=== PATIENT | female | born 1995 | race Caucasian/White ===

== ENCOUNTER 2016-11-26 15:40 | Emergency (ER) | payer OTHER ==
[~2016-11-26 15:40] MED LIST: ATR25 PO; FLUO20CA36 PO; IBUP-1050 PO
[2016-11-26 15:46] VITALS: TEMP 36.9; Ht 160 cm
[2016-11-26] MEDS ORDERED: SODIUM CHLORIDE 0.9% 1000ML 1,000 ML IV STA (16:07)
[2016-11-26] MEDS ORDERED: HYDR-3126 PO (16:28)
[2016-11-26] MEDS ORDERED: FLUO10CA24 PO (16:28)
[2016-11-26] MEDS ORDERED: FLUO20TA27 PO (16:28)
[2016-11-26 16:44] VITALS: O2SAT 100
[2016-11-26 17:10] LABS: BASO % 0.4 %; BASO ABS # 0.03 K/uL (0-0.2); COMPLETE YES; EOS % 0.8 %; HEMATOCRIT 36.9 % (37-47); IG% 0.1 %; LYMPH % 22.3 %; LYMPH ABS # 1.74 K/uL (1.2-3.4); MEAN CELL VOLUME 90.2 fL (80-100); MEAN CORPUSCULAR HEMOGLOBIN 30.6 pg (25-34); MEAN CORPUSCULAR HGB CONC 33.9 g/dl (32-36); MEAN PLATELET VOLUME 9.5 fL (7.4-10.4); MONO % 5.1 %; NEUT % 71.3 %; PLATELET COUNT 197 K/uL (130-400); RED BLOOD COUNT 4.09 M/uL (4.2-5.4)
[2016-11-26 17:17] LABS: ALT/SGPT 14 U/L (12-78); BLOOD UREA NITROGEN 18 mg/dl (7-18); BUN/CREATININE RATIO 10.5 (10-20); CALCIUM 8.7 mg/dl (8.5-10.1); CARBON DIOXIDE 23 mmol/L (21-32); CHLORIDE 107 mmol/L (98-107); GLUCOSE 76 mg/dl (70-99); POTASSIUM 3.6 mmol/L (3.5-5.1); SODIUM 140 mmol/L (136-145)
[2016-11-26 17:18] LABS: INR 1.1 (0.9-1.1); PROTHROMBIN TIME (PATIENT) 11.4 SECONDS (9.0-12.0)
[2016-11-26 17:20] LABS: ALKALINE PHOSPHATASE 57 U/L (45-117); AST/SGOT 14 U/L (15-37)
[2016-11-26 17:21] LABS: URINE APPEARANCE CLEAR (CLEAR); URINE BILIRUBIN NEG (NEG); URINE COLOR YELLOW; URINE NITRITE NEG (NEG); UROBILINOGEN NEG (NEG)
[2016-11-26 17:28] LABS: MANUAL MICROSCOPIC REQUIRED? NO; REVIEW REQ? NO
[2016-11-26 17:51] LABS: BENZODIAZEPINE, URINE NEG (NEG); COCAINE,URINE NEG (NEG); PHENCYCLIDINE, URINE NEG (NEG)
[2016-11-26] MEDS ORDERED: LEVO50TA6 PO (17:52)
[2016-11-26 18:37] VITALS: BP 111/47; PULSE 68; O2SAT 100
--- NOTE | 2016-11-26 21:45 | EMERGENCY ROOM VISIT NOTE ---
History Report prepared by Ryan: Mauri Carlson Under the Supervision of: Dr. Martin Priest D.O. First contact with patient: 15:51 Chief Complaint: DIZZY Stated Complaint: SHAKING, NAUSEA, DIZZY, NUMBNESS Nursing Triage Summary: Pt was released from the [facility] at the end of Oct. Pt stated that her medication was adjusted. Pt stated that since her medication was changes she has been dizzy, shaky and feels like a zombie. History of Present Illness The patient is a 21 year old female who presents to the Emergency Room with complaints of tremors and numbness beginning about 2 weeks ago. She notes she was released from the [facility] at the end of October 2016 and that her dosage of Vistaril increased prior to leaving. She was at the [facility] because of having suicidal ideations. Since the increase in dosage, she notes having tremors and numbness in her palms and all fingers bilaterally and in her face. She denies having any tremors prior to her dosage of Vistaril being increased. She admits to having nausea and dizziness, and denies any headache, chest pain, shortness of breath, vomiting, diarrhea, or vaginal bleeding or discharge. No fevers greater than 100.4. Source of History: patient Onset: about 2 weeks ago Position: hand (bilateral), finger(s), other (face) Quality: numbness, other (tremors) Timing: other (persistent) Associated Symptoms: + nausea, No SOB, No chest pain, No diarrhea, No headache, No vomiting Note: The patient notes having dizziness. The patient denies having any vaginal bleeding or discharge. Review of Systems See HPI for pertinent positives & negatives. A total of 10 systems reviewed and were otherwise negative. Past Medical & Surgical Medical Problems: (1) Borderline personality disorder (2) Cannabis abuse (3) Hypothyroid (4) Kidney disease (5) Past Psych Meds (6) PTSD (post-traumatic stress disorder) (7) Visual impairment Social History Problems: (1) Sexually active Family History No pertinent family history Social History Smoking Status: Never Smoker Marital Status: single Housing Status: lives with family Occupation Status: employed Current/Historical Medications Scheduled Fluoxetine HCl (Fluoxetine HCl), 10 MG PO QAM Fluoxetine HCl (Pmdd) (Fluoxetine HCl), 20 MG PO QAM Levothyroxine Sodium (Levothyroxine Sodium), 50 MCG PO QAM Scheduled PRN Hydroxyzine Hcl (Atarax), 50 MG PO Q4H PRN for Anxiety Allergies Coded Allergies: Lamotrigine (Verified Allergy, Unknown, itchy, 10/16/16) Physical Exam Vital Signs Date Time Temp Pulse Resp B/P Pulse Ox O2 Delivery O2 Flow Rate FiO2 11/26/16 18:37 68 16 111/47 100 Room Air 11/26/16 17:54 67 16 113/63 100 Room Air 11/26/16 17:09 69 11/26/16 16:44 100 Room Air 11/26/16 15:46 36.9 82 18 114/80 100 Room Air Pain Rating (0-10): 0 Physical Exam GENERAL: Sitting in bed; cachectic no acute distress, nontoxic. EYE EXAM: normal conjunctiva, PERRL OROPHARYNX: no exudate, no erythema, lips, buccal mucosa, and tongue normal and mucous membranes are moist NECK: supple, no nuchal rigidity, no adenopathy, non-tender LUNGS: Clear to auscultation. Normal chest wall mechanics HEART: no murmurs, S1 normal and S2 normal ABDOMEN: abdomen soft, non-tender, normo-active bowel sounds, no masses, no rebound or guarding. BACK: Back is symmetrical on inspection and there is no deformity, no midline tenderness, no CVA tenderness. SKIN: no rashes and no bruising UPPER EXTREMITIES: upper extremities are grossly normal. LOWER EXTREMITIES: No pitting edema. NEURO EXAM: Intermittent resting tremor which resolves when distracted. Cranial nerves II-12 are intact. No weakness of the upper or lower extremity is. Finger to nose intact are intact. Rapid alternating movements of the upper extremities are intact. no clonus Medical Decision & Procedures Laboratory Results 11/26/16 16:52 Red Blood Count 4.09, Mean Corpuscular Volume 90.2, Mean Corpuscular Hemoglobin 30.6, Mean Corpuscular Hemoglobin Concent 33.9, Mean Platelet Volume 9.5, Neutrophils (%) (Auto) 71.3, Lymphocytes (%) (Auto) 22.3, Monocytes (%) (Auto) 5.1, Eosinophils (%) (Auto) 0.8, Basophils (%) (Auto) 0.4, Neutrophils # (Auto) 5.56, Lymphocytes # (Auto) 1.74, Monocytes # (Auto) 0.40, Eosinophils # (Auto) 0.06, Basophils # (Auto) 0.03 11/26/16 16:52 Test 11/26/16 16:45 11/26/16 16:52 Urine Color YELLOW Urine Appearance CLEAR (CLEAR) Urine pH 6.0 (4.5-7.5) Urine Specific [place] 1.010 (1.000-1.030) Urine Protein NEG (NEG) Urine Glucose (UA) NEG (NEG) Urine Ketones NEG (NEG) Urine Occult Blood NEG (NEG) Urine Nitrite NEG (NEG) Urine Bilirubin NEG (NEG) Urine Urobilinogen NEG (NEG) Urine Leukocyte Esterase NEG (NEG) Urine Test NEG (NEG) Urine Opiates Screen NEG (NEG) Urine Methadone, Qualitative NEG (NEG) Urine Barbiturates NEG (NEG) Urine Phencyclidine (PCP) Level NEG (NEG) Ur Amphetamine/Methamphetamine NEG (NEG) MDMA (Ecstasy) Screen NEG (NEG) Urine Benzodiazepines Screen NEG (NEG) Urine Cocaine Metabolite NEG (NEG) Urine Marijuana (THC) NEG (NEG) White Blood Count 7.80 K/uL (4.8-10.8) Red Blood Count 4.09 M/uL (4.2-5.4) Hemoglobin 12.5 g/dL (12.0-16.0) Hematocrit 36.9 % (37-47) Mean Corpuscular Volume 90.2 fL (80-100) Mean Corpuscular Hemoglobin 30.6 pg (25-34) Mean Corpuscular Hemoglobin Concent 33.9 g/dl (32-36) Platelet Count 197 K/uL (130-400) Mean Platelet Volume 9.5 fL (7.4-10.4) Neutrophils (%) (Auto) 71.3 % Lymphocytes (%) (Auto) 22.3 % Monocytes (%) (Auto) 5.1 % Eosinophils (%) (Auto) 0.8 % Basophils (%) (Auto) 0.4 % Neutrophils # (Auto) 5.56 K/uL (1.4-6.5) Lymphocytes # (Auto) 1.74 K/uL (1.2-3.4) Monocytes # (Auto) 0.40 K/uL (0.11-0.59) Eosinophils # (Auto) 0.06 K/uL (0-0.5) Basophils # (Auto) 0.03 K/uL (0-0.2) RDW Standard Deviation 43.4 fL (36.4-46.3) RDW Coefficient of Variation 13.2 % (11.5-14.5) Immature Granulocyte % (Auto) 0.1 % Immature Granulocyte # (Auto) 0.01 K/uL (0.00-0.02) Prothrombin Time 11.4 SECONDS (9.0-12.0) Prothromb Time International Ratio 1.1 (0.9-1.1) Activated Partial Thromboplast Time 26.4 SECONDS (21.0-31.0) Partial Thromboplastin Ratio 1.0 Anion Gap 10.0 mmol/L (3-11) Estimated GFR () 48.4 Estimated GFR (Non- 41.8 BUN/Creatinine Ratio 10.5 (10-20) Calcium Level 8.7 mg/dl (8.5-10.1) Total Bilirubin 0.6 mg/dl (0.2-1) Direct Bilirubin 0.1 mg/dl (0-0.2) Aspartate Amino Transf (AST/SGOT) 14 U/L (15-37) Alanine Aminotransferase (ALT/SGPT) 14 U/L (12-78) Alkaline Phosphatase 57 U/L (45-117) Total Creatine Kinase 65 U/L (26-192) Total Protein 7.3 gm/dl (6.4-8.2) Albumin 3.9 gm/dl (3.4-5.0) Lipase 150 U/L (73-393) Laboratory results per my review. Medications Administered Medications (Trade) Dose Ordered Sig/Evie Route Start Time Stop Time Status Last Admin Dose Admin Sodium Chloride (Nss 1000ml) 1,000 ml @ 999 mls/hr Q1H1M STAT IV 11/26/16 16:07 11/26/16 17:07 DC 11/26/16 17:02 999 MLS/HR ECG Indication: weakness Rate (beats per minute): 68 Rhythm: sinus rhythm Findings: no ectopy, other (normal axis) ED Course ED COURSE: Vital signs were reviewed and showed normal. The patients medical record was reviewed The above diagnostic studies were performed and reviewed. ED treatments and interventions as stated above. 1607: Ordered NSS 1,000 ml @ 999 mls/hr IV. 1619: The patient was evaluated in room B10. A complete history and physical examination was performed. 174: The patient decline a CT of the head. 1830: Upon reevaluation, the patient is hemodynamically stable.I discussed my findings with the patient and she understands and agrees with the treatment plan. Based on the patients age, coexisting illnesses, exam and lab findings the decision to treat as an outpatient was made. The patient remained stable while under my care. The patient appeared well at the time of discharge. Medical Decision Differential Diagnosis includes but is not limited to dehydration, stroke, anemia, hypoglycemia, hyponatremia, hypernatremia, urinary tract infection, pneumonia, bronchitis, sepsis, gastroenteritis, additional abdominal pathology, metabolic abnormalities and infections. Patient is a 21-year-old female who presents the ER for lightheadedness along with a resting tremor. She was discharged from the [facility] just before and has been on Prozac started Vistaril and Remeron. She notes that she has been feeling more foggy and has been having worsening resting tremor. Completely neurologically intact. No cerebellar symptoms. She denies any chest pain or shortness of breath. CBC was unremarkable. BMP shows a creatinine 1.7 off of a baseline of 1.4. CK was normal. Lipase was normal. Bilirubin and LFTs were unremarkable. UA was negative. Urine was negative. Drug screen was negative. Recommended CT head but patient declined health is reasonable. She was given a bolus of saline. Tremor resolved when she was distracted. There is no signs of clonus. I do favor that this could be related to the Prozac which has attended 15% incidence of tremor and Vistaril only has a 1-2%. She has an appointment with her psychiatrist this . Recommended no driving or standing on ladders. I do favor that this is likely to medications. Discussed with Pt concerning signs and symptoms to watch out for. Pt was instructed to follow up with their PCP and discussed with the patient their option to return to the ED at anytime for persistent or worsening symptoms. The appropriate anticipatory guidance and out-patient management, including indications for return to the emergency department, were explained at length to the patient and understood. Impression Primary Impression: Tremor Additional Impression: Dizzy Scribe Attestation The scribe's documentation has been prepared under my direction and personally reviewed by me in its entirety. I confirm that the note above accurately reflects all work, treatment, procedures, and medical decision making performed by me. Departure Information Dispostion Home / Self-Care Forms HOME CARE DOCUMENTATION FORM, IMPORTANT VISIT INFORMATION Patient Instructions My [facility], ED Dizziness [facility] Additional Instructions Please follow up with your primary care doctor with in the next 24 hours. Any worsening of your symptoms, please return to the ED immediately. Leads do not drive for the next 24 hours or until your symptoms resolved. Any fevers greater than 100.4, persistent nausea vomiting, abdominal pain, or any other concerning signs or symptoms please return to the ER. Please discuss with her psychiatrist John Panchal and Vistaril association with tremors. Problem Qualifiers
== END 2016-11-26 18:38 | disposition home or self-care (01) ==
LOC: C.EDB 15:41
DX: R25.1 Tremor, unspecified (principal); R42 Dizziness and giddiness; F60.3 Borderline personality disorder; F43.10 Post-traumatic stress disorder, unspecified; E03.9 Hypothyroidism, unspecified; Z79.899 Other long term (current) drug therapy; R64 Cachexia

== ENCOUNTER 2017-03-04 15:26 | Emergency (ER) | payer OTHER ==
[~2017-03-04] VITALS: Ht 160 cm; Wt 39.6 kg
[~2017-03-04 15:26] MED LIST changes: -ATR25 PO; +FLUO10CA24 PO; -FLUO20CA36 PO; +FLUO20TA27 PO; +HYDR-3126 PO; -IBUP-1050 PO; +LEVO50TA6 PO
[2017-03-04 15:37] VITALS: TEMP 37.1; Ht 160 cm; Wt 39.6 kg
[2017-03-04] MEDS ORDERED: LEVO75TA5 PO (15:52)
[2017-03-04] MEDS ORDERED: MIRT15TA3 PO (15:52)
[2017-03-04] MEDS ORDERED: FLUO20CA36 PO (15:56)
[2017-03-04] MEDS ORDERED: SRQ25 PO (15:58)
[2017-03-04] MEDS ORDERED: QUET1TAB91 PO (16:18)
--- NOTE | 2017-03-04 16:29 | EMERGENCY ROOM VISIT NOTE ---
History Report prepared by Ryan: Yohana Huber Under the Supervision of: Dr. Huseyin Chery D.O. First contact with patient: 15:41 Chief Complaint: MENTAL HEALTH EVALUATION Stated Complaint: BIPOLAR ISSUES History of Present Illness The patient is a 21 year old female who presents to the Emergency Room with complaints of persistent mental health issues starting 2 weeks ago. She has been on 25 mg Seroquel daily for the past 1.5 months for bipolar. She ran out of her medications 2 weeks ago and states that no doctor will refill her prescription. She was being treated at [facility], but her case was closed for 90 days after she missed her follow up appointments due to work. Her PCP refilled all her other prescriptions, but is unable to refill her Seroquel. She denies any thoughts of hurting herself or others. She denies any auditory hallucination. She denies any drug or alcohol use. She has a history of kidney problems. She has had her tonsils and adenoids removed. 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 Source of History: patient Onset: 2 weeks ago Position: other (mental health) Quality: other (bipolar medication refill) Timing: other (persistent) Note: Pt denies thoughts of hurting herself or others, auditory hallucinations. Review of Systems See HPI for pertinent positives & negatives. A total of 10 systems reviewed and were otherwise negative. Past Medical & Surgical Medical Problems: (1) Borderline personality disorder (2) Cannabis abuse (3) Hypothyroid (4) Kidney disease (5) Past Psych Meds (6) PTSD (post-traumatic stress disorder) (7) Visual impairment Social History Problems: (1) Sexually active Family History Diabetes mellitus Seizures Social History Smoking Status: Former Smoker Marital Status: single Housing Status: lives with family Occupation Status: employed Current/Historical Medications Scheduled Fluoxetine HCl (Fluoxetine HCl), 20 MG PO QAM Levothyroxine Sodium (Levothyroxine Sodium), 75 MCG PO QAM Mirtazapine (Remeron), 15 MG PO HS Quetiapine Fumarate (Quetiapine Fumarate), 25 MG PO DAILY Quetiapine Fumarate (Seroquel), 25 MG PO DAILY Scheduled PRN Hydroxyzine Hcl (Atarax), 50 MG PO Q4H PRN for Anxiety Allergies Coded Allergies: Lamotrigine (Verified Allergy, Unknown, itchy, 03/04/17) Physical Exam Vital Signs Date Time Temp Pulse Resp B/P Pulse Ox O2 Delivery O2 Flow Rate FiO2 03/04/17 17:00 76 18 139/70 98 03/04/17 15:37 37.1 88 20 128/74 98 Room Air Physical Exam GENERAL: Patient is awake, alert, and mildly anxious and guarded. She does not appear to be in pain. EYES: The conjunctivae are clear. The pupils are round and reactive. EARS, NOSE, MOUTH AND THROAT: The nose is without any evidence of any deformity. Mucous membranes are moist tongue is midline NECK: The neck is nontender and supple. RESPIRATORY: Normal respiratory effort is noted there is no evidence of wheezing rhonchi or rales CARDIOVASCULAR: Regular rate and rhythm noted there no murmurs rubs or gallops normal S1 normal S2 GASTROINTESTINAL: The abdomen is soft. Bowel sounds are present in all quadrants. Abdomen is nontender MUSCULOSKELETAL/EXTREMITIES: There is no evidence of gross deformity full range of motion is noted in the hips and shoulders SKIN: There is no obvious evidence of any rash. There are no petechiae, pallor or cyanosis noted. NEUROLOGIC: Patient is awake alert and oriented x3 strength is symmetric patellar reflexes are 2+ bilaterally PSYCH: Mildly anxious appearing, affect was normal, currently denies SI or HI. Medical Decision & Procedures ED Course 1550: The patient was evaluated in room A5. A complete history and physical examination were performed. 1709: Upon reevaluation, the patient is resting comfortably. I discussed the results and treatment plan with her. She verbalized agreement of the treatment plan. She was discharged home. Medical Decision Prior records/ancillary studies reviewed. Triage Nursing notes reviewed. The patient's history was concerning for possible psychiatric disturbance. Differential diagnosis: Etiologies such as mood disorder, infection, hypoglycemia, electrolyte abnormalities, cardiac sources, intracerebral event, toxicologic, neurologic, as well as others were entertained. The patient is a 21-year-old female who presented to the emergency department for an evaluation of mental health problems. Patient is currently controlled well on Seroquel and other medications but she ran out of her Seroquel 2 weeks ago. Unfortunately she's having trouble following up with her primary therapist because she has missed appointments. Currently she is on a hold for 90 days. The patient does not meet any criteria for inpatient psychiatric care at this time. I've chosen to refill her Seroquel prescription. She was evaluated by the mental health employment case manager. Metabolic employment case manager to try to call her primary therapist but we were unable to get her an appointment. She was given information for other outpatient follow-up and was encouraged to continue all medications as prescribed. She was also encouraged to follow-up as soon as possible with her primary therapist. She was also encouraged to call crisis or return to the emergency department immediately if symptoms change worsen or the need arises. Impression Primary Impression: Medication refill Additional Impression: Bipolar disorder Scribe Attestation The scribe's documentation has been prepared under my direction and personally reviewed by me in its entirety. I confirm that the note above accurately reflects all work, treatment, procedures, and medical decision making performed by me. Departure Information Dispostion Home / Self-Care Prescriptions Quetiapine Fumarate (SEROQUEL) 25 Mg Tab 25 MG PO DAILY, #30 TAB Prov: Huseyin Cehry, 03/04/17 Referrals Nina Ricardo D.O. (PCP) Forms HOME CARE DOCUMENTATION FORM, IMPORTANT VISIT INFORMATION, School Instructions, Work Instructions Patient Instructions My [facility] Additional Instructions CONTINUE ALL MEDICATIONS PRESCRIBED. Follow up with your therapist as scheduled. Call crisis or return to the ER if symptoms worsen or if the need arises Problem Qualifiers
[2017-03-04 17:00] VITALS: BP 139/70; PULSE 76; O2SAT 98
== END 2017-03-04 17:38 | disposition home or self-care (01) ==
LOC: C.EDB 15:30 → C.EDA 17:38
DX: Z76.0 Encounter for issue of repeat prescription (principal); F31.9 Bipolar disorder, unspecified; F60.3 Borderline personality disorder; E03.9 Hypothyroidism, unspecified; N28.9 Disorder of kidney and ureter, unspecified; F43.10 Post-traumatic stress disorder, unspecified; F12.10 Cannabis abuse, uncomplicated; Z83.3 Family history of diabetes mellitus; Z87.891 Personal history of nicotine dependence; H54.40 Blindness, one eye, unspecified eye; Z79.899 Other long term (current) drug therapy

== ENCOUNTER 2017-04-06 00:52 | Emergency (ER) | payer OTHER ==
[~2017-04-06] VITALS: Ht 160 cm; Wt 41.0 kg
[~2017-04-06 00:52] MED LIST changes: -FLUO10CA24 PO; +FLUO20CA36 PO; -FLUO20TA27 PO; -LEVO50TA6 PO; +LEVO75TA5 PO; +MIRT15TA3 PO; +QUET1TAB91 PO; +SRQ25 PO
[2017-04-06 00:59] VITALS: Ht 160 cm; Wt 41.0 kg
[2017-04-06] MEDS ORDERED: HYDROCODONE/ACETAMOPHEN 5/325MG TAB PO ONE (01:15)
--- NOTE | 2017-04-06 01:25 | DIAGNOSTIC IMAGING REPORT ---
RIGHT FOOT 3 VIEWS CLINICAL HISTORY: Right foot injury. FINDINGS: 3 views of the right foot are obtained. No prior studies are available for comparison at the time of dictation. The skeletal structures are well mineralized. No fracture is seen. The joint spaces of the foot are well-maintained. The overlying soft tissues are within normal limits. IMPRESSION: Unremarkable radiographic assessment of the right foot. Electronically signed by: Juliano Toussaint M.D. 04/06/2017 1:24 AM Dictated Date/Time: 04/06/2017 1:23 AM
[2017-04-06] MEDS ORDERED: NORCO 5/325MG HOME PACK PO ONE (01:45)
[2017-04-06] MEDS ORDERED: LEVO75TA5 PO (01:52)
[2017-04-06] MEDS ORDERED: FLUO20CA35 PO (01:52)
[2017-04-06] MEDS ORDERED: MIRT15TA3 PO (01:52)
[2017-04-06] MEDS ORDERED: SRQ/100 PO (01:52)
[2017-04-06] MEDS ORDERED: HYDR-3126 PO (01:52)
[2017-04-06 02:19] VITALS: BP 115/78; PULSE 98; TEMP 36.9; O2SAT 97
--- NOTE | 2017-04-06 04:40 | EMERGENCY ROOM VISIT NOTE ---
ED Visit Note First contact with patient: 01:03 CHIEF COMPLAINT: Foot pain HISTORY OF PRESENT ILLNESS: This 20-year-old female patient presents to the emergency department complaining of swelling and pain in the right foot at rest and worse with weight bearing. The patient states that she was at work, and was lowering a skid down off a truck, when it landed on top of her foot. The patient rates the pain as dull and 6/10. The patient has taken nothing relief of the pain. The patient is able to walk. No numbness or weakness. No ankle pain. There are no lacerations of the foot. The patient is able to move all of their toes and their ankle without pain. No previous fracture to this foot. REVIEW OF SYSTEMS: GENERAL: A 6 system review of systems was completed with positives and pertinent negatives in the HPI. ALLERGIES: Lamotrigine MEDICATIONS: See EMR PMH: See EMR SOCIAL HISTORY: Employed and lives locally PHYSICAL EXAM: Vital Signs: Reviewed Nurse's notes, vital signs stable. GENERAL : White female, in no acute distress, but appears in pain, well-developed, well- nourished. MUSCULOSKELATAL: There is no visual deformity of the right foot. There is no erythema and not ecchymosis. There is no warmth. There is tenderness and swelling over the lateral midfoot. There is no tenderness over the lateral or medial malleolus. No tenderness of the tib/fib. The range of motion of the foot is not limited secondary to pain. There is no tenderness over the plantar fascia. The skin is intact and there are no lacerations or puncture wounds. Dorsalis pedis pulse 2+. Capillary refill less than 2 seconds. RIGHT FOOT 3 VIEWS CLINICAL HISTORY: Right foot injury. FINDINGS: 3 views of the right foot are obtained. No prior studies are available for comparison at the time of dictation. The skeletal structures are well mineralized. No fracture is seen. The joint spaces of the foot are well-maintained. The overlying soft tissues are within normal limits. IMPRESSION: Unremarkable radiographic assessment of the right foot. EMERGENCY DEPARTMENT COURSE: Physical exam and history were performed. Nursing notes and EMR were reviewed. The patient appears to have injured herself at work. X-rays were obtained and do not show evidence of acute fracture or dislocation. The patient was placed in a postop shoe and given crutches. She will be given a short course of pain medication. She is to follow with workman' s compensation for ongoing care and evaluation. She was otherwise invited back to the ER with any new, worsening, or concerning symptoms Problem List Medical Problems: (1) Borderline personality disorder Status: Chronic (2) Cannabis abuse Status: Chronic (3) Hypothyroid Status: Chronic (4) Kidney disease Status: Chronic (5) Visual impairment Status: Chronic Current/Historical Medications Scheduled Fluoxetine (Prozac), 20 MG PO DAILY Hydroxyzine Hcl (Atarax), 50 MG PO TID Levothyroxine Sodium (Levothyroxine Sodium), 1 TAB PO DAILY Mirtazapine (Remeron), 15 MG PO HS Quetiapine Fumarate (Seroquel), 100 MG PO HS Allergies Coded Allergies: Lamotrigine (Verified Allergy, Unknown, itchy, 04/06/17) Vital Signs Date Time Temp Pulse Resp B/P (MAP) Pulse Ox O2 Delivery O2 Flow Rate FiO2 04/06/17 02:19 36.9 98 16 115/78 97 04/06/17 02:18 98 16 115/78 97 Room Air 04/06/17 00:59 36.9 99 16 130/63 97 Room Air Medications Administered Medications (Trade) Dose Ordered Sig/Evie Route Start Time Stop Time Status Last Admin Dose Admin Acetaminophen/ Hydrocodone Bitart ([place] 5/325 Tab) 1 tab NOW ONCE PO 04/06/17 01:15 04/06/17 01:16 DC 04/06/17 01:28 1 TAB Acetaminophen/ Hydrocodone Bitart ([place] 5/325mg Home Pack) 1 homepack UD ONCE PO 04/06/17 01:45 04/06/17 01:46 DC 04/06/17 01:54 1 HOMEPACK Departure Information Impression Primary Impression: Injury of right foot Dispostion Home / Self-Care Condition GOOD Forms HOME CARE DOCUMENTATION FORM, IMPORTANT VISIT INFORMATION Patient Instructions My [facility] Additional Instructions You were seen and evaluated today on an emergency basis only. This is not a substitute for, or an effort to provide, complete comprehensive medical care. It is not possible to recognize and treat all injuries or illnesses in a single emergency department visit. For this reason it is recommended that you followup with your Workmen's Compensation provider this week for ongoing care and evaluation. For baseline pain relief you may alternate ibuprofen and acetaminophen every 4 hours for pain control. Take 400 mg ibuprofen (Advil) and then 4 hours later take 650 mg acetaminophen (Tylenol). Do not take more than 3000 mg acetaminophen in a single day. [place] (hydrocodone/acetaminophen) 5/325 mg every 6 hours as needed for worsening breakthrough pain. Do not drink or drive on [place]. This medication will likely make you tired. Do not take [place] and Tylenol at the same time as both contain acetaminophen. [place] may cause constipation. You may wish to take an [id number] stool softener like Colace if this occurs. Wear your postop shoe and use your crutches for additional relief of symptoms. You are welcome to return to the emergency department anytime with new, worsening, or concerning symptoms.
== END 2017-04-06 02:21 | disposition home or self-care (01) ==
LOC: C.EDB 00:53 → C.EDA 02:21
DX: S99.921A Unspecified injury of right foot, initial encounter (principal); M79.89 Other specified soft tissue disorders; E03.9 Hypothyroidism, unspecified; N18.9 Chronic kidney disease, unspecified; F60.3 Borderline personality disorder; Z79.899 Other long term (current) drug therapy; W22.8XXA Striking against or struck by other objects, initial encounter; Y99.0 Civilian activity done for income or pay

== ENCOUNTER 2018-06-08 21:12 | Emergency (ER) | payer OTHER ==
[~2018-06-08] VITALS: Ht 160 cm; Wt 51.8 kg
[~2018-06-08 21:12] MED LIST changes: +ACET-1256 PO; +FLUO10CA48 PO; +FLUO20CA35 PO; -FLUO20CA36 PO; -QUET1TAB91 PO; +SRQ/100 PO; -SRQ25 PO
[2018-06-08 21:17] VITALS: TEMP 36.8; Ht 160 cm; Wt 51.8 kg
[2018-06-08] MEDS ORDERED: KETOROLAC TROMETHAMINE 30 MG/ML VIAL IV STA (21:34)
[2018-06-08] MEDS ORDERED: DiphenhydrAMINE HCL 50 MG/ML VIAL IV STA (21:34)
[2018-06-08] MEDS ORDERED: PROCHLORPERAZINE 5 MG/ML 2 ML VIAL IV STA (21:34)
[2018-06-08] MEDS ORDERED: SODIUM CHLORIDE 0.9% 1000ML 1,000 ML IV ONE (21:45)
[2018-06-08] MEDS ORDERED: DEXAMETHASONE **PF** INJ 10 MG/ML VIAL IV ONE (21:45)
[2018-06-08] MEDS ORDERED: DEXAMETHASONE SOD INJ 10 MG/ML VIAL ONE (21:46)
[2018-06-08 22:48] VITALS: BP 120/59; PULSE 82; O2SAT 99
--- NOTE | 2018-06-09 03:13 | EMERGENCY ROOM VISIT NOTE ---
History First contact with patient: 21:28 Chief Complaint: HEADACHE Stated Complaint: MIGRAINE,FEVER,NAUSEA,VOMITING History of Present Illness The patient is a 23 year old female who presents to the Emergency Room with complaints of migraine headache symptoms that began earlier this morning. The patient is nauseated and does report one episode of emesis. She has had migraine headaches in the past, and this feels similar to her bad headaches. She does not have vision changes, lightheadedness, dizziness, neck pain, chest pain, chest tightness, or shortness of breath. She has difficulty seeing specialist with her insurance, and was never seen neurology. She does have an appointment in a few weeks with her primary care physician. Patient did take [id number] pain medication without any relief of symptoms. She rates her current pain a 9/10. She denies chance of . Review of Systems More than 10 systems were reviewed and otherwise negative with the exception of history of present illness. Past Medical/Surgical History Medical Problems: (1) Borderline personality disorder (2) Cannabis abuse (3) Hypothyroid (4) Kidney disease (5) Past Psych Meds (6) PTSD (post-traumatic stress disorder) (7) Visual impairment Social History Problems: (1) Sexually active Family History Diabetes mellitus Seizures Social History Smoking Status: Never Smoker Marital Status: single Housing Status: lives with family Occupation Status: employed Current/Historical Medications Scheduled Fluoxetine (Prozac), 20 MG PO DAILY Fluoxetine (Prozac), 10 MG PO DAILY Hydroxyzine Hcl (Atarax), 50 MG PO TID Levothyroxine Sodium (Levothyroxine Sodium), 75 MCG PO DAILY Mirtazapine (Remeron), 15 MG PO HS Quetiapine Fumarate (Seroquel), 100 MG PO HS Scheduled PRN Acetaminophen (Tylenol), 1,000 MG PO Q6H PRN for Headache or Pain Physical Exam Vital Signs Date Time Temp Pulse Resp B/P (MAP) Pulse Ox O2 Delivery O2 Flow Rate FiO2 06/08/18 22:48 82 18 120/59 99 06/08/18 22:13 80 14 129/63 100 Room Air 06/08/18 21:17 36.8 78 16 129/82 98 Room Air Physical Exam VITALS: Vitals are noted on the nurse's note and reviewed by myself. Vital signs stable. GENERAL: Well-developed, well-nourished, white female who appears uncomfortable but nontoxic. EYES: Pupils equal round and reactive to light and accommodation. Conjunctivae without injection, sclerae without icterus. Extraocular movements intact. NOSE: Patent, turbinates without inflammation or discharge. MOUTH: Mucous membranes moist. Tonsils are not enlarged. Pharynx without erythema, blood, or exudate. Uvula midline. Airway patent. NECK: Supple without nuchal rigidity. No lymphadenopathy. No thyromegaly. Cervical spine is nontender. No meningismus HEART: Regular rate and rhythm without murmurs gallops or rubs. LUNGS: Clear to auscultation bilaterally without wheezes, rales or rhonchi. No retractions or accessory muscle use. MUSCULOSKELETAL: No muscle atrophy, erythema, or edema noted. Full range of motion in all extremities. NEURO: Patient was alert and oriented to person place and time. CN II through XII grossly intact. No focal neurological deficits. Medical Decision & Procedures Medications Administered Medications (Trade) Dose Ordered Sig/Evie Route Start Time Stop Time Status Last Admin Dose Admin Diphenhydramine HCl (Benadryl Inj) 25 mg NOW STAT IV 06/08/18 21:34 06/08/18 21:36 DC 06/08/18 22:03 25 MG Prochlorperazine Edisylate (Compazine Inj) 10 mg NOW STAT IV 06/08/18 21:34 06/08/18 21:36 DC 06/08/18 22:04 10 MG Ketorolac Tromethamine (Toradol Inj) 15 mg NOW STAT IV 06/08/18 21:34 06/08/18 21:36 DC 06/08/18 22:03 15 MG Sodium Chloride 1,000 ml @ 999 mls/hr Q1H1M ONCE IV 06/08/18 21:45 06/08/18 22:45 DC 06/08/18 22:01 999 MLS/HR Dexamethasone Sodium Phosphate (Decadron Inj) 10 mg STK-MED ONCE .ROUTE 06/08/18 21:46 06/08/18 21:47 DC 06/08/18 22:03 10 MG ED Course Physical exam and history were performed. Nursing notes, EMR, and Medication List were personally reviewed. Patient appears to have headache symptoms bring her to the emergency department today. She has had similar symptoms like this in the past, and this feels like her previous bad migraines. The patient is without signs of meningitis or encephalitis. IV access was established and the patient was given 1 L IV saline , 50 mg IV Toradol, 10 mg IV Decadron, 25 mg IV Benadryl, and 10 mg IV. The patient was monitored over the course of the next hour and had almost complete resolution of her symptoms. Overall she is felt well for discharge. The patient was asked to follow-up with her primary care physician for further management. The patient was discharged home under the care of her boyfriend who is acting as the truck driver salesperson today. The chart was completed utilizing [employer] Speech Voice Recognition Software. Grammatical errors, random word insertions, pronoun errors, and incomplete sentences are an occasional consequence of this system due to software limitations, ambient noise, and hardware issues. Any formal questions or concerns about the content, text, or information contained within the body of this dictation should be directly addressed to the provider for clarification. . Medical Decision Differential diagnosis: Etiologies such as migraine headache, meningitis, sinusitis, CO exposure, ICH, SAH, infection, tumor, headache, sinus thrombosis, arterial dissection, as well as others were entertained. Impression Primary Impression: Headache Departure Information Dispostion Home / Self-Care Condition GOOD Referrals Nina Ricardo D.O. (PCP) Forms HOME CARE DOCUMENTATION FORM, IMPORTANT VISIT INFORMATION Patient Instructions My [facility] Additional Instructions You were seen and evaluated today on an emergency basis only. This is not a substitute for, or an effort to provide, complete comprehensive medical care. It is not possible to recognize and treat all injuries or illnesses in a single emergency department visit. For this reason it is recommended that you followup with your primary care physician or neurologist this week for ongoing care and evaluation. DO NOT drive, drink alcohol, operate machinery, or perform dangerous activities today. You were given medications in the ER that can affect your ability to safely function or operate a vehicle. Rest today in a quiet, peaceful, dark environment and get a full 8-10 hrs of sleep tonight. Avoid loud noises, smoke/smoking, alcohol, bright lights, stress, or physical exertion today to minimize the chance the headache may return. Continue current medications. Ibuprofen(Motrin, Advil) may be used for fever or pain. Use 600mg every six hours as needed. Take with food. Avoid using more than 2400mg in a 24 hour period. Do not use 2400mg per day for more than three consecutive days without physician direction. Prolonged inappropriate use can lead to stomach upset or ulcers. (AND/OR) Acetaminophen(Tylenol) may be used for fever or pain. Use 1000mg every six hours as needed. Avoid using more than 4000mg in a 24 hour period. Return to the ER for passing out, worsening headache, vision problems, neck stiffness/pain, fevers, vomiting, worsening of your condition, or as needed.
== END 2018-06-08 22:48 | disposition home or self-care (01) ==
LOC: C.EDB 21:13
DX: G43.909 Migraine, unspecified, not intractable, without status migrainosus (principal); F60.3 Borderline personality disorder; F12.10 Cannabis abuse, uncomplicated; E03.9 Hypothyroidism, unspecified; F43.10 Post-traumatic stress disorder, unspecified; Z83.3 Family history of diabetes mellitus; Z82.0 Family history of epilepsy and other diseases of the nervous system; Z79.899 Other long term (current) drug therapy

== ENCOUNTER 2018-06-15 11:39 | Inpatient (IN) | payer OTHER ==
[~2018-06-15] VITALS: Ht 160 cm; Wt 51.1 kg
--- NOTE | 2018-06-15 12:07 | EMERGENCY ROOM VISIT NOTE ---
History Report prepared by Ryan: Elvis Antoine Under the Supervision of: Dr. Martin Priest D.O. First contact with patient: 11:54 Chief Complaint: MENTAL HEALTH EVALUATION Stated Complaint: SUCIDAL THOUGHTS History of Present Illness The patient is a 23 year old female who presents to the Emergency Room with complaints of suicidal thoughts worsening in the past 2 or 3 days. The patient attributes these thoughts to bad relationships and feeling guilty because she "lost out on a good apartment." She notes that this has been an ongoing issue for her in the past 3 years. She reports that she has had thoughts of overdosing on her pills, but states that she has not tried to do this. The patient denies hearing voices or seeing people that are not there. She denies any current physical pain. No other exacerbating or remitting factors. Pt denies headache, change in vision, fevers, chest pain, shortness of breath, nausea, vomiting, diarrhea, and pain with urination. Source of History: patient Onset: worsening since 2 or 3 days ago Position: other (brain) Quality: other (suicidal thoughts) Timing: worsening Associated Symptoms: No headache, No SOB, No nausea, No vomiting, No diarrhea, No urinary symptoms Note: denies hearing voices or seeing people that are not there Review of Systems See HPI for pertinent positives & negatives. A total of 10 systems reviewed and were otherwise negative. Past Medical & Surgical Medical Problems: (1) Borderline personality disorder (2) Cannabis abuse (3) Depression (4) Hypothyroid (5) Kidney disease (6) Past Psych Meds (7) PTSD (post-traumatic stress disorder) (8) Suicidal ideation (9) Visual impairment Social History Problems: (1) Sexually active Family History Diabetes mellitus Seizures Social History Smoking Status: Never Smoker Marital Status: single Housing Status: lives with family Occupation Status: employed Current/Historical Medications Scheduled Aripiprazole (Abilify), 5 MG PO HS Fluoxetine (Prozac), 20 MG PO DAILY Fluoxetine (Prozac), 10 MG PO DAILY Levothyroxine Sodium (Levothyroxine Sodium), 1 TAB PO DAILY Quetiapine Fumarate (Seroquel), 100 MG PO HS Scheduled PRN Acetaminophen (Tylenol), 1,000 MG PO Q6H PRN for Headache or Pain Hydroxyzine Pamoate (Vistaril), 1 CAP PO BID PRN for Anxiety Allergies Coded Allergies: Lamotrigine (Verified Allergy, Unknown, itchy, 06/15/18) Paroxetine (Verified Adverse Reaction, Unknown, Suicidal thoughts, 06/15/18 ) Physical Exam Vital Signs Date Time Temp Pulse Resp B/P (MAP) Pulse Ox O2 Delivery O2 Flow Rate FiO2 06/15/18 13:41 77 14 121/79 99 Room Air 06/15/18 11:49 36.6 90 16 131/83 99 Room Air Physical Exam GENERAL: Sitting up in bed, disheveled-appearing, non-toxic EYE EXAM: normal conjunctiva. OROPHARYNX: no exudate, no erythema, lips, buccal mucosa, and tongue normal and mucous membranes are moist NECK: supple, no nuchal rigidity, no adenopathy, non-tender LUNGS: Clear to auscultation. Normal chest wall mechanics HEART: no murmurs, S1 normal and S2 normal ABDOMEN: abdomen soft, non-tender, normo-active bowel sounds, no masses, no rebound or guarding. BACK: Back is symmetrical on inspection and there is no deformity, no midline tenderness, no CVA tenderness. SKIN: no rashes and no bruising UPPER EXTREMITIES: upper extremities are grossly normal. LOWER EXTREMITIES: No pitting edema. NEURO EXAM: Normal sensorium, cranial nerves II-XII grossly intact, normal speech, no gross weakness of arms, no gross weakness of legs. PSYCH: Admits to suicidal ideation with thoughts of overdosing. Medical Decision & Procedures Laboratory Results 06/15/18 12:16 Red Blood Count 4.09, Mean Corpuscular Volume 90.0, Mean Corpuscular Hemoglobin 29.3, Mean Corpuscular Hemoglobin Concent 32.6, Mean Platelet Volume 9.2, Neutrophils (%) (Auto) 49.0, Lymphocytes (%) (Auto) 34.5, Monocytes (%) (Auto) 10.5, Eosinophils (%) (Auto) 4.2, Basophils (%) (Auto) 0.6, Neutrophils # (Auto ) 4.17, Lymphocytes # (Auto) 2.93, Monocytes # (Auto) 0.89, Eosinophils # (Auto ) 0.36, Basophils # (Auto) 0.05 06/15/18 12:16 Test 06/15/18 12:05 06/15/18 12:16 06/15/18 12:19 06/15/18 12:20 Urine Color YELLOW Urine Appearance TURBID (CLEAR) Urine pH 6.0 (4.5-7.5) Urine Specific [place] 1.013 (1.000-1.030) Urine Protein 1+ (NEG) Urine Glucose (UA) NEG (NEG) Urine Ketones NEG (NEG) Urine Occult Blood NEG (NEG) Urine Nitrite NEG (NEG) Urine Bilirubin NEG (NEG) Urine Urobilinogen NEG (NEG) Urine Leukocyte Esterase NEG (NEG) Urine WBC (Auto) 5-10 /hpf (0-5) Urine RBC (Auto) 0-4 /hpf (0-4) Urine Hyaline Casts (Auto) 1-5 /lpf (0-5) Urine Epithelial Cells (Auto) >30 /lpf (0-5) Urine Bacteria (Auto) 2+ (NEG) Urine Test NEG (NEG) Urine Opiates Screen NEG (NEG) Urine Methadone, Qualitative NEG (NEG) Urine Barbiturates NEG (NEG) Urine Phencyclidine (PCP) Level NEG (NEG) Ur Amphetamine/Methamphetamine NEG (NEG) MDMA (Ecstasy) Screen NEG (NEG) Urine Benzodiazepines Screen NEG (NEG) Urine Cocaine Metabolite NEG (NEG) Urine Marijuana (THC) NEG (NEG) White Blood Count 8.50 K/uL (4.8-10.8) Red Blood Count 4.09 M/uL (4.2-5.4) Hemoglobin 12.0 g/dL (12.0-16.0) Hematocrit 36.8 % (37-47) Mean Corpuscular Volume 90.0 fL (80-100) Mean Corpuscular Hemoglobin 29.3 pg (25-34) Mean Corpuscular Hemoglobin Concent 32.6 g/dl (32-36) Platelet Count 179 K/uL (130-400) Mean Platelet Volume 9.2 fL (7.4-10.4) Neutrophils (%) (Auto) 49.0 % Lymphocytes (%) (Auto) 34.5 % Monocytes (%) (Auto) 10.5 % Eosinophils (%) (Auto) 4.2 % Basophils (%) (Auto) 0.6 % Neutrophils # (Auto) 4.17 K/uL (1.4-6.5) Lymphocytes # (Auto) 2.93 K/uL (1.2-3.4) Monocytes # (Auto) 0.89 K/uL (0.11-0.59) Eosinophils # (Auto) 0.36 K/uL (0-0.5) Basophils # (Auto) 0.05 K/uL (0-0.2) RDW Standard Deviation 46.4 fL (36.4-46.3) RDW Coefficient of Variation 14.1 % (11.5-14.5) Immature Granulocyte % (Auto) 1.2 % Immature Granulocyte # (Auto) 0.10 K/uL (0.00-0.02) Anion Gap 8.0 mmol/L (3-11) Est Creatinine Clear Calc Drug Dose 42.5 ml/min Estimated GFR () 49.9 Estimated GFR (Non- 43.0 BUN/Creatinine Ratio 7.4 (10-20) Calcium Level 8.4 mg/dl (8.5-10.1) Total Bilirubin 0.4 mg/dl (0.2-1) Direct Bilirubin 0.1 mg/dl (0-0.2) Aspartate Amino Transf (AST/SGOT) 13 U/L (15-37) Alanine Aminotransferase (ALT/SGPT) 18 U/L (12-78) Alkaline Phosphatase 65 U/L (45-117) Total Protein 7.5 gm/dl (6.4-8.2) Albumin 3.6 gm/dl (3.4-5.0) Thyroid Stimulating Hormone (TSH) 14.900 uIu/ml (0.300-4.500) Ethyl Alcohol mg/dL < 3.0 mg/dl (0-3) Salicylates Level < 1.7 mg/dl (2.8-20) Acetaminophen Level < 2 ug/ml (10-30) Bedside Glucose 96 mg/dl (70-90) Laboratory results per my review. Medications Administered Medications (Trade) Dose Ordered Sig/Evie Route Start Time Stop Time Status Last Admin Dose Admin Acetaminophen (Tylenol Tab) 1,000 mg STK-MED ONCE .ROUTE 06/15/18 13:45 06/15/18 13:46 DC 06/15/18 13:48 1,000 MG Hydroxyzine HCl (Vistaril Tab) 25 mg Q4H PRN PO 06/15/18 14:45 07/15/18 14:44 06/16/18 08:40 25 MG ED Course ED COURSE: Vital signs were reviewed and showed normal vital signs The patients medical record was reviewed The above diagnostic studies were performed and reviewed. ED treatments and interventions as stated above. 1159: The patient was evaluated in room A6. A complete history and physical examination was performed. 1337: I spoke to Rose, the psychiatric case briefer. They have finished the evaluation, and the patient will be sent upstairs to [address] [place] [id number]. Based on the patients age, coexisting illnesses, exam and lab findings the decision to treat as an inpatient was made. The patient remained stable while under my care. The patient will be evaluated for further management. Medical Decision Differential diagnosis: Etiologies such as mood disorder, infection, hypoglycemia, electrolyte abnormalities, cardiac sources, intracerebral event, toxicologic, neurologic, as well as others were entertained. Patient is a 23-year-old female who presents the ER with suicidal thoughts with a plan to overdose which is been worsening over the past 3 days. She has no other complaints. CBC along with BMP was remarkable for mild hypokalemia. Bilirubin LFTs were normal. TSH was elevated at 15 consistent with her hypo- thyroidism. Tox was negative. UA was contaminated. was negative. Patient was evaluated by our psychiatric adult day care worker. She is agreeable to admission on a 201. Medication Reconcilliation Current Medication List: was personally reviewed by me Blood Pressure Screening Patient's blood pressure: Normal blood pressure Blood pressure disposition: Did not require urgent referral Impression Primary Impression: Suicidal ideation Additional Impressions: Hypokalemia Hypothyroid Scribe Attestation The scribe's documentation has been prepared under my direction and personally reviewed by me in its entirety. I confirm that the note above accurately reflects all work, treatment, procedures, and medical decision making performed by me. Departure Information Dispostion Mental Health Acute Care Referrals Nina Ricardo D.O. (PCP) Patient Instructions My [facility] Problem Qualifiers Additional Impressions: Hypothyroid Hypothyroidism type: unspecified Qualified Codes: E03.9 - Hypothyroidism, unspecified
[2018-06-15 12:32] LABS: BASO % 0.6 %; BASO ABS # 0.05 K/uL (0-0.2); EOS % 4.2 %; EOS ABS # 0.36 K/uL (0-0.5); HEMATOCRIT 36.8 % (37-47); LYMPH % 34.5 %; LYMPH ABS # 2.93 K/uL (1.2-3.4); MEAN CORPUSCULAR HEMOGLOBIN 29.3 pg (25-34); MEAN CORPUSCULAR HGB CONC 32.6 g/dl (32-36); MEAN PLATELET VOLUME 9.2 fL (7.4-10.4); MONO % 10.5 %; MONO ABS # 0.89 K/uL (0.11-0.59); NEUT ABS # 4.17 K/uL (1.4-6.5); PLATELET COUNT 179 K/uL (130-400); RED CELL DISTRIBUTION WIDTH CV 14.1 % (11.5-14.5); RED CELL DISTRIBUTION WIDTH SD 46.4 fL (36.4-46.3)
[2018-06-15 13:02] LABS: ALBUMIN 3.6 gm/dl (3.4-5.0); CALCIUM 8.4 mg/dl (8.5-10.1); CREATININE 1.64 mg/dl (0.60-1.20); POTASSIUM 3.3 mmol/L (3.5-5.1); TOTAL PROTEIN 7.5 gm/dl (6.4-8.2)
[2018-06-15] MEDS ORDERED: ABL/5 PO (13:31)
[2018-06-15] MEDS ORDERED: HYDR50CA PO (13:31)
[2018-06-15] MEDS ORDERED: ACETAMINOPHEN 500 MG TAB ONE (13:45)
[2018-06-15] MEDS ORDERED: NURSING VERBAL MED ORDER ONE (14:00)
[2018-06-15] MEDS ORDERED: BISMUTH SUBSALICYLATE PER ML OMNICELL CHARGE PO PRN (14:45)
[2018-06-15] MEDS ORDERED: MAGNESIUM HYDROXIDE SUSP 30 ML UDC PO PRN (14:45)
[2018-06-15] MEDS ORDERED: SODIUM CHLORIDE 0.65% NA SOLN 45 ML (OCEAN) PRN (14:45)
[2018-06-15] MEDS ORDERED: ALUMINUM/MAGNESIUM SUSP 30 ML UDC PO PRN (14:45)
[2018-06-15 15:17] VITALS: O2SAT 99
[2018-06-15 16:03] VITALS: BP 129/83; PULSE 76; TEMP 36.7; Ht 160 cm; Wt 51.1 kg
[2018-06-15] MEDS ORDERED: LEVO75TA5 PO (16:04)
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
[2018-06-15] MEDS: ACETAMINOPHEN 500 MG TAB PO PRN (17:31)
[2018-06-15] MEDS ORDERED: MIRTAZAPINE TAB 15 MG TAB PO SCH (21:00)
[2018-06-15] MEDS ORDERED: QUETIAPINE FUMARATE 100 MG TAB PO SCH (21:00)
[2018-06-15] MEDS: ARIPIprazole TAB 5 MG TAB PO SCH (21:55)
[2018-06-15] MEDS ORDERED: SUMATRIPTAN SUCCINATE 25 MG TAB PO ONE (22:30)
[2018-06-16 06:41] VITALS: BP_SYST 114; BP_SYST 116; BP_DIAS 75; BP_DIAS 82; PULSE 82; PULSE 91; TEMP 36.5
[2018-06-16] MEDS: LEVOTHYROXINE 75 MCG TAB PO SCH (07:41)
[2018-06-16] MEDS: FLUOXETINE HCL 10 MG CAP PO SCH (08:39)
[2018-06-16] MEDS: FLUOXETINE HCL 20 MG CAP PO SCH (08:39)
[2018-06-16] MEDS: hydrOXYzine HCL 25 MG TAB PO PRN ×3 (08:40→22:55)
[2018-06-16] MEDS ORDERED: ARIPIprazole TAB 5 MG TAB PO SCH (09:00)
[2018-06-16] MEDS: ACETAMINOPHEN 500 MG TAB PO PRN (10:22)
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
[2018-06-16] MEDS ORDERED: KETOROLAC TROMETHAMINE 10 MG TAB PO ONE (11:15)
[2018-06-16] MEDS: ARIPIprazole TAB 5 MG TAB PO SCH (20:30)
[2018-06-17 06:42] VITALS: BP_SYST 114; BP_SYST 126; BP_DIAS 73; BP_DIAS 89; PULSE 65; PULSE 78; TEMP 36.6
[2018-06-17] MEDS: LEVOTHYROXINE 75 MCG TAB PO SCH (08:29)
[2018-06-17] MEDS: FLUOXETINE HCL 10 MG CAP PO SCH (08:29)
[2018-06-17] MEDS: FLUOXETINE HCL 20 MG CAP PO SCH (08:29)
[2018-06-17] MEDS: hydrOXYzine HCL 25 MG TAB PO PRN ×2 (08:59→14:14)
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
[2018-06-17] MEDS: ARIPIprazole TAB 5 MG TAB PO SCH (21:21)
[2018-06-18 06:56] VITALS: BP_SYST 115; BP_SYST 118; BP_DIAS 76; BP_DIAS 78; PULSE 83; PULSE 84; TEMP 36.6
[2018-06-18] MEDS: FLUOXETINE HCL 20 MG CAP PO SCH (09:42)
[2018-06-18] MEDS: LEVOTHYROXINE 75 MCG TAB PO SCH (09:42)
[2018-06-18] MEDS: FLUOXETINE HCL 10 MG CAP PO SCH (09:43)
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
[2018-06-18] MEDS: hydrOXYzine HCL 25 MG TAB PO PRN (13:55)
[2018-06-18 13:58] VITALS: BP 123/82; PULSE 73
[2018-06-18] MEDS: SUMATRIPTAN SUCCINATE 50 MG TAB PO PRN (19:35)
[2018-06-18] MEDS: ARIPIprazole TAB 5 MG TAB PO SCH (21:02)
[2018-06-19 06:48] VITALS: BP_SYST 114; BP_SYST 119; BP_DIAS 72; BP_DIAS 77; PULSE 81; PULSE 96; TEMP 36.4
[2018-06-19] MEDS: LEVOTHYROXINE 75 MCG TAB PO SCH (07:50)
[2018-06-19] MEDS: FLUOXETINE HCL 10 MG CAP PO SCH (09:02)
[2018-06-19] MEDS: FLUOXETINE HCL 20 MG CAP PO SCH (09:03)
--- NOTE | 2018-06-19 10:49 | Psych Management Progress Note ---
Psychiatry Miscellaneous Date of Service: Jun 19, 2018. Patient seen, MS assessed. Rates mood as "tired", affect flat. Encouraged cooperation with care and treatment plan as outlined by allied health prescriber. Given TSH and hx of good tolerability of Abilify, doubt sedation as med side effect. Discussed titration to 10 mg Abilify prior to discharge for ongoing sx but also ease of dosing.
--- NOTE | 2018-06-19 11:11 | Psychiatric Progress Notes ---
Progress Note Date of Service Jun 19, 2018. Interval History Charissa Rodriguez is a 23-year-old female who currently lives in [place], has a history of mood disorder NOS, borderline personality disorder, and cannabis abuse and was admitted on 06/15/2018 on a 201 voluntary commitment for depression and suicidality. Chief Complaint "I'm just tired. ". Subjective Patient was seen & assessed interval progress reviewed with Treatment Team. The patient says that she is tired again today, but slept well over night. She says that her mood is "OK" and without any SI. She says that she has gone to all but one group, and that one because she didn't feel like exercising. She was able to regroup yesterday after our talk and took a shower and attended groups. When asked what goals she has left to accomplish while here in the hospital, she wasn't quite sure. She says that she feels "safe" here and doesn' t want to go home too early. she talked about having stopped her thyroid medicine because she thought she didn't need it anymore and thinks that being tired is a symptoms of that. She reports good appetite, sleep. We talk about having some goals for the hospitalization and she agrees to put her efforts toward taking care of herself and making good decision and considering discharge in the next several days. Review of Systems Constitutional: + fatigue ENT: No hearing loss, No unusual epistaxis, No nasal symptoms, No sore throat, No tinnitus, No dental problems, No trouble swallowing, No problem reported Respiratory: No cough, No sputum, No wheezing, No shortness of breath, No dyspnea on exertion, No dyspnea at rest, No hemoptysis, No problem reported Cardiovascular: No chest pain, No orthopnea, No PND, No edema, No claudication , No palpitations, No problem reported Abdomen: No pain, No nausea, No vomiting, No diarrhea, No constipation, No GI bleeding, No problem reported Musculoskeletal: No joint pain, No muscle pain, No swelling, No calf pain, No problem reported Psychiatric: + problem reported (fatigue) Integumentary: No rash, No itch, No new/changing skin lesions, No color change , No bleeding, No problem reported Sleep Information Total Hours of Sleep: 8.00 Meal Information Percent of Breakfast Consumed: 100 Percent of Lunch Consumed: 40 Percent of Dinner Consumed: 100 Mental Status Exam During interview pt is: alert and oriented, cooperative Appearance: appropriately dressed, appropriately groomed Eye contact is: good Motor behavior is: no abnormal motor movements Speech: normal in rate, rhythm & volume Affect: blunted, euthymic Mood is: depressed Thought process: goal directed Thought content: reality based without delusions Suicidal thought are: denied Homicidal thoughts are: denied Hallucinations: denies auditory, denies visual Cognition: memory grossly intact, attention grossly intact, language grossly intact Intelligence estimated to be: average Insight: fair Judgement: fair Impression Struggling to find her own direction, and finding it easier to be in the hospital than at home. She has agreed to work hard on making good decisions about her daily structure with an eye to continuing that at home. I fear she is becoming dependent on our support, and so have asked her to consider a goal of home in the next few days. Will continue to encourage. Will continue current meds. Plan (1) Suicidal ideation 06/15 -every 15 minute checks for safety, attend unit groups and therapy, work on healthy coping skills and a discharge safety plan. -Family meeting if appropriate. -Refer for outpatient mental health services. 06/17 - Referred to [facility] 06/25, and for a BCM. (2) Depression 06/15 -differential includes bipolar type II, unipolar depression, and BPD. There may also be a component of hypothyroidism, and she has been noncompliant with her thyroid hormone and TSH is elevated. -discontinue quetiapine, as the patient reports it causes restless leg, and she is sleeping excessively. -Increase aripiprazole to 7.5 mg daily to target depression and anxiety. - Fasting labs for monitoring on an atypical antipsychotic. -continue fluoxetine 30 mg daily, as the patient reports she was "too happy" on higher doses. Consider switching to a different less activating antidepressant that we could push to a higher dose to try to better manage her anxiety. 06/16 -referred to [facility] for outpatient psychiatric care and therapy, and also recommend a blended case making machine operator. -Continue medication adjustments as above. Fasting labs notable for elevated cholesterol 206, remainder within normal limits. 06/18 - Continue curren meds and plan - Encourage self care - Assist the patient to utilize coping strategies for anxiety 06/19 - Continue current meds - Encourage the patient to make good decisions about her goals and daily structure. (3) PTSD (post-traumatic stress disorder) 06/15 -continue fluoxetine 30 mg daily for now, consider a different antidepressant as above. -Hydroxyzine as needed. -Participate in groups and therapy, and refer for outpatient therapy. (4) Borderline personality disorder 06/15 - consistent boundaries, refer for outpatient therapy. (5) Hypothyroid 06/15 -resume home dose of levothyroxine, and follow-up with PCP in about 6 weeks. Patient educated about the importance of taking her medication as prescribed in the risks of untreated hypothyroidism, including worsening mood. (6) Headache 06/16 -home dose of acetaminophen as needed was continued on admission, Imitrex added today for migraine, and 1 time dose of Toradol 10 mg at her request for headache. -Follow-up with PCP. Discharge / Aftercare Planning Primary Care Physician: Name: Dr. Nina Ricardo, [place] Date of Appointment: Jul 09, 2018 Time of Appointment: 1255 Appointment Notes: [place] [address] Psychiatrist: Name: [facility] - Intake with Mallory Pool for med management and therapy Date of Appointment: Jun 25, 2018 Time of Appointment: 9:00 a.m. 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 Appointment Notes: [facility] staff will call you at home to schedule appointment at your home Visit Code E&M Code: 72851 Inventory Assets Strengths: Willing for treatment Needs: Outpatient care Risk Factors Assessment : Yes /single/: Yes Higher / Fall in social status: No Health problems: No Mental Health Diagnoses: Yes Substance use disorders: No Previous attempt: Yes Family history of suicide: No Previous psychiatric stay: Yes Hopelessness: Yes Smoker: No Protective Factors Assessment Zoroastrian beliefs: No : No Responsible for young children: No Employed: No Stable relationships: No Good rapport with provider: No Data Vital Signs Last 24 Hrs: Date Time Temp Pulse Resp B/P (MAP) Pulse Ox O2 Delivery O2 Flow Rate FiO2 06/19/18 06:48 36.4 81 16 114/72 96 119/77 06/18/18 13:58 73 20 123/82 Meds Administered Last 24 Hrs: Current Inpatient Medications Medications (Trade) Dose Ordered Sig/Evie Route Start Time Stop Time Status Last Admin Dose Admin Fluoxetine HCl (Prozac Cap) 10 mg DAILY PO 06/16/18 09:00 07/16/18 08:59 06/19/18 09:02 10 MG Fluoxetine HCl (Prozac Cap) 20 mg DAILY PO 06/16/18 09:00 07/16/18 08:59 06/19/18 09:03 20 MG Bismuth Subsalicylate (Kaopectate Liqd) 15 ml PRN PRN PO 06/15/18 14:45 07/15/18 14:44 Al Hydroxide/Mg Hydroxide (Maalox Susp) 30 ml Q4H PRN PO 06/15/18 14:45 07/15/18 14:44 Magnesium Hydroxide (Milk Of Magnesia Susp) 30 ml DAILY PRN PO 06/15/18 14:45 07/15/18 14:44 Sodium Chloride ([place] Nasal [place]) PRN PRN NA 06/15/18 14:45 07/15/18 14:44 Hydroxyzine HCl (Vistaril Tab) 50 mg HSZ PRN PO 06/15/18 14:45 07/15/18 14:44 06/16/18 22:55 50 MG Hydroxyzine HCl (Vistaril Tab) 25 mg Q4H PRN PO 06/15/18 14:45 07/15/18 14:44 06/18/18 13:55 25 MG Aripiprazole (Abilify Tab) 7.5 mg HS PO 06/15/18 22:00 07/16/18 08:59 06/18/18 21:02 7.5 MG Levothyroxine Sodium (Synthroid Tab) 75 mcg DAILY@0700 PO 06/16/18 07:00 07/16/18 06:59 06/19/18 07:50 75 MCG Acetaminophen (Tylenol Tab) 1,000 mg Q6H PRN PO 06/15/18 16:45 07/15/18 16:44 06/16/18 10:22 1,000 MG Sumatriptan Succinate (Imitrex Tab) 50 mg DAILY PRN PO 06/16/18 11:00 07/16/18 10:59 06/18/18 19:35 50 MG Lab Results Last 24 Hrs: 06/15/18 12:16 Red Blood Count 4.09, Mean Corpuscular Volume 90.0, Mean Corpuscular Hemoglobin 29.3, Mean Corpuscular Hemoglobin Concent 32.6, Mean Platelet Volume 9.2, Neutrophils (%) (Auto) 49.0, Lymphocytes (%) (Auto) 34.5, Monocytes (%) (Auto) 10.5, Eosinophils (%) (Auto) 4.2, Basophils (%) (Auto) 0.6, Neutrophils # (Auto ) 4.17, Lymphocytes # (Auto) 2.93, Monocytes # (Auto) 0.89, Eosinophils # (Auto ) 0.36, Basophils # (Auto) 0.05 06/15/18 12:16 Test 06/15/18 12:05 06/15/18 12:16 06/15/18 12:19 06/15/18 12:20 Urine Color YELLOW Urine Appearance TURBID (CLEAR) Urine pH 6.0 (4.5-7.5) Urine Specific [place] 1.013 (1.000-1.030) Urine Protein 1+ (NEG) Urine Glucose (UA) NEG (NEG) Urine Ketones NEG (NEG) Urine Occult Blood NEG (NEG) Urine Nitrite NEG (NEG) Urine Bilirubin NEG (NEG) Urine Urobilinogen NEG (NEG) Urine Leukocyte Esterase NEG (NEG) Urine WBC (Auto) 5-10 /hpf (0-5) Urine RBC (Auto) 0-4 /hpf (0-4) Urine Hyaline Casts (Auto) 1-5 /lpf (0-5) Urine Epithelial Cells (Auto) >30 /lpf (0-5) Urine Bacteria (Auto) 2+ (NEG) Urine Test NEG (NEG) Urine Opiates Screen NEG (NEG) Urine Methadone, Qualitative NEG (NEG) Urine Barbiturates NEG (NEG) Urine Phencyclidine (PCP) Level NEG (NEG) Ur Amphetamine/Methamphetamine NEG (NEG) MDMA (Ecstasy) Screen NEG (NEG) Urine Benzodiazepines Screen NEG (NEG) Urine Cocaine Metabolite NEG (NEG) Urine Marijuana (THC) NEG (NEG) White Blood Count 8.50 K/uL (4.8-10.8) Red Blood Count 4.09 M/uL (4.2-5.4) Hemoglobin 12.0 g/dL (12.0-16.0) Hematocrit 36.8 % (37-47) Mean Corpuscular Volume 90.0 fL (80-100) Mean Corpuscular Hemoglobin 29.3 pg (25-34) Mean Corpuscular Hemoglobin Concent 32.6 g/dl (32-36) Platelet Count 179 K/uL (130-400) Mean Platelet Volume 9.2 fL (7.4-10.4) Neutrophils (%) (Auto) 49.0 % Lymphocytes (%) (Auto) 34.5 % Monocytes (%) (Auto) 10.5 % Eosinophils (%) (Auto) 4.2 % Basophils (%) (Auto) 0.6 % Neutrophils # (Auto) 4.17 K/uL (1.4-6.5) Lymphocytes # (Auto) 2.93 K/uL (1.2-3.4) Monocytes # (Auto) 0.89 K/uL (0.11-0.59) Eosinophils # (Auto) 0.36 K/uL (0-0.5) Basophils # (Auto) 0.05 K/uL (0-0.2) RDW Standard Deviation 46.4 fL (36.4-46.3) RDW Coefficient of Variation 14.1 % (11.5-14.5) Immature Granulocyte % (Auto) 1.2 % Immature Granulocyte # (Auto) 0.10 K/uL (0.00-0.02) Anion Gap 8.0 mmol/L (3-11) Est Creatinine Clear Calc Drug Dose 42.5 ml/min Estimated GFR () 49.9 Estimated GFR (Non- 43.0 BUN/Creatinine Ratio 7.4 (10-20) Calcium Level 8.4 mg/dl (8.5-10.1) Total Bilirubin 0.4 mg/dl (0.2-1) Direct Bilirubin 0.1 mg/dl (0-0.2) Aspartate Amino Transf (AST/SGOT) 13 U/L (15-37) Alanine Aminotransferase (ALT/SGPT) 18 U/L (12-78) Alkaline Phosphatase 65 U/L (45-117) Total Protein 7.5 gm/dl (6.4-8.2) Albumin 3.6 gm/dl (3.4-5.0) Thyroid Stimulating Hormone (TSH) 14.900 uIu/ml (0.300-4.500) Ethyl Alcohol mg/dL < 3.0 mg/dl (0-3) Salicylates Level < 1.7 mg/dl (2.8-20) Acetaminophen Level < 2 ug/ml (10-30) Bedside Glucose 96 mg/dl (70-90) Test 06/16/18 07:39 Fasting Glucose 78 mg/dl (70-99) Triglycerides Level 114 mg/dl (0-150) Cholesterol Level 206 mg/dl (0-200) HDL Cholesterol 67 mg/dl LDL Cholesterol, Calculated 116 mg/dl VLDL Cholesterol, Calculated 23 mg/dl Cholesterol/HDL Ratio 3.1 Problem Qualifiers (1) Depression: Depression Type: unspecified Qualified Codes: F32.9 - Major depressive disorder, single episode, unspecified (2) Hypothyroid: Hypothyroidism type: unspecified Qualified Codes: E03.9 - Hypothyroidism, unspecified
[2018-06-19] MEDS: hydrOXYzine HCL 25 MG TAB PO PRN (20:02)
[2018-06-19] MEDS: ARIPIprazole TAB 5 MG TAB PO SCH (21:23)
[2018-06-20] MEDS: LEVOTHYROXINE 75 MCG TAB PO SCH (06:53)
[2018-06-20 06:57] VITALS: BP_SYST 114; BP_SYST 116; BP_DIAS 72; BP_DIAS 74; PULSE 76; PULSE 96; TEMP 36.6
--- NOTE | 2018-06-20 08:42 | Psychiatric Progress Notes ---
Progress Note Date of Service Jun 20, 2018. Interval History Charissa Rodriguez is a 23-year-old female who currently lives in [place], has a history of mood disorder NOS, borderline personality disorder, and cannabis abuse and was admitted on 06/15/2018 on a 201 voluntary commitment for depression and suicidality. Chief Complaint "Good.". Subjective Patient was seen & assessed interval progress reviewed with Treatment Team. The patient reports that she had a good day yesterday and attributes this to "being around people". When asked how she can recreate this at home she says " I need to get out of bed". She rates her mood today 5/10 because she is tired , but continues to deny SI. Nursing notes indicate that the patient is attending groups, talking about things that affect her self esteem, saying that she gets much of her self esteem from caring for others, wanting to fix their problems. We talked about social outlets and the patient has never been to [facility]. Review of Systems Constitutional: + fatigue ENT: No hearing loss, No unusual epistaxis, No nasal symptoms, No sore throat, No tinnitus, No dental problems, No trouble swallowing, No problem reported Respiratory: No cough, No sputum, No wheezing, No shortness of breath, No dyspnea on exertion, No dyspnea at rest, No hemoptysis, No problem reported Cardiovascular: No chest pain, No orthopnea, No PND, No edema, No claudication , No palpitations, No problem reported Abdomen: No pain, No nausea, No vomiting, No diarrhea, No constipation, No GI bleeding, No problem reported Musculoskeletal: No joint pain, No muscle pain, No swelling, No calf pain, No problem reported Neurologic: No memory loss, No paralysis, No weakness, No numbness/tingling, No vertigo, No balance problems, No problem reported Psychiatric: No depression symptoms, No anhedonism, No anxiety, No insomnia, No substance abuse, No problem reported Integumentary: No rash, No itch, No new/changing skin lesions, No color change , No bleeding, No problem reported Sleep Information Total Hours of Sleep: 7.25 Meal Information Percent of Breakfast Consumed: 100 Percent of Lunch Consumed: 90 Percent of Dinner Consumed: 100 Mental Status Exam During interview pt is: cooperative (still in bed) Appearance: appropriately dressed, appropriately groomed Eye contact is: good Motor behavior is: no abnormal motor movements Speech: normal in rate, rhythm & volume Affect: blunted (tired), euthymic Mood is: other ("good") Thought process: goal directed Thought content: reality based without delusions Suicidal thought are: denied Homicidal thoughts are: denied Hallucinations: denies auditory, denies visual Cognition: memory grossly intact, attention grossly intact, language grossly intact Intelligence estimated to be: average Insight: fair Judgement: fair Impression Reports having a good day yesterday but still difficult for her to think about going home. Will have social work explore either [facility] or [facility] to assist patient to be around other people. Continue current meds and plan Plan (1) Suicidal ideation 06/15 -every 15 minute checks for safety, attend unit groups and therapy, work on healthy coping skills and a discharge safety plan. -Family meeting if appropriate. -Refer for outpatient mental health services. 06/17 - Referred to [facility] 06/25, and for a BCM. (2) Depression 06/15 -differential includes bipolar type II, unipolar depression, and BPD. There may also be a component of hypothyroidism, and she has been noncompliant with her thyroid hormone and TSH is elevated. -discontinue quetiapine, as the patient reports it causes restless leg, and she is sleeping excessively. -Increase aripiprazole to 7.5 mg daily to target depression and anxiety. - Fasting labs for monitoring on an atypical antipsychotic. -continue fluoxetine 30 mg daily, as the patient reports she was "too happy" on higher doses. Consider switching to a different less activating antidepressant that we could push to a higher dose to try to better manage her anxiety. 06/16 -referred to [facility] for outpatient psychiatric care and therapy, and also recommend a blended binder caser. -Continue medication adjustments as above. Fasting labs notable for elevated cholesterol 206, remainder within normal limits. 06/18 - Continue curren meds and plan - Encourage self care - Assist the patient to utilize coping strategies for anxiety 06/19 - Continue current meds - Encourage the patient to make good decisions about her goals and daily structure. 06/20 - Refer for either Psych Rehab or [facility] (3) PTSD (post-traumatic stress disorder) 06/15 -continue fluoxetine 30 mg daily for now, consider a different antidepressant as above. -Hydroxyzine as needed. -Participate in groups and therapy, and refer for outpatient therapy. (4) Borderline personality disorder 06/15 - consistent boundaries, refer for outpatient therapy. (5) Hypothyroid 06/15 -resume home dose of levothyroxine, and follow-up with PCP in about 6 weeks. Patient educated about the importance of taking her medication as prescribed in the risks of untreated hypothyroidism, including worsening mood. (6) Headache 06/16 -home dose of acetaminophen as needed was continued on admission, Imitrex added today for migraine, and 1 time dose of Toradol 10 mg at her request for headache. -Follow-up with PCP. Discharge / Aftercare Planning Primary Care Physician: Name: Dr. Nina Ricardo, [place] Date of Appointment: Jul 09, 2018 Time of Appointment: 1255 Appointment Notes: [place] [address] Psychiatrist: Name: [facility] - Intake with Mallory Pool for med management and therapy Date of Appointment: Jun 25, 2018 Time of Appointment: 9:00 a.m. Appointment Notes: [address] [facility] [place] [address] Therapist: Name: VALENTINO Appointment Notes: [address] [facility] [place] [address] [employer] Chief [employer]aper: Name: SHELBI Appointment Notes: [facility] staff will call you at home to schedule appointment at your home Visit Code E&M Code: 14919 Inventory Assets Strengths: Willing for treatment Needs: Outpatient care Risk Factors Assessment : Yes /single/: Yes Higher / Fall in social status: No Health problems: No Mental Health Diagnoses: Yes Substance use disorders: No Previous attempt: Yes Family history of suicide: No Previous psychiatric stay: Yes Hopelessness: Yes Smoker: No Protective Factors Assessment Congregational beliefs: No : No Responsible for young children: No Employed: No Stable relationships: No Good rapport with provider: No Data Vital Signs Last 24 Hrs: Date Time Temp Pulse Resp B/P (MAP) Pulse Ox O2 Delivery O2 Flow Rate FiO2 06/20/18 06:57 36.6 76 16 114/72 96 116/74 Meds Administered Last 24 Hrs: Current Inpatient Medications Medications (Trade) Dose Ordered Sig/Evie Route Start Time Stop Time Status Last Admin Dose Admin Fluoxetine HCl (Prozac Cap) 10 mg DAILY PO 06/16/18 09:00 07/16/18 08:59 06/19/18 09:02 10 MG Fluoxetine HCl (Prozac Cap) 20 mg DAILY PO 06/16/18 09:00 07/16/18 08:59 06/19/18 09:03 20 MG Bismuth Subsalicylate (Kaopectate Liqd) 15 ml PRN PRN PO 06/15/18 14:45 07/15/18 14:44 Al Hydroxide/Mg Hydroxide (Maalox Susp) 30 ml Q4H PRN PO 06/15/18 14:45 07/15/18 14:44 Magnesium Hydroxide (Milk Of Magnesia Susp) 30 ml DAILY PRN PO 06/15/18 14:45 07/15/18 14:44 Sodium Chloride ([place] Nasal [place]) PRN PRN NA 06/15/18 14:45 07/15/18 14:44 Hydroxyzine HCl (Vistaril Tab) 50 mg HSZ PRN PO 06/15/18 14:45 07/15/18 14:44 06/16/18 22:55 50 MG Hydroxyzine HCl (Vistaril Tab) 25 mg Q4H PRN PO 06/15/18 14:45 07/15/18 14:44 06/19/18 20:02 25 MG Aripiprazole (Abilify Tab) 7.5 mg HS PO 06/15/18 22:00 07/16/18 08:59 06/19/18 21:23 7.5 MG Levothyroxine Sodium (Synthroid Tab) 75 mcg DAILY@0700 PO 06/16/18 07:00 07/16/18 06:59 06/20/18 06:53 75 MCG Acetaminophen (Tylenol Tab) 1,000 mg Q6H PRN PO 06/15/18 16:45 07/15/18 16:44 06/16/18 10:22 1,000 MG Sumatriptan Succinate (Imitrex Tab) 50 mg DAILY PRN PO 06/16/18 11:00 07/16/18 10:59 06/18/18 19:35 50 MG Lab Results Last 24 Hrs: 8/13/18 12:16 Red Blood Count 4.09, Mean Corpuscular Volume 90.0, Mean Corpuscular Hemoglobin 29.3, Mean Corpuscular Hemoglobin Concent 32.6, Mean Platelet Volume 9.2, Neutrophils (%) (Auto) 49.0, Lymphocytes (%) (Auto) 34.5, Monocytes (%) (Auto) 10.5, Eosinophils (%) (Auto) 4.2, Basophils (%) (Auto) 0.6, Neutrophils # (Auto ) 4.17, Lymphocytes # (Auto) 2.93, Monocytes # (Auto) 0.89, Eosinophils # (Auto ) 0.36, Basophils # (Auto) 0.05 06/15/18 12:16 Test 06/15/18 12:05 06/15/18 12:16 06/15/18 12:19 06/15/18 12:20 Urine Color YELLOW Urine Appearance TURBID (CLEAR) Urine pH 6.0 (4.5-7.5) Urine Specific [place] 1.013 (1.000-1.030) Urine Protein 1+ (NEG) Urine Glucose (UA) NEG (NEG) Urine Ketones NEG (NEG) Urine Occult Blood NEG (NEG) Urine Nitrite NEG (NEG) Urine Bilirubin NEG (NEG) Urine Urobilinogen NEG (NEG) Urine Leukocyte Esterase NEG (NEG) Urine WBC (Auto) 5-10 /hpf (0-5) Urine RBC (Auto) 0-4 /hpf (0-4) Urine Hyaline Casts (Auto) 1-5 /lpf (0-5) Urine Epithelial Cells (Auto) >30 /lpf (0-5) Urine Bacteria (Auto) 2+ (NEG) Urine Test NEG (NEG) Urine Opiates Screen NEG (NEG) Urine Methadone, Qualitative NEG (NEG) Urine Barbiturates NEG (NEG) Urine Phencyclidine (PCP) Level NEG (NEG) Ur Amphetamine/Methamphetamine NEG (NEG) MDMA (Ecstasy) Screen NEG (NEG) Urine Benzodiazepines Screen NEG (NEG) Urine Cocaine Metabolite NEG (NEG) Urine Marijuana (THC) NEG (NEG) White Blood Count 8.50 K/uL (4.8-10.8) Red Blood Count 4.09 M/uL (4.2-5.4) Hemoglobin 12.0 g/dL (12.0-16.0) Hematocrit 36.8 % (37-47) Mean Corpuscular Volume 90.0 fL (80-100) Mean Corpuscular Hemoglobin 29.3 pg (25-34) Mean Corpuscular Hemoglobin Concent 32.6 g/dl (32-36) Platelet Count 179 K/uL (130-400) Mean Platelet Volume 9.2 fL (7.4-10.4) Neutrophils (%) (Auto) 49.0 % Lymphocytes (%) (Auto) 34.5 % Monocytes (%) (Auto) 10.5 % Eosinophils (%) (Auto) 4.2 % Basophils (%) (Auto) 0.6 % Neutrophils # (Auto) 4.17 K/uL (1.4-6.5) Lymphocytes # (Auto) 2.93 K/uL (1.2-3.4) Monocytes # (Auto) 0.89 K/uL (0.11-0.59) Eosinophils # (Auto) 0.36 K/uL (0-0.5) Basophils # (Auto) 0.05 K/uL (0-0.2) RDW Standard Deviation 46.4 fL (36.4-46.3) RDW Coefficient of Variation 14.1 % (11.5-14.5) Immature Granulocyte % (Auto) 1.2 % Immature Granulocyte # (Auto) 0.10 K/uL (0.00-0.02) Anion Gap 8.0 mmol/L (3-11) Est Creatinine Clear Calc Drug Dose 42.5 ml/min Estimated GFR () 49.9 Estimated GFR (Non- 43.0 BUN/Creatinine Ratio 7.4 (10-20) Calcium Level 8.4 mg/dl (8.5-10.1) Total Bilirubin 0.4 mg/dl (0.2-1) Direct Bilirubin 0.1 mg/dl (0-0.2) Aspartate Amino Transf (AST/SGOT) 13 U/L (15-37) Alanine Aminotransferase (ALT/SGPT) 18 U/L (12-78) Alkaline Phosphatase 65 U/L (45-117) Total Protein 7.5 gm/dl (6.4-8.2) Albumin 3.6 gm/dl (3.4-5.0) Thyroid Stimulating Hormone (TSH) 14.900 uIu/ml (0.300-4.500) Ethyl Alcohol mg/dL < 3.0 mg/dl (0-3) Salicylates Level < 1.7 mg/dl (2.8-20) Acetaminophen Level < 2 ug/ml (10-30) Bedside Glucose 96 mg/dl (70-90) Test 06/16/18 07:39 Fasting Glucose 78 mg/dl (70-99) Triglycerides Level 114 mg/dl (0-150) Cholesterol Level 206 mg/dl (0-200) HDL Cholesterol 67 mg/dl LDL Cholesterol, Calculated 116 mg/dl VLDL Cholesterol, Calculated 23 mg/dl Cholesterol/HDL Ratio 3.1 Problem Qualifiers (1) Depression: Depression Type: unspecified Qualified Codes: F32.9 - Major depressive disorder, single episode, unspecified (2) Hypothyroid: Hypothyroidism type: unspecified Qualified Codes: E03.9 - Hypothyroidism, unspecified
[2018-06-20] MEDS: FLUOXETINE HCL 20 MG CAP PO SCH (08:56)
[2018-06-20] MEDS: FLUOXETINE HCL 10 MG CAP PO SCH (08:56)
[2018-06-20] MEDS: SUMATRIPTAN SUCCINATE 50 MG TAB PO PRN (19:48)
[2018-06-20] MEDS: ARIPIprazole TAB 5 MG TAB PO SCH (21:20)
[2018-06-20] MEDS: hydrOXYzine HCL 25 MG TAB PO PRN (21:24)
[2018-06-20] MEDS: ACETAMINOPHEN 500 MG TAB PO PRN (21:25)
[2018-06-21 06:52] VITALS: BP_SYST 112; BP_SYST 120; BP_DIAS 74; BP_DIAS 79; PULSE 72; PULSE 89; TEMP 36.5
[2018-06-21] MEDS: LEVOTHYROXINE 75 MCG TAB PO SCH (07:00)
[2018-06-21] MEDS: FLUOXETINE HCL 10 MG CAP PO SCH (09:07)
[2018-06-21] MEDS: FLUOXETINE HCL 20 MG CAP PO SCH (09:07)
[2018-06-21] MEDS ORDERED: ATR25 PO (09:09)
[2018-06-21] MEDS ORDERED: ABL/5 PO (09:09)
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
[2018-06-21] MEDS ORDERED: SYN75 PO (09:58)
== END 2018-06-21 10:10 | disposition home or self-care (01) | DRG 881 ==
LOC: C.EDB 11:41 → C.MHU 14:46
PROVIDERS: ADMIT Psychiatry & Neurology Psychiatry; ATTEND Psychiatry & Neurology Psychiatry
DX: F32.9 Major depressive disorder, single episode, unspecified (principal); R45.851 Suicidal ideations; E03.9 Hypothyroidism, unspecified; E87.6 Hypokalemia; R51 Headache; F43.10 Post-traumatic stress disorder, unspecified; F60.3 Borderline personality disorder; F41.9 Anxiety disorder, unspecified; Z91.14 Patient's other noncompliance with medication regimen; Z56.0 Unemployment, unspecified; Z59.0 Homelessness; Z87.891 Personal history of nicotine dependence; Z62.812 Personal history of neglect in childhood; Z91.410 Personal history of adult physical and sexual abuse; Z81.8 Family history of other mental and behavioral disorders; Z81.3 Family history of other psychoactive substance abuse and dependence; Z81.1 Family history of alcohol abuse and dependence; Z79.899 Other long term (current) drug therapy; Z88.8 Allergy status to other drugs, medicaments and biological substances

== ENCOUNTER 2019-08-25 10:13 | Inpatient (IN) ==
[2019-08-25] MEDS ORDERED: MoRPHine SULFATE 4 MG/ML 1 ML CARP\\VIAL IV STA ×2 (11:25→15:31)
[2019-08-25] MEDS ORDERED: ONDANSETRON INJ 2 MG/ML 2 ML VIAL IV STA (11:25)
[2019-08-25] MEDS ORDERED: SODIUM CHLORIDE 0.9% 1000ML 1,000 ML IV SCH (11:26)
[2019-08-25 11:33] LABS: Basophils # (auto) 0.03 K/uL (0-0.2); Basophils % (auto) 0.3 %; Eosinophils # (auto) 0.49 K/uL (0-0.5); Eosinophils % (auto) 5.6 %; Hematocrit (blood only) 35.8 % (37-47); Hemoglobin 12.5 g/dL (12.0-16.0); Immature Granulocytes # (auto) 0.04 K/uL (0.00-0.02); Immature Granulocytes % (auto) 0.5 %; Lymphocytes # (auto) 1.71 K/uL (1.2-3.4); Lymphocytes % (auto) 19.5 %; Mean Corpuscular Hemoglobin 33.1 pg (25-34); Mean Corpuscular Hgb Conc 34.9 g/dL (32-36); Mean Corpuscular Volume 94.7 fL (80-100); Mean Platelet Volume 8.9 fL (7.4-10.4); Monocytes # (auto) 0.83 K/uL (0.11-0.59); Monocytes % (auto) 9.5 %; Neutrophils # (auto) 5.65 K/uL (1.4-6.5); Neutrophils % (auto) 64.6 %; Platelet Count 233 K/uL (130-400); RDW Standard Deviation 41.1 fL (36.4-46.3); Red Blood Count 3.78 M/uL (4.2-5.4); White Blood Count 8.75 K/uL (4.8-10.8)
--- NOTE | 2019-08-25 11:33 | Emergency Department Note ---
History of Present Illness General Chief complaint: Flank Pain Stated complaint: RIGHT SIDED FLANK PAIN History of Present Illness Maximum Pain Intensity: 6 Patient is a 24-year-old female who presents the emergency department for evaluation of right flank pain. Her symptoms started last evening. She reports "I think I have a kidney stone." She is never had a kidney stone before. She knows that she had had some soreness in the right back over the last few days, but this may have been some residual soreness from her epidural, she is 7 weeks . Pain started last evening, and steadily worsened throughout the night. She states it is a constant pain in the right flank, and wrapped around to the right ribs slightly, but no radiation into the right upper quadrant or the right lower quadrant or groin. Pain is been getting worse, she currently rates it a 6/10. She did take oxycodone 5 mg last evening which helped slightly. She is 7 weeks status post performed under epidural anesthesia. course was uncomplicated. She had her 6-week checkup at [facility] last week and she reports "everything is fine." She reports she is nauseous with the pain but did not vomit. She denies any urinary symptoms. bleeding has stopped and she has not had a normal menstrual cycle yet. Patient has a history of chronic kidney disease secondary to nephrotic syndrome as a child. She follows with nephrology, her condition is stable. She takes a baby aspirin daily, otherwise is not on anything for her kidneys. Home Medications Home Medications Medication Instructions Recorded Confirmed Type acetaminophen [Tylenol Extra 1,000 mg PO Q6H PRN 09/17/18 08/25/19 History Strength] aspirin 81 mg PO PM 04/15/19 08/25/19 History iron-vit C-vit [id number] acid 1 tab PO HS 07/03/19 08/25/19 History levothyroxine 175 mcg PO DAILY 07/03/19 08/25/19 History ranitidine HCl 75 mg PO HS PRN 07/03/19 08/25/19 History citalopram 40 mg PO DAILY 08/25/19 08/25/19 History Allergies Allergy/AdvReac Type Severity Reaction Status Date / Time lamotrigine Allergy Unknown itchy Verified 08/25/19 10:52 fluoxetine AdvReac Unknown Shakiness Verified 08/25/19 10:52 paroxetine AdvReac Unknown Suicidal Verified 08/25/19 10:52 thoughts Past Med/Surg History Medical History GERD (gastroesophageal reflux disease) (Chronic) HTN (hypertension) (Chronic) Borderline personality disorder (Chronic) Cannabis abuse (Resolved) Depression (Chronic) Hypothyroid (Chronic) Kidney disease (Chronic) PTSD (post-traumatic stress disorder) (Chronic) Visual impairment (Chronic) Surgical History H/O section (Resolved) History of tonsillectomy and adenoidectomy (Resolved) No pertinent past surgical history (Resolved) Family History Other Diabetes FHx: seizures Social History Preferred Language: Sudanese Communication Ability: Effective Visual Impairment: No Limitations Hearing Ability: Normal marital status: Single Current Living Situation: Family current occupational status: employed Feels Safe at Home: Yes Smoking Status: Former smoker Review of Systems A total of 10 systems reviewed and were otherwise negative Physical Exam Vital Signs Vital Signs - 24 hr 08/25/19 10:28 08/25/19 12:02 08/25/19 12:34 Temperature 36.9 C Temperature Source Oral Sepsis Recent Fever Within 48 Hours No Sepsis New/Unexplained Change in Mental Status No Sepsis Action Taken by Nursing No Action Required Pulse Rate 82 76 Pulse Rate from SpO2 Sensor Respiratory Rate 18 14 Respiratory Effort / Characteristics Non-Labored Spontaneous Respiratory Depth Normal Respiratory Pattern Regular Blood Pressure 126/80 132/65 130/76 Blood Pressure Mean 95 87 94 Blood Pressure Position Sitting Pulse Oximetry 98 Oxygen Delivery Method Room Air 08/25/19 12:36 08/25/19 13:00 08/25/19 13:30 Temperature Temperature Source Sepsis Recent Fever Within 48 Hours Sepsis New/Unexplained Change in Mental Status Sepsis Action Taken by Nursing Pulse Rate 78 73 79 Pulse Rate from SpO2 Sensor 62 72 79 Respiratory Rate 14 15 16 Respiratory Effort / Characteristics Respiratory Depth Respiratory Pattern Blood Pressure 121/77 112/76 Blood Pressure Mean 91 88 Blood Pressure Position Pulse Oximetry 96 99 97 Oxygen Delivery Method 08/25/19 15:09 08/25/19 15:10 08/25/19 16:00 Temperature Temperature Source Sepsis Recent Fever Within 48 Hours Sepsis New/Unexplained Change in Mental Status Sepsis Action Taken by Nursing Pulse Rate 78 75 68 Pulse Rate from SpO2 Sensor 71 77 Respiratory Rate 19 15 12 Respiratory Effort / Characteristics Respiratory Depth Respiratory Pattern Blood Pressure 110/77 119/71 Blood Pressure Mean 88 87 Blood Pressure Position Pulse Oximetry 98 98 98 Oxygen Delivery Method Room Air CONSTITUTIONAL: Patient is a well-appearing 24-year-old female who is awake and alert and in no acute distress. EYES: Pupils equal, round, reactive to light and accommodation. EOMs intact without nystagmus. Sclera are anicteric. ENT: Tympanic membranes intact, with normal landmarks. External canals are clear. Oral and nasopharynx are clear. Mucous membranes are moist, no lesions, tongue and gums appear normal. CARDIOVASCULAR: Regular rate and rhythm, with normal S1 and S2, no murmur or gallop or rub is heard. No carotid bruits auscultated. No JVD. Peripheral pulses easily palpable. RESPIRATORY: Breath sounds equal and clear to auscultation without wheezes, rales, or rhonchi heard. Full and equal chest expansion without accessory muscle use or retractions. ABDOMEN: Bowel sounds are present. Well-healed Pfannenstiel surgical scar noted. Abdomen is soft, nondistended, mildly tender in the suprapubic region over her surgical scar. There is no right or left lower quadrant tenderness. No pain in the right upper quadrant. Negative Muro sign. Positive right CVA tenderness. BACK: Examination of the patient's back does not reveal any soft tissue swelling, erythema, rashes or signs of infection. There is no bony tenderness to palpation over the thoracic or lumbar spinous processes. She does have some reproducible tenderness to palpation in the right CVA region. Paraspinous muscle tenderness is noted in that area, without focal spasm. Full range of motion. INTEGUMENTARY: No lesions or rash, normal skin turgor. LYMPH: No lymphadenopathy. Course The patient was seen and assessed as above. She presents the emergency department for evaluation of right flank pain that has been present for the last 24 hours. She is 7 weeks status post . Her recovery has been unremarkable. She does have a history of chronic kidney disease. She takes baby aspirin daily. IV lock was initiated. The patient was hydrated with normal saline solution. She was medicated with morphine 4 mg IV and Zofran 4 mg IV for pain. CBC with differential, CMP, urinalysis and CT of the abdomen and pelvis were ordered. Laboratory studies noted a normal white count 90,700. H&H is 12.5 and 35.8, platelet count is 233,000. Electrolytes are within normal limits. BUN 29, creatinine 1.7. Transaminases are normal. Urine notes 2+ protein, 2+ blood, 10-30 RBCs and greater than 30 epithelial cells. No nitrates, white blood cells or other indicators for infection. I was contacted by interpreting radiologist, Dr. Haynes, regarding the patient's CT scan. He was concerned given the extensive right perinephric infiltration and a hyperdense material within the right renal sinus, that she could have a right renal vein thrombosis. Clot within the collecting system could appear similar although is considered less likely. Of note the patient does not have gross hematuria. Upon discussion with him given that she cannot have a CT scan with IV contrast, ultrasound was ordered. There is no evidence on CT scan for hydronephrosis or renal calculi. Patient was made aware of the results of her laboratory studies, and the results of her CT scan. She was made aware that ultrasound was ordered. Patient returned from ultrasound and was complaining from increased discomfort. She was ordered an additional morphine 4 mg IV. Renal ultrasound confirmed that there was no evidence for hydronephrosis, moderate right perinephric fluid, with confirmed thrombus in the right renal vein that appears occlusive and extends to the junction with the IVC. No masses or calculi identified. Patient history, presentation and ED work-up were discussed with attending physician. He recommended consult with vascular surgery, I did speak with Unique Castro PA-C with vascular who did not feel that there was any role for surgical intervention in this situation, she recommended medicine consult and hypercoagulation work-up with anticoagulation therapy. I did review the patient with the [facility] service and they will evaluate her for admission/observation. Administered Medications Discontinued Medications Sodium Chloride (Nss 1000ml) 1,000 mls @ 999 mls/hr IV .Q1H1M DENISE Stop: 08/25/19 12:26 Last Infusion: 08/25/19 12:50 Dose: 0 mls/hr Documented by: [id number] Admin: 08/25/19 11:55 Dose: 999 mls/hr Documented by: [id number] Morphine Sulfate (Morphine Sulfate) 4 mg IV NOW STA Stop: 08/25/19 11:26 Last Admin: 08/25/19 11:58 Dose: 4 mg Documented by: [id number] Morphine Sulfate (Morphine Sulfate) 4 mg IV NOW STA Stop: 08/25/19 15:32 Last Admin: 08/25/19 15:43 Dose: 4 mg Documented by: [id number] Ondansetron HCl (Zofran) 4 mg IV NOW STA Stop: 08/25/19 11:26 Last Admin: 08/25/19 11:55 Dose: 4 mg Documented by: [id number] Medical Decision Making Differential Diagnosis Differential diagnoses entertained included UTI, pyelonephritis, renal colic, biliary colic, appendicitis, bowel obstruction, perforation, musculoskeletal pain, among others. Medical Records Attestation: I reviewed the patient's medical records. Home Medications Current Medication List: was personally reviewed by me Laboratory Data Attestation: I reviewed the patient's lab results. Result diagrams: 08/25/19 11:25 08/25/19 11:25 Lab Results 08/25/19 08/25/19 08/25/19 Range/Units 11:01 11:25 11:25 WBC 8.75 (4.8-10.8) K/uL RBC 3.78 L (4.2-5.4) M/uL Hgb 12.5 (12.0-16.0) g/dL Hct 35.8 L (37-47) % MCV 94.7 (80-100) fL MCH 33.1 (25-34) pg MCHC 34.9 (32-36) g/dL RDW Std Deviation 41.1 (36.4-46.3) fL RDW Coeff of Maryjo 12.0 (11.5-14.5) % Plt Count 233 (130-400) K/uL MPV 8.9 (7.4-10.4) fL Immature Gran % (Auto) 0.5 % Neut % (Auto) 64.6 % Lymph % (Auto) 19.5 % [place] % (Auto) 9.5 % Eos % (Auto) 5.6 % Baso % (Auto) 0.3 % Immature Gran # (Auto) 0.04 H (0.00-0.02) K/uL Neut # (Auto) 5.65 (1.4-6.5) K/uL Lymph # (Auto) 1.71 (1.2-3.4) K/uL [place] # (Auto) 0.83 H (0.11-0.59) K/uL Eos # (Auto) 0.49 (0-0.5) K/uL Baso # (Auto) 0.03 (0-0.2) K/uL PT (9.0-12.0) Seconds INR (0.9-1.1) APTT (21.0-31.0) Seconds PTT Ratio Sodium 138 (136-145) mmol/L Potassium 4.0 (3.5-5.1) mmol/L Chloride 105 (98-107) mmol/L Carbon Dioxide 27 (21-32) mmol/L Anion Gap 6.0 (3-11) BUN 29 H (7-18) mg/dl Creatinine 1.71 H (0.6-1.2) mg/dl Est Cr Clr Drug Dosing 41.2 ml/min Est GFR ( Amer) 47.1 Est GFR (Non-Af Amer) 40.6 BUN/Creatinine Ratio 16.9 (10-20) Glucose 85 (70-99) mg/dl Calcium 8.8 (8.5-10.1) mg/dl Total Bilirubin 0.3 (0.2-1) mg/dl AST 9 L (15-37) U/L ALT 16 (12-78) U/L Alkaline Phosphatase 55 (45-117) U/L Total Protein 7.1 (6.4-8.2) gm/dl Albumin 3.3 L (3.4-5.0) gm/dl Globulin 3.8 (2.5-4.0) gm/dl Albumin/Globulin Ratio 0.9 (0.9-2) HCG, Qual (Negative) Urine Color Yellow Urine Appearance Clear (Clear) Urine pH 6.0 (4.5-7.5) Ur Specific [place] 1.020 (1.000-1.030) Urine Protein 2+ H (Negative) Urine Glucose (UA) Negative (Negative) Urine Ketones Negative (Negative) Urine Blood 2+ H (Negative) Urine Nitrite Negative (Negative) Urine Bilirubin Negative (Negative) Urine Urobilinogen Negative (Negative) Ur Leukocyte Esterase Negative (Negative) Urine RBC 10-30 H (0-4) /hpf Urine WBC 0-5 (0-5) /hpf Ur Epithelial Cells >30 H (0-5) /lpf Urine Bacteria Negative (Negative) 08/25/19 08/25/19 Range/Units 11:25 11:25 WBC (4.8-10.8) K/uL RBC (4.2-5.4) M/uL Hgb (12.0-16.0) g/dL Hct (37-47) % MCV (80-100) fL MCH (25-34) pg MCHC (32-36) g/dL RDW Std Deviation (36.4-46.3) fL RDW Coeff of Maryjo (11.5-14.5) % Plt Count (130-400) K/uL MPV (7.4-10.4) fL Immature Gran % (Auto) % Neut % (Auto) % Lymph % (Auto) % [place] % (Auto) % Eos % (Auto) % Baso % (Auto) % Immature Gran # (Auto) (0.00-0.02) K/uL Neut # (Auto) (1.4-6.5) K/uL Lymph # (Auto) (1.2-3.4) K/uL [place] # (Auto) (0.11-0.59) K/uL Eos # (Auto) (0-0.5) K/uL Baso # (Auto) (0-0.2) K/uL PT 10.5 (9.0-12.0) Seconds INR 1.0 (0.9-1.1) APTT 25.3 (21.0-31.0) Seconds PTT Ratio 0.9 Sodium (136-145) mmol/L Potassium (3.5-5.1) mmol/L Chloride (98-107) mmol/L Carbon Dioxide (21-32) mmol/L Anion Gap (3-11) BUN (7-18) mg/dl Creatinine (0.6-1.2) mg/dl Est Cr Clr Drug Dosing ml/min Est GFR ( Amer) Est GFR (Non-Af Amer) BUN/Creatinine Ratio (10-20) Glucose (70-99) mg/dl Calcium (8.5-10.1) mg/dl Total Bilirubin (0.2-1) mg/dl AST (15-37) U/L ALT (12-78) U/L Alkaline Phosphatase (45-117) U/L Total Protein (6.4-8.2) gm/dl Albumin (3.4-5.0) gm/dl Globulin (2.5-4.0) gm/dl Albumin/Globulin Ratio (0.9-2) HCG, Qual Negative (Negative) Urine Color Urine Appearance (Clear) Urine pH (4.5-7.5) Ur Specific [place] (1.000-1.030) Urine Protein (Negative) Urine Glucose (UA) (Negative) Urine Ketones (Negative) Urine Blood (Negative) Urine Nitrite (Negative) Urine Bilirubin (Negative) Urine Urobilinogen (Negative) Ur Leukocyte Esterase (Negative) Urine RBC (0-4) /hpf Urine WBC (0-5) /hpf Ur Epithelial Cells (0-5) /lpf Urine Bacteria (Negative) Imaging Data Attestation: I personally reviewed and interpreted this imaging study as follows: Radiologist's Impression: CT OF THE ABDOMEN AND PELVIS WITHOUT CONTRAST CLINICAL HISTORY: Right flank pain. 7 weeks . COMPARISON STUDY: CT of the abdomen March 26, 2012. Renal ultrasound February 10, 2012. TECHNIQUE: Axial images of the abdomen and pelvis were obtained without IV contrast. Images were reviewed in the axial, sagittal, and coronal planes. Automated exposure control was utilized for the study. A dose lowering technique was utilized adhering to the principles of ALARA. FINDINGS: Interlobular septal thickening within the lower lungs suggests mild interstitial edema. No pneumatosis, free air or portal venous gas is present. Unenhanced images of the liver, spleen, adrenal glands and pancreas are unremarkable. Multifocal left renal scarring is noted. There is extensive right perinephric infiltration. There is hyperdense material within the right renal sinus. Right renal vein thrombosis is favored. The right ovarian vein is prominent. There is no hydronephrosis. No ureteral calculi are identified. There is no evidence for a bowel obstruction. Expected findings following section are noted. The uterus is mildly enlarged. There is a left ovarian hypodense lesion which favors a cyst. No suspicious osseous lesions are noted. IMPRESSION: 1. Extensive right perinephric infiltration with hyperdense material within the right renal sinus. Acute right renal vein thrombosis is favored. Clot within the collecting system could appear similar although is considered less likely. Given chronic renal disease, further evaluation with Doppler renal ultrasound is yaa mmended for confirmation. Mild prominence of the right ovarian vein. This is likely within normal limits although associated ovarian vein thrombosis would be difficult to exclude. 2. No hydronephrosis or urinary calculi. RENAL ULTRASOUND CLINICAL HISTORY: RIGHT FLANK PAIN, ABNORMAL CT COMPARISON STUDY: CT of the abdomen and pelvis August 25, 2019. TECHNIQUE: Sonography of the kidneys and the urinary bladder was performed, including color and duplex Doppler sonography. FINDINGS: The right kidney measures 9.9 cm and the left measures 10.1 cm. There is no hydronephrosis. There is moderate right perinephric fluid. Note is made of thrombus within the right renal vein. Thrombus appears occlusive. This extends to the junction with the IVC. No calculi are identified. No renal mass is noted. The right kidney is echogenic. IMPRESSION: 1. Findings consistent with right renal vein thrombosis, likely acute. Thrombus extends to the junction with the IVC. 2. Moderate right perinephric fluid and increased echogenicity of the kidney due to the thrombus. Blood Pressure Blood Pressure Findings: Normal blood pressure Blood Pressure Disposition: did not require urgent referral MDM Narrative See ED Course. Impression & Plan Renal vein thrombosis Discharge Plan Visit Data Chief Complaint: Flank Pain Stated Complaint: RIGHT SIDED FLANK PAIN ED Provider: Mason Hyman ED Midlevel Provider: Ruth Bentley Discharge Problem: Renal vein thrombosis Patient Disposition: Being Evaluated by Hospitalist Forms Stand Alone Forms: [employer] Prescriptions Prescriptions: No Action acetaminophen [Tylenol Extra Strength] 500 mg Tablet 1,000 mg PO Q6H PRN (Reason: Pain) RF: 0 levothyroxine 175 mcg tablet 175 mcg PO DAILY RF: 0 iron-vit C-vit [id number] acid [id number]-mg Tablet 1 tab PO HS RF: 0 ranitidine HCl 75 mg Tablet 75 mg PO HS PRN (Reason: Stomach Upset) RF: 0 citalopram 40 mg tablet 40 mg PO DAILY RF: 0 aspirin 81 mg Tablet,Delayed Release (Dr/Ec) 81 mg PO PM RF: 0 Referrals Referrals: Nina Ricardo DO [Primary Care Provider] -
[2019-08-25 11:40] LABS: Appearance Urine Clear (Clear); Bilirubin Urine Negative (Negative); Blood Urine 2+ (Negative); Color Urine Yellow; Glucose Urine UA Negative (Negative); Ketones Urine Negative (Negative); Leukocyte Esterase Urine Negative (Negative); Nitrite Urine Negative (Negative); Protein Urine 2+ (Negative); Urobilinogen Urine Negative (Negative)
[2019-08-25 11:49] LABS: Bacteria Urine Negative (Negative); Epithelial Cell Urine >30 /lpf (0-5); WBC Urine 0-5 /hpf (0-5)
[2019-08-25 11:51] LABS: Albumin Level 3.3 gm/dl (3.4-5.0); BUN Creatinine Ratio 16.9 (10-20); Calcium 8.8 mg/dl (8.5-10.1); Creatinine Clr Calc Pharmacy 41.2 ml/min; Est GFR (African American) 47.1; Est GFR (Non-African American) 40.6
[2019-08-25 11:54] LABS: Albumin Globulin Ratio 0.9 (0.9-2); Bilirubin,Total 0.3 mg/dl (0.2-1); Globulin 3.8 gm/dl (2.5-4.0); Total Protein 7.1 gm/dl (6.4-8.2)
[2019-08-25 12:03] LABS: Pregnancy Test, Serum Negative (Negative)
--- NOTE | 2019-08-25 12:53 | CT Scan Report ---
CT OF THE ABDOMEN AND PELVIS WITHOUT CONTRAST CLINICAL HISTORY: Right flank pain. 7 weeks . COMPARISON STUDY: CT of the abdomen March 26, 2012. Renal ultrasound February 10, 2012. TECHNIQUE: Axial images of the abdomen and pelvis were obtained without IV contrast. Images were revi ewed in the axial, sagittal, and coronal planes. Automated exposure control was utilized for the artis dy. A dose lowering technique was utilized adhering to the principles of ALARA. FINDINGS: Interlobular septal thickening within the lower lungs suggests mild interstitial edema. No pneumatosis, free air or portal venous gas is present. Unenhanced images of the liver, spleen, adrena l glands and pancreas are unremarkable. Multifocal left renal scarring is noted. There is extensive r ight perinephric infiltration. There is hyperdense material within the right renal sinus. Right renal vein thrombosis is favored. The right ovarian vein is prominent. There is no hydronephrosis. No uret eral calculi are identified. There is no evidence for a bowel obstruction. Expected findings followin g section are noted. The uterus is mildly enlarged. There is a left ovarian hypodense lesion which favors a cyst. No suspicious osseous lesions are noted. IMPRESSION: 1. Extensive right perinephric infiltration with hyperdense material within the right renal sinus. [place] right renal vein thrombosis is favored. Clot within the collecting system could appear similar al though is considered less likely. Given chronic renal disease, further evaluation with Doppler renal ultrasound is recommended for confirmation. Mild prominence of the right ovarian vein. This is likely within normal limits although associated ovarian vein thrombosis would be difficult to exclude. 2. No hydronephrosis or urinary calculi. Electronically signed by: Yuriy Haynes M.D. 08/25/2019 12:51 PM
[2019-08-25 13:49] LABS: Partial Thromboplastin Ratio 0.9; Partial Thromboplastin Time 25.3 Seconds (21.0-31.0); Prothrombin Time 10.5 Seconds (9.0-12.0)
--- NOTE | 2019-08-25 14:52 | Ultrasound Report ---
RENAL ULTRASOUND CLINICAL HISTORY: RIGHT FLANK PAIN, ABNORMAL CT COMPARISON STUDY: CT of the abdomen and pelvis August 25, 2019. TECHNIQUE: Sonography of the kidneys and the urinary bladder was performed, including color and dupl ex Doppler sonography. FINDINGS: The right kidney measures 9.9 cm and the left measures 10.1 cm. There is no hydronephrosis. There is moderate right perinephric fluid. Note is made of thrombus within the right renal vein. Thr ombus appears occlusive. This extends to the junction with the IVC. No calculi are identified. No vaughn al mass is noted. The right kidney is echogenic. IMPRESSION: 1. Findings consistent with right renal vein thrombosis, likely acute. Thrombus extends to the juncti on with the IVC. 2. Moderate right perinephric fluid and increased echogenicity of the kidney due to the thrombus. Electronically signed by: Yuriy Haynes M.D. 08/25/2019 2:51 PM
--- NOTE | 2019-08-25 16:57 | History & Physical Report ---
Date of Service August 25, 2019 Assessment & Plan (1) Thrombosis of right renal vein: Pt is 24 y/o F with PMH acute renal failure with subsequent development of nephrotic syndrome, currently stable, proteinuric CKD III, depression, anxiety, thyroidism, is 7 weeks presented to with complaint of right flank pain started one week ago initially as intermittent dull ache and increased and was consistent since yesterday. Denies hematuria or other urinary symptoms. No hx prior blood clots. Vitals stable. H/H: 12.5/35.8, Plt: 233, BUN: 29, Cr: 1.7, GFR: 40.6. -Renal US: Findings consistent with right renal vein thrombosis, likely acute. Thrombus extends to the junction with the IVC. Moderate right perinephric fluid and increased echogenicity of the kidney due to the thrombus. -Renal functions stable at pt's baseline. Baseline Cr: 1.7 -ER contacted vascular surgery who recommended anticoagulation and no surgical intervention -Lovenox SQ -Start Coumadin tomorrow -Monitor CBC, BMP, coags (2) Nephrotic syndrome: (3) CKD (chronic kidney disease), stage III: H/O renal failure with subsequent development of nephrotic syndrome, currently stable, proteinuric CKD III, BUN: 29, Cr: 1.7. Baseline Cr: 1.7 -Monitor renal functions -Avoid nephrotoxic agents when possible -Will hold aspirin while on anticoagulation, nephrology - Dr Rendon agrees -Consult nephrology if any worsening renal functions or uncontrolled HTN (4) Hypothyroid: TSH: 1.0 on 07/08/19 -Continue levothyroxine (5) Anxiety: (6) HTN (hypertension): Stable -Continue lisinopril (7) Depression: Denies suicidal or homicidal ideations -Continue citalopram DVT Prophylaxis -On therapeutic Lovenox Follows with Dr Ricardo for routine care Pt was seen and care coordinated with Dr Covington. See addendum History of Present Illness Chief Complaint: Pt is 24 y/o F with PMH acute renal failure with subsequent development of nephrotic syndrome, currently stable, proteinuric CKD III, depression, anxiety, thyroidism presented to ER with complaint of right flank pain. Patient states 1 week ago started with some intermittent dull aching to right CVA area. Yesterday with increased pain and pain had become constant. Tried muscle cream with little relief. Patient with history recent 7 weeks ago on 07/11/2019. No further vaginal bleeding for the past 2 weeks. Is bottle feeding . Has not had IUD placed yet. Denies any hematuria, dysuria, urinary frequency. Reports lower abdominal pain since C- section however that has been steadily improving since surgery. Denies fever/chills, diaphoresis, N/V/D/C, melena, hematochezia, ARROYO, dizziness, syncope, vision changes, neck pain, CP, SOB, orthopnea, palpitations, cough, sore throat, choking, otalgia, rhinorrhea, paresthesias, weakness, extremity weakness, extremity edema, rashes, other urinary symptoms. Primary Care Provider: Nina Ricardo DO Allergies Allergy/AdvReac Type Severity Reaction Status Date / Time morphine Allergy Severe itching Verified 08/25/19 22:11 lamotrigine Allergy Unknown itchy Verified 08/25/19 10:52 oxycodone AdvReac Intermediate itching Verified 08/25/19 22:11 fluoxetine AdvReac Unknown Shakiness Verified 08/25/19 10:52 paroxetine AdvReac Unknown Suicidal Verified 08/25/19 10:52 thoughts Home Medications Home Medications Medication Instructions Recorded Confirmed Type acetaminophen [Tylenol Extra 1,000 mg PO Q6H PRN 09/17/18 08/25/19 History Strength] aspirin 81 mg PO PM 04/15/19 08/25/19 History iron-vit C-vit [id number] acid 1 tab PO HS 07/03/19 08/25/19 History levothyroxine 175 mcg PO DAILY 07/03/19 08/25/19 History citalopram 40 mg PO DAILY 08/25/19 08/25/19 History lisinopril 2.5 mg PO DAILY 08/25/19 08/25/19 History Past Med/Surg History Medical History Anxiety (Chronic) Nephrotic syndrome (Chronic) CKD (chronic kidney disease), stage III (Chronic) GERD (gastroesophageal reflux disease) (Chronic) HTN (hypertension) (Chronic) Borderline personality disorder (Chronic) Cannabis abuse (Resolved) Depression (Chronic) Hypothyroid (Chronic) Kidney disease (Chronic) PTSD (post-traumatic stress disorder) (Chronic) Visual impairment (Chronic) Thrombosis of right renal vein Surgical History H/O section (Resolved) History of tonsillectomy and adenoidectomy (Resolved) No pertinent past surgical history (Resolved) Family History Other Diabetes FHx: seizures Social History Preferred Language: Hebrew Communication Ability: Effective Visual Impairment: No Limitations Hearing Ability: Normal Director Video Required: No Beliefs That Will Affect Care: None marital status: Single Current Living Situation: Alone current occupational status: employed Other Information That Helps Us Care for You: No Feels Safe at Home: Yes Safety Concerns: Feels Safe At This Time Smoking Status: Former smoker Hx Alcohol Use: Yes Alcohol type: wine Alcohol Intake Frequency: Rarely Hx Substance Use: Yes substance use type: marijuana Review of Systems Review of Systems: All systems reviewed & are unremarkable except as noted in HPI & below Physical Exam Physical Exam: General: no acute distress, WDWN Head: normocephalic, atraumatic Eyes: amblyopia, conjunctiva non-injected, anicteric ENT: normal inspection external ears, nose, mucous membranes moist Neck: supple, trachea midline Lungs: clear, no respiratory distress, no wheezing/rhonchi/rales CV: RRR, no murmur, no pretibial edema Abd: +well healing surgical incision suprapubic region without surrounding erythema, no discharge; normal BS, soft, slight tenderness to lower abdomen without rebound or guarding, no CVA tenderness Ext: no cyanosis, no calf tenderness Neuro: A&O x 3, no focal deficits noted, normal affect Skin: warm, dry Results & Data Vital Signs (Past 12 Hours) Vital Signs Temp Pulse Resp BP Pulse Ox 08/25/19 16:00 68 12 119/71 98 08/25/19 15:10 75 15 98 08/25/19 15:09 78 19 110/77 98 08/25/19 13:30 79 16 112/76 97 08/25/19 13:00 73 15 121/77 99 08/25/19 12:36 78 14 96 08/25/19 12:34 76 14 130/76 08/25/19 12:02 132/65 08/25/19 10:28 36.9 C 82 18 126/80 98 Laboratory Results Short CBC 08/25/19 08/25/19 Range/Units 11:25 11:25 WBC 8.75 (4.8-10.8) K/uL Hgb 12.5 (12.0-16.0) g/dL Hct 35.8 L (37-47) % Plt Count 233 (130-400) K/uL Creatinine 1.71 H (0.6-1.2) mg/dl Est GFR (Non-Af Amer) 40.6 BMP 08/25/19 11:25 Sodium 138 Potassium 4.0 Chloride 105 Carbon Dioxide 27 BUN 29 H Creatinine 1.71 H Glucose 85 Calcium 8.8 Liver Function 08/25/19 Range/Units 11:25 Total Bilirubin 0.3 (0.2-1) mg/dl AST 9 L (15-37) U/L ALT 16 (12-78) U/L Alkaline Phosphatase 55 (45-117) U/L Albumin 3.3 L (3.4-5.0) gm/dl Urine 08/25/19 Range/Units 11:01 Urine Color Yellow Urine Appearance Clear (Clear) Urine pH 6.0 (4.5-7.5) Ur Specific Bow 1.020 (1.000-1.030) Urine Protein 2+ H (Negative) Urine Glucose (UA) Negative (Negative) Diagnostic Findings CT ABD/PELVIS: IMPRESSION: 1. Extensive right perinephric infiltration with hyperdense material within the right renal sinus. Acute right renal vein thrombosis is favored. Clot within the collecting system could appear similar although is considered less likely. Given chronic renal disease, further evaluation with Doppler renal ultrasound is recommended for confirmation. Mild prominence of the right ovarian vein. This is likely within normal limits although associated ovarian vein thrombosis would be difficult to exclude. 2. No hydronephrosis or urinary calculi. RENAL US: IMPRESSION: 1. Findings consistent with right renal vein thrombosis, likely acute. Thrombus extends to the junction with the IVC. 2. Moderate right perinephric fluid and increased echogenicity of the kidney due to the thrombus. Supervising Physician Co-Signing Physician Notes I have seen and examined the patient and have discussed the case with the provider above. I agree with the assessment and plan as stated with the following exceptions. 24 yo F 7 weeks post- presents with acute renal vein thrombosis. She was initially started on 1mg/kg BID Lovenox, which will be adjusted to 1.5mg/kg daily to lessen her shot burden. Although she has CKD with nephrotic syndrome, she is able to get Lovenox so she can get home and be with her who was recently released from the NICU. The patient reports not breast feeding and is considering IUD implantation for contraception at this point. Her pain in her right flank is intense, however, the morphine makes her severely pruritic. Benadryl is helping this. There is no evidence of hives on physical exam which is otherwise normal as above aside from a well-healed lower abdominal incision site, and R flank TTP. She reports using oxycodone at home yesterday, given to her in case of post-op pain from her . In a young patient who may need this for the next week or so to help her with pain while the clot stabilizes, I am concerned about the addictive nature of oxycodone. NSAIDs are contraindicated and Tylenol is ineffective. Would opt for a trial of tramadol overnight and cautiously weigh the risks of additional narcotics at discharge. Kidney funtion is otherwise stable. Cont with plan of Lovenox/Coumadin for the next 3-6 months. She will need a coverage auth for Lovenox upon discharge, and be set up in the anticoagulation clinic. Mom was present at bedside and all questions were answered. DO Adria
[2019-08-25] MEDS ORDERED: ENOXAPARIN 1 MG/KG SQ SCH (18:47)
[2019-08-25] MEDS ORDERED: ACETAMINOPHEN 325 MG TAB PO PRN (18:47)
[2019-08-25] MEDS ORDERED: DiphenhydrAMINE HCL 50 MG/ML VIAL IV STA (18:51)
[2019-08-25] MEDS ORDERED: DiphenhydrAMINE HCL 50 MG/ML VIAL ONE (18:52)
[2019-08-25] MEDS ORDERED: ENOXAPARIN INJ 60 MG/0.6 ML SYR SQ SCH (20:00)
[2019-08-25] MEDS ORDERED: CYANOCOBALAMIN PO SCH (21:00)
[2019-08-25] MEDS ORDERED: FOLIC ACID PO SCH (21:00)
[2019-08-25] MEDS ORDERED: IRON PO SCH (21:00)
[2019-08-25] MEDS ORDERED: ASCORBIC ACID PO SCH (21:00)
[2019-08-26] MEDS: TRAMADOL HCL 50 MG TABLET PO PRN ×3 (04:12→23:34)
[2019-08-26] MEDS: DiphenhydrAMINE HCL 50 MG/ML VIAL IV PRN ×3 (04:13→19:36)
[2019-08-26 06:19] LABS: Hematocrit (blood only) 33.9 % (37-47); Hemoglobin 11.3 g/dL (12.0-16.0); Mean Corpuscular Hemoglobin 32.3 pg (25-34); Mean Corpuscular Hgb Conc 33.3 g/dL (32-36); Mean Corpuscular Volume 96.9 fL (80-100); Mean Platelet Volume 9.4 fL (7.4-10.4); Platelet Count 243 K/uL (130-400); RDW Coefficient of Variation 12.4 % (11.5-14.5); RDW Standard Deviation 43.7 fL (36.4-46.3); White Blood Count 7.63 K/uL (4.8-10.8)
[2019-08-26] MEDS: LEVOTHYROXINE SODIUM 175 MCG TABLET PO SCH (06:24)
[2019-08-26 06:54] LABS: BUN Creatinine Ratio 13.3 (10-20); Calcium 8.3 mg/dl (8.5-10.1); Creatinine Clr Calc Pharmacy 36.9 ml/min; Est GFR (African American) 41.2; Est GFR (Non-African American) 35.5; Potassium 3.7 mmol/L (3.5-5.1)
[2019-08-26] MEDS: ENOXAPARIN 80 MG/0.8 ML SYR SQ SCH (08:44)
[2019-08-26] MEDS: CITALOPRAM 40 MG TAB PO SCH (08:44)
[2019-08-26 11:27] LABS: Prothrombin Time 10.6 Seconds (9.0-12.0)
[2019-08-26] MEDS: WARFARIN SOD 7.5 MG TAB PO SCH (15:48)
[2019-08-26] MEDS ORDERED: WARFARIN SOD 5 MG TAB PO SCH (16:00)
--- NOTE | 2019-08-26 17:11 | Hospitalist Progress Note ---
Date of Service August 26, 2019 Assessment & Plan (1) Thrombosis of right renal vein: Patient is a 24 yr female with H/O acute renal failure with subsequent development of nephrotic syndrome, proteinuric CKD III, depression, anxiety, hypothyroidism presents with history of right flank pain since 1 week duration. Right renal vein thrombosis Renal US: Findings consistent with right renal vein thrombosis, likely acute. Thrombus extends to the junction with the IVC. Moderate right perinephric fluid and increased echogenicity of the kidney due to the thrombus. As per Admission Note: ER contacted vascular surgery who recommended anticoagulation and no surgical intervention Continue Lovenox and Coumadin Monitor INR We need to be transition from Lovenox to heparin drip if renal function worsens Monitor for bleeding issues (2) Nephrotic syndrome: (3) CKD (chronic kidney disease), stage III: H/O renal failure with subsequent development of nephrotic syndrome, currently stable, proteinuric CKD III Baseline Cr: 1.7 Creatinine slightly elevated today at 1.9 Monitor renal functions Avoid nephrotoxic agents when possible Hold lisinopril for now Plan to discontinue aspirin as currently anticoagulated: Nephrology - Dr Diana cox agrees Consider nephrology evaluation if renal function worsens (4) Hypothyroid: TSH: 1.0 on 07/08/19 Continue levothyroxine (5) Anxiety: (6) HTN (hypertension): Stable Hold lisinopril for now (7) Depression: Denies suicidal or homicidal ideations Continue citalopram DVT Px: Lovenox and Coumadin CODE STATUS Full code Disposition Expected discharge home when stable Subjective Patient is seen and examined at bedside Complains of right flank pain which is improved from yesterday Denies any chest pain, shortness of breath, nausea, dizziness No bleeding issues Family at bedside Review of Systems Review of Systems: All systems reviewed & are unremarkable except as noted in HPI & below Physical Exam Physical Exam: Physical Exam: Vitals signs as noted above General Appearance:Moderately built and nourished, no apparent distress Head: normocephalic, Atraumatic Eyes: normal inspection, EOMI Neck: supple, Trachea midline Respiratory/Chest: Normal breath sounds, CTA Cardiovascular: S1, S2, No murmur Abdomen/GI:Soft, Minimal R flank tender, Bowel sounds present Extremities/Musculoskelatal:normal inspection, no edema Neurologic/Psych:AAOX3, grossly no focal neurological deficits Skin: normal color, warm Results & Data Vital Signs (Past 12 Hours) Vital Signs Temp Pulse Pulse Resp BP Pulse Ox 08/26/19 16:00 76 08/26/19 11:43 36.7 C 82 20 112/68 98 08/26/19 08:55 78 08/26/19 07:48 36.6 C 84 18 116/71 98 Laboratory Results Short CBC 08/26/19 Range/Units 05:39 WBC 7.63 (4.8-10.8) K/uL Hgb 11.3 L (12.0-16.0) g/dL Hct 33.9 L (37-47) % Plt Count 243 (130-400) K/uL BMP 08/26/19 05:39 Sodium 140 Potassium 3.7 Chloride 109 H Carbon Dioxide 26 BUN 25 H Creatinine 1.91 H Glucose 92 Calcium 8.3 L
[2019-08-26] MEDS ORDERED: hydrOXYzine HCl 10 MG TAB PO PRN (17:57)
[2019-08-26] MEDS ORDERED: LORATADINE 10 MG TAB PO ONE (23:42)
[2019-08-27] MEDS: DiphenhydrAMINE HCL 50 MG/ML VIAL IV PRN (01:44)
[2019-08-27 05:35] LABS: Hematocrit (blood only) 34.7 % (37-47); Hemoglobin 11.8 g/dL (12.0-16.0); Mean Corpuscular Hemoglobin 32.1 pg (25-34); Mean Corpuscular Volume 94.3 fL (80-100); Mean Platelet Volume 8.6 fL (7.4-10.4); Platelet Count 220 K/uL (130-400); RDW Coefficient of Variation 12.1 % (11.5-14.5); Red Blood Count 3.68 M/uL (4.2-5.4); White Blood Count 7.34 K/uL (4.8-10.8)
[2019-08-27 05:47] LABS: INR 1.1 (0.9-1.1); Prothrombin Time 10.8 Seconds (9.0-12.0)
[2019-08-27 06:03] LABS: BUN Creatinine Ratio 14.1 (10-20); Calcium 8.4 mg/dl (8.5-10.1); Creatinine Clr Calc Pharmacy 40.3 ml/min; Est GFR (African American) 45.8; Est GFR (Non-African American) 39.5; Potassium 4.2 mmol/L (3.5-5.1)
[2019-08-27] MEDS: LEVOTHYROXINE SODIUM 175 MCG TABLET PO SCH (06:33)
[2019-08-27] MEDS: CITALOPRAM 40 MG TAB PO SCH (08:33)
[2019-08-27] MEDS: ENOXAPARIN 80 MG/0.8 ML SYR SQ SCH (08:33)
--- NOTE | 2019-08-27 12:39 | Hospitalist Progress Note ---
Date of Service August 27, 2019 Assessment & Plan (1) Thrombosis of right renal vein: Patient is a 24 yr female with H/O acute renal failure with subsequent development of nephrotic syndrome, proteinuric CKD III, depression, anxiety, hypothyroidism presents with history of right flank pain since 1 week duration. Right renal vein thrombosis Renal US: Findings consistent with right renal vein thrombosis, likely acute. Thrombus extends to the junction with the IVC. Moderate right perinephric fluid and increased echogenicity of the kidney due to the thrombus. As per Admission Note: ER contacted vascular surgery who recommended anticoagulation and no surgical intervention Continue Lovenox and Coumadin Monitor INR:1.1 Renal function stable No bleeding issues Hypercoagulable work up is pending Needs follow up with coumadin clinic upon discharge (2) Nephrotic syndrome: (3) CKD (chronic kidney disease), stage III: H/O renal failure with subsequent development of nephrotic syndrome, currently stable, proteinuric CKD III Baseline Cr: 1.7 Creatinine back to baseline today Monitor renal functions Avoid nephrotoxic agents when possible Hold lisinopril for now Plan to discontinue aspirin as currently anticoagulated: Nephrology - Dr Rendon agrees Consider nephrology evaluation if renal function worsens (4) Hypothyroid: TSH: 1.0 on 07/08/19 Continue levothyroxine (5) Anxiety: (6) HTN (hypertension): Stable Hold lisinopril for now (7) Depression: Denies suicidal or homicidal ideations Continue citalopram DVT Px: Lovenox and Coumadin CODE STATUS Full code Disposition Plan to discharge home today Subjective Patient is seen and examined at bedside States right flank pain is much better today Reports some itching but no rash Denies any chest pain, shortness of breath, nausea, dizziness No bleeding issues Offers no other complaints Review of Systems Review of Systems: All systems reviewed & are unremarkable except as noted in HPI & below Physical Exam Physical Exam: Physical Exam: Vitals signs as noted above General Appearance:Moderately built and nourished, no apparent distress Head: normocephalic, Atraumatic Eyes: normal inspection, EOMI Neck: supple, Trachea midline Respiratory/Chest: Normal breath sounds, CTA Cardiovascular: S1, S2, No murmur Abdomen/GI:Soft, non tender, Bowel sounds present Extremities/Musculoskelatal:normal inspection, no edema Neurologic/Psych:AAOX3, grossly no focal neurological deficits Skin: normal color, warm Results & Data Vital Signs (Past 12 Hours) Vital Signs Temp Pulse Pulse Resp BP BP Pulse Ox 08/27/19 11:39 36.7 C 84 16 118/77 97 08/27/19 09:00 66 08/27/19 08:14 36.6 C 74 16 115/73 99 08/27/19 04:00 36.7 C 72 16 112/70 98 08/27/19 01:00 80 Laboratory Results Short CBC 08/27/19 Range/Units 05:19 WBC 7.34 (4.8-10.8) K/uL Hgb 11.8 L (12.0-16.0) g/dL Hct 34.7 L (37-47) % Plt Count 220 (130-400) K/uL BMP 08/27/19 05:19 Sodium 141 Potassium 4.2 Chloride 109 H Carbon Dioxide 26 BUN 25 H Creatinine 1.75 H Glucose 75 Calcium 8.4 L
--- NOTE | 2019-08-27 12:54 | Discharge Summary ---
Date of Service August 27, 2019 Admission HPI Per Admitting Provider Chief Complaint: Pt is 24 y/o F with PMH acute renal failure with subsequent development of nephrotic syndrome, currently stable, proteinuric CKD III, depression, anxiety, thyroidism presented to ER with complaint of right flank pain. Patient states 1 week ago started with some intermittent dull aching to right CVA area. Yesterday with increased pain and pain had become constant. Tried muscle cream with little relief. Patient with history recent 7 weeks ago on 07/11/2019. No further vaginal bleeding for the past 2 weeks. Is bottle feeding . Has not had IUD placed yet. Denies any he maturia, dysuria, urinary frequency. Reports lower abdominal pain since C- section however that has been steadily improving since surgery. Denies fever/chills, diaphoresis, N/V/D/C, melena, hematochezia, ARORYO, dizziness, syncope, vision changes, neck pain, CP, SOB, orthopnea, palpitations, cough, sore throat, choking, otalgia, rhinorrhea, paresthesias, weakness, extremity weakness, extremity edema, rashes, other urinary symptoms. Admission Exam Per Admitting Provider General: no acute distress, WDWN Head: normocephalic, atraumatic Eyes: amblyopia, conjunctiva non-injected, anicteric ENT: normal inspection external ears, nose, mucous membranes moist Neck: supple, trachea midline Lungs: clear, no respiratory distress, no wheezing/rhonchi/rales CV: RRR, no murmur, no pretibial edema Abd: +well healing surgical incision suprapubic region without surrounding erythema, no discharge; normal BS, soft, slight tenderness to lower abdomen without rebound or guarding, no CVA tenderness Ext: no cyanosis, no calf tenderness Neuro: A&O x 3, no focal deficits noted, normal affect Skin: warm, dry Principal Diagnosis Right renal vein Thrombosis Discharge Data Allergies Allergy/AdvReac Type Severity Reaction Status Date / Time morphine Allergy Severe itching Verified 08/25/19 22:11 lamotrigine Allergy Unknown itchy Verified 08/25/19 10:52 oxycodone AdvReac Intermediate itching Verified 08/25/19 22:11 fluoxetine AdvReac Unknown Shakiness Verified 08/25/19 10:52 paroxetine AdvReac Unknown Suicidal Verified 08/25/19 10:52 thoughts Consultations 08/25/19 15:31 ED Decision to Admit Stat 08/25/19 18:47 Consult Case Management - Discharge Planning Routine 08/26/19 23:01 Consult Patient Rep / Service Excellence [Consult Patient Services] Routine Procedures Performed Renal US: Findings consistent with right renal vein thrombosis, likely acute. Thrombus extends to the junction with the IVC. Moderate right perinephric fluid and increased echogenicity of the kidney due to the thrombus. CT ABD: Extensive right perinephric infiltration with hyperdense material within the right renal sinus. Acute right renal vein thrombosis is favored. Clot within the collecting system could appear similar although is considered less likely. Given chronic renal disease, further evaluation with Doppler renal ultrasound is recommended for confirmation. Mild prominence of the right ovarian vein. This is likely within normal limits although associated ovarian vein thrombosis would be difficult to exclude. No hydronephrosis or urinary calculi. Ordered Studies 08/25/19 11:25 CT abd pelvis wo con Stat 08/25/19 12:45 US renal/blad retro comp Stat Hospital Course (1) Thrombosis of right renal vein: Patient is a 24 yr female with H/O acute renal failure with subsequent development of nephrotic syndrome, proteinuric CKD III, depression, anxiety, hypothyroidism presents with history of right flank pain since 1 week duration. Right renal vein thrombosis Renal US: Findings consistent with right renal vein thrombosis, likely acute. Thrombus extends to the junction with the IVC. Moderate right perinephric fluid and increased echogenicity of the kidney due to the thrombus. As per Admission Note: ER contacted vascular surgery who recommended anticoagulation and no surgical intervention Continue Lovenox and Coumadin Monitor INR:1.1 Renal function stable No bleeding issues Hypercoagulable work up is pending Needs follow up with coumadin clinic upon discharge (2) Nephrotic syndrome: (3) CKD (chronic kidney disease), stage III: H/O renal failure with subsequent development of nephrotic syndrome, currently stable, proteinuric CKD III Baseline Cr: 1.7 Creatinine back to baseline today Monitor renal functions Avoid nephrotoxic agents when possible Hold lisinopril for now Plan to discontinue aspirin as currently anticoagulated: Nephrology - Dr Rendon agrees Consider nephrology evaluation if renal function worsens (4) Hypothyroid: TSH: 1.0 on 07/08/19 Continue levothyroxine (5) Anxiety: (6) HTN (hypertension): Stable Hold lisinopril for now (7) Depression: Denies suicidal or homicidal ideations Continue citalopram DVT Px: Lovenox and Coumadin CODE STATUS Full code Disposition Plan to discharge home today Total Time Total Time Spent Total Time Spent (In Minutes): 37 minutes Total Time Includes: Examination of the Patient, Discharge Planning, Medication Reconciliation, Communication With Other Providers and Other Discharge Plan Discharge Items Patient Disposition: Home - Self-Care Reason For Visit: RENAL VEIN THROMBOSIS Discharge Diagnosis: Right renal vein Thrombosis Activity: Per Instructions section Exercise/Sports: Gradually increase as tolerated Non-emergency contact: Primary Care Provider, Specialist and Dance Professor Call non-emergency contact if: you have any medication questions, your symptoms worsen, your pain is not controlled, your pain is worsening, your pain is unusual for you, your pain is concerning for you and you have a fever Follow-up/Referrals: Nina Ricardo DO [Primary Care Provider] - Diet: Regular Ambulatory Orders: Prothrombin Time INR (Routine) Timeframe: 1 Day Location: Determined by Patient Ordered By: Romeo Lopez Attending Provider Instructions: Follow up with for Primary Care on Sep 01, 2019 at 10:20AM Follow up with coumadin clinic tomorrow (08/27/2019) for managing your coumadin dose Follow up with your Dance Professor in 2-4 weeks Get blood test (PT/INR on 08/27/19) and follow up with coumadin clinic Your PT/INR today (08/27/19) is 1.1 . Take 7.5 mg coumadin today Your Target PT/INR is between 2.0 to 3.0. Duration of Lovenox to be determined by coumadin clinic based on your PT/INR Your Aspirin is discontinued as you are started on coumadin Seek immediate medical attention if your symptoms reoccur or worsen Pending Studies at Discharge: Yes Studies:: Hypercoagulable work up Stand-Alone Forms: My [employer], Smoking Cessation Medications and DC Order Prescriptions: New enoxaparin [Lovenox] 80 mg/0.8 mL Syringe 80 mg subcut DAILY 4 Days Qty: 3.2 RF: 0 warfarin 2.5 mg tablet 2.5 mg PO UD Qty: 60 RF: 0 warfarin [Coumadin] 1 mg tablet 1 mg PO UD Qty: 60 RF: 0 warfarin [Coumadin] 5 mg tablet 5 mg PO UD Qty: 30 RF: 0 Continued acetaminophen [Tylenol Extra Strength] 500 mg Tablet 1,000 mg PO Q6H PRN (Reason: Pain) RF: 0 levothyroxine 175 mcg tablet 175 mcg PO DAILY RF: 0 iron-vit C-vit [id number] acid [id number] Tablet 1 tab PO HS RF: 0 citalopram 40 mg tablet 40 mg PO DAILY RF: 0 lisinopril 2.5 mg tablet 2.5 mg PO DAILY RF: 0 Discontinued aspirin 81 mg Tablet,Delayed Release (Dr/Ec) 81 mg PO PM RF: 0 Discharge Orders: Discharge Order (Routine); Ordered 08/27/19 Ordered By: Romeo Gibson Admission Data Admit Date/Time: 08/25/19 16:51 Attending Provider: Romeo Gibson Admit Provider: Samira Covington Primary Care Provider: Nina Ricardo Other Providers: Samira Covington Other Interventions: Discharge Summary Assessment (RN) Last Done: 08/27/19 13:43 DC Date/Time DO NOT enter until pt leaves facility: 08/27/19 14:27
[2019-08-27] MEDS: WARFARIN SOD 7.5 MG TAB PO SCH (14:18)
[2019-08-31 22:21] LABS: Anti Cardiolipin Ab IgG <14 GPL (< = 14); Anti Cardiolipin Ab IgM <12 MPL (< = 12); Anti-Cardiolipin Ab IgA <11 APL (< = 11); Anti-Thrombin III Activity 93 % activity (80-120); B2 Glycoprotein IgA <9 SAU (<=20); B2 Glycoprotein IgG <9 SGU (<=20); B2 Glycoprotein IgM <9 SMU (<=20); Lupus Antic Hexagonal Phase Negative (Negative); Protein S Functional(Activity) 93 % (60-140)
== END 2019-08-27 14:27 | disposition home or self-care (01) | DRG 699 ==
LOC: ED 10:13 → SUATTDRO 16:51 → 2N 16:51

== ENCOUNTER 2019-08-28 06:38 | Inpatient (IN) ==
[2019-08-28] MEDS ORDERED: SODIUM CHLORIDE 0.9% 1000ML 1,000 ML IV ONE (07:00)
[2019-08-28] MEDS ORDERED: TRAMADOL HCL 50 MG TABLET PO STA (07:03)
[2019-08-28] MEDS ORDERED: MoRPHine SULFATE 2 MG/ML CARP IV STA (07:03)
[2019-08-28] MEDS ORDERED: DiphenhydrAMINE HCL 50 MG/ML VIAL IV STA (07:04)
--- NOTE | 2019-08-28 07:22 | Emergency Department Note ---
Entered by Pretty Saxena acting as a scribe for Mauri Muñoz MD History of Present Illness General Chief complaint: Flank Pain Stated complaint: BLOOD CLOT Time Seen by Provider: 08/28/19 06:53 Source: patient History of Present Illness Onset (ago): day(s) (couple) Location: back (right flank) Pain Consistency: + constant Maximum Pain Intensity: 6 Quality: + stabbing Relieved By: + none Exacerbated By: + none Associated symptoms: + denies other symptoms (burning urination, leg swelling), + nausea/vomiting (positive nausea, negative vomiting) and + other (blood in urine, now resolved SOB); no fever/chills The patient is a 24 year old F who presents to the Emergency Room with c omplaints of constant right flank pain that started a couple of days ago. She describes her pain as stabbing. She notes that nothing makes her pain better or worse. She states that she was in the hospital, yesterday, for the same problem. She notes that she was given tramadol in the hospital. She adds that she felt okay when she was discharged at 2:30pm yesterday, but notes that her pain has now returned. She states that she is currently experiencing nausea and blood in her urine. She adds that the blood in her urine is not visible but showed up in her urine test. She notes that she experienced shortness of breath, prior to coming into the ED, which is now resolved. She denies that she is currently experiencing fevers, chills, burning urination, vomiting, and leg swelling. She states that she gave on July 07, by . She adds that she has now recovered and is not currently bleeding. She notes that she is not currently breast feeding. She states that she has a history of chronic kidney issues. She adds that her kidneys only work at 40%. She states that she has a history of renal vein thrombosis. She adds that she is currently on Lovenox and Coumadin. Home Medications Home Medications Medication Instructions Recorded Confirmed Type acetaminophen [Tylenol Extra 1,000 mg PO Q6H PRN 09/17/18 08/28/19 History Strength] iron-vit C-vit [id number] acid 1 tab PO HS 07/03/19 08/28/19 History levothyroxine 175 mcg PO DAILY 07/03/19 08/28/19 History citalopram 40 mg PO DAILY 08/25/19 08/28/19 History lisinopril 2.5 mg PO DAILY 08/25/19 08/28/19 History enoxaparin [Lovenox] 80 mg SUBCUT DAILY 4 Days #3.2 ml 08/27/19 08/28/19 Rx warfarin 2.5 mg PO UD #60 tab 08/27/19 08/28/19 Rx warfarin [Coumadin] 1 mg PO UD #60 tab 08/27/19 08/28/19 Rx warfarin [Coumadin] 5 mg PO UD #30 tab 08/27/19 08/28/19 Rx warfarin 2.5 mg PO UD 08/28/19 08/28/19 History Allergies Allergy/AdvReac Type Severity Reaction Status Date / Time morphine Allergy Severe itching Verified 08/28/19 07:09 lamotrigine Allergy Unknown itchy Verified 08/28/19 07:09 oxycodone AdvReac Intermediate itching Verified 08/28/19 07:09 fluoxetine AdvReac Unknown Shakiness Verified 08/28/19 07:09 paroxetine AdvReac Unknown Suicidal Verified 08/28/19 07:09 thoughts Past Med/Surg History Medical History Thrombosis of right renal vein (Chronic) Anxiety (Chronic) Nephrotic syndrome (Chronic) CKD (chronic kidney disease), stage III (Chronic) GERD (gastroesophageal reflux disease) (Chronic) HTN (hypertension) (Chronic) Borderline personality disorder (Chronic) Cannabis abuse (Resolved) Depression (Chronic) Hypothyroid (Chronic) Kidney disease (Chronic) PTSD (post-traumatic stress disorder) (Chronic) Visual impairment (Chronic) Surgical History H/O section (Resolved) History of tonsillectomy and adenoidectomy (Resolved) No pertinent past surgical history (Resolved) Family History Other Diabetes FHx: seizures Social History Preferred Language: Gambian Communication Ability: Effective Visual Impairment: No Limitations Hearing Ability: Normal 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 and A total of 10 systems reviewed and were otherwise negative Physical Exam Vital Signs Vital Signs - 24 hr 08/28/19 06:47 08/28/19 07:39 08/28/19 08:16 Temperature 36.7 C Temperature Source Oral Sepsis Recent Fever Within 48 Hours No Sepsis Action Taken by Nursing No Action Required Pulse Rate 77 Pulse Rate [Finger] 68 Respiratory Rate 18 20 Respiratory Effort / Characteristics Non-Labored Spontaneous Respiratory Depth Normal Respiratory Pattern Regular Blood Pressure 117/81 Blood Pressure [Right Arm] 134/77 Blood Pressure Mean 93 Blood Pressure Mean [Right Arm] 96 Blood Pressure Position Sitting Pulse Oximetry 99 98 98 Oxygen Delivery Method Room Air Room Air General: Non-ill appearing young female in no acute distress. Complains of right flank pain. HEENT: Normal cephalic atraumatic. Pupils are equal round and reactive to light. Extraocular movements are intact. Oropharynx is pink with moist mucous membranes. No swelling of the mouth lips or tongue. Neck: Supple with a midline trachea. No meningeal signs or stiffness, no JVD or bruits. No Stridor. Chest: Clear to auscultation bilaterally. No wheezes or rhonchi. No increased work of breathing. Heart: regular rate and rhythm. Abdomen: Soft nontender, nondistended without rebound guarding or rigidity. Extremities: No cyanosis clubbing or edema. No calf tenderness or asymmetry Spine/Back. Non tender to palpation. No CVA tenderness. Skin: Good turgor without rashes. Neurologic exam: Cranial nerves two through 12 are intact. Motor and sensation are intact and symmetrical throughout. Course 0653: The patient was evaluated in room A10. A complete history and physical exam was performed. 0742: The ED nurse noticed that the patient had some local red munguia on her left arm. The patient states that her arm feels cold. There is no evidence of a systemic allergic reaction. The patient does not have any hives or shortness of breath. The patient is going to get an US now. 0827: I reviewed the patient's case with [facility] Creel Clerk. 0834: I reviewed the patient's case with Dr. Gibson, [facility] Hospitalist. Dr. Gibson will evaluate the patient for further management. Administered Medications Acetaminophen (Tylenol) 650 mg PO TID DENISE Stop: 09/27/19 13:59 Last Admin: 08/28/19 13:44 Dose: 650 mg Documented by: [id number] Enoxaparin Sodium (Lovenox) 80 mg SQ DAILY DENISE Stop: 09/27/19 09:44 Last Admin: 08/28/19 12:56 Dose: 80 mg Documented by: [id number] Hydrocortisone (Hydrocortisone 1%) 1 appln EXT BID DENISE Stop: 09/27/19 10:59 Last Admin: 08/28/19 12:57 Dose: 1 appln Documented by: [id number] Discontinued Medications Diphenhydramine HCl (Benadryl) 12.5 mg IV NOW STA Stop: 08/28/19 07:05 Last Admin: 08/28/19 07:26 Dose: 12.5 mg Documented by: [id number] Sodium Chloride (Nss 1000ml) 1,000 mls @ 999 mls/hr IV .Q1H1M ONE Stop: 08/28/19 08:00 Last Infusion: 08/28/19 08:26 Dose: 0 mls/hr Documented by: [id number] Admin: 08/28/19 07:25 Dose: 999 mls/hr Documented by: [id number] Morphine Sulfate (Morphine Sulfate) 2 mg IV NOW STA Stop: 08/28/19 07:04 Last Admin: 08/28/19 07:28 Dose: 2 mg Documented by: [id number] Medical Decision Making Differential Diagnosis Differential diagnosis includes: renal vein thrombosis , renal failure, kidney stone, infection, metabolic/electrolyte abnormality Medical Records Attestation: I reviewed the patient's medical records. Home Medications Current Medication List: was personally reviewed by me Laboratory Data Attestation: I reviewed the patient's lab results. Result diagrams: 08/28/19 07:16 08/28/19 07:16 Lab Results 08/28/19 08/28/19 08/28/19 Range/Units 07:16 07:16 07:16 WBC 7.77 (4.8-10.8) K/uL RBC 3.86 L (4.2-5.4) M/uL Hgb 12.5 (12.0-16.0) g/dL Hct 36.0 L (37-47) % MCV 93.3 (80-100) fL MCH 32.4 (25-34) pg MCHC 34.7 (32-36) g/dL RDW Std Deviation 40.8 (36.4-46.3) fL RDW Coeff of Maryjo 12.1 (11.5-14.5) % Plt Count 261 (130-400) K/uL MPV 8.8 (7.4-10.4) fL Immature Gran % (Auto) 0.3 % Neut % (Auto) 42.3 % Lymph % (Auto) 36.9 % Edgar % (Auto) 9.8 % Eos % (Auto) 10.4 % Baso % (Auto) 0.3 % Immature Gran # (Auto) 0.02 (0.00-0.02) K/uL Neut # (Auto) 3.29 (1.4-6.5) K/uL Lymph # (Auto) 2.87 (1.2-3.4) K/uL Edgar # (Auto) 0.76 H (0.11-0.59) K/uL Eos # (Auto) 0.81 H (0-0.5) K/uL Baso # (Auto) 0.02 (0-0.2) K/uL PT 17.2 H (9.0-12.0) Seconds INR 1.7 H (0.9-1.1) APTT 31.4 H (21.0-31.0) Seconds PTT Ratio 1.2 Sodium 139 (136-145) mmol/L Potassium 4.1 (3.5-5.1) mmol/L Chloride 107 (98-107) mmol/L Carbon Dioxide 27 (21-32) mmol/L Anion Gap 5.0 (3-11) BUN 27 H (7-18) mg/dl Creatinine 1.84 H (0.6-1.2) mg/dl Est Cr Clr Drug Dosing 38.3 ml/min Est GFR ( Amer) 43.1 Est GFR (Non-Af Amer) 37.2 BUN/Creatinine Ratio 14.9 (10-20) Glucose 87 (70-99) mg/dl Calcium 8.9 (8.5-10.1) mg/dl Total Bilirubin 0.1 L (0.2-1) mg/dl AST 26 (15-37) U/L ALT 27 (12-78) U/L Alkaline Phosphatase 54 (45-117) U/L Total Protein 7.2 (6.4-8.2) gm/dl Albumin 3.3 L (3.4-5.0) gm/dl Globulin 3.9 (2.5-4.0) gm/dl Albumin/Globulin Ratio 0.9 (0.9-2) Lipase 512 H (73-393) U/L HCG, Qual (Negative) Urine Color Urine Appearance (Clear) Urine pH (4.5-7.5) Ur Specific [place] (1.000-1.030) Urine Protein (Negative) Urine Glucose (UA) (Negative) Urine Ketones (Negative) Urine Blood (Negative) Urine Nitrite (Negative) Urine Bilirubin (Negative) Urine Urobilinogen (Negative) Ur Leukocyte Esterase (Negative) Urine WBC (Auto) (0-5) /hpf Urine RBC (Auto) (0-4) /hpf U Hyaline Cast (Auto) (0-5) /lpf U Epithel Cells (Auto) (0-5) /lpf Urine Bacteria (Auto) (Negative) 08/28/19 08/28/19 Range/Units 07:16 07:35 WBC (4.8-10.8) K/uL RBC (4.2-5.4) M/uL Hgb (12.0-16.0) g/dL Hct (37-47) % MCV (80-100) fL MCH (25-34) pg MCHC (32-36) g/dL RDW Std Deviation (36.4-46.3) fL RDW Coeff of Maryjo (11.5-14.5) % Plt Count (130-400) K/uL MPV (7.4-10.4) fL Immature Gran % (Auto) % Neut % (Auto) % Lymph % (Auto) % Edgar % (Auto) % Eos % (Auto) % Baso % (Auto) % Immature Gran # (Auto) (0.00-0.02) K/uL Neut # (Auto) (1.4-6.5) K/uL Lymph # (Auto) (1.2-3.4) K/uL Edgar # (Auto) (0.11-0.59) K/uL Eos # (Auto) (0-0.5) K/uL Baso # (Auto) (0-0.2) K/uL PT (9.0-12.0) Seconds INR (0.9-1.1) APTT (21.0-31.0) Seconds PTT Ratio Sodium (136-145) mmol/L Potassium (3.5-5.1) mmol/L Chloride (98-107) mmol/L Carbon Dioxide (21-32) mmol/L Anion Gap (3-11) BUN (7-18) mg/dl Creatinine (0.6-1.2) mg/dl Est Cr Clr Drug Dosing ml/min Est GFR ( Amer) Est GFR (Non-Af Amer) BUN/Creatinine Ratio (10-20) Glucose (70-99) mg/dl Calcium (8.5-10.1) mg/dl Total Bilirubin (0.2-1) mg/dl AST (15-37) U/L ALT (12-78) U/L Alkaline Phosphatase (45-117) U/L Total Protein (6.4-8.2) gm/dl Albumin (3.4-5.0) gm/dl Globulin (2.5-4.0) gm/dl Albumin/Globulin Ratio (0.9-2) Lipase (73-393) U/L HCG, Qual Negative (Negative) Urine Color Yellow Urine Appearance Clear (Clear) Urine pH 6.5 (4.5-7.5) Ur Specific [place] 1.011 (1.000-1.030) Urine Protein 2+ H (Negative) Urine Glucose (UA) Negative (Negative) Urine Ketones Negative (Negative) Urine Blood Negative (Negative) Urine Nitrite Negative (Negative) Urine Bilirubin Negative (Negative) Urine Urobilinogen Negative (Negative) Ur Leukocyte Esterase Negative (Negative) Urine WBC (Auto) 0 (0-5) /hpf Urine RBC (Auto) 0-4 (0-4) /hpf U Hyaline Cast (Auto) 0 (0-5) /lpf U Epithel Cells (Auto) >30 H (0-5) /lpf Urine Bacteria (Auto) Negative (Negative) Imaging Data Radiologist's Impression: Radiology results as stated below per my review and the radiologist's interpretation: RENAL ULTRASOUND CLINICAL HISTORY: hx of rt renal vein clot. Right flank pain. COMPARISON STUDY: CT of the abdomen and pelvis and renal ultrasound August 25, 2019. TECHNIQUE: Sonography of the kidneys and the urinary bladder was performed. FINDINGS: Right kidney measures 9.8 cm in maximal dimension and the left measures approximately 8 cm. The right kidney is slightly echogenic, as before. The left kidney is partially obscured. There is no hydronephrosis. Note is again made of right renal vein thrombus as shown on ultrasound and CT of August 25, 2019. Both ureteral jets were identified. No calculi were identified. Note is made of a 4 x 3.6 x 3.5 cm cystic left ovarian lesion. There is color flow within the left ovary. IMPRESSION: 1. Redemonstration of right renal vein thrombus, likely occlusive. This appears unchanged from renal ultrasound of August 25, 2019. 2. No hydronephrosis. 3. Suspected 4 cm left ovarian cyst. A follow-up pelvic ultrasound in 6 weeks to ensure resolution is recommended. Electronically signed by: Yuriy Haynes M.D. 08/28/2019 8:21 AM Blood Pressure Blood Pressure Findings: Elevated blood pressure Blood Pressure Disposition: further management by hospitalist PENNIE Narrative This patient comes in as described above. She was discharged from the hospital yesterday after having right flank pain and being diagnosed with a renal vein thrombosis. She said the pain has come back and she says that she is been very uncomfortable at home. She is about 1 month and has recuperated from a without any current issues from that. She has had no fever chills. No dysuria or hematuria. Her father tells me she is followed by Dr. Bledsoe as she has had some kidney issues from childhood. She is afebrile here and has stable vital signs. IV access established was hydrated with IV normal saline bolus. Multiple blood testing was obtained including coagulation studies as she is on Coumadin and Lovenox. I also did repeat the ultrasound has been several days to ensure that this is not changed significantly. She tells me when she was in the hospital she will get some itchiness with morphine but did well if they gave Benadryl. I did order Benadryl 12.5 mg IV as well as morphine 2 mgs IV for pain management. She was reassessed frequently. After she did get the morphine she did have some mild redness around the vein near this but it quickly subsided without any systemic complaints. Her ultrasound shows unchanged renal vein stenosis. She has a creatinine of 1.7 which is baseline. Given her pain and her complicated situation I do think she should be admitted/observed, I called John to see her in the ER for these measures. Impression & Plan Renal vein thrombosis, Right flank pain, Renal insufficiency Discharge Plan Visit Data *Final* Discharge Date/Time: 08/28/19 10:14 Chief Complaint: Flank Pain Stated Complaint: BLOOD CLOT ED Provider: Mauri Muñoz Discharge Problem: Renal vein thrombosis, Right flank pain, Renal insufficiency Patient Disposition: Admitted As Inpatient Discharge Instructions Interventions: ED Discharge Assessment Last Done: 08/28/19 10:14 The scribe's documentation has been prepared under my direction and personally reviewed by me in its entirety. I confirm that the note above accurately reflects all work, treatment, procedures, and medical decision making performed by me.
[2019-08-28 07:27] LABS: Basophils # (auto) 0.02 K/uL (0-0.2); Basophils % (auto) 0.3 %; Eosinophils # (auto) 0.81 K/uL (0-0.5); Eosinophils % (auto) 10.4 %; Hemoglobin 12.5 g/dL (12.0-16.0); Immature Granulocytes # (auto) 0.02 K/uL (0.00-0.02); Immature Granulocytes % (auto) 0.3 %; Lymphocytes # (auto) 2.87 K/uL (1.2-3.4); Lymphocytes % (auto) 36.9 %; Mean Corpuscular Hemoglobin 32.4 pg (25-34); Mean Corpuscular Hgb Conc 34.7 g/dL (32-36); Mean Corpuscular Volume 93.3 fL (80-100); Mean Platelet Volume 8.8 fL (7.4-10.4); Monocytes # (auto) 0.76 K/uL (0.11-0.59); Monocytes % (auto) 9.8 %; Neutrophils # (auto) 3.29 K/uL (1.4-6.5); Neutrophils % (auto) 42.3 %; Platelet Count 261 K/uL (130-400); RDW Coefficient of Variation 12.1 % (11.5-14.5); RDW Standard Deviation 40.8 fL (36.4-46.3); Red Blood Count 3.86 M/uL (4.2-5.4); White Blood Count 7.77 K/uL (4.8-10.8)
[2019-08-28 07:38] LABS: INR 1.7 (0.9-1.1); Partial Thromboplastin Ratio 1.2; Partial Thromboplastin Time 31.4 Seconds (21.0-31.0); Prothrombin Time 17.2 Seconds (9.0-12.0)
[2019-08-28 07:43] LABS: Albumin Level 3.3 gm/dl (3.4-5.0); BUN Creatinine Ratio 14.9 (10-20); Calcium 8.9 mg/dl (8.5-10.1); Creatinine Clr Calc Pharmacy 38.3 ml/min; Est GFR (African American) 43.1; Est GFR (Non-African American) 37.2; Potassium 4.1 mmol/L (3.5-5.1)
[2019-08-28 07:46] LABS: Albumin Globulin Ratio 0.9 (0.9-2); Bilirubin,Total 0.1 mg/dl (0.2-1); Globulin 3.9 gm/dl (2.5-4.0); Total Protein 7.2 gm/dl (6.4-8.2)
[2019-08-28 07:55] LABS: Appearance Urine Clear (Clear); Bacteria Urine Automated Negative (Negative); Bilirubin Urine Negative (Negative); Blood Urine Negative (Negative); Cast Urine Automated 0 /lpf (0-5); Color Urine Yellow; Epithelial Cell Urine Auto >30 /lpf (0-5); Glucose Urine UA Negative (Negative); Ketones Urine Negative (Negative); Leukocyte Esterase Urine Negative (Negative); Nitrite Urine Negative (Negative); Protein Urine 2+ (Negative); RBC Urine Automated 0-4 /hpf (0-4); Specific Gravity Urine 1.011 (1.000-1.030); Urobilinogen Urine Negative (Negative); WBC Urine Automated 0 /hpf (0-5); pH Urine 6.5 (4.5-7.5)
[2019-08-28 08:05] LABS: Pregnancy Test, Serum Negative (Negative)
--- NOTE | 2019-08-28 08:22 | Ultrasound Report ---
RENAL ULTRASOUND CLINICAL HISTORY: hx of rt renal vein clot. Right flank pain. COMPARISON STUDY: CT of the abdomen and pelvis and renal ultrasound August 25, 2019. TECHNIQUE: Sonography of the kidneys and the urinary bladder was performed. FINDINGS: Right kidney measures 9.8 cm in maximal dimension and the left measures approximately 8 cm. The right kidney is slightly echogenic, as before. The left kidney is partially obscured. There is n o hydronephrosis. Note is again made of right renal vein thrombus as shown on ultrasound and CT of [facility] 2018. Both ureteral jets were identified. No calculi were identified. Note is made of a 4 x 3.6 x 3.5 cm cystic left ovarian lesion. There is color flow within the left ovary. IMPRESSION: 1. Redemonstration of right renal vein thrombus, likely occlusive. This appears unchanged from renal ultrasound of August 25, 2019. 2. No hydronephrosis. 3. Suspected 4 cm left ovarian cyst. A follow-up pelvic ultrasound in 6 weeks to ensure resolution is recommended. Electronically signed by: Yuriy Haynes M.D. 08/28/2019 8:21 AM
--- NOTE | 2019-08-28 09:57 | History & Physical Report ---
Date of Service August 28, 2019 Assessment & Plan (1) Thrombosis of right renal vein: This is a 24 year old F with significant PMH of acute renal failure with subsequent development of nephrotic syndrome, currently stable, proteinuric CKD III, depression, anxiety, hypothyroidism presented to ER with complaint of right flank pain x 1 day. In ED repeat renal U/S Redemonstrated right renal vein thrombus, likely occlusive. It was unchanged from prior study on 08/25/2019. No hydronephrosis. Suspected 4 cm left ovarian cyst. Lab work revealed stable BUN and creatinine 27 and 1.84, INR 1.7, H&H 12.5 and 36.0, lipase 512. Urinalysis significant for +2 protein, negative blood, numerous epithelial cells, negative bacteria. In ED she received 2 mg IV morphine, IV Benadryl secondary to itching, p.o. tramadol with mild improvement in pain. admit to med/surg continue current tx of Lovenox/Coumadin bridge until INR 2-3 coumadin 5mg daily daily INR APAP 650mg TID scheduled tramadol 50mg po q4hr prn encourage ambulation pain control (2) CKD (chronic kidney disease), stage III: in setting of renal failure, steroid dependent nephrotic syn now with chronic renal failure baseline cr 1.[address] Bledsoe closely + Proteinuria - on lisinopril (curerntly on hold until off Lovenox) bun/cr 27/1.84 today (3) Contact dermatitis: chest wall 2/2 to tele pads hydrocortisone topically bid (4) Ovarian cyst: Incidental finding on renal U/S - 4cm L ovarian cyst Pt reports hx of ruptured ovarian cyst in past - last 2 years ago recommend repeat U/S in 6 months for further eval pt currently asymptomatic (5) HTN (hypertension): Hold low-dose lisinopril for now in setting of Lovenox use Blood pressure stable 131/79 (6) Anxiety: Patient with heightened anxiety in setting of recent and newly diagnosed renal vein thrombosis Continue citalopram Monitor (7) Depression: Patient with flat affect Continue citalopram (8) Hypothyroid: Continue levothyroxine Full Code Disposition: Med/Surg, discharge to home when pain under better control Follow up: PCP Dr. Ricardo along with scheduled; U/S in 6 weeks to monitor L ovarian cyst Pt was seen and examined in collaboration with Dr. Gibson, please see addendum History of Present Illness Chief Complaint: R flank pain x 1 day. Primary Care Provider: Nina Ricardo DO This is a 24 year old F with significant PMH of acute renal failure with subsequent development of nephrotic syndrome, currently stable, proteinuric CKD III, depression, anxiety, hypothyroidism presented to ER with complaint of right flank pain x 1 day. Of significance patient recently confined 08/25 to 08/27/2019 secondary to right flank pain. During that admission she was found to have acute appearing right renal vein thrombosis. CT scan of abdomen pelvis was performed along with renal ultrasound. Renal ultrasound revealed right renal vein thrombosis, likely acute extending to the junction with the IVC. Moderate right perinephric fluid with increased echogenicity of the kidney due to thrombus. Case was discussed with vascular surgery along with nephrology. Treatment is nonsurgical with anticoagulation. She is currently receiving Lovenox bridge and Coumadin until INR therapeutic. Diagnosis felt secondary to recent hospitalization with 07/11/2019 and underlying CKD stage III in setting of hx of nephrotic syndrome. Patient was discharged home yesterday in stable condition. She presents to ED today secondary to recurrent right flank pain uncontrolled with [id number] analgesia. She states she has tried Tylenol and leftover oxycodone from recent surgery without relief. Pain is located in right flank, nonradiating, initially 6/10, now 4/10. Pain is constant and worse with movement. She denies any fever, chills, sweats, lightheadedness, dizziness, palpitations, shortness of breath, hemoptysis, emesis, abdominal pain, dysuria, increased urgency or frequency with urination, hematuria, melena, hematochezia, diarrhea. She does complain of intermittent nausea. She also had episode of precordial chest pain this morning, lasting minutes and resolved on its own. She has not taking any medications this morning. Has been complaining of itching since hospitalization, located on anterior chest wall. Secondary to placement of telemetry pads. Family member at bedside. In ED repeat renal U/S Redemonstrated right renal vein thrombus, likely occlusive. It was unchanged from prior study on 08/25/2019. No hydronephrosis. Suspected 4 cm left ovarian cyst. Lab work revealed stable BUN and creatinine 27 and 1.84, INR 1.7, H&H 12.5 and 36.0, lipase 512. Urinalysis significant for +2 protein, negative blood, numerous epithelial cells, negative bacteria. In ED she received 2 mg IV morphine, IV Benadryl secondary to itching, p.o. tramadol with mild improvement in pain. Allergies Allergy/AdvReac Type Severity Reaction Status Date / Time morphine Allergy Severe itching Verified 08/28/19 07:09 lamotrigine Allergy Unknown itchy Verified 08/28/19 07:09 oxycodone AdvReac Intermediate itching Verified 08/28/19 07:09 fluoxetine AdvReac Unknown Shakiness Verified 08/28/19 07:09 paroxetine AdvReac Unknown Suicidal Verified 08/28/19 07:09 thoughts Home Medications Home Medications Medication Instructions Recorded Confirmed Type acetaminophen [Tylenol Extra 1,000 mg PO Q6H PRN 09/17/18 08/28/19 History Strength] iron-vit C-vit [id number] acid 1 tab PO HS 07/03/19 08/28/19 History levothyroxine 175 mcg PO DAILY 07/03/19 08/28/19 History citalopram 40 mg PO DAILY 08/25/19 08/28/19 History lisinopril 2.5 mg PO DAILY 08/25/19 08/28/19 History enoxaparin [Lovenox] 80 mg SUBCUT DAILY 4 Days #3.2 ml 08/27/19 08/28/19 Rx warfarin 2.5 mg PO UD #60 tab 08/27/19 08/28/19 Rx warfarin [Coumadin] 1 mg PO UD #60 tab 08/27/19 08/28/19 Rx warfarin [Coumadin] 5 mg PO UD #30 tab 08/27/19 08/28/19 Rx warfarin 2.5 mg PO UD 08/28/19 08/28/19 History Past Med/Surg History Medical History Thrombosis of right renal vein (Chronic) Anxiety (Chronic) Nephrotic syndrome (Chronic) CKD (chronic kidney disease), stage III (Chronic) GERD (gastroesophageal reflux disease) (Chronic) HTN (hypertension) (Chronic) Borderline personality disorder (Chronic) Cannabis abuse (Resolved) Depression (Chronic) Hypothyroid (Chronic) Kidney disease (Chronic) PTSD (post-traumatic stress disorder) (Chronic) Visual impairment (Chronic) Surgical History H/O section (Resolved) History of tonsillectomy and adenoidectomy (Resolved) No pertinent past surgical history (Resolved) Family History Other Diabetes FHx: seizures Social History Preferred Language: [place] Communication Ability: Effective Visual Impairment: No Limitations Hearing Ability: Normal Lift Manager Required: No Beliefs That Will Affect Care: None marital status: Single Current Living Situation: Alone current occupational status: employed Feels Safe at Home: Yes Safety Concerns: Feels Safe At This Time Smoking Status: Never smoker Second Hand Exposure: Yes (when around her mother) ; Hx Alcohol Use: Yes Alcohol type: wine Alcohol Intake Frequency: Rarely Hx Substance Use: Yes substance use type: marijuana Review of Systems Review of Systems: All systems reviewed & are unremarkable except as noted in HPI & below Physical Exam Physical Exam: Constitutional: WD/WN, vitals as above, fatigue appearing, F, NAD, sitting up in bed, pleasant, conversing easily Head: Normocephalic, Atraumatic Eyes: PERRL, conjunctivae normal, anicteric sclerae ENMT: external ear and nose normal, oropharynx normal Neck: trachea midline, no thyromegaly normal visual inspection Respiratory: normal respiratory effort, lungs clear to auscultation, no wheeze, rales, rhonchi. Normal insp/exp effort, no accessory muscle use Cardiovascular: RRR, no murmur, no edema Vessels: no JVD or carotid bruit Chest: normal inspection of chest Abdomen: normal bowel sounds, soft, nontender, no hepatosplenomegaly Musculoskeletal: no cyanosis or clubbing, extremities motor strength 5/5 Skin: no rashes, warm and dry normal turgor Neurologic: PERRL, EOMI, accommodation nl, no face palsy, no dysarthria CN's II-XI intact bilaterally and moves all extremities Psychiatric: A+Ox3, euthymic affect Lymphatic: no cervical or axillary lymphadenopathy : deferred Results & Data Vital Signs (Past 12 Hours) Vital Signs Temp Pulse Pulse Resp BP BP Pulse Ox 08/28/19 08:16 68 20 134/77 98 08/28/19 07:39 98 08/28/19 06:47 36.7 C 77 18 117/81 99 Laboratory Results Short CBC 08/28/19 08/28/19 08/28/19 Range/Units 07:16 07:16 07:16 WBC 7.77 (4.8-10.8) K/uL Hgb 12.5 (12.0-16.0) g/dL Hct 36.0 L (37-47) % Plt Count 261 (130-400) K/uL INR 1.7 H (0.9-1.1) BUN 27 H (7-18) mg/dl Creatinine 1.84 H (0.6-1.2) mg/dl Lipase 512 H (73-393) U/L BMP 08/28/19 07:16 Sodium 139 Potassium 4.1 Chloride 107 Carbon Dioxide 27 BUN 27 H Creatinine 1.84 H Glucose 87 Calcium 8.9 Liver Function 08/28/19 Range/Units 07:16 Total Bilirubin 0.1 L (0.2-1) mg/dl AST 26 (15-37) U/L ALT 27 (12-78) U/L Alkaline Phosphatase 54 (45-117) U/L Albumin 3.3 L (3.4-5.0) gm/dl Urine 08/28/19 Range/Units 07:35 Urine Color Yellow Urine Appearance Clear (Clear) Urine pH 6.5 (4.5-7.5) Ur Specific [place] 1.011 (1.000-1.030) Urine Protein 2+ H (Negative) Urine Glucose (UA) Negative (Negative) Diagnostic Findings Renal U/S: 1. Redemonstration of right renal vein thrombus, likely occlusive. This appears unchanged from renal ultrasound of August 25, 2019. 2. No hydronephrosis. 3. Suspected 4 cm left ovarian cyst. A follow-up pelvic ultrasound in 6 weeks to ensure resolution is recommended. Medications Administered Discontinued Medications Diphenhydramine HCl (Benadryl) 12.5 mg IV NOW STA Stop: 08/28/19 07:05 Last Admin: 08/28/19 07:26 Dose: 12.5 mg Documented by: [id number] Sodium Chloride (Nss 1000ml) 1,000 mls @ 999 mls/hr IV .Q1H1M ONE Stop: 08/28/19 08:00 Last Infusion: 08/28/19 08:26 Dose: 0 mls/hr Documented by: [id number] Admin: 08/28/19 07:25 Dose: 999 mls/hr Documented by: [id number] Morphine Sulfate (Morphine Sulfate) 2 mg IV NOW STA Stop: 08/28/19 07:04 Last Admin: 08/28/19 07:28 Dose: 2 mg Documented by: [id number] Code Status & VTE Plan Code Status Full Code VTE Prophylaxis Plan VTE Prophylaxis will be ordered: Yes Supervising Physician Co-Signing Physician Notes Patient is a 24-year-old female with history of nephrotic syndrome, CKD III, hypothyroidism who was recently diagnosed to have right renal vein thrombosis and was discharged on Lovenox and Coumadin presents with history of right flank pain for 1 day duration. INR is 1.7 on presentation. No known bleeding issues. Please review HPI for complete details of presentation. On exam patient is moderately built and nourished, no apparent distress, normocephalic atraumatic, lungs are clear to auscultation, S1-S2, no murmur, abdomen soft nontender, mild right flank tenderness, grossly no focal neurological deficits neurologically, no pedal edema. Patient is admitted for management of right renal vein thrombosis, pain control. Agree with continuing Lovenox, Coumadin. Monitor renal function. Plan to hold lisinopril while on Lovenox. Monitor PT/INR. Renal function at baseline currently. Plan to start on amlodipine if blood pressure trends upwards. Incidental finding of possible ovarian cyst on renal ultrasound. Patient states being aware of ovarian cyst in the past. Needs repeat imaging studies in 6 WEEKS and follow-up with [facility] as outpatient. I personally reviewed the record. Patient is interviewed and examined at bedside. Patient's care is coordinated with Justine Last PA-C. Please refer to the documentation above for details of patient's presentation and for discussion of other issues.
[2019-08-28] MEDS ORDERED: POLYETHYLENE (MIRALAX) 17 GM PACK PO PRN (10:43)
[2019-08-28] MEDS ORDERED: ONDANSETRON INJ 2 MG/ML 2 ML VIAL IV PRN (10:43)
[2019-08-28] MEDS: ENOXAPARIN 80 MG/0.8 ML SYR SQ SCH (12:56)
[2019-08-28] MEDS: HYDROCORTISONE 1% CRM 30 GM TUBE EXT SCH ×2 (12:57→20:37)
[2019-08-28] MEDS: ACETAMINOPHEN 325 MG TAB PO SCH ×2 (13:44→20:36)
[2019-08-28] MEDS ORDERED: NITROGLYCERIN SL 0.4 MG/TAB TAB SL PRN (15:02)
[2019-08-28] MEDS: MoRPHine SULFATE 2 MG/ML CARP IV STA ×2 (15:48→15:51)
[2019-08-28] MEDS ORDERED: WARFARIN SOD 5 MG TAB PO SCH (16:00)
[2019-08-28] MEDS: TRAMADOL HCL 50 MG TABLET PO PRN ×2 (17:09→23:48)
[2019-08-28] MEDS: MULTIVITAMIN TAB PO SCH (20:36)
[2019-08-29] MEDS: LEVOTHYROXINE SODIUM 175 MCG TABLET PO SCH (05:42)
[2019-08-29] MEDS: TRAMADOL HCL 50 MG TABLET PO PRN ×3 (05:43→23:20)
[2019-08-29 05:59] LABS: Hematocrit (blood only) 39.4 % (37-47); Hemoglobin 13.4 g/dL (12.0-16.0); Mean Corpuscular Hemoglobin 32.5 pg (25-34); Mean Corpuscular Volume 95.6 fL (80-100); Mean Platelet Volume 9.1 fL (7.4-10.4); Platelet Count 265 K/uL (130-400); RDW Coefficient of Variation 12.1 % (11.5-14.5); RDW Standard Deviation 42.5 fL (36.4-46.3); Red Blood Count 4.12 M/uL (4.2-5.4); White Blood Count 7.57 K/uL (4.8-10.8)
[2019-08-29 06:08] LABS: Prothrombin Time 28.7 Seconds (9.0-12.0)
[2019-08-29 06:31] LABS: BUN Creatinine Ratio 12.7 (10-20); Blood Urea Nitrogen 21 mg/dl (7-18); Carbon Dioxide 28 mmol/L (21-32); Chloride 107 mmol/L (98-107); Est GFR (African American) 49.5; Est GFR (Non-African American) 42.7; Glucose 84 mg/dl (70-99); Potassium 4.2 mmol/L (3.5-5.1); Sodium 141 mmol/L (136-145)
[2019-08-29 06:36] LABS: Troponin I < 0.015 ng/ml (0-0.045)
[2019-08-29] MEDS: HYDROCORTISONE 1% CRM 30 GM TUBE EXT SCH ×2 (08:31→20:16)
[2019-08-29] MEDS: CITALOPRAM 40 MG TAB PO SCH (08:31)
[2019-08-29] MEDS: ENOXAPARIN 80 MG/0.8 ML SYR SQ SCH (08:32)
[2019-08-29] MEDS: ACETAMINOPHEN 325 MG TAB PO SCH ×3 (08:34→20:16)
[2019-08-29] MEDS ORDERED: WARFARIN SOD 2 MG TAB PO SCH (16:00)
--- NOTE | 2019-08-29 16:31 | Hospitalist Progress Note ---
Date of Service August 29, 2019 Assessment & Plan (1) Thrombosis of right renal vein: Patient is a 24 yr female with H/O acute renal failure with subsequent development of nephrotic syndrome, currently stable, proteinuric CKD III, depression, anxiety, hypothyroidism presented to ER with complaint of right flank pain x 1 day. Right Renal Vein Thrombosis Repeat Renal U/S Redemonstrated right renal vein thrombus, likely occlusive. It was unchanged from prior study on 08/25/2019. No hydronephrosis. Suspected 4 cm left ovarian cyst. Continue Lovenox, Coumadin Monitor INR: 3.0 today Decrease coumadin to 2mg today daily INR Pain control (2) CKD (chronic kidney disease), stage III: In setting of renal failure, steroid dependent nephrotic syndrome Baseline cr 1.[address] Bledsoe closely Plan to hold lisinopril while on Lovenox Monitor renal function (3) Contact dermatitis: chest wall 2/2 to tele pads Hydrocortisone topically bid (4) Ovarian cyst: Incidental finding on renal U/S - 4cm L ovarian cyst Pt reports H/O ruptured ovarian cyst in past - last 2 years ago recommend repeat U/S in 6 weeks for further eval Currently asymptomatic (5) HTN (hypertension): BP stable Resume lisinopril as able Monitor (6) Anxiety: Patient with heightened anxiety in setting of recent and newly diagnosed renal vein thrombosis Continue citalopram Monitor (7) Depression: Continue citalopram (8) Hypothyroid: Continue levothyroxine DVT Px: On Lovenox, coumadin Code Status Full Code Disposition: Expect to discharge home in next 24-48 hours Subjective Patient is seen and examined at bedside Right flank pain is much improved Denies any chest pain, SOB, dizziness, nausea, abd pain Offers no other complaints No bleeding issues Review of Systems Review of Systems: All systems reviewed & are unremarkable except as noted in HPI & below Physical Exam Physical Exam: Physical Exam: Vitals signs as noted above General Appearance:Moderately built and nourished, no apparent distress Head: normocephalic, Atraumatic Eyes: normal inspection, EOMI Neck: supple, Trachea midline Respiratory/Chest: Normal breath sounds, CTA Cardiovascular: S1, S2, No murmur Abdomen/GI:Soft, Non tender, Bowel sounds present Extremities/Musculoskelatal:normal inspection, no edema Neurologic/Psych:AAOX3, grossly no focal neurological deficits Skin: normal color, warm Results & Data Vital Signs (Past 12 Hours) Vital Signs Temp Pulse Resp BP Pulse Ox 08/29/19 15:18 36.6 C 64 16 108/70 98 08/29/19 07:09 36.6 C 77 18 130/78 98 Laboratory Results Short CBC 08/29/19 Range/Units 05:26 WBC 7.57 (4.8-10.8) K/uL Hgb 13.4 (12.0-16.0) g/dL Hct 39.4 (37-47) % Plt Count 265 (130-400) K/uL BMP 08/29/19 05:26 Sodium 141 Potassium 4.2 Chloride 107 Carbon Dioxide 28 BUN 21 H Creatinine 1.64 H Glucose 84 Calcium 9.0 Cardiac Enzymes 08/28/19 08/29/19 Range/Units 23:16 05:26 Troponin I < 0.015 < 0.015 (0-0.045) ng/ml
[2019-08-29] MEDS: MULTIVITAMIN TAB PO SCH (20:16)
[2019-08-29] MEDS ORDERED: LORATADINE 10 MG TAB PO ONE (22:11)
[2019-08-29 22:50] VITALS: BP 121/74
[2019-08-30] MEDS: LEVOTHYROXINE SODIUM 175 MCG TABLET PO SCH (05:40)
[2019-08-30 06:36] LABS: INR 4.1 (0.9-1.1); Prothrombin Time 37.8 Seconds (9.0-12.0)
[2019-08-30 07:14] VITALS: PULSE 67; TEMP 98.4; O2SAT 95
[2019-08-30] MEDS: TRAMADOL HCL 50 MG TABLET PO PRN (09:18)
[2019-08-30] MEDS: CITALOPRAM 40 MG TAB PO SCH (09:19)
[2019-08-30] MEDS: ACETAMINOPHEN 325 MG TAB PO SCH ×2 (09:19→13:19)
[2019-08-30] MEDS: HYDROCORTISONE 1% CRM 30 GM TUBE EXT SCH (09:19)
--- NOTE | 2019-08-30 13:30 | Hospitalist Progress Note ---
Date of Service August 30, 2019 Assessment & Plan (1) Thrombosis of right renal vein: Patient is a 24 yr female with H/O acute renal failure with subsequent development of nephrotic syndrome, currently stable, proteinuric CKD III, depression, anxiety, hypothyroidism presented to ER with complaint of right flank pain x 1 day. Right Renal Vein Thrombosis Repeat Renal U/S Redemonstrated right renal vein thrombus, likely occlusive. It was unchanged from prior study on 08/25/2019. No hydronephrosis. Suspected 4 cm left ovarian cyst. Lovenox discontinued Monitor INR: 4.1 today Continue coumadin Monitor INR daily Pain control (2) CKD (chronic kidney disease), stage III: In setting of renal failure, steroid dependent nephrotic syndrome Baseline cr 1.[address] Bledsoe closely Monitor renal function Cr:1.64 (3) Contact dermatitis: chest wall 2/2 to tele pads Hydrocortisone topically bid (4) Ovarian cyst: Incidental finding on renal U/S - 4cm L ovarian cyst Pt reports H/O ruptured ovarian cyst in past - last 2 years ago recommend repeat U/S in 6 weeks for further eval Currently asymptomatic Advised to follow up with OBGYN as outpatient (5) HTN (hypertension): BP stable Resume lisinopril as able Monitor (6) Anxiety: Patient with heightened anxiety in setting of recent and newly diagnosed renal vein thrombosis Continue citalopram Monitor (7) Depression: Continue citalopram (8) Hypothyroid: Continue levothyroxine DVT Px: On coumadin Code Status Full Code Disposition: Plan to discharge home today Subjective Patient is seen and examined at bedside Doing well today No new complaints Right flank pain is much better Denies any chest pain, SOB, dizziness, nausea, abd pain Review of Systems Review of Systems: All systems reviewed & are unremarkable except as noted in HPI & below Physical Exam Physical Exam: Physical Exam: Vitals signs as noted above General Appearance:Moderately built and nourished, no apparent distress Head: normocephalic, Atraumatic Eyes: normal inspection, EOMI Neck: supple, Trachea midline Respiratory/Chest: Normal breath sounds, CTA Cardiovascular: S1, S2, No murmur Abdomen/GI:Soft, Non tender, Bowel sounds present Extremities/Musculoskelatal:normal inspection, no edema Neurologic/Psych:AAOX3, grossly no focal neurological deficits Skin: normal color, warm Results & Data Vital Signs (Past 12 Hours) Vital Signs Temp Pulse Resp BP Pulse Ox 08/30/19 11:56 36.9 C 67 18 121/74 95 08/30/19 07:14 36.9 C 67 18 121/74 95
--- NOTE | 2019-08-30 13:38 | Discharge Summary ---
Date of Service August 30, 2019 Admission HPI Per Admitting Provider This is a 24 year old F with significant PMH of acute renal failure with subsequent development of nephrotic syndrome, currently stable, proteinuric CKD III, depression, anxiety, hypothyroidism presented to ER with complaint of right flank pain x 1 day. Of significance patient recently confined 08/25 to 08/27/2019 secondary to right flank pain. During that admission she was found to have acute appearing right renal vein thrombosis. CT scan of abdomen pelvis was performed along with renal ultrasound. Renal ultrasound revealed right renal vein thrombosis, likely acute extending to the junction with the IVC. Moderate right perinephric fluid with increased echogenicity of the kidney due to thrombus. Case was discussed with vascular surgery along with nephrology. Treatment is nonsurgical with anticoagulation. She is currently receiving Lovenox bridge and Coumadin until INR therapeutic. Diagnosis felt secondary to recent hospitalization with 07/11/2019 and underlying CKD stage III in setting of hx of nephrotic syndrome. Patient was discharged home yesterday in stable condition. She presents to ED today secondary to recurrent right flank pain uncontrolled with [id number] analgesia. She states she has tried Tylenol and leftover oxycodone from recent surgery without relief. Pain is located in right flank, nonradiating, initially 6/10, now 4/10. Pain is constant and worse with movement. She denies any fever, chills, sweats, lightheadedness, dizziness, palpitations, shortness of breath, hemoptysis, emesis, abdominal pain, dysuria, increased urgency or frequency with urination, hematuria, melena, hematochezia, diarrhea. She does complain of intermittent nausea. She also had episode of precordial chest pain this morning, lasting minutes and resolved on its own. She has not taking any medications this morning. Has been complaining of itching since hospitalization, located on anterior chest wall. Secondary to placement of telemetry pads. Family member at bedside. In ED repeat renal U/S Redemonstrated right renal vein thrombus, likely occlusive. It was unchanged from prior study on 08/25/2019. No hydronephrosis. Suspected 4 cm left ovarian cyst. Lab work revealed stable BUN and creatinine 27 and 1.84, INR 1.7, H&H 12.5 and 36.0, lipase 512. Urinalysis significant for +2 protein, negative blood, numerous epithelial cells, negative bacteria. In ED she received 2 mg IV morphine, IV Benadryl secondary to itching, p.o. tramadol with mild improvement in pain. Admission Exam Per Admitting Provider Constitutional: WD/WN, vitals as above, fatigue appearing, F, NAD, sitting up in bed, pleasant, conversing easily Head: Normocephalic, Atraumatic Eyes: PERRL, conjunctivae normal, anicteric sclerae ENMT: external ear and nose normal, oropharynx normal Neck: trachea midline, no thyromegaly normal visual inspection Respiratory: normal respiratory effort, lungs clear to auscultation, no wheeze, rales, rhonchi. Normal insp/exp effort, no accessory muscle use Cardiovascular: RRR, no murmur, no edema Vessels: no JVD or carotid bruit Chest: normal inspection of chest Abdomen: normal bowel sounds, soft, nontender, no hepatosplenomegaly Musculoskeletal: no cyanosis or clubbing, extremities motor strength 5/5 Skin: no rashes, warm and dry normal turgor Neurologic: PERRL, EOMI, accommodation nl, no face palsy, no dysarthria CN's II-XI intact bilaterally and moves all extremities Psychiatric: A+Ox3, euthymic affect Lymphatic: no cervical or axillary lymphadenopathy : deferred Principal Diagnosis Right renal vein thrombosis Contact dermatitis Discharge Data Allergies Allergy/AdvReac Type Severity Reaction Status Date / Time morphine Allergy Severe itching Verified 08/28/19 07:09 lamotrigine Allergy Unknown itchy Verified 08/28/19 07:09 oxycodone AdvReac Intermediate itching Verified 08/28/19 07:09 fluoxetine AdvReac Unknown Shakiness Verified 08/28/19 07:09 paroxetine AdvReac Unknown Suicidal Verified 08/28/19 07:09 thoughts Procedures Performed Renal USD: 1. Redemonstration of right renal vein thrombus, likely occlusive. This appears unchanged from renal ultrasound of August 25, 2019. 2. No hydronephrosis. 3. Suspected 4 cm left ovarian cyst. A follow-up pelvic ultrasound in 6 weeks to ensure resolution is recommended. Ordered Studies 08/28/19 07:00 US renal/blad retro comp Stat Hospital Course (1) Thrombosis of right renal vein: Patient is a 24 yr female with H/O acute renal failure with subsequent development of nephrotic syndrome, currently stable, proteinuric CKD III, depression, anxiety, hypothyroidism presented to ER with complaint of right flank pain x 1 day. Right Renal Vein Thrombosis Repeat Renal U/S Redemonstrated right renal vein thrombus, likely occlusive. It was unchanged from prior study on 08/25/2019. No hydronephrosis. Suspected 4 cm left ovarian cyst. Lovenox discontinued Monitor INR: 4.1 today Continue coumadin Monitor INR daily Pain control (2) CKD (chronic kidney disease), stage III: In setting of renal failure, steroid dependent nephrotic syndrome Baseline cr 1.[address] Bledsoe closely Monitor renal function Cr:1.64 (3) Contact dermatitis: chest wall 2/2 to tele pads Hydrocortisone topically bid (4) Ovarian cyst: Incidental finding on renal U/S - 4cm L ovarian cyst Pt reports H/O ruptured ovarian cyst in past - last 2 years ago recommend repeat U/S in 6 weeks for further eval Currently asymptomatic Advised to follow up with OBGYN as outpatient (5) HTN (hypertension): BP stable Resume lisinopril as able Monitor (6) Anxiety: Patient with heightened anxiety in setting of recent and newly diagnosed renal vein thrombosis Continue citalopram Monitor (7) Depression: Continue citalopram (8) Hypothyroid: Continue levothyroxine DVT Px: On coumadin Code Status Full Code Disposition: Plan to discharge home today Total Time Total Time Spent Total Time Spent (In Minutes): 38 minutes Total Time Includes: Examination of the Patient, Discharge Planning, Medication Reconciliation, Communication With Other Providers and Other Discharge Plan Discharge Items Patient Disposition: Home - Self-Care Reason For Visit: R FLANK PAIN 2/2 TO RENAL VEIN THROMBOSIS Discharge Diagnosis: Right renal vein thrombosis Contact dermatitis Activity: Resume your previous activity Exercise/Sports: Gradually increase as tolerated Non-emergency contact: Primary Care Provider and Specialist Call non-emergency contact if: you have any medication questions, your symptoms worsen, your pain is not controlled, your pain is worsening, your pain is unusual for you, your pain is concerning for you and you have a fever Follow-up/Referrals: Nina Ricardo DO [Primary Care Provider] - Diet: Regular Ambulatory Orders: Prothrombin Time INR (Timed) Timeframe: 1 Day Location: Determined by Patient Ordered By: Romeo Lopez Attending Provider Instructions: Follow up with for Primary Care on Sep 01, 2019 at 10:05 AM Follow up with coumadin clinic tomorrow (08/31/2019) for managing your coumadin dose Follow up with your Telephone Plant Power Operator in 2-4 weeks Follow-up with your forging engineer as advised for incidental finding of possible ovarian cyst on imaging studies. Get blood test (PT/INR on 08/31/19) and follow up with coumadin clinic Your PT/INR today (08/27/19) is 4.1 . Take 1 mg coumadin today Your Target PT/INR is between 2.0 to 3.0. Your Lovenox is discontinued as your INR is in therapeutic range Your Aspirin is discontinued as you are started on coumadin Seek immediate medical attention if your symptoms reoccur or worsen Pending Studies at Discharge: Yes Studies:: Hypercoagulable work-up Stand-Alone Forms: My [facility] 4Bl[employer], Smoking Cessation Medications and DC Order Prescriptions: New hydrocortisone 1 % Ointment 1 applic EXT BID 5 Days Qty: 1 RF: 0 tramadol 50 mg Tablet 50 mg PO Q8H PRN (Reason: pain) Qty: 10 RF: 0 Continued acetaminophen [Tylenol Extra Strength] 500 mg Tablet 1,000 mg PO Q6H PRN (Reason: Pain) RF: 0 levothyroxine 175 mcg tablet 175 mcg PO DAILY RF: 0 iron-vit C-vit [id number] acid [id number]-[id number]-mg Tablet 1 tab PO HS RF: 0 citalopram 40 mg tablet 40 mg PO DAILY RF: 0 lisinopril 2.5 mg tablet 2.5 mg PO DAILY RF: 0 warfarin 2.5 mg tablet 2.5 mg PO UD Qty: 60 RF: 0 warfarin [Coumadin] 1 mg tablet 1 mg PO UD Qty: 60 RF: 0 warfarin [Coumadin] 5 mg tablet 5 mg PO UD Qty: 30 RF: 0 warfarin 2.5 mg Tablet 2.5 mg PO UD RF: 0 Discontinued enoxaparin [Lovenox] 80 mg/0.8 mL Syringe 80 mg subcut DAILY 4 Days Qty: 3.2 RF: 0 Discharge Orders: Discharge Order (Routine); Ordered 08/30/19 Ordered By: Romeo Gibson Admission Data Admit Date/Time: 08/29/19 13:23 Attending Provider: Romeo Gibson Admit Provider: Romeo Gibson Primary Care Provider: Nina Ricardo Other Interventions: Discharge Summary Assessment (RN) Last Done: 08/30/19 11:56 DC Date/Time DO NOT enter until pt leaves facility: 08/30/19 16:07
[2019-08-30] MEDS ORDERED: LORATADINE 10 MG TAB PO SCH (21:00)
== END 2019-08-30 16:07 | disposition home or self-care (01) | DRG 699 ==
LOC: ED 06:38 → 4W 06:38

== ENCOUNTER 2024-10-21 11:35 | Inpatient (IN) ==
[2024-10-21 12:13] LABS: Basophils # (auto) 0.06 K/uL (0.00-0.20); Basophils % (auto) 0.4 %; Eosinophils # (auto) 0.03 K/uL (0.00-0.50); Eosinophils % (auto) 0.2 %; Hematocrit (blood only) 31.6 % (37.0-47.0); Hemoglobin 10.8 g/dl (12.0-16.0); Immature Granulocytes # (auto) 0.11 K/uL (0.01-0.20); Immature Granulocytes % (auto) 0.7 %; Lymphocytes # (auto) 1.85 K/uL (1.20-3.40); Lymphocytes % (auto) 11.6 %; Mean Corpuscular Hemoglobin 31.7 pg (25.0-34.0); Mean Corpuscular Hgb Conc 34.2 g/dL (32.0-36.0); Mean Corpuscular Volume 92.7 fL (80.0-100.0); Mean Platelet Volume 9.7 fL (9.4-12.4); Monocytes # (auto) 0.58 K/uL (0.11-0.59); Monocytes % (auto) 3.6 %; Neutrophils # (auto) 13.29 K/uL (1.40-6.50); Neutrophils % (auto) 83.5 %; Platelet Count 275 K/uL (130-400); RDW Coefficient of Variation 12.7 % (11.5-14.5); RDW Standard Deviation 43.1 fL (36.4-46.3); Red Blood Count 3.41 M/uL (4.20-5.40); White Blood Count 15.92 K/ul (4.8-10.8)
[2024-10-21 12:25] LABS: Albumin Globulin Ratio 1.4 (0.9-2); Albumin Level 4.3 gm/dl (3.4-5.0); BUN Creatinine Ratio 9.6 (10-20); Bilirubin,Total 0.5 mg/dl (0.2-1.0); Calcium 9.3 mg/dl (8.6-10.3); Creatinine Clr Calc Pharmacy 25.8 ml/min; Globulin 3.1 gm/dl (2.5-4.0); Potassium 3.8 mmol/L (3.5-5.1); Total Protein 7.4 gm/dl (6.0-8.3)
[2024-10-21 12:37] LABS: INR 1.2 (0.9-1.1); Partial Thromboplastin Time 26 Seconds (21-31); Prothrombin Time 12.5 Seconds (9.0-12.0)
[2024-10-21 12:38] LABS: Troponin I High Sensitivity 76.3 pg/ml (0-14)
--- NOTE | 2024-10-21 12:41 | XRay Report ---
XR chest 1V not portable HISTORY: 29 years-old Female Chest pain, nonspecific COMPARISON: 03/30/2024 TECHNIQUE: PA view of the chest FINDINGS: Cardiac silhouette is normal. Lungs appear clear. No pneumothorax or pleural effusion. Bones appear g rossly intact. IMPRESSION: No acute process. ACT 112: Negative or not required by law. The above report was generated using voice recognition software. It may contain grammatical, syntax o r spelling errors. Electronically signed by: González Umana M.D. 10/21/2024 12:39 PM
[2024-10-21] MEDS: SODIUM CHLORIDE 0.9% 1,000 ML IV ONE (12:58)
[2024-10-21 14:01] LABS: Appearance Urine Clear (Clear); Bacteria Urine Automated 1+ (None Seen); Bilirubin Urine Negative (Negative); Blood Urine 2+ (Negative); Cast Urine Automated 0-2 /lpf (0-2); Color Urine Yellow; Glucose Urine UA Negative (Negative); Ketones Urine 1+ (Negative); Leukocyte Esterase Urine Negative (Negative); Nitrite Urine Negative (Negative); Protein Urine Negative (Negative); RBC Urine Automated 0-2 /hpf (0-2); Specific Gravity Urine 1.009 (1.000-1.030); Urobilinogen Urine Negative (Negative); WBC Urine Automated 0-5 /hpf (0-5)
--- NOTE | 2024-10-21 14:05 | CT Scan Report ---
CT OF THE ABDOMEN AND PELVIS WITHOUT CONTRAST CLINICAL HISTORY: Abdominal pain. COMPARISON STUDY: CT of the abdomen and pelvis June 22, 2021. Right upper quadrant ultrasound May 18, 2023. TECHNIQUE: Axial images of the abdomen and pelvis were obtained without IV contrast. Images were revi ewed in the axial, sagittal, and coronal planes. Automated exposure control was utilized for the artis dy. A dose lowering technique was utilized adhering to the principles of ALARA. FINDINGS: Visualized portions of the lung bases are unremarkable. No pneumatosis, free air or portal venous gas is present. Moderate bilateral renal atrophy is present. There is no hydronephrosis. Unenh anced images of the liver, spleen, adrenal glands and pancreas are unremarkable. There is no biliary or pancreatic ductal dilatation. Apparent colonic wall thickening is likely due to underdistention. O f note, the uterine cavity is distended and contains layering hyperdense material consistent with blo od products. There is also a 3.6 x 2.9 cm mixed attenuation right adnexal abnormality on image 230. T his has layering hyperdense material. There is no lymphadenopathy. No fluid collections are present. IMPRESSION: 1. No evidence for a bowel obstruction. No definite bowel wall thickening on unenhanced exam. 2. Moderate bilateral renal atrophy. No hydronephrosis. No ureteral calculi. 3. Distended uterine cavity which contains layering hyperdense material consistent with blood product s. This suggests hematometra of uncertain etiology. In addition, a 3.6 x 2.9 cm mixed attenuation rig ht adnexal abnormality appears to contain layering hyperdense material. This could represent a hemorr hagic right ovarian cyst or blood products within a dilated right fallopian tube. Follow pelvic ultra sound and correlation with CT chest is recommended. Gynecologic consultation might also be considered . ACT 112: Negative or not required by law. Electronically signed by: Yuriy Haynes M.D. 10/21/2024 2:04 PM
[2024-10-21] MEDS: MoRPHine SULFATE 2 MG/ML CARP IV STA (14:21)
--- NOTE | 2024-10-21 15:13 | Ultrasound Report ---
PELVIC ULTRASOUND CLINICAL HISTORY: distended uterine cavity COMPARISON STUDY: CT of the abdomen and pelvis performed earlier today. Pelvic ultrasound August 01, 2016. TECHNIQUE: Transabdominal sonography of the pelvis was performed. FINDINGS: The uterus measures 10.9 x 5.4 x 5.6 cm. The uterine cavity is significantly distended and contains a large amount of complex mixed echogenicity mobile material consistent with clot. No color flow is identified within this material. The right ovary measures 3.4 x 3 x 2.5 cm. The possible abno rmality within the right ovary on CT was not appreciated by sonography. Left ovary measures 2.4 x 1.5 x 2.1 cm. There is color flow within each ovary. IMPRESSION: 1. Significantly distended uterine cavity which contains a large amount of complex material consisten t with clot. The findings suggest hematometra of uncertain etiology. 2. No ovarian abnormality identified on transabdominal exam. The possible right ovarian/right adnexal abnormality by CT is not appreciated on this transabdominal ultrasound. ACT 112: Negative or not required by law. Electronically signed by: Yuriy Haynes M.D. 10/21/2024 3:11 PM
--- NOTE | 2024-10-21 16:00 | History & Physical Report ---
Date of Service October 21, 2024 Assessment & Plan (1) Chest pain: (2) Elevated troponin: (3) Renal vein thrombosis: (4) Nephrotic syndrome: (5) CKD (chronic kidney disease), stage III: (6) HTN (hypertension): (7) Hypothyroidism: (8) Anxiety: Plan This is a 29-year-old female with PMH of renal vein thrombosis on Eliquis, CKD 3, PÉREZ (baseline hgb 9-10), history of nephrotic syndrome, mood disorder, hypertension, hypothyroidism and other medical problems listed below who presents with chest pain. 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 Rendon Monitor with daily BMP Hypothyroidism Continue levothyroxine Mood disorder Continue Buspar, Vraylar HS, hydroxyzine HS PRN DVT Ppx: Holding eliquis for now Code status: FULL PCP: [facility] Dispo: Admitted to med tele Patient seen in collaboration with Dr. Stone. Please see addendum. I spent a total of 75 minutes coordinating, documenting, and providing care for this patient excluding time spent in the performance of separately billed services. History of Present Illness Chief Complaint: Chest pain Primary Care Provider: Nina Ricardo, This is a 29-year-old female with PMH of renal vein thrombosis on Eliquis, CKD 3, PÉREZ (baseline hgb 9-10), history of nephrotic syndrome, mood disorder, hypertension, hypothyroidism and other medical problems listed below who pre sents with chest pain. Presented to outpatient psychiatric clinic today for med refill but was noted to look ill and redirected to ED for further evaluation. Endorses general SOB for the past few days. Then yesterday after dropping her daughter off at school yesterday, she felt weak and fatigued and "legs felt like jello". Also endorses chest tightness starting yesterday, described as sharp, central, non-radiating pain that continued into today. Chest pain exacerbated with movement. Was alleviated slightly after taking anxiety meds but only helped for a few hours. Vomiting this AM and has abdominal pain as well, described as cramping, waxes and wanes. Started period last Friday and it typically lasts 7 days. Uses pads only and bleeding has slowed down but still having menses, passing clots. States she always has severe abdominal pain with period but is generally improving by day [address] Quevedo of heme-onc for history of PÉREZ, renal vein thrombosis. Continued on low-dose Eliquis for indefinite anticoagulation. Completed IV Venofer x 2 doses over the summer. Taking oral iron BID. Follows with [employer] and previously opted against pursuing any intervention for heavy menstrual bleeding. Allergies Allergy/AdvReac Type Severity Reaction Status Date / Time lamotrigine Allergy Unknown itchy Verified 05/18/23 13:26 oxycodone AdvReac Intermediate itching Verified 05/18/23 13:26 fluoxetine AdvReac Unknown Shakiness Verified 05/18/23 13:26 paroxetine AdvReac Unknown Suicidal Verified 05/18/23 13:26 thoughts Home Medications Medication Instructions Recorded Confirmed Type acetaminophen 500 mg tablet 1,000 mg PO Q6H PRN Pain 09/17/18 10/21/24 History (Tylenol Extra Strength) buspirone 15 mg tablet 15 mg PO BID 05/18/23 10/21/24 History cariprazine 3 mg capsule (Vraylar) 3 mg PO HS 05/18/23 10/21/24 History hydroxyzine HCl 50 mg tablet 50 mg PO HS PRN Sleep 05/18/23 10/21/24 History ondansetron 4 mg disintegrating 4 mg PO Q8H PRN nausea and 05/18/23 10/21/24 Rx tablet vomiting #30 tabs apixaban 2.5 mg tablet (Eliquis) 2.5 mg PO BID 10/21/24 10/21/24 History famotidine 20 mg tablet 20 mg PO HS PRN Dyspepsia 10/21/24 10/21/24 History ferrous sulfate 325 mg (65 mg 325 mg PO BID 10/21/24 10/21/24 History iron) tablet levothyroxine 112 mcg tablet 112 mcg PO DAILY 10/21/24 10/21/24 History Past Med/Surg History Problem List (Updated 10/21/24 @ 18:36 by Jose Pool MD) Palpitations (Acute) Elevated troponin (Acute) Chest pain (Acute) Elevated troponin Thyroid nodule Renal vein thrombosis (Acute) Ovarian cyst Contact dermatitis Right flank pain (Acute) Renal insufficiency (Acute) 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 Anxiety (Chronic) AGE 16 AND NO PROBLEMS SINCE Nephrotic syndrome (Chronic) CKD (chronic kidney disease), stage III (Chronic) GERD (gastroesophageal reflux disease) (Chronic) HTN (hypertension) (Chronic) Borderline personality disorder (Chronic) Depression (Chronic) Kidney disease (Chronic) PTSD (post-traumatic stress disorder) (Chronic) Visual impairment (Chronic) Medical History Enlarged thyroid Dysphagia 12/05 enlarged thyroid Surgical History H/O bilateral oophorectomy 12/27 History of tonsillectomy and adenoidectomy Family History Other Diabetes FHx: seizures Social History Smoking Status: Former smoker Tobacco Type: Cigarettes Second Hand Exposure: No; Do You Dip or Chew Tobacco: No; Hx Alcohol Use: No Hx Substance Use: Yes Last Used Substance Other:: 11/2018 [facility] AND NOT USED SINCE Preferred Language: Luxembourgish Communication Ability: Effective Visual Impairment: No Limitations Hearing Ability: Normal Ambulatory Care Required: No Beliefs That Will Affect Care: None marital status: Single Current Living Situation: Alone current occupational status: employed Feels Safe at Home: Yes Assistive Devices: Glasses Review of Systems Review of Systems: At least ten systems reviewed and negative except as noted in the HPI. Physical Exam Physical Exam: Please see Dr. Stone's addendum for physical exam. Results & Data Results & Data Vital Signs (Past 12 Hours) Vital Signs Temp Pulse Pulse Resp BP BP Pulse Ox 10/21/24 14:03 79 18 125/66 100 10/21/24 13:01 84 18 116/83 100 10/21/24 12:39 80 10/21/24 11:38 37.1 C 106 H 20 121/75 100 O2 Del Method 10/21/24 14:03 Room Air 10/21/24 13:01 Room Air 10/21/24 12:39 10/21/24 11:38 Room Air Laboratory Results Short CBC 10/21/24 Range/Units 11:49 WBC 15.92 H (4.8-10.8) K/ul Hgb 10.8 L (12.0-16.0) g/dl Hct 31.6 L (37.0-47.0) % Plt Count 275 (130-400) K/uL BMP 10/21/24 11:49 Sodium 139 Potassium 3.8 Chloride 105 Carbon Dioxide 21 BUN 21 Creatinine 2.19 H Glucose 123 H Calcium 9.3 Liver Function 10/21/24 Range/Units 11:49 Total Bilirubin 0.5 (0.2-1.0) mg/dl AST 17 (13-39) U/L ALT 8 (7-52) U/L Alkaline Phosphatase 55 (34-104) U/L Albumin 4.3 (3.4-5.0) gm/dl Urine 10/21/24 Range/Units 13:38 Urine Color Yellow Urine Appearance Clear (Clear) Urine pH 6.0 (4.5-7.5) Ur Specific Mcdonald 1.009 (1.000-1.030) Urine Protein Negative (Negative) Urine Glucose (UA) Negative (Negative) Diagnostic Findings Chest X-Ray 10/21/24 11:41 XR chest 1V not portable HISTORY: 29 years-old Female Chest pain, nonspecific COMPARISON: 03/30/2024 TECHNIQUE: PA view of the chest FINDINGS: Cardiac silhouette is normal. Lungs appear clear. No pneumothorax or pleural effusion. Bones appear grossly intact. IMPRESSION: No acute process. ACT 112: Negative or not required by law. The above report was generated using voice recognition software. It may contain grammatical, syntax or spelling errors. Electronically signed by: González Umana M.D. 10/21/2024 12:39 PM Abdomen/Pelvis CT 10/21/24 13:01 CT OF THE ABDOMEN AND PELVIS WITHOUT CONTRAST CLINICAL HISTORY: Abdominal pain. COMPARISON STUDY: CT of the abdomen and pelvis June 22, 2021. Right upper quadrant ultrasound May 18, 2023. TECHNIQUE: Axial images of the abdomen and pelvis were obtained without IV contrast. Images were reviewed in the axial, sagittal, and coronal planes. Automated exposure control was utilized for the study. A dose lowering technique was utilized adhering to the principles of ALARA. FINDINGS: Visualized portions of the lung bases are unremarkable. No pneumatosis, free air or portal venous gas is present. Moderate bilateral renal atrophy is present. There is no hydronephrosis. Unenhanced images of the liver, spleen, adrenal glands and pancreas are unremarkable. There is no biliary or pancreatic ductal dilatation. Apparent colonic wall thickening is likely due to underdistention. Of note, the uterine cavity is distended and contains layering hyperdense material consistent with blood products. There is also a 3.6 x 2.9 cm mixed attenuation right adnexal abnormality on image 230. This has layering hyperdense material. There is no lymphadenopathy. No fluid collections are present. IMPRESSION: 1. No evidence for a bowel obstruction. No definite bowel wall thickening on unenhanced exam. 2. Moderate bilateral renal atrophy. No hydronephrosis. No ureteral calculi. 3. Distended uterine cavity which contains layering hyperdense material consistent with blood products. This suggests hematometra of uncertain etiology. In addition, a 3.6 x 2.9 cm mixed attenuation right adnexal abnormality appears to contain layering hyperdense material. This could represent a hemorrhagic right ovarian cyst or blood products within a dilated right fallopian tube. Follow pelvic ultrasound and correlation with CT chest is recommended. Gynecologic consultation might also be considered. ACT 112: Negative or not required by law. Electronically signed by: Yuriy Haynes M.D. 10/21/2024 2:04 PM Pelvis Ultrasound 10/21/24 14:31 PELVIC ULTRASOUND CLINICAL HISTORY: distended uterine cavity COMPARISON STUDY: CT of the abdomen and pelvis performed earlier today. Pelvic ultrasound August 01, 2016. TECHNIQUE: Transabdominal sonography of the pelvis was performed. FINDINGS: The uterus measures 10.9 x 5.4 x 5.6 cm. The uterine cavity is significantly distended and contains a large amount of complex mixed echogenicity mobile material consistent with clot. No color flow is identified within this material. The right ovary measures 3.4 x 3 x 2.5 cm. The possible abnormality within the right ovary on CT was not appreciated by sonography. Left ovary measures 2.4 x 1.5 x 2.1 cm. There is color flow within each ovary. IMPRESSION: 1. Significantly distended uterine cavity which contains a large amount of complex material consistent with clot. The findings suggest hematometra of uncertain etiology. 2. No ovarian abnormality identified on transabdominal exam. The possible right ovarian/right adnexal abnormality by CT is not appreciated on this transabdominal ultrasound. ACT 112: Negative or not required by law. Electronically signed by: Yuriy Haynes M.D. 10/21/2024 3:11 PM ECG Additional Comments: NSR at 90 bpm, non-specific ST and T wave abn, qtc 447 ms Supervising Physician Co-Signing Physician Notes Patient seen and examined Reports some SOB in the past few days. Developed increased weakness and chest pain since yesterday Reports chest pain mildly improved with her anxiety meds but has persisted today Associated with nausea and vomiting Reports low abd pain associated with her current menstruation Has heavy menstrual bleed with clots. Denied use of tampons On exam General: Not in distress Eyes: PERRL, anicteric sclerae, EOM intact bilaterally ENMT: External ear and nose normal, oropharynx normal Respiratory: Normal respiratory effort, no respiratory distress, lungs clear to auscultation, no crackles and no wheezes Cardiovascular: RRR S1 S2 Gastrointestinal (Abdomen): Abdomen is not distended, soft, +mild suprapubic tenderness, no guarding, no palpable hepatosplenomegaly, normal bowel sounds Musculoskeletal: No pedal edema Neurologic: Alert and oriented x 3, No focal weakness, sensation grossly intact Labs notable for WBC 15, Hb 10.8, Cr 2.19, Trop 76->88 CT abd/P and Pelvic USS show significantly enlarged uterus with complex material consistent with clots EKG reviewed. No ST changes Symptoms likely related to menstrual bleed Elevated trop likely demand ischemia. However, will trend trop, get TTE and Cards eval Hold eliquis for now and get Gyne eval Monitor Hb Check Iron studies. If low, can give IV iron. Patient gets IV iron occasionally. I spent a total of 50 minutes coordinating, documenting and providing care for this patient excluding time spent in performance of separately billed services (1) Chest pain Chest pain type: unspecified Qualified Code(s): R07.9 - Chest pain, unspecified
[2024-10-21] MEDS: MoRPHine SULFATE 4 MG/ML 1 ML CARP\\VIAL IV STA (16:30)
--- NOTE | 2024-10-21 18:36 | Emergency Department Note ---
History of Present Illness General Chief complaint: Cardiac Assessment Stated complaint: HIGH HEART RATE, SOB, CHEST TIGHT, BODY FEEL HEAVY Time Seen by Provider: 10/21/24 12:17 History of Present Illness Provider complaint: Chest pain shortness of breath palpitations Onset (ago): day(s) 2 Maximum Pain Intensity: 3 29-year-old female presents emergency department for chest pain shortness of breath and palpitations. Patient reports her symptoms resolved last 2 days. 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 Patient reports no recent travel. Patient is on Eliquis because she states she has a history of a clot in her kidney artery. Patient reports no melena or hematochezia. Patient reports she is currently on her menstrual cycle. She reports lower abdominal pain also. Home Medications Medication Instructions Recorded Confirmed Type acetaminophen 500 mg tablet 1,000 mg PO Q6H PRN Pain 09/17/18 10/21/24 History (Tylenol Extra Strength) buspirone 15 mg tablet 15 mg PO BID 05/18/23 10/21/24 History cariprazine 3 mg capsule (Vraylar) 3 mg PO HS 05/18/23 10/21/24 History hydroxyzine HCl 50 mg tablet 50 mg PO HS PRN Sleep 05/18/23 10/21/24 History ondansetron 4 mg disintegrating 4 mg PO Q8H PRN nausea and 05/18/23 10/21/24 Rx tablet vomiting #30 tabs apixaban 2.5 mg tablet (Eliquis) 2.5 mg PO BID 10/21/24 10/21/24 History famotidine 20 mg tablet 20 mg PO HS PRN Dyspepsia 10/21/24 10/21/24 History ferrous sulfate 325 mg (65 mg 325 mg PO BID 10/21/24 10/21/24 History iron) tablet levothyroxine 112 mcg tablet 112 mcg PO DAILY 10/21/24 10/21/24 History Allergies Allergy/AdvReac Type Severity Reaction Status Date / Time lamotrigine Allergy Unknown itchy Verified 05/18/23 13:26 oxycodone AdvReac Intermediate itching Verified 05/18/23 13:26 fluoxetine AdvReac Unknown Shakiness Verified 05/18/23 13:26 paroxetine AdvReac Unknown Suicidal Verified 05/18/23 13:26 thoughts Past Med/Surg History Problem List (Updated 10/21/24 @ 18:36 by Jose Pool MD) Palpitations (Acute) Elevated troponin (Acute) Chest pain (Acute) Elevated troponin Thyroid nodule Renal vein thrombosis (Acute) Ovarian cyst Contact dermatitis Right flank pain (Acute) Renal insufficiency (Acute) 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 Anxiety (Chronic) AGE 16 AND NO PROBLEMS SINCE Nephrotic syndrome (Chronic) CKD (chronic kidney disease), stage III (Chronic) GERD (gastroesophageal reflux disease) (Chronic) HTN (hypertension) (Chronic) Borderline personality disorder (Chronic) Depression (Chronic) Kidney disease (Chronic) PTSD (post-traumatic stress disorder) (Chronic) Visual impairment (Chronic) Medical History Enlarged thyroid Dysphagia 12/05 enlarged thyroid Surgical History H/O bilateral oophorectomy 12/27 History of tonsillectomy and adenoidectomy Family History Other Diabetes FHx: seizures Social History Smoking Status: Former smoker Tobacco Type: Cigarettes Second Hand Exposure: No; Do You Dip or Chew Tobacco: No; Hx Alcohol Use: No Hx Substance Use: Yes Last Used Substance Other:: 11/2018 [facility] AND NOT USED SINCE Preferred Language: [place] Communication Ability: Effective Visual Impairment: No Limitations Hearing Ability: Normal 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 Beliefs That Will Affect Care: None marital status: Single Current Living Situation: Alone current occupational status: employed Feels Safe at Home: Yes Assistive Devices: Glasses Physical Exam Vital Signs Vital Signs - 24 hr 10/21/24 11:38 10/21/24 12:39 10/21/24 13:01 Temperature 37.1 C Temperature Source Temporal Artery Scan Pulse Rate 106 H 80 Pulse Rate [Apical] 84 Respiratory Rate 20 18 Respiratory Effort / Characteristics Respiratory Depth Normal Blood Pressure 121/75 Blood Pressure [Right Arm] 116/83 Blood Pressure Mean 90 Blood Pressure Mean [Right Arm] 94 Blood Pressure Position [Right Arm] Lying Pulse Oximetry 100 100 Oxygen Delivery Method Room Air Room Air Sepsis Recent Fever Within 48 Hours No Sepsis New/Unexplained Change in Mental Status No Sepsis Action Taken by Nursing No Action Required 10/21/24 14:03 10/21/24 16:31 10/21/24 16:40 Temperature Temperature Source Pulse Rate 85 Pulse Rate [Apical] 79 75 Respiratory Rate 18 18 Respiratory Effort / Characteristics Non-Labored Respiratory Depth Normal Blood Pressure Blood Pressure [Right Arm] 125/66 127/92 Blood Pressure Mean Blood Pressure Mean [Right Arm] 85 103 Blood Pressure Position [Right Arm] Pulse Oximetry 100 100 Oxygen Delivery Method Room Air Room Air Sepsis Recent Fever Within 48 Hours Sepsis New/Unexplained Change in Mental Status Sepsis Action Taken by Nursing 10/21/24 17:40 Temperature Temperature Source Pulse Rate Pulse Rate [Apical] 62 Respiratory Rate 14 Respiratory Effort / Characteristics Respiratory Depth Blood Pressure Blood Pressure [Right Arm] 110/58 L Blood Pressure Mean Blood Pressure Mean [Right Arm] 75 Blood Pressure Position [Right Arm] Pulse Oximetry 100 Oxygen Delivery Method Sepsis Recent Fever Within 48 Hours Sepsis New/Unexplained Change in Mental Status Sepsis Action Taken by Nursing Physical Exam HENT: Exam performed. -Head: Normocephalic and atraumatic. -Right Ear: External ear normal. No mastoid erythema -Left Ear: External ear normal. No mastoid erythema -Mouth/Throat: The oropharynx is clear and moist. No trismus in the jaw. No dental abscesses or uvula swelling. No oropharyngeal exudate or tonsillar abscesses. EYES: Conjunctivae and EOM are normal. Pupils are equal, round, and reactive to light. Right eye exhibits no discharge. Left eye exhibits no discharge. No scleral icterus. NECK: Normal range of motion. Neck supple. No JVD present. CV: Tachycardic rate, regular rhythm, normal heart sounds and intact distal pulses. There is no peripheral edema. Palpable radial pulses bue. PULM/CHEST: Effort normal and breath sounds normal. No respiratory distress. No stridor. She has no wheezes. She has no rales. ABD: The abdomen is soft. Pain on palpation of the suprapubic area and left lower quadrant. There is no rebound, no guarding, MUSC/SKEL: Normal range of motion. There is no peripheral edema, tenderness or deformity. LYMPH: No cervical adenopathy. NEURO: Motor and sensory grossly intact. SKIN: Pale. PSYCH: She has a normal mood and affect. Behavior is normal. Judgment and thought content normal. Course Course 1217: The patient was evaluated in room D5. A complete history and physical exam was performed Cardiac monitoring: An order was placed for continuous cardiac monitoring. The monitor shows a rate of 110 with sinus tachycardia rhythm interpreted by me 1431: Patient yaneli tachycardic. Labs show leukocytosis of 15.19. Hemoglobin 10.8. Creatinine 2.19 at baseline. High-sensitivity troponin 76.3. CT of the abdomen pelvis without contrast was unremarkable with the exception of the distended uterine cavity with blood products. Discussed this with Dr. Haynes radiology does not think this is normal menstruation findings. Will obtain ultrasound. 1536:Vital signs stable. Ultrasound shows distended uterine cavity contains a large amount of complex clot. Discussed patient's case with cardiology Dr. Ricardo who states he will evaluate her when patient is admitted to medicine. 1554: Spoke with Ana who states admit the patient to Dr. Todd. Spoke with Dr. Lopez on-call FISH BIN TENDER for [facility] she states she will evaluate the patient when the patient is admitted also. Administered Medications Discontinued Medications Sodium Chloride (Nss) 1,000 mls @ 999 mls/hr IV .Q1H1M ONE Stop: 10/21/24 13:28 Last Infusion: 10/21/24 15:45 Dose: Infused Documented By: Admin: 10/21/24 12:58 Dose: 999 mls/hr Documented By: QGV Morphine Sulfate (Morphine Sulfate 2 Mg/Ml Carp) 2 mg IV NOW STA Stop: 10/21/24 14:19 Last Admin: 10/21/24 14:21 Dose: 2 mg Documented By: HS Morphine Sulfate (Morphine Sulfate 4 Mg/Ml 1 Ml Carp\Vial) 4 mg IV NOW STA Stop: 10/21/24 15:47 Last Admin: 10/21/24 16:30 Dose: 4 mg Documented By: HAYDEE Medical Decision Making Laboratory Data Attestation: I reviewed the patient's lab results. 10/21/24 11:49 10/21/24 11:49 Lab Results 10/21/24 10/21/24 10/21/24 Range/Units 11:49 13:36 13:38 WBC 15.92 H (4.8-10.8) K/ul RBC 3.41 L (4.20-5.40) M/uL Hgb 10.8 L (12.0-16.0) g/dl Hct 31.6 L (37.0-47.0) % MCV 92.7 (80.0-100.0) fL MCH 31.7 (25.0-34.0) pg MCHC 34.2 (32.0-36.0) g/dL RDW Std Deviation 43.1 (36.4-46.3) fL RDW Coeff of Maryjo 12.7 (11.5-14.5) % Plt Count 275 (130-400) K/uL MPV 9.7 (9.4-12.4) fL Immature Gran % (Auto) 0.7 % Neut % (Auto) 83.5 % Lymph % (Auto) 11.6 % [place] % (Auto) 3.6 % Eos % (Auto) 0.2 % Baso % (Auto) 0.4 % Neut # (Auto) 13.29 H (1.40-6.50) K/uL Lymph # (Auto) 1.85 (1.20-3.40) K/uL [place] # (Auto) 0.58 (0.11-0.59) K/uL Eos # (Auto) 0.03 (0.00-0.50) K/uL Baso # (Auto) 0.06 (0.00-0.20) K/uL Immature Gran # (Auto) 0.11 (0.01-0.20) K/uL PT 12.5 H (9.0-12.0) Seconds INR 1.2 H (0.9-1.1) APTT 26 (21-31) Seconds PTT Ratio 1.0 Sodium 139 (136-145) mmol/L Potassium 3.8 (3.5-5.1) mmol/L Chloride 105 (98-107) mmol/L Carbon Dioxide 21 (21-32) mmol/L Anion Gap 13 H (3-11) BUN 21 (6-23) mg/dl Creatinine 2.19 H (0.6-1.2) mg/dl Est Cr Clr Drug Dosing 25.8 ml/min eGFR 30.15 BUN/Creatinine Ratio 9.6 L (10-20) Glucose 123 H (70-99(Fasting)) mg/dl Calcium 9.3 (8.6-10.3) mg/dl Total Bilirubin 0.5 (0.2-1.0) mg/dl AST 17 (13-39) U/L ALT 8 (7-52) U/L Alkaline Phosphatase 55 (34-104) U/L Troponin I High Sens 76.3 H* 88.9 H* D (0-14) pg/ml Total Protein 7.4 (6.0-8.3) gm/dl Albumin 4.3 (3.4-5.0) gm/dl Globulin 3.1 (2.5-4.0) gm/dl Albumin/Globulin Ratio 1.4 (0.9-2) HCG, Quant 1 mIU/ml Urine Color Yellow Urine Appearance Clear (Clear) Urine pH 6.0 (4.5-7.5) Ur Specific [place] 1.009 (1.000-1.030) Urine Protein Negative (Negative) Urine Glucose (UA) Negative (Negative) Urine Ketones 1+ H (Negative) Urine Blood 2+ H (Negative) Urine Nitrite Negative (Negative) Urine Bilirubin Negative (Negative) Urine Urobilinogen Negative (Negative) Ur Leukocyte Esterase Negative (Negative) Urine WBC (Auto) 0-5 (0-5) /hpf Urine RBC (Auto) 0-2 (0-2) /hpf U Hyaline Cast (Auto) 0-2 (0-2) /lpf U Epithel Cells (Auto) 6-10 H (0-2) /hpf Urine Bacteria (Auto) 1+ H (None Seen) Imaging Data Attestation: I personally reviewed and interpreted this imaging study as follows: My Impression: Chest x-ray negative. Airway clear. No pneumothorax. No consolidation. No cardiomegaly or cephalization.. No free air under the diaphragm. No fractures of the skeletal structures. Radiologist's Impression: Chest X-Ray 10/21/24 11:41 XR chest 1V not portable HISTORY: 29 years-old Female Chest pain, nonspecific COMPARISON: 03/30/2024 TECHNIQUE: PA view of the chest FINDINGS: Cardiac silhouette is normal. Lungs appear clear. No pneumothorax or pleural effusion. Bones appear grossly intact. IMPRESSION: No acute process. ACT 112: Negative or not required by law. The above report was generated using voice recognition software. It may contain grammatical, syntax or spelling errors. Electronically signed by: González Umana M.D. 10/21/2024 12:39 PM Abdomen/Pelvis CT 10/21/24 13:01 CT OF THE ABDOMEN AND PELVIS WITHOUT CONTRAST CLINICAL HISTORY: Abdominal pain. COMPARISON STUDY: CT of the abdomen and pelvis June 22, 2021. Right upper quadrant ultrasound May 18, 2023. TECHNIQUE: Axial images of the abdomen and pelvis were obtained without IV contrast. Images were reviewed in the axial, sagittal, and coronal planes. Automated exposure control was utilized for the study. A dose lowering technique was utilized adhering to the principles of ALARA. FINDINGS: Visualized portions of the lung bases are unremarkable. No pneumatosis, free air or portal venous gas is present. Moderate bilateral renal atrophy is present. There is no hydronephrosis. Unenhanced images of the liver, spleen, adrenal glands and pancreas are unremarkable. There is no biliary or pancreatic ductal dilatation. Apparent colonic wall thickening is likely due to underdistention. Of note, the uterine cavity is distended and contains layering hyperdense material consistent with blood products. There is also a 3.6 x 2.9 cm mixed attenuation right adnexal abnormality on image 230. This has layering hyperdense material. There is no lymphadenopathy. No fluid collections are present. IMPRESSION: 1. No evidence for a bowel obstruction. No definite bowel wall thickening on unenhanced exam. 2. Moderate bilateral renal atrophy. No hydronephrosis. No ureteral calculi. 3. Distended uterine cavity which contains layering hyperdense material consistent with blood products. This suggests hematometra of uncertain etiology. In addition, a 3.6 x 2.9 cm mixed attenuation right adnexal abnormality appears to contain layering hyperdense material. This could represent a hemorrhagic right ovarian cyst or blood products within a dilated right fallopian tube. Follow pelvic ultrasound and correlation with CT chest is recommended. Gynecologic consultation might also be considered. ACT 112: Negative or not required by law. Electronically signed by: Yuriy Haynes M.D. 10/21/2024 2:04 PM Pelvis Ultrasound 10/21/24 14:31 PELVIC ULTRASOUND CLINICAL HISTORY: distended uterine cavity COMPARISON STUDY: CT of the abdomen and pelvis performed earlier today. Pelvic ultrasound August 01, 2016. TECHNIQUE: Transabdominal sonography of the pelvis was performed. FINDINGS: The uterus measures 10.9 x 5.4 x 5.6 cm. The uterine cavity is significantly distended and contains a large amount of complex mixed echogenicity mobile material consistent with clot. No color flow is identified within this material. The right ovary measures 3.4 x 3 x 2.5 cm. The possible abnormality within the right ovary on CT was not appreciated by sonography. Left ovary measures 2.4 x 1.5 x 2.1 cm. There is color flow within each ovary. IMPRESSION: 1. Significantly distended uterine cavity which contains a large amount of complex material consistent with clot. The findings suggest hematometra of uncertain etiology. 2. No ovarian abnormality identified on transabdominal exam. The possible right ovarian/right adnexal abnormality by CT is not appreciated on this transabdominal ultrasound. ACT 112: Negative or not required by law. Electronically signed by: Yuriy Haynes M.D. 10/21/2024 3:11 PM ECG Data Attestation: I personally reviewed and interpreted this ECG as follows: Indication: + chest pain and + palpitations Rate (beats per minute): 90 Rhythm: + normal sinus ECG Intervals/blocks: + Normal [place] and + Normal QT-c ECG ST segments: + Normal ST segments MDM Narrative 1217: The patient was evaluated in room D5. A complete history and physical exam was performed Cardiac monitoring: An order was placed for continuous cardiac monitoring. The monitor shows a rate of 110 with sinus tachycardia rhythm interpreted by me 1431: Patient yaneli tachycardic. Labs show leukocytosis of 15.19. Hemoglobin 10.8. Creatinine 2.19 at baseline. High-sensitivity troponin 76.3. CT of the abdomen pelvis without contrast was unremarkable with the exception of the distended uterine cavity with blood products. Discussed this with Dr. Haynes radiology does not think this is normal menstruation findings. Will obtain ultrasound. 1536:Vital signs stable. Ultrasound shows distended uterine cavity contains a large amount of complex clot. Discussed patient's case with cardiology Dr. Ricardo who states he will evaluate her when patient is admitted to medicine. 1554: Spoke with Ana who states admit the patient to Dr. Todd. Spoke with Dr. Lopez on-call FISH BIN TENDER for [facility] she states she will evaluate the patient when the patient is admitted also. Impression & Plan Chest pain, Elevated troponin, Palpitations Discharge Plan Visit Data Chief Complaint: Cardiac Assessment Stated Complaint: HIGH HEART RATE, SOB, CHEST TIGHT, BODY FEEL HEAVY ED Provider: Jose Pool Discharge Problem: Chest pain, Elevated troponin, Palpitations Patient Disposition: Admitted As Inpatient Forms Stand Alone Forms: [facility] Prescriptions Prescriptions: No Action acetaminophen [Tylenol Extra Strength] 500 mg Tablet 1,000 mg PO Q6H PRN (Reason: Pain) hydroxyzine HCl 50 mg tablet 50 mg PO HS PRN (Reason: Sleep) buspirone 15 mg tablet 15 mg PO BID Vraylar 3 mg capsule 3 mg PO HS ondansetron 4 mg tablet,disintegrating 4 mg PO Q8H PRN (Reason: nausea and vomiting) Qty: 30 0RF ferrous sulfate 325 mg (65 mg iron) tablet 325 mg PO BID Eliquis 2.5 mg tablet 2.5 mg PO BID famotidine 20 mg Tablet 20 mg PO HS PRN (Reason: Dyspepsia) levothyroxine 112 mcg tablet 112 mcg PO DAILY Referrals Referrals: Nina Ricardo DO [Primary Care Provider] -
--- NOTE | 2024-10-21 19:00 | Electrocardiogram Report ---
Test Reason : Blood Pressure : */* mmHG Vent. Rate : 90 BPM Atrial Rate : 90 BPM P-R Int : 136 ms QRS Dur : 64 ms QT Int : 366 ms P-R-T Axes : 85 85 105 degrees QTcB Int : 447 ms Poor data quality, interpretation may be adversely affected Normal sinus rhythm Nonspecific ST and T wave abnormality Abnormal ECG When compared with ECG of 30-Mar-2024 18:44, Vent. rate has increased by 32 bpm Nonspecific T wave abnormality, improved in Anterior leads Nonspecific T wave abnormality now evident in Lateral leads QT has lengthened Confirmed by Dallas Williamson ([id number]) on 10/21/2024 6:59:29 PM Referred By: Confirmed By: Dallas Williamson
[2024-10-21] MEDS: ONDANSETRON INJ 2 MG/ML 2 ML VIAL IV PRN (20:26)
[2024-10-21] MEDS: CARIPRAZINE HCL 3 MG CAP PO SCH (20:51)
[2024-10-21] MEDS: FERROUS SULFATE 325 MG TAB PO SCH (20:52)
[2024-10-21] MEDS: busPIRone 15 MG TAB PO SCH (20:53)
--- NOTE | 2024-10-21 23:39 | OB/GYN Consultation ---
Date of Consultation October 21, 2024 Assessment & Plan (1) History of bilateral salpingectomy: (2) Menorrhagia with regular cycle: 19-year-old -0-0-1 female with history of renal vein thrombosis, nephrotic syndrome, on Eliquis for lifetime, history of heavy manses, status post bilateral salpingectomy for contraception on June, presenting with chest pain and elevated troponin levels, pending cardiology consultation and echocardiogram and heavy menstrual bleeding, Vital signs stable afebrile, Blood clots in the uterus which came out during pelvic exam and then uterus was firm, contracted, small and bleeding slowed down, I discussed the options with her medical doctor/ hospitalist, as progestin therapy versus TXA versus surgery, he recommended Eliquis be hold for 2 to 3 days before elective surgery and discussed with hematology for preop plan, he also recommended to await cardiology consultation before I prescribe TXA or hormonal therapy, Recommended observation till the morning, npo, and reevaluate with repeat H&H levels, continue to monitor closely. 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 She has been having her menstrual period Since October 20. She has a history of heavy periods since she has been on Eliquis for about 4 years. She had renal vein thrombosis after her . She states it has been resolved since it was treated and recommended to be on Eliquis for the rest of her life. She recently saw ground mixer at [facility] and requested tubal sterilization. They also talk about heavy menses and treatment options but patient declined. She had laparoscopic bilateral salpingectomy on June 2024 at [facility]. She recovered well without issues She states her periods are every 8 months, regular, last for a week with heavy flow. It is typical for her. She has been with same partner for the last 2 years denies any history of STDs including chlamydia, gonorrhea, herpes. She denies pain or bleeding after sexual intercourse. she is admitted to medicine service for elevated troponin levels pending echoc ardiogram as well as cardiology consultation which was scheduled for morning. Her H&H was stable on the admission at 10.8/31.6. Her vital signs has been stable afebrile. Allergies Allergy/AdvReac Type Severity Reaction Status Date / Time lamotrigine Allergy Unknown itchy Verified 05/18/23 13:26 oxycodone AdvReac Intermediate itching Verified 05/18/23 13:26 fluoxetine AdvReac Unknown Shakiness Verified 05/18/23 13:26 paroxetine AdvReac Unknown Suicidal Verified 05/18/23 13:26 thoughts Home Medications Medication Instructions Recorded Confirmed Type acetaminophen 500 mg tablet 1,000 mg PO Q6H PRN Pain 09/17/18 10/21/24 History (Tylenol Extra Strength) buspirone 15 mg tablet 15 mg PO BID 05/18/23 10/21/24 History cariprazine 3 mg capsule (Vraylar) 3 mg PO HS 05/18/23 10/21/24 History hydroxyzine HCl 50 mg tablet 50 mg PO HS PRN Sleep 05/18/23 10/21/24 History ondansetron 4 mg disintegrating 4 mg PO Q8H PRN nausea and 05/18/23 10/21/24 Rx tablet vomiting #30 tabs apixaban 2.5 mg tablet (Eliquis) 2.5 mg PO BID 10/21/24 10/21/24 History famotidine 20 mg tablet 20 mg PO HS PRN Dyspepsia 10/21/24 10/21/24 History ferrous sulfate 325 mg (65 mg 325 mg PO BID 10/21/24 10/21/24 History iron) tablet levothyroxine 112 mcg tablet 112 mcg PO DAILY 10/21/24 10/21/24 History Patient History Medical History (Updated 10/22/24 @ 00:36 by Dale Murrieta MD) Enlarged thyroid Dysphagia 2/2 enlarged thyroid Surgical History (Updated 10/22/24 @ 00:31 by Dale Murrieta MD) History of tonsillectomy and adenoidectomy Family History Other Diabetes FHx: seizures Social History Smoking Status: Former smoker Tobacco Type: Cigarettes Cigarettes Per Day: 1; Smoking End Date: 8 years ago; Second Hand Exposure: No; Do You Dip or Chew Tobacco: No; Hx Alcohol Use: No Hx Substance Use: Yes Last Used Substance Other:: 11/2018 SATYASAN ANTONIO AND NOT USED SINCE Preferred Language: Brazilian Communication Ability: Effective Visual Impairment: No Limitations Hearing Ability: Normal Cured Meats Supervisor Required: No Beliefs That Will Affect Care: None marital status: Single Current Living Situation: Significant Other Current Living Situation Comment: lives with boyfriend current occupational status: employed Feels Safe at Home: Yes Safety Concerns: Feels Safe At This Time Assistive Devices: Glasses Physical Exam Constitutional: WD/WN, vitals as above + thin and comfortable Genitourinary: normal external appearance Speculum/Bimanual Exam: normal bimanual exam, normal appearance of the vagina, normal appearance of the cervix (minimal bleeding from os, ), normal vaginal palpation, + vaginal bleeding (cloths cleaned from vagina) and normal cervical palpation Uterus AV, normal size, NT Results & Data Vital Signs (Past 12 Hours) Vital Signs Temp Pulse Pulse Resp BP BP BP 10/21/24 22:43 79 10/21/24 22:14 75 10/21/24 20:15 37.2 C 107 H 16 138/83 10/21/24 19:59 36.6 C 72 14 114/85 10/21/24 19:42 95 H 26 H 10/21/24 19:33 75 16 10/21/24 19:21 77 18 10/21/24 19:18 69 16 10/21/24 19:00 74 21 10/21/24 19:00 117/70 10/21/24 19:00 117/70 10/21/24 19:00 74 15 117/70 10/21/24 18:57 73 15 10/21/24 18:33 63 16 10/21/24 18:27 66 16 10/21/24 18:12 80 16 10/21/24 18:03 70 15 10/21/24 18:00 115/64 10/21/24 17:51 62 14 10/21/24 17:45 71 16 10/21/24 17:45 110/58 L 10/21/24 17:45 110/58 L 10/21/24 17:40 62 14 110/58 L 10/21/24 17:33 70 15 10/21/24 17:21 69 16 10/21/24 17:15 67 21 10/21/24 16:54 72 22 10/21/24 16:40 85 10/21/24 16:31 75 18 127/92 10/21/24 16:30 72 12 10/21/24 16:21 74 18 10/21/24 16:12 77 13 10/21/24 16:00 127/92 10/21/24 15:54 86 16 10/21/24 15:42 77 14 10/21/24 15:30 73 12 10/21/24 15:24 129/90 10/21/24 15:15 68 17 10/21/24 15:03 73 18 10/21/24 14:36 115 H 15 10/21/24 14:15 90 17 10/21/24 14:06 76 17 10/21/24 14:03 79 18 125/66 10/21/24 14:00 125/66 10/21/24 14:00 125/66 10/21/24 13:57 72 17 10/21/24 13:42 80 20 10/21/24 13:30 78 17 10/21/24 13:12 82 21 10/21/24 13:09 70 13 10/21/24 13:01 84 18 116/83 10/21/24 12:42 80 17 10/21/24 12:39 80 10/21/24 11:38 37.1 C 106 H 20 121/75 Pulse Ox O2 Del Method 10/21/24 22:43 10/21/24 22:14 10/21/24 20:15 100 Room Air 10/21/24 19:59 100 Room Air 10/21/24 19:42 99 10/21/24 19:33 99 10/21/24 19:21 99 10/21/24 19:18 100 10/21/24 19:00 99 10/21/24 19:00 10/21/24 19:00 10/21/24 19:00 99 Room Air 10/21/24 18:57 99 10/21/24 18:33 99 10/21/24 18:27 100 10/21/24 18:12 100 10/21/24 18:03 99 10/21/24 18:00 10/21/24 17:51 99 10/21/24 17:45 99 10/21/24 17:45 10/21/24 17:45 10/21/24 17:40 100 10/21/24 17:33 100 10/21/24 17:21 97 10/21/24 17:15 99 10/21/24 16:54 96 10/21/24 16:40 10/21/24 16:31 100 Room Air 10/21/24 16:30 100 10/21/24 16:21 100 10/21/24 16:12 100 10/21/24 16:00 10/21/24 15:54 100 10/21/24 15:42 100 10/21/24 15:30 100 10/21/24 15:24 10/21/24 15:15 10/21/24 15:03 10/21/24 14:36 100 10/21/24 14:15 100 10/21/24 14:06 100 10/21/24 14:03 100 Room Air 10/21/24 14:00 10/21/24 14:00 10/21/24 13:57 100 10/21/24 13:42 96 10/21/24 13:30 100 10/21/24 13:12 100 10/21/24 13:09 100 10/21/24 13:01 100 Room Air 10/21/24 12:42 100 10/21/24 12:39 10/21/24 11:38 100 Room Air Diagnostic Findings PELVIC ULTRASOUND CLINICAL HISTORY: distended uterine cavity COMPARISON STUDY: CT of the abdomen and pelvis performed earlier today. Pelvic ultrasound August 01, 2016. TECHNIQUE: Transabdominal sonography of the pelvis was performed. FINDINGS: The uterus measures 10.9 x 5.4 x 5.6 cm. The uterine cavity is significantly distended and contains a large amount of complex mixed echogenicity mobile material consistent with clot. No color flow is identified within this material. The right ovary measures 3.4 x 3 x 2.5 cm. The possible abnormality within the right ovary on CT was not appreciated by sonography. Left ovary measures 2.4 x 1.5 x 2.1 cm. There is color flow within each ovary. IMPRESSION: 1. Significantly distended uterine cavity which contains a large amount of complex material consistent with clot. The findings suggest hematometra of uncertain etiology. 2. No ovarian abnormality identified on transabdominal exam. The possible right ovarian/right adnexal abnormality by CT is not appreciated on this transabdominal ultrasound.
--- OUTSIDE RECORDS SUMMARY | 2024-10-21 23:55 | External Medical Summary ---
Author Name Unknown Address Unknown Organization [id number]:[facility] [place] [address] [place] [address] Laboratory Report Ordering Provider Test Date Status ANDREZFUAD 06/22/2024 14:25:34 Final Observation Date Value Abnormality Reference (Units ) Status Ferritin 06/22/2024 14:25:34 74 13-150 (ng /mL) Final Performing Location LAB[facility]ATORY [facility] - [address] [place] [id number]
--- OUTSIDE RECORDS SUMMARY | 2024-10-21 23:55 | External Medical Summary ---
Author Name Unknown Address Unknown Organization [id number]:[facility] [place] [address] Laboratory Report Ordering Provider Test Date Status FUAD MAGUIRE 06/22/2024 14:25:34 Final Observation Date Value Abnormality Reference (Units ) Status WBC, Total 06/22/2024 14:25:34 6.62 4.00-10.8 0 (K/uL) Final RBC 06/22/2024 14:25:34 3.95 3.85-5.15 (M/uL) Final Hemoglobin 06/22/2024 14:25:34 12.8 12.0-15.3 (g/dL) Final HCT 06/22/2024 14:25:34 39.8 36.0-45.2 (%) Final MCV 06/22/2024 14:25:34 100.8 81.5-97.5 (fL) Final MCH 06/22/2024 14:25:34 32.4 27.0-34.0 (pg) Final MCHC 06/22/2024 14:25:34 32.2 32.0-36.0 (g/dL) Final RDW 06/22/2024 14:25:34 12.2 11.5-15.5 (%) Final Platelets 06/22/2024 14:25:34 216 140-400 (K /uL) Final MPV 06/22/2024 14:25:34 9.9 6.6-11.1 ( fL) Final Performing Location [facility] [place] [address]
--- OUTSIDE RECORDS SUMMARY | 2024-10-21 23:55 | External Medical Summary ---
Author Name Unknown Address Unknown Organization [id number][facility] [address] [facility] [address] [facility] Report Ordering Provider Test Date Status FUAD MAGUIRE 06/22/2024 14:25:34 Final Observation Date Value Abnormality Reference (Units ) Status Iron 06/22/2024 14:25:34 78 33-151 (ug /dL) Final Iron-binding capacity 06/22/2024 14:25:34 303 250-425 (ug/dL) Final Transferrin Sat % 06/22/2024 14:25:34 26 15 -55 (%) Final Performing Location [facility] [address] [facility] [id number]
--- OUTSIDE RECORDS SUMMARY | 2024-10-21 23:55 | External Medical Summary | Summary of Care ---
Author Name Unknown Organization [facility] Address [address] [place] [address] Phone [phone] Care Team Providers Care Print Traffic Manager Name Role Phone Danilo Ricardo DO Primary Care Provider [phone] Reason for Visit * Reason Comments eRx-Medication Refill Encounter Details Date Type Department Care Team (Late st Contact Info) Description 07/07/2024 Refill [facility] [address] [place] [address] Danilo Ricardo DO [address], [place] [id number] Iron deficiency anemia, unspecified iron deficiency anemia type; Renal vein thrombosis (HCC) Allergies Active Allergy Reactions Criticality Noted Date Comments Lamotrigine Er Itching High 06/27/2016 Lamotrigine Itching High 01/25/2019 Paroxetine Hcl Psych complications 08/12/2017 Fluoxetine Hcl Other (Please comment) 9 Makes her shake documented as of this encounter (statuses as of 07/09/2024) Medications Medication Sig Dispensed Refills Start Date End Date Status busPIRone (BUSPAR) 15 MG Tablet Take 1 Tablet by mouth in the morning and 1 Tablet before bedtime. 0 Active Polyethylene Glycol 3350 17 GM/SCOOP Oral Powder (MiraLax) Take 17 g by mouth as needed for Constipation. Dissolve one heaping tablespoon in 8 ounces of water or juice. 507 g 1 1 Active Famotidine 20 MG Oral Tablet (Pepcid) TAKE 1 TABLET BY MOUTH EVERYDAY AT BEDTIME 90 Tablet 1 2 Active Additional Information Patient not taking.Reported on 05/25/2024 Ondansetron 4 MG Oral Tablet Disintegrating (Zofran) TAKE 1 TABLET ORALLY EVERY 8 HOURS NEEDED FOR NAUSEA AND VOMITING 3 Active Vraylar 3 MG Oral Capsule TAKE 1 CAPSULE BY MOUTH AT NIGHT 3 Active hydrOXYzine HCl 50 MG Oral Tablet 1 Tablet. Takes at night 4 Active Acetaminophen 325 MG Oral Tablet (Tylenol) Take 2 Tablets by mouth every 6 hours as needed for Pain, Mild. 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 180 Tablet 3 4 Active Apixaban 2.5 MG Oral Tablet (Eliquis)Indication s:Renal vein thrombosis (HCC) Take 1 Tablet by mouth in the morning and 1 Tablet before bedtime. Stop warfarin.. 60 Tablet 11 3 07/09/20 24 Discontinued Ferrous Sulfate 325 (65 Fe) MG Oral Tablet (Feosol)Indications :Iron deficiency anemia, unspecified iron deficiency anemia type TAKE 1 TABLET BY MOUTH IN THE MORNING AND BEFORE BEDTIME 180 Tablet 1 4 07/09/20 24 Discontinued documented as of this encounter (statuses as of 07/09/2024) Active Problems Problem Noted Date Diagnosed Date Iron deficiency anemia due to chronic blood loss 09/19/2023 Stage 3b chronic kidney disease 09/11/2020 Overview: Per CKD protocol Renal vein thrombosis 01/03/2020 Delivery of by section 2018 Non-reassuring heart t ones, delivered, current hospitalization 07/11/2019 SGA (small for gestational age) 05/18/2019 Overview: Following growth sono with MFM q 4 weeks 05/13/19: 18% Antepartum anemia complicating 019 Supervision of other high ri sk pregnancies, unspecified trimester 04/06/2019 affected by growth restriction 0 04/05/2019 History of chronic hypertension 04/05/2019 Depression complicating , antepartum Hypertensive CKD (chronic ki dney disease) complicating 04/05/2019 Hypothyroidism during , antepartum 0403/2019 Overview: 02/05/19 TSH 35 at new OB. Not clear if pt has been taking her medication. -pt reported taking meds, dose increased. Repeat TSH in 4 wks. 03/04/19 - TSH 86.27, rx increased, recheck w/T4 in 4 weeks 06/03/19 - Per Dr. Lane's recommendation (endocrinology)Pt is to take 175mcg 1 tab 6 days a week and nothing on day 7 and repeat labs in 2 weeks. Patient currently has standing lab orders. RECOMMENDATIONS: - In women with prepregnancy diagnosis of hypothyroidism, recommend assessing TSH every 4-6 weeks until the patient is euthyroid based on TSH (first trimester, 0.1-2.5 mIU/L; second trimester, 0.2-3.0 mIU/L; third trimester, 0.3-3.0 mIU/L. - After any adjustment of thyroid replacement dosing, recheck TSH 4 weeks later. - Once euthyroidism is attained, TSH should be assessed every trimester. -In those with previous radioiodine ablation or thyroidectomy, anticipatory increases of T4 replacement by 25% are suggested to decrease the likelihood of significant hypothyroidism in . - Maternal Medicine ultrasound is only indicated if patient requires an adjustment of her thyroid replacement therapy dosing after the first trimester of . Refer back to Maternal Medicine if this occurs. She should continue to have growth assessments with Maternal Medicine while she is clinically hypothyroid. - If patient experiences thyroid goiter or nodule during , we recommend that she be referred to endocrinology for evaluation and management. is not a contraindication to fine needle aspiration, but should be handled at the discretion of the english composition teacher. Supervision of high-risk , unspecified trimester 02/04/2019 Overview: Problem Action Taken Date entered Entered by Date resolved First Discussed [facility]-pt interested. Brochure given-referral placed 02/04/2019 Teresa Hart RN 02/04/19 Home Health Pt declines need for Home Health Nursing at this time 02/04/2019 Teresa Hart RN 02/04/19 Classes Discussed importance of classes-directions given on how to register on line 02/04/2019 Teresa Hart RN 02/04/19 Nutrition Pt has appt with WIC-due date letter given. Pt currently gets food stamps-does not know if will continue with her now working-due date letter given 02/04/2019 Teresa Hart RN 02/04/19 Housing/transportation Pt currently living with her father-gave handout on low income housing. Also gave hand out for transportation. 02/04/2019 Teresa Hart RN 02/04/19 Problem Action Taken Date entered Entered by Date resolved Current needs or questions Patient denies having any current needs or questions 03/04/2019 Ngoc Ramey RN 03/04/2019 Problem Action Taken Date entered Entered by Date resolved Current needs or questions Patient denies having any current needs or questions 04/15/2019 Ngoc Ramey RN 04/15/2019 Problem Action Taken Date entered Entered by Date resolved Current needs or questions Patient denies having any current needs or questions 05/18/2019 Lisa Montanez RN 05/18/2019 Antepartum renal disease 02/04/2019 Overview: We recommend referral to nephrology if care has not been previously established, with serial evaluations of proteinuria and serum creatinine per Nephrology s discretion. Patients who are taking TERESE inhibitors or ARB's should stop these medications with knowledge of . As hypertensive disorders of are more common in women with CKD, we recommend baseline assessment with a 24-hour urine for protein and creatinine clearance, CBC, serum creatinine, and AST/ALT, to help differentiate progressive changes due to preeclampsia from baseline renal dysfunction. For women who require dialysis in more frequent dialysis sessions with a longer weekly cumulative dialysis time and goal BUN under 50 appear to improve outcomes. We recommend serial growth ultrasounds with MFM every 4 weeks after 24 weeks. surveillance with twice-weekly non-stress tests is recommended from 32 weeks until delivery. 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 05/17/2003 Nephrotic syndrome Proteinuria documented as of this encounter (statuses as of 07/09/2024) Resolved Problems Problem Noted Date Diagnosed Date Resolved Date Hypothyroid in , an tepartum, second trimester 04/05/2019 06/01/2019 Supervision of high-risk pre gnancy, second trimester 04/05/2019 06/01/2019 Bipolar disorder, current ep isode mixed, moderate 07/09/2018 02/25/2024 Kidney disease, chronic, sta ge III (GFR 30-59 ml/min) 11/11/2016 09/14/2020 Overview: Per CKD protocol #1 Chronic renal insufficiency 05/23/2008 02/13/2018 Chronic kidney disease (CKD) 07/02/2005 05/23/2008 Overview: ICD-10 update of inactive term , weight unknown 04/08/2017 Acute renal insufficiency documented as of this encounter (statuses as of 07/09/2024) Immunizations Name Administration Dates Next Due COVID-19 mRNA, LNP-s, No Pre serve, 2-Dose Series (Covertix) 03/26/2021,03/03/2021 Seasonal Influenza, PF, 6 M & above, IM , (FluLaval or Fluzone) 08/16/2019 Seasonal Influenza, Trivalen t, (IIV3), with Preserv, (Fluzone) 09/05/2009,09/01/2008,08/29/2006 TDAP (age 10 and older)(Boostrix) 06/01/2019 documented as of this encounter Social History Tobacco Use Types Packs/Day Years Used Date Smoking Tobacco: Former Cigarettes Q uit: 08/12/2015 Passive Smoke Exposure: Past Smokeless Tobacco: Never Alcohol Use Standard Drinks/Week Comments No 0 (1 standard drink = 0.6 oz pur e alcohol) denies in 2019 AUDIT-C Answer Date Recorded Frequency of Alcohol Consumption Never 02/04/2019 Average Number of Drinks Not on file 019 Frequency of Binge Drinking Not on file 02/2019 PHQ-2 Answer Date Recorded PHQ Adult Total Score 1 08/25/2023 Hunger Vital Sign Answer Date Recorded Within the past 12 months, y ou worried that your food would run out before you got the money to buy more. Patient declined Within the past 12 months, t he food you bought just didn't last and you didn't have money to get more. Patient declined [place] Depression Scale Answer Date Recorded [place] Depression Scale Score 12 08/19/2019 The thought of harming myself has occurred to me . (Pt Reported) 08/19/2019 Childcare Answer Date Recorded Do you feel overwhelmed with taking care of a child, family member or friend? No 02/25/2024 Does your family need help f inding childcare? (Household - for ages 0-17 years) Not on file 02/25/2024 Clothing Answer Date Recorded Have you been unable to get clothing when it was really needed? No 02/25/2024 Is your family able to get c lothes or diapers when needed? (Household - for ages 0-17 years) Not on file 02/25/2024 Personal Safety Answer Date Recorded Do you feel unsafe or have concerns for your saf ety? No 02/25/2024 Do you have concerns for you r family's safety? (Household - for ages 0-17 years) Not on file 02/25/2024 Utilities Answer Date Recorded Do you have trouble paying y our heating, water, or electric bill? No 02/25/2024 Is your family able to pay t he heat, water, or electric bill? (Household - for ages 0-17 years) Not on file 02/25/2024 Does your family have access to good internet? (Household - for ages 0-17 years) Not on file 02/25/2024 Employment Status Answer Date Recorded Are you unemployed or without regular income? No 02/25/2024 Does the household have a re gular source of income? (Household - for ages 0-17 years) Not on file 02/25/2024 Social Connections Answer Date Recorded How often do you feel lonely or isolated from th ose around you? Never 02/25/2024 Financial Resource Strain Answer Date R ecorded Do you have any trouble payi ng for your medications, or do you think you might in the future? No 02/25/2024 Does your family have troubl e paying for medicine? (Household - for ages 0-17 years) Not on file 02/25/2024 Transportation Needs Answer Date Record ed READ ONLY Do you have troubl e getting a ride to medical visits or work? Never True 02/25/2024 Does your family have a hard time getting a ride to doctors visits? (Household - for ages 0-17 years) Not on file 02/25/2024 Has lack of transportation k ept you from medical appointments, meetings, work, or from getting things needed for daily living? Check all that apply. (Adult - for ages 18 years and over) Not on file 02/25/2024 Do you (or your family) have trouble finding or paying for a ride (transportation)? (Household - for ages 0-17 years) Not on file 02/25/2024 Housing Stability Answer Date Recorded Do you currently live in a s helter or have no steady place to sleep at night? No 02/25/2024 READ ONLY Do you think you a re at risk of becoming homeless? No 02/25/2024 Does your family worry about paying for your home or becoming homeless? (Household - for ages 0-17 years) Not on file 0 02/25/2024 Are you homeless or worried that you might be in the future? (Adult - for ages 18 years and over) Not on file Are you (or your family) gaurang eless or worried that you might be in the future? (Household - for ages 0-17 years) Not on file Food Insecurity Answer Date Recorded Do you need food for this week? No 02/25/2024 Are you able to get enough f ood for your family? (Household - for ages 0-17 years) Not on file 02/25/2024 Does your family need food t his week? (Household - for ages 0-17 years) Not on file 02/25/2024 Do you always have enough fo od for your family? (Household - for ages 0-17 years) Not on file 02/25/2024 Education Answer Date Recorded What is the highest level of school you have completed or the highest degree you have received? Associate degree: academic program 04/06/2019 Sex and Gender Information Value Date Recorded Sex Assigned at Female 11/10/2019 12:12 PM EST Gender Identity Female 11/10/2019 12:12 PM EST Sexual Orientation Straight 11/10/2019 12 :12 PM EST Job Start Date Occupation Industry Not on file Not on file Not on file documented as of this encounter Miscellaneous Notes * Telephone Encounter - Danette Martinez RPh - 07/09/2024 11:46 AM EDTSigned Prescriptions: Disp Refills Ferrous Sulfate 325 (65 Fe) MG Oral Tablet*180 Ta*3 Sig: TAKE 1 TABLET BY MOUTH IN THE MORNING AND BEFORE BEDTIMEAuthorizing Provider: DANILO RICARDO User: DANETTE MARTINEZ Apixaban 2.5 MG Oral Tablet (Eliquis) 180 Ta*3 Sig: Take 1 Tablet by mouth inthe morning and 1 Tablet before bedtime.Authorizing Provider: DANILO RICARDO User: DANETTE MARTINEZ documented in this encounter Plan of Treatment Upcoming Encounters Date Type Department Care Team (Late st Contact Info) Description 09/02/2024 9:30 AM EDT Office Visit [facility] [address] [facility] [address] [facility] [address] [facility] [address] 11/05/2024 9:00 AM EST Office Visit Nephrology, [facility] [address] [facility] [place], [place] [address] Kelin Rendon MD [address] [place], [place] [address] 12/21/2024 8:00 AM EST Laboratory Laboratory [facility] [place] [address] [facility] [facility] [place] [address] [place] [facility] [address] [facility] [place], [place] [address] 12/28/2024 4:00 PM EST Office Visit Hematology/Oncology [facility] [place] [address] [facility] [facility] [place] [phone] oRxy Juan CRNP [address] [place] [address] Health Maintenance Due Date Last Done Comments Pneumococcal Vaccine: Pediatrics (0 to 5 Years) and At-Risk Patients (6 to 64 Years) (1 of 2 - PCV) 1999 COVID-19 Vaccine (3 - 2022-24 season) 2024 03/26/2021, 03/03/2021 Influenza Vaccine (FLU shot) (#1) 2024 08/16/2019, 09/05/2009, 09/01/2008, Additional history exists Depression Monitoring 08/25/2024 08/25/2023 CKD PHOS USE SMARTSET 13011 09/02/202408/05, 05/21/2021, 02/25/2018, Additional history exists GFR 12/23/2024 06/22/2024, 06/0 01/2024, 12/08/2023, Additional history exists TSH 04/05/2025 04/05/2024, 02/02, 08/25/2023, Additional history exists CKD HGB USE SMARTSET 79811 06/22/202506/22, 06/22/2024, 04/05/2024, Additional history exists Pap Smear 12/03/2026 12/03/2023, 08/03, 07/16/2018, Additional history exists Cervical Cancer Screening 12/03/2028 HPV/Co-Test 12/03/2028 12/03/2023 DTap/Tdap Vaccines (2 - Td or Tdap) 06/01/2029 06/01/2019 HPV (Gardasil) Vaccine Aged Out No lo nger eligible based on patient's age to complete this topic Hepatitis B Vaccine Discontinued MENINGOCOCCAL (MENACTRA/MENVEO) Aged Out No longer eligible based on patient's age to complete this topic documented as of this encounter Medical Devices Not on filedocumented as of this encounter Visit Diagnoses Diagnosis Iron deficiency anemia, unspecified iron deficiency anemia type 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 Care Teams Print Traffic Manager Relationship Specialty Start Date End Date Danilo Ricardo DO [address] [place] [phone] PCP - General Family Medicine 01/25/19 documented as of this encounter
--- OUTSIDE RECORDS SUMMARY | 2024-10-21 23:55 | External Medical Summary | Summary of Care ---
Author Name Unknown Organization [facility] Address [address] [place] [address] Phone [phone] Care Team Providers Care Body Welder Name Role Phone Nina Ricardo DO Primary Care Provider [phone] Reason for Visit * Reason Comments Follow Up 6 month follow up Encounter Details Date Type Department Care Team (Late st Contact Info) Description 08/13/2024 12:30 PM EDT Office Visit [facility] [address] [place] [address] Nina Ricardo DO [address] [place] [address] Nephrotic syndrome*; Stage 3b chronic kidney disease; Persistent proteinuria; FSGS (focal segmental glomerulosclerosis) with nephrosis; Acquired hypothyroidism; Renal vein thrombosis (HCC); Iron deficiency anemia due to chronic blood loss Allergies Active Allergy Reactions Criticality Noted Date Comments Lamotrigine Er Itching High 06/27/2016 Lamotrigine Itching High 01/25/2019 Paroxetine Hcl Psych complications 08/12/2017 Fluoxetine Hcl Other (Please comment) 9 Makes her shake documented as of this encounter (statuses as of 08/13/2024) Medications Medication Sig Dispensed Refills Start Date End Date Status busPIRone (BUSPAR) 15 MG Tablet Take 1 Tablet by mouth in the morning and 1 Tablet before bedtime. 07/13/2020 Active Polyethylene Glycol 3350 17 GM/SCOOP Oral Powder (MiraLax) Take 17 g by mouth as needed for Constipation. Dissolve one heaping tablespoon in 8 ounces of water or juice. 507 g 1 06/21/2021 Active Famotidine 20 MG Oral Tablet (Pepcid) TAKE 1 TABLET BY MOUTH EVERYDAY AT BEDTIME 90 Tablet 1 05/08/2022 Active Additional Information Patient not taking.Reported on 05/25/2024 Ondansetron 4 MG Oral Tablet Disintegrating (Zofran) TAKE 1 TABLET ORALLY EVERY 8 HOURS NEEDED FOR NAUSEA AND VOMITING 05/18/2023 Active Vraylar 3 MG Oral Capsule TAKE 1 CAPSULE BY MOUTH AT NIGHT 08/22/2023 Active hydrOXYzine HCl 50 MG Oral Tablet 1 Tablet. Takes at night 11/11/2023 Active Acetaminophen 325 MG Oral Tablet (Tylenol) Take 2 Tablets by mouth every 6 hours as needed for Pain, Mild. 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 180 Tablet 3 07/09/2024 Active documented as of this encounter (statuses as of 08/13/2024) Active Problems Problem Noted Date Diagnosed Date [...] be handled at the discretion of the diamond die driller. Supervision of high-risk , unspecified trimester 02/04/2019 [...] as of this encounter (statuses as of 08/13/2024) Resolved Problems Problem Noted Date Diagnosed Date [...] as of this encounter (statuses as of 08/13/2024) Immunizations Name Administration Dates Next Due COVID-19 mRNA, LNP-s, No Pre serve, 2-Dose Series (Arstasis) 03/26/2021,03/03/2021 Seasonal Influenza Vac., MDV , IM, 0.5 mL (Fluzone) 09/05/2009,09/01/2008,08/29/2006 Seasonal Influenza, PF, 6 M & above, IM , (FluLaval or Fluzone) 08/16/2019 TDAP (age 10 and older)(Boostrix) 06/01/2019 documented [...] have money to get more. Patient declined [place] Depression Scale Answer Date Recorded [place] Depression Scale Score 12 08/19/2019 The thought [...] on file documented as of this encounter Last Filed Vital Signs Vital Sign Reading Time Taken Comments Blood Pressure 90/60 08/13/2024 12:50 PM EDT Pulse 66 08/13/2024 12:50 PM EDT Temperature 36.6 C (97.9 F) 08/13/2024 12:50 PM E DT Respiratory Rate 16 08/13/2024 12:50 PM EDT Oxygen Saturation - - Inhaled Oxygen Concentration - - Weight 45.8 kg (101 lb) 08/13/2024 12:50 PM EDT Height 160 cm (5' 3") 08/13/2024 12:50 PM EDT Body Mass Index 17.89 08/13/2024 12:50 PM EDT documented in this encounter Progress Notes * Nina Ricardo DO - 08/13/2024 1:04 PM EDT Subjective: Charissa Rodriguez is a 29 year old female. Chief Complaint Patient presents with Follow Up 6 month follow up HPI: 29 year old female here today for a follow-up. She carries hx of hypothyroidism, OCD, Bipolar,Nephrotic Syndrome, Iron Deficiency Anemia, Renal v thrombosis, on lifelong anticoagulation, and doing well. Currently not working Taking care of her 5 year old. PHM: Patient Active Problem List Diagnosis FSGS (focal segmental glomerulosclerosis) with nephrosis Nephrotic syndrome Proteinuria OCD (obsessive compulsive disorder) Anxiety Hypothyroidism Supervision of high-risk , unspecified trimester Antepartum renal disease Hypothyroidism during , antepartum affected by growth restriction History of chronic hypertension Depression complicating , antepartum Hypertensive CKD (chronic kidney disease) complicating Antepartum anemia complicating Supervision of other high risk pregnancies, unspecified trimester SGA (small for gestational age) Delivery of by section Non-reassuring heart tones, delivered, current hospitalization Renal vein thrombosis (HCC) Stage 3b chronic kidney disease Iron deficiency anemia due to chronic blood loss Current Outpatient Medications Medication Sig Dispense Refill busPIRone (BUSPAR) 15 MG Tablet Take 1 Tablet by mouth in the morning and 1 Tablet before bedtime. Polyethylene Glycol 3350 17 GM/SCOOP Oral Powder (MiraLax) Take 17 g by mouth as needed for Constipation. Dissolve one heaping tablespoon in 8 ounces of water or juice. 507 g 1 Ondansetron 4 MG Oral Tablet Disintegrating (Zofran) TAKE 1 TABLET ORALLY EVERY 8 HOURS NEEDED FOR NAUSEA AND VOMITING Vraylar 3 MG Oral Capsule TAKE 1 CAPSULE BY MOUTH AT NIGHT hydrOXYzine HCl 50 MG Oral Tablet 1 Tablet. Takes at night Acetaminophen 325 MG Oral Tablet (Tylenol) Take 2 Tablets by mouth every 6 hours as needed for Pain, Mild. 60 Tablet 0 Levothyroxine Sodium 112 MCG Oral Tablet (Levoxyl) TAKE 1 TABLET BY MOUTH EVERY DAY AT LEAST 30 MINBEFORE BREAKFAST OR OTHER MEDICATION 90 Tablet 3 Ferrous Sulfate 325 (65 Fe) MG Oral Tablet (Feosol) TAKE 1 TABLET BY MOUTH IN THE MORNING AND BEFORE BEDTIME 180 Tablet 3 Apixaban 2.5 MG Oral Tablet (Eliquis) Take 1 Tablet by mouth in the morning and 1 Tablet before bedtime. 180 Tablet 3 Famotidine 20 MG Oral Tablet (Pepcid) TAKE 1 TABLET BY MOUTH EVERYDAY AT BEDTIME (Patient not taking: Reported on 05/25/2024) 90 Tablet 1 No current facility-administered medications for this visit. Review of patient's allergies indicates: Allergen Reactions Lamictal Xr [Lamotrigine Er] Itching Lamictal [Lamotrigine] Itching Paxil [Paroxetine Hcl] Psych complications Prozac [Fluoxetine Hcl] Other (Please comment) Makes her shake Objective: BP 90/60 | Pulse 66 | Temp 36.6 C (97.9 F) | Resp 16 | Ht 1.6 m (5' 3") | Wt 45.8 kg (101 lb) |BMI 17.89 kg/m | BSA 1.43 m Physical Exam: General: alert, healthy, and no distress Heart: regular rate & rhythm, no murmur, and no gallops Lungs: chest symmetric with normal AP diameter, no chest deformities noted, no chest wall tenderness, lungs clear to auscultation Abdomen: abdomen soft, non-tender, normal bowel sounds, and no masses or organomegaly Extremities: no edema ASSESSMENT/PLAN: Nephrotic syndrome (Primary) Stage 3b chronic kidney disease - BASIC METABOLIC PANEL; Future; Expected date: 08/16/2024 Persistent proteinuria FSGS (focal segmental glomerulosclerosis) with nephrosis Acquired hypothyroidism - TSH WITH FREE T4 IF INDICATED; Future; Expected date: 08/16/2024 Renal vein thrombosis (HCC) Iron deficiency anemia due to chronic blood loss - CBC; Future; Expected date: 08/16/2024 - IRON SCREEN, INCLUDING TIBC; Future; Expected date: 08/16/2024 Follow-up: Return in about 6 months (around 02/11/2025). | Check-out note: Labs in Nov. Schedule paptest. Nina Ricardo DO documented in this encounter Nursing Notes * Soha Henson LPN - 08/13/2024 12:51 PM EDT The patient has been properly identified by confirmation of name and date of . Chief Complaint Patient presents with Follow Up 6 month follow up documented in this encounter Plan of Treatment Upcoming Encounters Date Type Department Care Team (Late st Contact Info) Description 11/05/2024 9:00 AM EST Office Visit Nephrology, [facility] [address] [place] [address] Kelin Rendon MD [address] [facility] [place] [address] 12/21/2024 8:00 AM EST Laboratory Laboratory [facility] [place] [address] [place] [phone] [place] [facility] [place] [address] [address] [place] [address] 12/28/2024 4:00 PM EST Office Visit Hematology/Oncology [facility] [place] [address] [facility] [place] [phone] Roxy Juan CRNP [address] [place] [address] [place] [address] Scheduled Orders Name Type Priority Associated Diagnoses Orde r Schedule CBC Lab Routine Iron deficiency anemia due to chronic blood loss Expected: 08/16/2024, Expires: 01/28/2025 BASIC METABOLIC PANEL Lab Routine Stage 3b chronic kidney disease Expected: 08/16/2024, Expires: 01/28/2025 IRON SCREEN, INCLUDING TIBC Lab Routine Iron deficiency anemia due to chronic blood loss Expected: 08/16/2024, Expires: 01/28/2025 TSH WITH FREE T4 IF INDICATED Lab Routine Acquired hypothyroidism Expected: 08/16/2024, Expires: 01/28/2025 Health Maintenance Due Date Last Done Comments Pneumococcal Vaccine: Pediatrics (0 to 5 Years) and At-Risk Patients (6 to 64 Years) (1 of 2 - PCV) 1999 COVID-19 Vaccine ( season) 2024 03/26/2021, 03/03/2021 Influenza Vaccine (FLU shot) (#1) 2024 08/16/2019, 09/05/2009, 09/01/2008, Additional history exists Depression Monitoring 08/25/2024 08/25/2023 CKD PHOS USE SMARTSET 79589 09/02/202408/05, 05/21/2021, 02/25/2018, Additional history exists GFR 12/23/2024 06/22/2024, 06/0 01/2024, 12/08/2023, Additional history exists TSH 04/05/2025 04/05/2024, 04/2 02/2024, 08/25/2023, Additional history exists CKD HGB USE SMARTSET 85708 06/22/202506/22, 06/22/2024, 04/05/2024, Additional history exists Pap [...] as of this encounter Visit Diagnoses Diagnosis Nephrotic syndrome- Primary Nephrotic syndrome with unspecified pathological lesion in kidney Stage 3b chronic kidney disease Persistent proteinuria Proteinuria 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 Care Teams Body Welder Relationship Specialty Start Date End Date Nina Ricardo DO [address] [place] [address] PCP - General Family Medicine 01/25/19 documented as of this encounter
--- OUTSIDE RECORDS SUMMARY | 2024-10-21 23:55 | External Medical Summary ---
Author Name Unknown Address Unknown Organization K09:[facility] [address] [place] [address] Laboratory Report Ordering Provider Test Date Status FUAD MAGUIRE 06/22/2024 14:25:34 Final Observation Date Value Abnormality Reference (Units ) Status SYNC LEUKOCYTES IN BLOOD BY AUTOMATED COUNT 06/22/2024 14:25:34 6.62 4.00-10.80 (K/uL) Final Segs 06/22/2024 14:25:34 62.8 40.0-75.0 (%) Final Lymphs % 06/22/2024 14:25:34 28.4 18.0-42.0 (%) Final Monos 06/22/2024 14:25:34 7.3 1.0-11.0 (%) Final Eosinophils 06/22/2024 14:25:34 1.2 0.0-6.0 (%) Final Basos 06/22/2024 14:25:34 0.3 0.0-2.0 (%) Final Absolute Segs 06/22/2024 14:25:34 4.16 1.80-7.70 (K/uL) Final Lymphs, absolute 06/22/2024 14:25:34 1.88 1.00-4.80 (K/ul) Final Monos, Abs 06/22/2024 14:25:34 0.48 0.00-1.10 (K/uL) Final Eos, Abs 06/22/2024 14:25:34 0.08 0.00-0.70 (K/uL) Final Basos, Abs 06/22/2024 14:25:34 0.02 0.00-0.20 (K/uL) Final Performing Location [facility] [place] [address]
--- OUTSIDE RECORDS SUMMARY | 2024-10-21 23:55 | External Medical Summary ---
Author Name Unknown Address Unknown Organization K01:[facility] [address] [place] [address] Laboratory Report Ordering Provider Test Date Status FUAD MAGUIRE 06/22/2024 14:25:34 Final Observation Date Value Abnormality Reference (Units ) Status LDH 06/22/2024 14:25:34 157 <=250 (U/L ) Final Performing Location [facility] [address] [place] [address]
--- OUTSIDE RECORDS SUMMARY | 2024-10-21 23:55 | External Medical Summary ---
Author Name Unknown Address Unknown Organization K09:[facility] [address] [place] [address] Laboratory Report Ordering Provider Test Date Status FUAD MAGUIRE 06/22/2024 14:25:34 Final Observation Date Value Abnormality Reference (Units ) Status BUN 06/22/2024 14:25:34 13 6-20 (mg/dL) Final Creatinine 06/22/2024 14:25:34 1.9 Above high normal 0.5-1.0 (mg/dL) Final Glomerular filtration rate/1.73 sq M.predicted [Volume Rate/Area] in Serum, Plasma or Blood by Creatinine-based formula (CKD-EPI) 06/22/2024 14:25:34 35 Below low normal >=60 (mL/min) Final eGFR is calculated based on the CKD-EPI 2020 equation. Sodium 06/22/2024 14:25:34 142 135-146 (m mol/L) Final Potassium 06/22/2024 14:25:34 4.0 3.5-5.1 (m mol/L) Final Cl 06/22/2024 14:25:34 106 98-107 (mm ol/L) Final CO2 06/22/2024 14:25:34 24 22-32 (mmo l/L) Final Anion gap 06/22/2024 14:25:34 12 7-15 (mmol /L) Final Glucose 06/22/2024 14:25:34 88 70-120 (mg /dL) Final Albumin 06/22/2024 14:25:34 4.6 3.8-5.0 (g /dL) Final AST (Aspartate aminotransferase) 06/22/2024 14:25:34 12 10-35 (U/L) Fin al Alk Phos 06/22/2024 14:25:34 56 35-130 (U/ L) Final Bilirubin, Total 06/22/2024 14:25:34 0.4 <=1 .2 (mg/dL) Final Calcium 06/22/2024 14:25:34 9.6 8.4-10.2 ( mg/dL) Final Protein 06/22/2024 14:25:34 7.5 6.0-8.3 (g /dL) Final ALT (Alanine aminotransferase) 06/22/2024 14:25:34 <5 Below low normal 10-35 (U/L) Final Performing Location [facility] [address] [place] [address]
--- OUTSIDE RECORDS SUMMARY | 2024-10-21 23:55 | External Medical Summary ---
Author Name Unknown Address Unknown Organization K01:[facility] [address] [place] [address] Laboratory Report Ordering Provider Test Date Status FUAD MAGUIRE 06/22/2024 14:25:34 Final Observation Date Value Abnormality Reference (Units ) Status Retic, % (auto) 06/22/2024 14:25:34 1.30 0.80-1.90 (%) Final Reticulocytes, Absolute 06/22/2024 14:25:34 52.3 31.3-100.1 (K/uL) Final Reticulocyte fraction, immature 06/22/2024 14:25:34 9.3 2.5-20.6 (%) Final Reticulocyte HGB 06/22/2024 14:25:34 35.8 29.7-37.4 (pg) Final Performing Location [facility] - [address] [place] [address]
--- OUTSIDE RECORDS SUMMARY | 2024-10-21 23:55 | External Medical Summary | Summary of Care ---
Author Name Unknown Organization [facility] Address [address] [place] [address] Phone [phone] Care Team Providers Care Semaphore Operator Name Role Phone Nina Ricardo DO Primary Care Provider [phone] Reason for Visit * Reason Comments Outpatient Testing Encounter Details Date Type Department Care Team (Late st Contact Info) Description 06/22/2024 2:30 PM EDT Laboratory Laboratory [facility] [address] [place] [address] [facility] [address] [facility] [place] [address] Iron deficiency anemia due to chronic blood loss; Stage 3b chronic kidney disease; Renal vein thrombosis (HCC); Stage 3b chronic kidney disease (HCC) Allergies Active Allergy Reactions Criticality Noted Date Comments Lamotrigine Er Itching High 06/27/2016 Lamotrigine Itching High 01/25/2019 Paroxetine Hcl Psych complications 08/12/2017 Fluoxetine Hcl Other (Please comment) 9 Makes her shake documented as of this encounter (statuses as of 06/22/2024) Medications Medication Sig Dispensed Refills Start Date [...] Additional Information Patient not taking.Reported on 05/25/2024 Apixaban 2.5 MG Oral Tablet (Eliquis)Indications :Renal vein thrombosis (HCC) Take 1 Tablet by mouth in the morning and 1 Tablet before bedtime. Stop warfarin.. 60 Tablet 11 06/30/2023 Active Ondansetron 4 MG Oral Tablet Disintegrating (Zofran) TAKE 1 TABLET ORALLY EVERY 8 HOURS NEEDED FOR NAUSEA AND VOMITING 05/18/2023 Active Vraylar 3 MG Oral Capsule TAKE 1 CAPSULE BY MOUTH AT NIGHT 08/22/2023 Active Ferrous Sulfate 325 (65 Fe) MG Oral Tablet (Feosol)Indications: Iron deficiency anemia, unspecified iron deficiency anemia type TAKE 1 TABLET BY MOUTH IN THE MORNING AND BEFORE BEDTIME 180 Tablet 1 11/25/2023 Active hydrOXYzine HCl 50 MG Oral Tablet [...] OTHER MEDICATION 90 Tablet 3 05/09/2024 Active documented as of this encounter (statuses as of 06/22/2024) Active Problems Problem Noted Date Diagnosed Date [...] be handled at the discretion of the medical technicians. Supervision of high-risk , unspecified trimester 02/04/2019 [...] as of this encounter (statuses as of 06/22/2024) Resolved Problems Problem Noted Date Diagnosed Date [...] as of this encounter (statuses as of 06/22/2024) Immunizations Name Administration Dates Next Due COVID-19 mRNA, LNP-s, No Pre serve, 2-Dose Series (Pfizer) 03/26/2021,03/03/2021 Seasonal Influenza, PF, 6 M & above, IM , (FluLaval or Fluzone) 08/16/2019 Seasonal Influenza, Split, I IV3, With Preserve, Inj 09/05/2009,09/01/2008,08/29/2006 TDAP (age 10 and older)(Boostrix) 06/01/2019 [...] Frequency of Binge Drinking Not on file 0402/2019 PHQ-2 Answer Date Recorded PHQ Adult Total Score 1 08/25/2023 Hunger Vital Sign Answer Date Recorded Within the past 12 months, y ou worried that your food would run out before you got the money to buy more. Patient declined Within the past 12 months, t he food you bought just didn't last and you didn't have money to get more. Patient declined [place] Depression Scale Answer Date Recorded [place] Depression Scale Score 12 08/19/2019 The thought [...] on file documented as of this encounter Plan of Treatment Upcoming Encounters Date Type Department Care Team (Late st Contact Info) Description 09/02/2024 9:30 AM EDT Office Visit [facility] [address] [facility], [place] [phone] Nina Ricardo, [address] [facility], [place] [address] 12/21/2024 8:00 AM EST Laboratory Laboratory [facility] [address] [place] [address] [facility] [address] [facility] [place] [address] 12/28/2024 4:00 PM EST Office Visit Hematology/Oncology [facility] [address] [place] [phone] Roxy Juan CRNP [address] [place] [address] Pending Results Name Type Priority Associated Diagnoses Date /Time IRON SCREEN, INCLUDING TIBC Lab STAT Iron deficiency anemia due to chronic blood loss 06/22/2024 2:25 PM EDT FERRITIN Lab STAT Iron deficiency anemia due to chronic blood loss 06/22/2024 2:25 PM EDT COMPREHENSIVE METABOLIC PANEL Lab STAT Iron deficiency anemia due to chronic blood loss Stage 3b chronic kidney disease Renal vein thrombosis (HCC) 06/22/2024 2:25 PM EDT RETICULOCYTE PANEL Lab STAT Iron deficiency anemia due to chronic blood loss Stage 3b chronic kidney disease (HCC) 06/22/2024 2:25 PM EDT LD Lab STAT Iron deficiency anemia due to chronic blood loss Stage 3b chronic kidney disease (HCC) 06/22/2024 2:25 PM EDT Health Maintenance Due Date Last Done Comments Pneumococcal Vaccine: Pediatrics (0 to 5 Years) and At-Risk Patients (6 to 64 Years) (1 of 2 - PCV) 1999 COVID-19 Vaccine ( season) 2023 03/26/2021, 03/03/2021 Influenza Vaccine (FLU shot) (#1) 2024 08/16/2019, 09/05/2009, 09/01/2008, Additional history exists Depression Monitoring 08/25/2024 08/25/2023 CKD PHOS USE SMARTSET 95260 09/02/202408/05, 05/21/2021, 02/25/2018, Additional history exists GFR 10/05/2024 04/05/2024, 02/0 03/2024, 08/25/2023, Additional history exists TSH 04/05/2025 04/05/2024, 02/02, 08/25/2023, Additional history exists CKD HGB USE SMARTSET 60526 06/22/202506/22, 06/22/2024, 04/05/2024, Additional history exists Pap Smear 12/03/2026 12/03/2023, 08/03, 07/16/2018, Additional history exists Cervical Cancer Screening 12/03/2028 HPV/Co-Test 12/03/2028 12/03/2023 DTaP,Tdap,and Td Vaccines (2 - Td or Tdap) 06/01/2029 06/01/2019 HPV (Gardasil) Vaccine Aged Out No lo nger eligible based on patient's age to complete this topic Hepatitis B Vaccine Discontinued MENINGOCOCCAL (MENACTRA/MENVEO) Aged Out No longer eligible based on patient's age to complete this topic documented as of this encounter Medical Devices Not on filedocumented as of this encounter Procedures Procedure Name Priority Date/Time Associated Diagnosis Comments DIFFERENTIAL, AUTOMATED STAT 06/22/2024 2:25 PM EDT Iron deficiency anemia due to chronic blood loss CBC STAT 06/22/2024 2:25 PM EDT Iron deficiency anemia due to chronic blood loss CBC STAT 06/22/2024 2:25 PM EDT Iron deficiency anemia due to chronic blood loss documented in this encounter Results * DIFFERENTIAL, AUTOMATED (06/22/2024 2:25 PM EDT) WBC 6.62 4.00 - 10.80 K/uL 06/22/2024 2:31 PM EDT [facility] Neutrophils % 62.8 40.0 - 75.0 % 06/22/2024 2:31 PM EDT [facility] Lymphocytes % 28.4 18.0 - 42.0 % 06/22/2024 2:31 PM EDT [facility] Monocytes % 7.3 1.0 - 11.0 % 06/22/2024 2:31 PM EDT [facility] Eosinophils % 1.2 0.0 - 6.0 % 06/22/2024 2:31 PM EDT [facility] Basophils % 0.3 0.0 - 2.0 % 06/22/2024 2:31 PM EDT [facility] Absolute Neutrophils 4.16 1.80 - 7.70 K/uL 06/22/2024 2:31 PM EDT [facility] Absolute Lymphocytes 1.88 1.00 - 4.80 K/ul 06/22/2024 2:31 PM EDT [facility] Absolute Monocytes 0.48 0.00 - 1.10 K/uL 06/22/2024 2:31 PM EDT [facility] Absolute Eosinophils 0.08 0.00 - 0.70 K/uL 06/22/2024 2:31 PM EDT [facility] Absolute Basophils 0.02 0.00 - 0.20 K/uL 06/22/2024 2:31 PM EDT [facility] Blood Venous blood specimen / Unknown Venipuncture / Unknown 06/22/2024 2:25 PM EDT 06/22/2024 2:25 PM EDT Roxy AMBRIZ LAB BLOOD ORDER [facility] [address] [place] [address] * CBC (06/22/2024 2:25 PM EDT) [facility] WBC 6.62 4.00 - 10.80 K/uL 06/22/2024 2:31 PM EDT [facility] 56 RBC 3.95 3.85 - 5.15 M/uL 06/22/2024 2:31 PM EDT [facility] 56 HGB 12.8 12.0 - 15.3 g/dL 06/22/2024 2:[address] HCT 39.8 36.0 - 45.2 % 06/22/2024 2:31 PM EDT [facility] 56 MCV 100.8 81.5 - 97.5 fL 06/22/2024 2:[address] MCH 32.4 27.0 - 34.0 pg 06/22/2024 2:31 PM EDT [facility] 56 MCHC 32.2 32.0 - 36.0 g/dL 06/22/2024 2:[address] RDW 12.2 11.5 - 15.5 % 06/22/2024 2:31 PM EDT [facility] 56 PLT 216 140 - 400 K/uL 06/22/2024 2:31 PM EDT [address] MPV 9.9 6.6 - 11.1 fL 06/22/2024 2:31 PM EDT [facility] 56 Blood Venous blood specimen / Unknown Venipuncture / Unknown 06/22/2024 2:25 PM EDT 06/22/2024 2:25 PM EDT Roxy AMBRIZ LAB BLOOD ORDER [facility] [address] [place] [address] documented in this encounter Visit Diagnoses Diagnosis Iron deficiency anemia due to chronic blood loss Iron deficiency anemia secondary to blood loss (chronic) Stage 3b chronic kidney disease 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 Care Teams Semaphore Operator Relationship Specialty Start Date End Date Nina Ricardo DO [address] [place] [address] PCP - General Family Medicine 01/25/19 documented as of this encounter
--- OUTSIDE RECORDS SUMMARY | 2024-10-21 23:55 | External Medical Summary | Summary of Care ---
Author Name Unknown Organization [facility] Address [address] [place] [address] Phone [phone] Care Team Providers Care Theater Teacher Name Role Phone Nina Ricardo DO Primary Care Provider [phone] Reason for Visit * Reason Comments Follow Up Encounter Details Date Type Department Care Team (Late st Contact Info) Description 06/22/2024 2:00 PM EDT Office Visit Hematology/Oncology [facility] [address] [place] [address] Roxy Juan CRNP [address] [place] [address] Iron deficiency anemia due to chronic blood loss*; Stage 3b chronic kidney disease (HCC); Renal vein thrombosis (HCC) Allergies Active Allergy Reactions Criticality Noted Date Comments Lamotrigine Er Itching High 06/27/2016 Lamotrigine Itching High 01/25/2019 Paroxetine Hcl Psych complications 08/12/2017 Fluoxetine Hcl Other (Please comment) 9 Makes her shake documented as of this encounter (statuses as of 06/23/2024) Medications Medication Sig Dispensed Refills Start Date [...] as of this encounter (statuses as of 06/23/2024) Active Problems Problem Noted Date Diagnosed Date [...] be handled at the discretion of the brand communications manager. Supervision of high-risk , unspecified trimester 02/04/2019 [...] as of this encounter (statuses as of 06/23/2024) Resolved Problems Problem Noted Date Diagnosed Date [...] 05/23/2008 Overview: ICD-10 update of inactive term infant, weight unknown 04/08/2017 Acute renal insufficiency documented as of this encounter (statuses as of 06/23/2024) Immunizations Name Administration Dates Next Due COVID-19 mRNA, LNP-s, No Pre serve, 2-Dose Series (LiveProfile) 03/26/2021,03/03/2021 Seasonal Influenza, PF, 6 M & [...] have money to get more. Patient declined Jackson Depression Scale Answer Date Recorded Jackson Depression Scale Score 12 08/19/2019 The thought [...] Sign Reading Time Taken Comments Blood Pressure 112/76 06/22/2024 1:49 PM EDT Pulse 56 06/22/2024 1:49 PM EDT Temperature 36.4 C (97.5 F) 06/22/2024 1:49 PM ED T Respiratory Rate - - Oxygen Saturation 100% 06/22/2024 1:49 PM EDT Inhaled Oxygen Concentration - - Weight 43.1 kg (95 lb) 06/22/2024 1:49 PM EDT Height - - Body Mass Index 16.83 04/01/2024 10:43 AM EDT documented in this encounter Progress Notes * Roxy Juan CRNP - 06/22/2024 2:00 PM EDT Hematology/Oncology Outpatient Clinic note [facility] [address] [facility] [place] [address] Name: Charissa Rodriguez Date: 06/22/2024 CHIEF COMPLAINT: Charissa Rodriguez is a 29 year old female here today for f/u visit today. Patient of Dr. Shelton Quevedo. From Patient chart confirmed with patient. HEMATOLOGY/ONCOLOGY DIAGNOSIS: Iron deficiency anemia HMB CKD stage III History of right renal vein thrombosis TREATMENT HISTORY: IV Venofer 300 mg weekly x 4 doses completed 10/13/23 Venofer 300mg IV x 2 doses 14 days apart completed 04/15/24 CURRENT TREATMENT: Eliquis 2.5 mg BID Ferrous sulfate one tablet BID HISTORY OF PRESENT ILLNESS: Previous patient of Dr. Shelton Quevedo 11/16/19: DIAGNOSIS: Right Renal vein thrombosis. (08/2019, about 6 to 7 weeks after the , also has underlying renal disease, has history of nephrotic syndrome in childhood,) Baseline serum creatinine level around 1.6-1.8 mg/dL. Hypercoagulable state work up --> negative CURRENT TREATMENT: Coumadin. DIAGNOSTIC WORKUP: She had on 07/07/2019. Baby is doing well now. About 5 to 6 weeks later, she started having some right flank pain, she did not seek medical Alpha immediately but after about a week or so, she was seen at [facility] ER, she was admitted at [facility] ER on 3 different occasions for right flank pain, blood in the stool. I reviewed those records. CT scan of the abdomen and pelvis (06/23/2019) - 1. Extensive right perinephric infiltration with hyperdense material within the right renal sinus. Acute right renal vein thrombosis is favored. Clot within the collecting system could appear similaralthough is considered less likely. Given chronic renal disease, further evaluation with Doppler renal ultrasound is recommended for confirmation. Mild prominence of the right ovarian vein. This is likely within normal limits although associated ovarian vein thrombosis would be difficult to exclude. 2. No hydronephrosis or urinary calculi. Ultrasound of the kidney (08/22/2019 and 08/28/2019) - 1. Findings consistent with right renal vein thrombosis, likely acute. Thrombus extends to the junction with the IVC. 2. Moderate right perinephric fluid and increased echogenicity of the kidney due to the thrombus. Hypercoagulable state work up done while she was in the hospital: -Antithrombin III activity --> 93% -Protein C activity --> 92% -Protein S activity --> 93% -Anti--cardiolipin antibody --> negative -Beta-2 glycoprotein antibody --> negative -Prothrombin gene mutation and Factor V Leiden mutation --> negative -lupus anticoagulant --> negative. Since recent hospitalization in , she is on oral anticoagulant with Coumadin. In the past she never had in thrombotic complications, no family of any kind of thrombotic complications. Patient's past medical history, social history, and family history were reviewed and updated. Renal vein thrombosis most likely related to the recent as well as underlying nephrotic syndrome. Because of unusual site of thrombosis, I would like to check blood tests for P[facility]. I would recommend long-term anticoagulant treatment with Coumadin in her case. Interval History: Unremarkable EGD and colonoscopy 09/04/23. Following with Nephrology for history of CKD stage 3 with subnephrotic proteinuria. Lab work done per PCP to evaluate increasing fatigue: Component Latest Ref Rng 07/20/2020 08/17/2021 05/12/2023 08/25/2023 WBC 4.00 - 10.80 K/uL 6.95 7.28 6.63 7.62 RBC 3.85 - 5.15 M/uL 4.25 3.82 (L) 3.80 3.53 HGB 12.0 - 15.3 g/dL 12.5 10.8 (L) 9.1 (L) 7.6 (L) HCT 36.0 - 45.2 % 39.5 35.9 (L) 30.8 (L) 28.7 (L) MCV 81.5 - 97.5 fL 92.9 94.0 81.1 81.3 MCH 27.0 - 34.0 pg 29.4 28.3 23.9 21.5 MCHC 32.0 - 36.0 g/dL 31.6 (L) 30.1 (L) 29.5 26.5 RDW 11.5 - 15.5 % 14.0 14.8 16.6 16.1 PLT 140 - 400 K/uL 177 229 255 279 MPV 6.6 - 11.1 fL 12.2 (H) 11.2 (H) 10.9 10.0 nRBCs <=0 /100 WBCs 0 0 0 Getting dizzy when she stands up. Does experience SOB when going up the steps, especially when she is carrying laundry. Has less stamina. Denies CP. Is taking ferrous sulfate one tablet twice a day for about three weeks now. Does bother her stomacha little bit. Is taking without food. Waits about 30 minutes after taking levothyroxine. Is not taking with vitamin c. Does not take with any other medications. Menstrual cycles are quite heavy. Has to change a pad or tampon once an hour. Does pass some small clots. Last for approximately five days and bleeding is heavy that whole time. In June was changedfrom coumadin to low dose eliquis with no improvement in menstrual cycles. Patient does vape. Has been doing this for a couple months. Previous cigarette smoker but quit for a couple years. Denies alcohol intake. Denies any family history of cancer or blood disorders HISTORY OF PRESENT ILLNESS: Charissa Rodriguez is a 29 year old female with a history as outlined above. Currently here for f/uvisit today. Patient overall feeling well today. No new complaints or concerns. Continues on ferrous sulfate BID and tolerating well. Met with [facility] but opted against any procedures for her menstrual cycles at this time. Continues to have HMB. Past Medical History: Diagnosis Date Anxiety 2014 Apnea of prematurity ARF (acute renal failure) with tubular necrosis (HCC) 93 Acute Renal Failure tubular necrosis Blindness, one eye right Depression 2002 Symptoms stable in 2018 and jaundice jaund NOS FSGS (focal segmental glomerulosclerosis) with nephrosis Hypothyroid 2014 Managed by PCP. Several dose adjustments in 2019 . 03/04 TSH: 86.27 Migraines 2002 Denies symptoms in 2019 Other nephrotic syndrome with specified pathological lesion in kidney 10/15/2001 Other specified disorder resulting from impaired renal function Renal tubular acidosis , 750-999 grams 93 Prematurity 750 999 gram--3 months early. Respiratory distress syndrome in 93 Respiratory Distress syndrome Retrolental fibroplasia Past Surgical History: Procedure Laterality Date ATTEMPT DELIV W/POSTPART CARE N/A 07/07/2019 DELIVERY AND CARE FOLLOWING ATTEMPTED VAGINAL performed [place] Dylon Valencia [place] [facility] [place]ST[place] (RECTUM) 09/04/2023 hemorrhoids/COLONOSCOPY FLEXIBLE PROXIMAL DIAGNOSTIC [facility], FLEXIBLE, DIAGNOSTIC 09/04/2023 biopsies normal/ESOPHAGOGASTRODUODENOSCOPY (EGD), FLEXIBLE, TRANSORAL, DIAGNOSTIC performed by Lyn Cobos DO at [facility] LAPAROSCOPY DIAGNOSTIC Bilateral 01/01/2024 LAPAROSCOPY DIAGNOSTIC performed by Samira Espinoza MD at [facility] LAPAROSCOPY;RMV ADNEXAL STRUCT Bilateral 01/01/2024 LAPAROSCOPIC OOPHORECTOMY AND OR SALPINGECTOMY performed by Samira Espinoza MD at [facility] REMOVE TONSILS & ADENOIDS, UNDER 12 02/17/1998 T & A, age<12 Social History Socioeconomic History Marital status: Single Spouse name: Not on file Number of children: 0 Years of education: 14 Highest education level: Associate degree: academic program Occupational History 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: [employer] Tobacco Use Smoking status: Former Current packs/day: 0.00 Types: Cigarettes Quit date: 08/12/2015 Years since quittin.8 Passive exposure: Past Smokeless tobacco: Never Vaping Use Vaping status: Never Used Substance and Sexual Activity Alcohol use: No Comment: denies in 2019 Drug use: Yes Types: Marijuana Comment: Medical Card Sexual activity: Yes Partners: Male control/protection: Condom Other Topics Concern Not on file Social History Narrative Not on file Social Determinants of Health Financial Resource Strain: Low Risk (02/25/2024) Financial Resource Strain Do you have any trouble paying for your medications, or do you think you might in the future? (Adult - for ages 18 years and over): No Does your family have trouble paying for medicine? (Household - for ages 0-17 years): Not on file Food Insecurity: No Food Insecurity (02/25/2024) Food Insecurity Do you need food for this week? (Adult - for ages 18 years and over): No Are you able to get enough food for your family? (Household - for ages 0-17 years): Not on file Does your family need food this week? (Household - for ages 0-17 years): Not on file Do you always have enough food for your family? (Household - for ages 0-17 years): Not on file Transportation Needs: No Transportation Needs (02/25/2024) Transportation Needs Do you have trouble getting a ride to medical visits or work? (Adult - for ages 18 years and over):Never True Does your family have a hard time getting a ride to doctors visits? (Household - for ages 0-17 years): Not on file Has lack of transportation kept you from medical appointments, meetings, work, or from getting things needed for daily living? Check all that apply. (Adult - for ages 18 years and over): Not on file Do you (or your family) have trouble finding or paying for a ride (transportation)? (Household - for ages 0-17 years): Not on file Social Connections: Socially Integrated (02/25/2024) Social Connections How often do you feel lonely or isolated from those around you? (Adult - for ages 18 years and over): Never Housing Stability: Low Risk (02/25/2024) Housing Stability Do you currently live in a jail or have no steady place to sleep at night? (Adult - for ages 18 years and over): No Do you think you are at risk of becoming homeless? (Adult - for ages 18 years and over): No Does your family worry about paying for your home or becoming homeless? (Household - for ages 0-17 years): Not on file Are you homeless or worried that you might be in the future? (Adult - for ages 18 years and over): Not on file Are you (or your family) homeless or worried that you might be in the future? (Household - for ages0-17 years): Not on file Review of patient's allergies indicates: Allergen Reactions Lamictal Xr [Lamotrigine Er] Itching Lamictal [Lamotrigine] Itching Paxil [Paroxetine Hcl] Psych complications Prozac [Fluoxetine Hcl] Other (Please comment) Makes her shake Current Outpatient Medications Medication Sig Dispense Refill busPIRone (BUSPAR) 15 MG Tablet Take 1 Tablet by mouth in the morning and 1 Tablet before bedtime. Polyethylene Glycol 3350 17 GM/SCOOP Oral Powder (MiraLax) Take 17 g by mouth as needed for Constipation. Dissolve one heaping tablespoon in 8 ounces of water or juice. 507 g 1 Famotidine 20 MG Oral Tablet (Pepcid) TAKE 1 TABLET BY MOUTH EVERYDAY AT BEDTIME (Patient not taking: Reported on 05/25/2024) 90 Tablet 1 Apixaban 2.5 MG Oral Tablet (Eliquis) Take 1 Tablet by mouth in the morning and 1 Tablet before bedtime. Stop warfarin.. 60 Tablet 11 Ondansetron 4 MG Oral Tablet Disintegrating (Zofran) TAKE 1 TABLET ORALLY EVERY 8 HOURS NEEDED FOR NAUSEA AND VOMITING Vraylar 3 MG Oral Capsule TAKE 1 CAPSULE BY MOUTH AT NIGHT Ferrous Sulfate 325 (65 Fe) MG Oral Tablet (Feosol) TAKE 1 TABLET BY MOUTH IN THE MORNING AND BEFORE BEDTIME 180 Tablet 1 hydrOXYzine HCl 50 MG Oral Tablet 1 Tablet. Takes at night Acetaminophen 325 MG Oral Tablet (Tylenol) Take 2 Tablets by mouth every 6 hours as needed for Pain, Mild. 60 Tablet 0 Levothyroxine Sodium 112 MCG Oral Tablet (Levoxyl) TAKE 1 TABLET BY MOUTH EVERY DAY AT LEAST 30 MINBEFORE BREAKFAST OR OTHER MEDICATION 90 Tablet 3 No current facility-administered medications for this visit. REVIEW OF SYSTEMS: See HPI - otherwise negative OBJECTIVE: Filed Vitals: 06/22/24 1349 BP: 112/76 Pulse: 56 Temp: 36.4 C (97.5 F) TempSrc: Tympanic SpO2: 100% Weight: 43.1 kg (95 lb) Wt Readings from Last 5 Encounters: 06/22/24 43.1 kg (95 lb) 05/25/24 44 kg (96 lb 14.4 oz) 04/01/24 46.5 kg (102 lb 8 oz) 02/25/24 46.7 kg (103 lb) 01/28/24 45.4 kg (100 lb) PHYSICAL EXAM: General Appearance: Normal - Healthy appearing patient in no acute distress Lungs/Thorax: Normal respiratory effort Extremities: No edema Neurologic: Normal - Grossly intact LABS: N/A IMPRESSION/PLAN: Iron deficiency anemia HMB CKD stage III History of right renal vein thrombosis Venofer 300mg IV x 2 doses 14 days apart completed 04/15/24 Has not repeated lab work since completion of iron infusions. Will update today. -further recommendations based on results Patient has met with [facility] and opted against pursuing any intervention for HMB. Continue Ferrous sulfate one tablet BID as tolerating well Continue low dose Eliquis with plan for indefinite anticoagulation. Repeat CBCd, iron screen and ferritin in three months Update lab work today - cbc/diff, cmp, iron screen, ferritin, retic panel and ldh RTC in six months with provider with cbc/diff, cmp, iron screen, ferritin, retic panel and ldh PB Bailey documented in this encounter Nursing Notes * Lisa Barr MED ASSIST - 06/22/2024 1:51 PM EDT Patient identifed by name and birthdate Do you have any concerns about pain management for today's visit? Yes. Patient instructed to discuss pain concerns with provider during the visit today Living Will or Advance Directive for Health Care as noted on the problem list. [facility] is a way you can talk to your provider on line through e-mail. Would you like to sign up? I can activate it for you? ALREADY ACTIVE Vitals: 06/22/24 1349 Temp: 36.4 C (97.5 F) Pulse: 56 SpO2: 100% BP: 112/76 Patient was instructed to not get up on the exam table/exam chair until directed and assisted by their provider; patient is to remain seated in the chair/ wheelchair/ exam table/ exam chair for fall prevention and safety reasons. Patient is aware to have assistance to step down off exam table/exam chair with personnel. Patient voiced full comprehension of instructions. Pt reported she was prescribed lisinopril and it made her BP drop too low and she fainted a few months ago at home documented in this encounter Plan of Treatment Upcoming Encounters Date Type Department Care Team (Late st Contact Info) Description 09/02/2024 9:30 AM EDT [facility] [address] [facility] [phone] Nina Ricardo, [address] [facility] [place] [address] 12/21/2024 8:00 AM EST Laboratory Laboratory [facility] [address] [facility] [place] [address] [place], [facility] [address] [facility] [place] [address] 12/28/2024 4:00 PM EST Office Visit Hematology/Oncology [facility] [place] [address] [facility] [place] [phone] Roxy Juan CRNP [address] [place] [address] Scheduled Orders Name Type Priority Associated Diagnoses Orde r Schedule CBC WITH WBC DIFFERENTIAL Lab STAT Iron deficiency anemia due to chronic blood loss Stage 3b chronic kidney disease (HCC) Every Month for 12 Occurrences starting 06/22/2024 until 07/22/2025 IRON SCREEN, INCLUDING TIBC Lab STAT Iron deficiency anemia due to chronic blood loss Stage 3b chronic kidney disease (HCC) Every Month for 12 Occurrences starting 06/22/2024 until 07/22/2025 FERRITIN Lab STAT Iron deficiency anemia due to chronic blood loss Stage 3b chronic kidney disease (HCC) Every Month for 12 Occurrences starting 06/22/2024 until 07/22/2025 RETICULOCYTE PANEL Lab STAT Iron deficiency anemia due to chronic blood loss Stage 3b chronic kidney disease (HCC) Every Month for 12 Occurrences starting 06/22/2024 until 07/22/2025, 1 completed LD Lab STAT Iron deficiency anemia due to chronic blood loss Stage 3b chronic kidney disease (HCC) Every Month for 12 Occurrences starting 06/22/2024 until 07/22/2025, 1 completed Health Maintenance Due Date Last Done Comments Pneumococcal Vaccine: Pediatrics (0 to 5 Years) and At-Risk Patients (6 to 64 Years) (1 of 2 - PCV) 1999 COVID-19 Vaccine (3 - season) 2023 03/26/2021, 03/03/2021 Influenza Vaccine (FLU shot) (#1) 2024 08/16/2019, 09/05/2009, 09/01/2008, Additional history exists Depression Monitoring 08/25/2024 08/25/2023 CKD PHOS USE SMARTSET 33431 09/02/202408/05, 05/21/2021, 02/25/2018, Additional history exists GFR 12/23/2024 06/22/2024, 06/0 01/2024, 12/08/2023, Additional history exists TSH 04/05/2025 04/05/2024, /2 02/2024, 08/25/2023, Additional history exists CKD HGB USE SMARTSET 84105 06/22/202506/22, 06/22/2024, 04/05/2024, Additional history exists Pap [...] Not on filedocumented as of this encounter Results * LD (06/22/2024 2:25 PM EDT) Pathologist [facility] LD 157 <=250 U/L 06/23/2024 2:3 0 AM EDT [place] [facility] [place] Venous blood specimen / Unknown Venipuncture / Unknown 06/22/2024 2:25 PM EDT 06/22/2024 2:25 PM EDT Roxy AMBRIZ LAB BLOOD ORDER [facility] [address] [place] [address] * RETICULOCYTE PANEL (06/22/2024 2:25 PM EDT) Reticulocyte Percent 1.30 0.80 - 1.90 % 06/22/2024 10:54 PM EDT LAB[facility]ATORY [facility] Absolute Reticulocyte 52.3 31.3 - 100.1 K/uL 06/22/2024 10:54 PM EDT LAB[facility]ATORY [facility] Immature Reticuloctye Fraction 9.3 2.5 - 20.6 % 06/22/2024 10:54 PM EDT LAB[facility]ATORY [facility] Reticulocyte Hemoglobin 35.8 29.7 - 37.4 pg 06/22/2024 10:54 PM EDT [facility] Blood Venous blood specimen / Unknown Venipuncture / Unknown 06/22/2024 2:25 PM EDT 06/22/2024 2:25 PM EDT Roxy AMBRIZ LAB BLOOD ORDER [facility] [address] [place] [address] documented in this encounter Visit Diagnoses Diagnosis Iron deficiency anemia due to chronic blood loss- Primary Iron deficiency anemia secondary to blood loss (chronic) Stage 3b chronic kidney disease (HCC) 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 Care Teams Theater Teacher Relationship Specialty Start Date End Date Nina Ricardo DO [address] [place] [address] PCP - General Family Medicine 01/25/19 documented as of this encounter
--- OUTSIDE RECORDS SUMMARY | 2024-10-21 23:56 | External Medical Summary | Summary of Care ---
Author Name Unknown Organization [facility] Address [address] [place] [address] Phone [phone] Care Team Providers Care Patch Sander Name Role Phone Nina Ricardo DO Primary Care Provider + [phone] Reason for Visit * Reason Comments Return Visit Chronic Kidney Disease (CKD) Hypertension FSGS Nephrotic syndr ome Encounter Details Date Type Department Care Team (Late st Contact Info) Description 05/25/2024 9:30 AM EDT Office Visit Nephrology, [facility] [address] [place] [address] Sharon Sepulveda PA-C [address] [place] [address] Stage 3b chronic kidney disease (HCC)*; Iron deficiency anemia, unspecified iron deficiency anemia type; Proteinuria, unspecified type; Renal vein thrombosis (HCC) Allergies Active Allergy Reactions Criticality Noted Date Comments Lamotrigine Er Itching High 06/27/2016 Lamotrigine Itching High 01/25/2019 Paroxetine Hcl Psych complications 08/12/2017 Fluoxetine Hcl Other (Please comment) 9 Makes her shake documented as of this encounter (statuses as of 05/25/2024) Medications Medication Sig Dispensed Refills Start Date [...] on 05/25/2024 Apixaban 2.5 MG Oral Tablet (Eliquis)Indication s:Renal [...] OTHER MEDICATION 90 Tablet 3 05/09/2024 Active traMADol HCl 50 MG Oral Tablet (Ultram) Take 1 Tablet by mouth every 6 hours as needed for Pain, Severe. 5 Tablet 01/01/2024 4 Discontinu ed(End of Procedure) Fluconazole 150 MG Oral Tablet (Diflucan)Indicatio ns:Tinea versicolor Take 1 Tablet by mouth once a week. For 4 weeks 4 Tablet 04/01/2024 4 Discontinu ed(End of Procedure) documented as of this encounter (statuses as of 05/25/2024) Active Problems Problem Noted Date Diagnosed Date [...] disease) complicating 04/05/2019 Hypothyroidism during , antepartum 03/2019 Overview: 02/05/19 TSH 35 at new OB. [...] be handled at the discretion of the human services supervisor. Supervision of high-risk , unspecified trimester 02/04/2019 [...] Nephrology s discretion. Patients who are taking SOLIS inhibitors or ARB's should stop these medications [...] as of this encounter (statuses as of 05/25/2024) Resolved Problems Problem Noted Date Diagnosed Date [...] as of this encounter (statuses as of 05/25/2024) Immunizations Name Administration Dates Next Due COVID-19 mRNA, LNP-s, No Pre serve, 2-Dose Series ([employer]) 03/26/2021,03/03/2021 Seasonal Influenza, PF, 6 M & [...] have money to get more. Patient declined [place] Depression Scale Answer Date Recorded [place] Depression Scale Score 12 08/19/2019 The thought [...] Sign Reading Time Taken Comments Blood Pressure 106/68 05/25/2024 9:25 AM EDT Pulse 72 05/25/2024 9:25 AM EDT Temperature 36.9 C (98.4 F) 05/25/2024 9:23 AM ED T Respiratory Rate 16 05/25/2024 9:23 AM EDT Oxygen Saturation 100% 05/25/2024 9:23 AM EDT Inhaled Oxygen Concentration - - Weight 44 kg (96 lb 14.4 oz) 05/25/2024 9:23 AM EDT Height - - Body Mass Index 17.17 04/01/2024 10:43 AM EDT documented in this encounter Progress Notes * Sharon Sepulveda PA-C - 05/25/2024 9:30 AM EDT NEPHROLOGY CLINIC NOTE Nephrology, [facility] [address] [place] [address] Patient Name: Charissa [id number] Patient Active Problem List Diagnosis 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 Medical history includes permature , acute renal failure with subsequent development of steroid dependent nephrotic syndrome, history of reflux nephropathy and recurrent UTI, history ofmedication non adherence, reforming tobacco abuser, chronic visual issues since which make itso she can't drive, severe depression needed hospitalization in 09/2016 and 06/2018 and follows w/ psych; hypothyroid (follows w/ endocrine). States she had medications (Prednisone and/or Cellcept) for nephrotic syndrome age 6 y/o -16 y/o. She followed formerly with [facility] pediatric nephrology. Her nephrotic syndrome went into remission February,. She was on chronic Cellcept starting February, until as recently as 02/2011, her last peds nephro eval. At that evaluation, there were concerns that she was not filling Cellcept prescription regularly and therefore that she was possibly not using it as prescribed. She also stopped prednisone April,. Followed w/ Dr Up in the past, not since 2011. She was in [facility] system up to 2009 w/ creatinine running at 0.9-1.0; then next came back into [facility] system 06/2016 w/ creatinine 1.6-1.7 and about 500 mg proteinuria ever since. No hx of stones. No nsaids now; was using occasionally prior to est w/ me 03/2017. Multiple ER visits [id number] for variable flank pain attrib to ovarian cysts, PID, costochondritis,UTI. (approx) 2017. Baby born 6 wks prematurely else healthy by C section late June 2019. No breast feeding. Occasional elevated bp pre but no meds needed per pt; no eclampsia/preeclampsia. Renal vein thrombosis dx'd 08/2019 after presenting w/ flank pain 4 mos post . On coumadin recommended lifelong; saw heme for prn f/u: hypercoagulable w/u negative; attrib to + nephrotic syndrome. [facility] ER visit May 2023 abd pain NOS/ resolved w/ supportive care; prior to that ER visit before this 2020. Scheduled for EGD/colo later this week to evaluate significant anemia (hgb running in 7s); denies vaginal bleeding. Remains sexually active w/o contraception; does not desire to get again. Tells me she let her self go a bit after daughter's in terms of self care but getting back on it now. At last 2019 OV was symptomatic w/ SBP in 90s; lisinopril stopped. Remains on AC Today 05/25/24 Denies any recent hospitalizations, procedures or infections. Reports ED visit in 03/30/24 due to syncopal episode Reports she has iron infusions earlier that day bp was noted to be low but without any symptoms . She reports going home later that evening and passed out at her front door. At ED given fluids and advised to d/c lisinopril 2.5 mg. Medication was started back in January and was taking it for 2 months and had noted some dizziness with start Pt does have a bp cuff at home that she will use on occasion Cont with hematology approx every 3 months - infusions given based on labs but seems to occur everyfew months per patient Reports tubal ligation and EGD and colonoscopy since last visit Patient reports drinking 17 oz x5 of water daily. REVIEW OF SYSTEMS General: + fatigue-onging, No change in weight Respiratory: No cough,No wheezing, No shortness of breath Cardiovascular:No chest pain, No palpitations, and +syncope noted in March Gastrointestinal: No nausea, vomiting, diarrhea No blood in stools Urinary: No dysuira, No hematuria. No flank pain Musculoskeletal: No edema Skin: No itching All other systems were reviewed and were negative. Current Outpatient Medications Medication Sig Dispense Refill busPIRone (BUSPAR) 15 MG Tablet Take 1 Tablet by mouth in the morning and 1 Tablet before bedtime. Polyethylene Glycol 3350 17 GM/SCOOP Oral Powder (MiraLax) Take 17 g by mouth as needed for Constipation. Dissolve one heaping tablespoon in 8 ounces of water or juice. 507 g 1 Apixaban 2.5 MG Oral Tablet (Eliquis) [...] BREAKFAST OR OTHER MEDICATION 90 Tablet 3 Famotidine 20 MG Oral Tablet (Pepcid) TAKE 1 TABLET BY MOUTH EVERYDAY AT BEDTIME (Patient not taking: Reported on 05/25/2024) 90 Tablet 1 No current facility-administered medications for this visit. PHYSICAL EXAMINATION Last 4 BP Readings: BP Readings from Last 4 Encounters: 05/25/24 106/68 04/15/24 111/73 04/01/24 92/64 03/30/24 84/47 Last 3 Weights: Wt Readings from Last 3 Encounters: 05/25/24 44 kg (96 lb 14.4 oz) 04/01/24 46.5 kg (102 lb 8 oz) 02/25/24 46.7 kg (103 lb) BP 106/68 (BP Site: Right Arm, BP Position: Standing, BP Cuff Size: Regular) | Pulse 72 | Temp 36.9C (98.4 F) (Tympanic) | Resp 16 | Wt 44 kg (96 lb 14.4 oz) | LMP 05/24/2024 | SpO2 100% | BMI 17.17 kg/m | BSA 1.4 m Wt Readings from Last 1 Encounters: 05/25/24 44 kg (96 lb 14.4 oz) General appearance: alert, no apparent distress. Ambulatory without assistance HEAD: Normocephalic, No masses, lesions, tenderness Respiratory: clear to auscultation and no wheezes Heart: regular rate and regular rhythm Abdomen: abdomen soft, non-tender, and no CVA tenderness EXTREMITIES: No edema, No cyanosis or clubbing Skin: skin color, texture, turgor are normal NEURO: alert & oriented x 3 with fluent speech, no focal motor/sensory deficits No tremor Patient is a reliable historian of events LABS: Latest Reference Range & Units 05/12/23 11:38 08/25/23 12:34 12/08/23 11:12 04/05/24 13:54 Sodium 135 - 146 mmol/L 141 142 140 143 Potassium 3.5 - 5.1 mmol/L 4.5 4.3 4.4 4.4 Chloride 98 - 107 mmol/L 106 106 105 108 (H) CO2 22 - 32 mmol/L 23 25 25 22 BUN 6 - 20 mg/dL 13 19 14 13 Creatinine 0.5 - 1.0 mg/dL 1.9 (H) 2.1 (H) 1.7 (H) 1.9 (H) Estimated Glomerular Filtration Rate >=60 mL/min 36 (L) 32 (L) 40 (L) 37 (L) Anion Gap 7 - 15 mmol/L 12 11 10 13 Glucose 70 - 120 mg/dL 86 92 89 75 Calcium 8.4 - 10.2 mg/dL 8.9 9.4 9.3 9.1 (H): Data is abnormally high (L): Data is abnormally low Latest Reference Range & Units 09/03/19 09:42 11/24/19 10:25 12/10/19 15:46 01/10/20 13:33 05/21/21 09:02 12/08/23 11:15 05/11/24 08:59 Albumin / Creatinine Ratio, Urine <30 mg/g Creat 64 (H) 31 (H) Protein/ Creatinine Ratio, Urine <150 mg/g 486 (H) PROTEIN/CREAT RATIO <150 mg/g 787 (H) 1,490 (H) 1,645 (H) 1,118 (H) (H): Data is abnormally high IMAGING: ASSESSMENT/PLAN: The patient's most recent labs (from 1 months ago) were reviewed and the assessment/plan is as follows: Stable 3b labs volume status and chemistries acceptable. Blood pressure is too low for Solis or ARB- Lisinopril 2.5 mg d/c due to hypotensive event. Albumin levels improved most recent labs. Tubal ligation complete;,can re-evaluate RAAS blockade at a later date. Stage 3b chronic kidney disease (HCC) (Primary) - BASIC METABOLIC PANEL; Future; Expected date: 10/03/2024 - PTH; Future; Expected date: 10/03/2024 - 25-HYDROXY VITAMIN D; Future; Expected date: 10/03/2024 - PHOSPHORUS; Future; Expected date: 10/03/2024 Iron deficiency anemia, unspecified iron deficiency anemia type Heavy vaginal bleeding with iron deficiency anemia from same. 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 Take only tylenol (acetaminophen) up to 2000 mg daily as needed for pain or as directed by your primary care provider. Reviewed previous status of kidney function and goals of care. All questions were answered. Follow-up: Return in about 6 months (around 11/25/2024). | Check-out note: With Julieta Sepulveda PA-C Nephrology, [address] [address] documented in this encounter Nursing Notes * Joycelyn Godinez LPN - 05/25/2024 9:19 AM EDT Patient identified by verbal name and date of .Return visit ED visit 03/30/24 for fall strikinghead on BP low was taken off lisinopril at this time Denies SOB or lower extremity edema Pt get Fe infusions Last 04/15 Pt had colonoscopy and EGD 09/14/23 Last labs 04/05/24 and 05/21/24 documented in this encounter Plan of Treatment Upcoming Encounters Date Type Department Care Team (Late st Contact Info) Description 06/17/2024 8:50 AM EDT Laboratory Laboratory, [place] [address] [facility], [place] [phone] [place], Laboratory [address] [facility] [place] [id number] 06/22/2024 2:00 PM EDT Office Visit Hematology/Oncology [facility] [place] [address] [place] [phone] Roxy Juan CRNP [address] [facility] [place] [address] 09/02/2024 9:30 AM EDT Office Visit [facility] [place] [address] [facility] [phone] Nina Ricardo DO [address] [place], [place] [phone] Scheduled Orders Name Type Priority Associated Diagnoses Orde r Schedule BASIC METABOLIC PANEL Lab Routine Stage 3b chronic kidney disease (HCC) Expected: 10/03/2024, Expires: 05/25/2025 PTH Lab Routine Stage 3b chronic kidney disease (HCC) Expected: 10/03/2024, Expires: 05/25/2025 25-HYDROXY VITAMIN D Lab Routine Stage 3b chronic kidney disease (HCC) Expected: 10/03/2024, Expires: 05/25/2025 PHOSPHORUS Lab Routine Stage 3b chronic kidney disease (HCC) Expected: 10/03/2024, Expires: 05/25/2025 URINALYSIS WITH MICROSCOPIC EXAM Lab Routine Proteinuria, unspecified type Expected: 10/03/2024, Expires: 05/25/2025 ALBUMIN / CREATININE RATIO, URINE Lab Routine Proteinuria, unspecified type Expected: 10/03/2024, Expires: 05/25/2025 Health Maintenance Due Date Last Done Comments Pneumococcal Vaccine: Pediatrics (0 to 5 Years) and At-Risk Patients (6 to 64 Years) (1 of 2 - PCV) 1999 COVID-19 Vaccine (3 - 2022-24 season) 2023 03/26/2021, 03/03/2021 Influenza Vaccine (FLU shot) (#1) 2024 08/16/2019, 09/05/2009, 09/01/2008, Additional history exists Depression Monitoring 08/25/2024 08/25/2023 CKD PHOS USE SMARTSET 70657 09/02/202408/05, 05/21/2021, 02/25/2018, Additional history exists GFR 10/05/2024 04/05/2024, 03/2024, 08/25/2023, Additional history exists CKD HGB USE SMARTSET 05779 04/05/202504/05, 04/05/2024, 03/22/2024, Additional history exists TSH 04/05/2025 04/05/2024, 04/2 02/2024, 08/25/2023, Additional history exists Pap Smear 12/03/2026 12/03/2023, [...] as of this encounter Visit Diagnoses Diagnosis Stage 3b chronic kidney disease (HCC)- Primary Iron deficiency anemia, unspecified iron deficiency anemia type Proteinuria, unspecified type 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 Care Teams Patch Sander Relationship Specialty Start Date End Date Nina Ricardo DO [address] [place] [address] PCP - General Family Medicine 01/25/19 documented as of this encounter"
--- OUTSIDE RECORDS SUMMARY | 2024-10-21 23:56 | External Medical Summary | Summary of Care ---
Author Name Unknown Organization [facility] Address [address] [place] [address] Phone [phone] Care Team Providers Care Policy Adviser Name Role Phone Nina Ricardo DO Primary Care Provider [phone] Reason for Visit * Reason Comments Outpatient Testing Encounter Details Date Type Department Care Team (Late st Contact Info) Description 05/11/2024 9:00 AM EDT Laboratory Laboratory, [place] [address] [place] [address] [place], [facility] [address] [place], [place] [phone] Arrived Allergies Active Allergy Reactions Criticality Noted Date Comments Lamotrigine Er Itching High 06/27/2016 Lamotrigine Itching High 01/25/2019 Paroxetine Hcl Psych complications 08/12/2017 Fluoxetine Hcl Other (Please comment) 9 Makes her shake documented as of this encounter (statuses as of 05/11/2024) Medications Medication Sig Dispensed Refills Start Date [...] AT BEDTIME 90 Tablet 1 05/08/2022 Active Apixaban 2.5 MG Oral Tablet (Eliquis)Indications: Renal vein thrombosis (HCC) Take 1 Tablet by [...] Sulfate 325 (65 Fe) MG Oral Tablet (Feosol)Indications:I chuy deficiency anemia, unspecified iron deficiency anemia type TAKE 1 TABLET BY MOUTH IN THE MORNING AND BEFORE BEDTIME 180 Tablet 1 11/25/2023 Active hydrOXYzine HCl 50 MG Oral Tablet 1 Tablet. Takes at night 11/11/2023 Active Acetaminophen 325 MG Oral Tablet (Tylenol) Take 2 Tablets by mouth every 6 hours as needed for Pain, Mild. 60 Tablet 01/01/2024 Active traMADol HCl 50 MG Oral Tablet (Ultram) Take 1 Tablet by mouth every 6 hours as needed for Pain, Severe. 5 Tablet 01/01/2024 Active Fluconazole 150 MG Oral Tablet (Diflucan)Indications :Tinea versicolor Take 1 Tablet by mouth once a week. 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 Supervision of high-risk , unspecified trimester 02/04/2019 [...] as of this encounter (statuses as of 05/11/2024) Resolved Problems Problem Noted Date Diagnosed Date [...] as of this encounter (statuses as of 05/11/2024) Immunizations Name Administration Dates Next Due COVID-19 mRNA, LNP-s, No Pre serve, 2-Dose Series ([employer]) 03/26/2021,03/03/2021 Seasonal Influenza, PF, 6 M & [...] have money to get more. Patient declined [place] Depression Scale Answer Date Recorded [place] Depression Scale Score 12 08/19/2019 The thought of harming myself has occurred to me . (Pt Reported) 08/19/2019 Education Answer Date Recorded What is the [...] 05/25/2024 9:30 AM EDT Office Visit Nephrology, [facility] [address] [place] [address] Sharon Sepulveda PA-C [address] [place] [address] 06/17/2024 8:50 AM EDT Laboratory Laboratory, [place] [address] [facility] [place] [phone] [place] [address] [place] [address] 06/22/2024 2:00 PM EDT Office Visit Hematology/Oncology [facility] [place] [address] [place] [phone] Roxy Juan CRNP [address] [place] [address] 09/02/2024 9:30 AM EDT Office Visit [facility], [place] [address] [place] [address] Nina Ricardo DO [address] [facility], [place] [phone] Health Maintenance Due Date Last Done Comments Pneumococcal Vaccine: Pediatrics (0 to 5 Years) and At-Risk Patients (6 to 64 Years) (1 of 2 - PCV) 1999 COVID-19 Vaccine (3 - 2022- season) 2023 03/26/2021, 03/03/2021 Influenza Vaccine (FLU shot) (#1) 2024 08/16/2019, 09/05/2009, 09/01/2008, Additional history exists Depression Monitoring 08/25/2024 08/25/2023 CKD PHOS USE SMARTSET 98866 09/02/202408/05, 05/21/2021, 02/25/2018, Additional history exists GFR 10/05/2024 04/05/2024, 02/0 03/2024, 08/25/2023, Additional history exists CKD HGB USE SMARTSET 22922 04/05/202504/05, 04/05/2024, 03/22/2024, Additional history exists TSH [...] Not on filedocumented as of this encounter Advance Directives * Full Code (Latest Code Status on File) Date Activated Date Inactivated Comments 07/06/2019 1:56 PM 07/11/2019 7:48 PM This order ref lects the patients wishes and were consensually agreed upon. Care Teams Policy Adviser Relationship Specialty Start Date End Date Nina Ricardo DO [address] [facility] [place] [address] PCP - General Family Medicine 01/25/19 documented as of this encounter
--- OUTSIDE RECORDS SUMMARY | 2024-10-21 23:56 | External Medical Summary ---
Author Name Unknown Address Unknown Organization [id number]:[facility] [place] - [address] [facility] [address] Laboratory Report Ordering Provider Test Date Status SEAN KIM 05/11/2024 08:59:25 Final Normal: <30 mg/g creatinine< br/>High: 30-300 mg/g creatinine
Very High: >300 mg/g creatinine
Nephrotic: >2200 mg/g creatinine Observation Date Value Abnormality Reference (Units ) Status Albumin, Urine 05/11/2024 08:59:25 2.35 (mg/dL) Final Creatinine, Urine 05/11/2024 08:59:25 77 (mg/dL) Final Albumin/Creatinine [Mass Ratio] in Urine 05/11/2024 08:59:25 31 Above high normal <30 (mg/g Creat) Final Performing Location [facility] [place] - [address] [place] [address]
--- OUTSIDE RECORDS SUMMARY | 2024-10-21 23:56 | External Medical Summary | Summary of Care ---
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 Stop warfarin.. 60 Tablet 11 3 Active Ondansetron 4 MG Oral Tablet Disintegrating (Zofran) TAKE 1 TABLET ORALLY EVERY 8 HOURS NEEDED FOR NAUSEA AND VOMITING 3 Active Vraylar 3 MG Oral Capsule TAKE 1 CAPSULE BY MOUTH AT NIGHT 3 Active Ferrous Sulfate 325 (65 Fe) MG Oral Tablet (Feosol)Indications :Iron deficiency anemia, unspecified iron deficiency anemia type TAKE 1 TABLET BY MOUTH IN THE MORNING AND BEFORE BEDTIME 180 Tablet 1 4 Active hydrOXYzine HCl 50 MG Oral Tablet 1 Tablet. Takes at night 4 Active Acetaminophen 325 MG Oral Tablet (Tylenol) Take 2 Tablets by mouth every 6 hours as needed for Pain, Mild. 60 Tablet 4 Active traMADol HCl 50 MG Oral Tablet (Ultram) Take 1 Tablet by mouth every 6 hours as needed for Pain, Severe. 5 Tablet 4 Active Fluconazole 150 MG Oral Tablet (Diflucan)Indicatio ns:Tinea versicolor Take 1 Tablet by mouth once a week. 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 Supervision of high-risk , unspecified trimester 02/04/2019 [...] as of this encounter (statuses as of 05/09/2024) Resolved Problems Problem Noted Date Diagnosed Date [...] as of this encounter (statuses as of 05/09/2024) Immunizations Name Administration Dates Next Due COVID-19 mRNA, LNP-s, No Pre serve, 2-Dose Series (Picplum) 03/26/2021,03/03/2021 Seasonal Influenza, PF, 6 M & [...] have money to get more. Patient declined [place] Depression Scale Answer Date Recorded [place] Depression Scale Score 12 08/19/2019 The thought [...] encounter Miscellaneous Notes * Telephone Encounter - Jerman Faith [facility] - 05/09/2024 12:54 PM EDTSigned Prescriptions: Disp Refills Levothyroxine Sodium 112 MCG Oral Tablet (*90 Tab*3 Sig: TAKE 1TABLET BY MOUTH EVERY DAY AT LEAST 30 MIN BEFORE BREAKFAST OR OTHER MEDICATIONAuthorizing Provider:DANILO RICARDO User: JERMAN FAITH documented in this encounter Plan of Treatment Upcoming Encounters Date Type Department Care Team (Late st Contact Info) Description 05/11/2024 9:00 AM EDT Laboratory Laboratory, [place] [address] [place] [place] [address] [place], Laboratory [address], [place] [id number] 05/25/2024 9:30 AM EDT Office Visit Nephrology, [facility] [address] [facility] [place], [place] [address] ZeSharon low PA-C [address] [facility] [place], [place] [phone] 06/17/2024 8:50 AM EDT Laboratory Laboratory, [place] [address] [place] [address] [facility] [address], [place] [id number] 06/22/2024 2:00 PM EDT Office Visit Hematology/Oncology [facility] [address] [facility] [place], [place] [address] [facility] Juan [facility] [address] [facility] [place] [address] 09/02/2024 9:30 AM EDT Office Visit Family [facility], [place] [address] [place] [facility] [place] [address] Danilo Ricardo DO [address] [place] [address] Health Maintenance Due Date Last Done Comments Pneumococcal Vaccine: Pediatrics (0 to 5 Years) and At-Risk Patients (6 to 64 Years) (1 of 2 - PCV) 1999 COVID-19 Vaccine (3 - 2022-24 season) 2023 03/26/2021, 03/03/2021 Influenza Vaccine (FLU shot) (#1) 2024 08/16/2019, 09/05/2009, 09/01/2008, Additional history exists Depression Monitoring 08/25/2024 08/25/2023 CKD PHOS USE SMARTSET 59779 09/02/202408/05, 05/21/2021, 02/25/2018, Additional history exists GFR 10/05/2024 04/05/2024, 02/0 03/2024, 08/25/2023, Additional history exists CKD HGB USE SMARTSET 47444 04/05/202504/05, 04/05/2024, 03/22/2024, Additional history exists TSH 04/05/2025 04/05/2024, 02/02, 08/25/2023, Additional history exists Pap Smear 12/03/2026 [...] as of this encounter Visit Diagnoses Diagnosis 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 Care Teams Emissions Inspector Relationship Specialty Start Date End Date Danilo Ricardo [facility] [address] [facility] [place] [address] PCP - General Family Medicine 01/25/19 documented as of this encounter
--- OUTSIDE RECORDS SUMMARY | 2024-10-21 23:56 | External Medical Summary ---
Author Name Unknown Address Unknown Organization K01:[facility] [place] [address] [facility] [address] Laboratory Report Ordering Provider Test Date Status SEAN KIM 05/11/2024 08:59:25 Final Observation Date Value Abnormality Reference (Units ) Status Color of Urine by Auto 05/11/2024 08:59:25 Colorless Colorless, Light Yellow, Yellow, Dark Yellow Final Clarity, Urine 05/11/2024 08:59:25 Clear Clear Final Glucose [Mass/volume] in Urine by Automated test strip 05/11/2024 08:59:25 Negative Negative (mg/dL) Final Bilirubin.total [Presence] in Urine by Automated test strip 05/11/2024 08:59:25 Negative Negative Final Ketones [Mass/volume] in Urine by Automated test strip 05/11/2024 08:59:25 Negative Negative (mg/dL) Final Specific gravity, Urine 05/11/2024 08:59:25 1.010 1.003-1.030 Final Hemoglobin [Presence] in Urine by Automated test strip 05/11/2024 08:59:25 Negative Negative Final pH, Urine 05/11/2024 08:59:25 6.5 5.0-7.5 (Units) Final Protein [Mass/volume] in Urine by Automated test strip 05/11/2024 08:59:25 Negative Negative (mg/dL) Final Urobilinogen [Mass/volume] in Urine by Automated test strip 05/11/2024 08:59:25 Normal Normal (mg/dL) Final Nitrite [Presence] in Urine by Automated test strip 05/11/2024 08:59:25 Negative Negative Final Leukocyte esterase [Presence] in Urine by Automated test strip 05/11/2024 08:59:25 Negative Negative Final RBC, Urine 05/11/2024 08:59:25 0-2 0-2 (/HPF) Final WBC, Urine 05/11/2024 08:59:25 0-2 0-2 (/HPF) Final Bacteria [#/area] in Urine sediment by Microscopy high power field 05/11/2024 08:59:25 0-25 0-25 (/HPF) Final Performing Location [facility] [place] [facility] [address] [facility] [address]
--- OUTSIDE RECORDS SUMMARY | 2024-10-21 23:56 | External Medical Summary | Summary of Care ---
Author Name Unknown Organization [facility] Address [address] [place] [address] Phone [phone] Care Team Providers Care Bulk Mail Clerk Name Role Phone Nina Ricardo DO Primary Care Provider [phone] Reason for Visit * Reason Onset Date Comments MyCode Nonconsent - Not interested at this time 05/11/2024 Encounter Details Date Type Department Care Team (Late st Contact Info) Description 05/11/2024 Orders Only Outcomes Research Department [address] [place] [address] Monie Viera CHRA MyCode Nonconsent Documentation Allergies Active Allergy Reactions Criticality Noted Date [...] be handled at the discretion of the manager respiratory. Supervision of high-risk , unspecified trimester 02/04/2019 [...] mRNA, LNP-s, No Pre serve, 2-Dose Series (FAGUO) 03/26/2021,03/03/2021 Seasonal Influenza, PF, 6 M & [...] have money to get more. Patient declined Lena Depression Scale Answer Date Recorded Lena Depression Scale Score 12 08/19/2019 The thought [...] on file documented as of this encounter Progress Notes * Monie Viera CHRA - 05/11/2024 8:57 AM EDT MyCode Nonconsent Documentation Charissa Rodriguez was approached in the clinic regarding participation in the MyCode Project and did not consent. documented in this encounter Plan of Treatment Upcoming Encounters Date Type Department Care Team (Late st Contact Info) Description 05/25/2024 9:30 AM EDT Office Visit Nephrology, [facility] [address] [place] [address] ZeSharon low PA-C [address] [place] [address] 06/17/2024 8:50 AM EDT Laboratory Laboratory, [place] [address] [facility] [phone] [facility] [address] [place] [facility] [place] [address] 06/22/2024 2:00 PM EDT Office Visit Hematology/Oncology [facility] [place] [address] [place], [place] [phone] Roxy Juan CRNP [address] [place] [address] 09/02/2024 9:30 AM EDT Office Visit [facility] [address] [facility], [place] [address] Nina Ricardo DO [address] [place] [facility] [place] [address] Health Maintenance Due Date Last Done Comments Pneumococcal Vaccine: Pediatrics (0 to 5 Years) and At-Risk Patients (6 to 64 Years) (1 of 2 - PCV) 1999 COVID-19 Vaccine ( season) 2023 03/26/2021, 03/03/2021 Influenza Vaccine (FLU shot) (#1) 2024 08/16/2019, 09/05/2009, 09/01/2008, Additional history exists Depression Monitoring 08/25/2024 08/25/2023 CKD PHOS USE SMARTSET 92218 09/02/202408/05, 05/21/2021, 02/25/2018, Additional history exists GFR 10/05/2024 04/05/2024, 02/0 03/2024, 08/25/2023, Additional history exists CKD HGB USE SMARTSET 21916 04/05/202504/05, 04/05/2024, 03/22/2024, Additional history exists TSH 04/05/2025 04/05/2024, /02/2024, 08/25/2023, Additional history exists Pap Smear 12/03/2026 [...] and were consensually agreed upon. Care Teams Bulk Mail Clerk Relationship Specialty Start Date End Date Nina Ricardo DO [address] [place] [address] PCP - General Family Medicine 01/25/19 documented as of this encounter
--- OUTSIDE RECORDS SUMMARY | 2024-10-21 23:56 | External Medical Summary | Summary of Care ---
Author Name Unknown Organization [facility] Address [address] [place] [address] Phone [phone] Care Team Providers Care Shopper'S Aide Name Role Phone Nina Ricardo DO Primary Care Provider + [phone] Reason for Visit * Reason Comments IV Therapy Venofer 2/2 Encounter Details Date Type Department Care Team (Latest Contact Info) Description 04/15/2024 9:00 AM EDT Hem/Onc Treatment Hematology/Oncology Treatment, [address] [address] Lisseth, Chair 11 Hem Onc [address] [address] Iron deficiency anemia due to chronic blood loss* Allergies Active Allergy Reactions Criticality Noted Date Comments Lamotrigine Er Itching High 06/27/2016 Lamotrigine Itching High 01/25/2019 Paroxetine Hcl Psych complications 08/12/2017 Fluoxetine Hcl Other (Please comment) 9 Makes her shake documented as of this encounter (statuses as of 05/12/2024) Medications Medication Sig Dispensed Refills Start Date [...] as of this encounter (statuses as of 05/12/2024) Active Problems Problem Noted Date Diagnosed Date [...] be handled at the discretion of the sheep clipper. Supervision of high-risk , unspecified trimester 02/04/2019 [...] as of this encounter (statuses as of 05/12/2024) Resolved Problems Problem Noted Date Diagnosed Date [...] as of this encounter (statuses as of 05/12/2024) Immunizations Name Administration Dates Next Due COVID-19 mRNA, LNP-s, No Pre serve, 2-Dose Series (Vitasol) 03/26/2021,03/03/2021 Seasonal Influenza, PF, 6 M & above, IM , (FluLaval or Fluzone) 08/16/2019 Seasonal Influenza, Split, I IV3, With Preserve, Inj 09/05/2009,09/01/2008,08/29/2006 TDAP (age 10 and older)(Boostrix) 06/01/2019 documented as of this encounter Social History Tobacco Use Types Packs/Day Years Used Date Smoking Tobacco: Former Cigarettes Q uit: 08/12/2015 Passive Smoke Exposure: Past Smokeless Tobacco: Never Tobacco Cessation:Counseling Given: Not Answered Alcohol Use Standard Drinks/Week Comments No 0 [...] have money to get more. Patient declined [place] Depression Scale Answer Date Recorded [place] Depression Scale Score 12 08/19/2019 The thought [...] Sign Reading Time Taken Comments Blood Pressure 111/73 04/15/2024 9:06 AM EDT Pulse 59 04/15/2024 9:06 AM EDT Temperature 36.6 C (97.8 F) 04/15/2024 9:06 AM ED T Respiratory Rate 16 04/15/2024 9:06 AM EDT Oxygen Saturation 99% 04/15/2024 9:06 AM EDT Inhaled Oxygen Concentration - - Weight - - Height - - Body Mass Index - - documented in this encounter Nursing Notes * Mary Carmen Montgomery LPN - 04/15/2024 9:06 AM EDT Patient arrived Chair 7 for IV therapy Venofer. Vital signs are stable. IV access successful at theleft antecubital vein. IV line flushed with ease; IV fluid connected and infusing. Call reddy withinreach. Patient completed IV therapy 10:32am. IV access discontinued; site was cleaned and bandaged. Patient will have labs on 05/11. Patient discharged in stable condition. documented in this encounter Plan of Treatment Upcoming Encounters Date Type Department Care Team (Late st Contact Info) Description 05/25/2024 9:30 AM EDT Office Visit Nephrology, [facility] [place] [address] [place] [address] Sharon Sepulveda PA-C [address] [place] [address] 06/17/2024 8:50 AM EDT Laboratory Laboratory, [facility] [address] [place] [address] Tuan Jaimes [address] [place] [facility] [place] [address] 06/22/2024 2:00 PM EDT Office Visit Hematology/Oncology [facility] [place] [address] [facility] [place] [phone] Roxy Juan CRNP [address] [facility] [place] [address] 09/02/2024 9:30 AM EDT Office Visit [facility] [place] [address] [facility] [place] [address] Nina Ricardo, [address] [place] [facility] [place] [address] Health Maintenance Due Date Last Done Comments Pneumococcal Vaccine: Pediatrics (0 to 5 Years) and At-Risk Patients (6 to 64 Years) (1 of 2 - PCV) 1999 COVID-19 Vaccine (3 - season) 2023 03/26/2021, 03/03/2021 Influenza Vaccine (FLU shot) (#1) 2024 08/16/2019, 09/05/2009, 09/01/2008, Additional history exists Depression Monitoring 08/25/2024 08/25/2023 CKD PHOS USE SMARTSET 59645 09/02/202408/05, 05/21/2021, 02/25/2018, Additional history exists GFR 10/05/2024 04/05/2024, 02/0 03/2024, 08/25/2023, Additional history exists CKD HGB USE SMARTSET 18147 04/05/202504/05, 04/05/2024, 03/22/2024, Additional history exists TSH [...] blood loss (chronic) documented in this encounter Administered Medications Inactive Administered Medications - up to 3 most recent administrations Medication Order MAR Action Action Date Dose Rate Site Iron Sucrose (Venofer) 300 mg in NSS 250 mL ivpb 300 mg, IV Piggyback, ONCE, 1 dose, On Judy 04/15/24 at 1045, Administer over 90 Minutes Start Infusion 04/15/2024 9:02 AM EDT 300 mg 180 mL/hr NSS infusion 500 mL, Intravenous, at 50 mL/hr, CONTINUOUS, Starting on Judy 04/15/24 at 1015, Until Judy 04/15/24 at 1454 Start Infusion 04/15/2024 9:01 AM EDT 500 mL 50 mL/hr documented in this encounter Advance Directives * Full Code (Latest Code Status on File) Date Activated Date Inactivated Comments 07/06/2019 1:56 PM 07/11/2019 7:48 PM This order ref lects the patients wishes and were consensually agreed upon. Care Teams Shopper'S Aide Relationship Specialty Start Date End Date Nina Ricardo DO [address] [place] [address] PCP - General Family Medicine 01/25/19 documented as of this encounter
[2024-10-22] MEDS: hydrOXYzine HCl 25 MG TAB PO PRN (00:05)
[2024-10-22] MEDS: cefTRIAXone SODIUM 2,000 MG/50 ML BAG IV SCH (00:06)
[2024-10-22 00:10] LABS: Hematocrit (blood only) 23.6 % (37.0-47.0); Hemoglobin 8.2 g/dl (12.0-16.0)
[2024-10-22] MEDS ORDERED: SODIUM CHLORIDE 0.9% 50 ML IV PRN ×2 (00:27→00:59)
[2024-10-22] MEDS ORDERED: SODIUM CHLORIDE 0.9% 100 ML IV PRN ×2 (00:27→00:59)
--- NOTE | 2024-10-22 00:44 | Obstetrical Progress Note ---
Date of Service October 22, 2024 Assessment & Plan Admission and Anticipated Discharge Date Admission Date: October 21, 2024 Subjective Addendum: Pap smear, vaginal and cervical culture were collected. Will follow up her results. Results & Data Vital Signs (Past 12 Hours) Vital Signs Temp Pulse Pulse Resp BP BP BP 10/21/24 23:57 36.7 C 99 H 16 121/79 10/21/24 22:43 79 10/21/24 22:14 75 10/21/24 20:15 37.2 C 107 H 16 138/83 10/21/24 19:59 36.6 C 72 14 114/85 10/21/24 19:42 95 H 26 H 10/21/24 19:33 75 16 10/21/24 19:21 77 18 10/21/24 19:18 69 16 10/21/24 19:00 74 21 10/21/24 19:00 117/70 10/21/24 19:00 117/70 10/21/24 19:00 74 15 117/70 10/21/24 18:57 73 15 10/21/24 18:33 63 16 10/21/24 18:27 66 16 10/21/24 18:12 80 16 10/21/24 18:03 70 15 10/21/24 18:00 115/64 10/21/24 17:51 62 14 10/21/24 17:45 71 16 10/21/24 17:45 110/58 L 10/21/24 17:45 110/58 L 10/21/24 17:40 62 14 110/58 L 10/21/24 17:33 70 15 10/21/24 17:21 69 16 10/21/24 17:15 67 21 10/21/24 16:54 72 22 10/21/24 16:40 85 10/21/24 16:31 75 18 127/92 10/21/24 16:30 72 12 10/21/24 16:21 74 18 10/21/24 16:12 77 13 10/21/24 16:00 127/92 10/21/24 15:54 86 16 10/21/24 15:42 77 14 10/21/24 15:30 73 12 10/21/24 15:24 129/90 10/21/24 15:15 68 17 10/21/24 15:03 73 18 10/21/24 14:36 115 H 15 10/21/24 14:15 90 17 10/21/24 14:06 76 17 10/21/24 14:03 79 18 125/66 10/21/24 14:00 125/66 10/21/24 14:00 125/66 10/21/24 13:57 72 17 10/21/24 13:42 80 20 10/21/24 13:30 78 17 10/21/24 13:12 82 21 10/21/24 13:09 70 13 10/21/24 13:01 84 18 116/83 Pulse Ox O2 Del Method 10/21/24 23:57 100 Room Air 10/21/24 22:43 10/21/24 22:14 10/21/24 20:15 100 Room Air 10/21/24 19:59 100 Room Air 10/21/24 19:42 99 10/21/24 19:33 99 10/21/24 19:21 99 10/21/24 19:18 100 10/21/24 19:00 99 10/21/24 19:00 10/21/24 19:00 10/21/24 19:00 99 Room Air 10/21/24 18:57 99 10/21/24 18:33 99 10/21/24 18:27 100 10/21/24 18:12 100 10/21/24 18:03 99 10/21/24 18:00 10/21/24 17:51 99 10/21/24 17:45 99 10/21/24 17:45 10/21/24 17:45 10/21/24 17:40 100 10/21/24 17:33 100 10/21/24 17:21 97 10/21/24 17:15 99 10/21/24 16:54 96 10/21/24 16:40 10/21/24 16:31 100 Room Air 10/21/24 16:30 100 10/21/24 16:21 100 10/21/24 16:12 100 10/21/24 16:00 10/21/24 15:54 100 10/21/24 15:42 100 10/21/24 15:30 100 10/21/24 15:24 10/21/24 15:15 10/21/24 15:03 10/21/24 14:36 100 10/21/24 14:15 100 10/21/24 14:06 100 10/21/24 14:03 100 Room Air 10/21/24 14:00 10/21/24 14:00 10/21/24 13:57 100 10/21/24 13:42 96 10/21/24 13:30 100 10/21/24 13:12 100 10/21/24 13:09 100 10/21/24 13:01 100 Room Air
[2024-10-22] MEDS: ACETAMINOPHEN 325 MG TAB PO STA (01:27)
[2024-10-22 02:01] LABS: Hematocrit (blood only) 24.2 % (37.0-47.0); Hemoglobin 8.1 g/dl (12.0-16.0); Mean Corpuscular Hemoglobin 31.9 pg (25.0-34.0); Mean Corpuscular Hgb Conc 33.5 g/dL (32.0-36.0); Mean Corpuscular Volume 95.3 fL (80.0-100.0); Mean Platelet Volume 9.8 fL (9.4-12.4); Platelet Count 225 K/uL (130-400); RDW Coefficient of Variation 12.8 % (11.5-14.5); RDW Standard Deviation 43.9 fL (36.4-46.3); Red Blood Count 2.54 M/uL (4.20-5.40); White Blood Count 11.55 K/ul (4.8-10.8)
[2024-10-22 02:20] LABS: BUN Creatinine Ratio 9.2 (10-20); Calcium 8.6 mg/dl (8.6-10.3); Creatinine Clr Calc Pharmacy 27.4 ml/min; Potassium 3.7 mmol/L (3.5-5.1)
[2024-10-22] MEDS: LEVOTHYROXINE SODIUM 112 MCG TABLET PO SCH (04:20)
[2024-10-22 06:02] LABS: Folate (Folic Acid),Ser orPlas 11.28 ng/ml (>5.38)
--- NOTE | 2024-10-22 08:11 | Cardiology Consultation ---
Date of Consultation October 22, 2024 Assessment & Plan (1) Symptomatic anemia: (2) Chest pain: (3) Elevated troponin: (4) Renal vein thrombosis: (5) Nephrotic syndrome: (6) CKD (chronic kidney disease), stage III: (7) HTN (hypertension): (8) Menorrhagia due to blood coagulation disorder: (9) History of bilateral salpingectomy: Plan 29-year-old female who presented to [facility] on 10/21/24 for evaluation of chest pain, shortness of breath, and heart racing. She has noticed shortness of breath, heart racing, fatigue, and sharp chest tightness while taking her daughter to school the past two days. She also reported associated fatigue, leg weakness, lightheadedness, and dizziness. 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 Found to have elevated heart rates in 160s and told to go to the emergency department. History of heavy menstrual cycle status post diagnostic laparoscopy and laparoscopic bilateral salpingectomy (01/01/24). Her menstrual cycle started on Friday. She notes heavy bleeding for over the past week. She states that she went through four pads, pairs of underwear, and gowns yesterday while in the ED. Her menstrual cycle typically lasts a little over a week with heavy bleeding for 2-3 days. Followed by hematology for iron deficiency anemia. Last received IV Venofer x2 dose in 04/15/24. Followed by nephrology for history of renal vein thrombosis (2018), CKD stage III and history of nephrotic syndrome. She remains on long-term anticoagulation for renal vein thrombosis. Previously on warfarin, but was unhappy with frequent blood draws. Transitioned to Eliquis and has been on it since June 2023. Chest pain Elevated troponins -Ongoing intermittent exertional chest tightness and mildly elevated troponins (76.3-88.9-151.4-104.4) likely secondary to demand ischemia in setting of anemia and heavy menstrual bleeding -Sinus rhythm with rates in 70s to 90s and episode of sinus tachycardia with rate 143 bpm when walking to bathroom last night upon telemetry review -Heart rate and blood pressure stable today -EKG with no acute ischemic changes -ECHO today with LVEF 60-65%, no regional wall motion abnormalities, or significant valvular disease -Sinus tachycardia will likely improve with correction of anemia and heavy menstrual bleeding - will hold off on starting beta-blockers at this time Heavy menstrual bleeding History of renal vein thrombosis Abnormal pelvic ultrasound -Followed by OBGYN for history of heavy menstrual bleeding -Status post diagnostic laparoscopy and laparoscopic bilateral salpingectomy (01/01/24) -Pelvic ultrasound showed distended uterine cavity with large amount of complex clot -Hemoglobin 8.1 on AM labs -Continue to trend H&H -Tranfuse for Hbg < 8.0 -Agree with holding off on anticoagulant therapy given ongoing heavy bleeding Iron deficiency anemia -Last received IV Venofer x2 dose in 04/15/24 -Iron 116 and Ferritin 30 on AM labs -Currently on ferrous sulfate 325 mg twice daily -Will defer to hematology for treatment CKD stage III (baseline Cr 1-2) History of nephrotic syndrome -Followed by nephrology -Creatinine 2.07 on AM labs -Continue daily BMP to monitor kidney function Supervising Physician Co-Signing Physician Notes I have personally performed a history and physical examination on the patient. I have reviewed the advance practitioner's documentation, and I agree with, and take responsibility for the plan of care. 29-year-old female presented to the emergency department with palpitations, tachycardia, chest discomfort, and shortness of breath. ECG demonstrating sinus rhythm and sinus tachycardia with nonspecific ST T wave changes. Her high-sensitivity troponins were found to be mildly elevated. Patient reports significant heavy menstrual bleeding over the past 8 days. Bleeding more heavy than usual. She is chronically anticoagulated due to history of renal vein thrombosis. Hemoglobin dropping from nearly 11 down to 8.1 earlier today. She has received 1 unit of packed red blood cells and is currently asymptomatic at rest. Telemetry reveals sinus rhythm and sinus tachycardia with activity. Preliminary review of bedside echocardiogram demonstrates preserved LV systolic function without regional wall motion abnormality. Exertional symptoms, tachycardia and mildly elevated high-sensitivity troponin secondary to acute on chronic symptomatic anemia. Symptoms improving with transfusion. Recommend maintain serum hemoglobin greater than 8.0. Continue iron supplementation. Results of echocardiogram reviewed with patient. Further evaluation as outpatient when she has recovered from symptomatic anemia. Drake Ricardo DO, [facility] History of Present Illness Reason for Consultation: Elevated troponin Requesting Physician: Ana Yao PA-C Attending Physician: Edy Arellano MD History of Present Illness 29-year-old female with PMHx significant for renal vein thrombosis (on Eliquis), CKD stage III, iron deficiency anemia (baseline hemoglobin 9-10; IV Venofer 04/2024), history of nephrotic syndrome, mood disorder, HTN, and hypothyroidism who presented to [facility] on 10/21/24 for evaluation of chest pain, shortness of breath, and heart racing. She reports shortness of breath, heart racing, fatigue, and chest tightness while taking her daughter to school the past two days. She also felt fatigued with leg weakness and muscle burning/soreness. Has vomited the past couple of mornings. 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 Found to have elevated heart rates in 160s and told to go to the emergency department. Per chart review, sinus tachycardia with rates in 110s upon admis iwona. ED work-up revealed leukocytosis of 15.19, hemoglobin 10.8, creatinine 2.19, and elevated troponins. CT abdomen/pelvis showed distended uterine cavity otherwise unremarkable. Follow-up pelvic ultrasound showed distended uterine cavity with large amount of complex clot. History of renal vein thrombosis (2018), CKD stage III and history of nephrotic syndrome. Followed by nephrology. She remains on long-term anticoagulation for renal vein thrombosis. She was previously on warfarin, but was unhappy with frequent blood draws and transitioned to Eliquis. She has been on Eliquis since June 2023. History of heavy menstrual cycle status post diagnostic laparoscopy and laparoscopic bilateral salpingectomy (01/01/24). Her menstrual cycle started on Friday. She notes heavy bleeding for over the past week. She states that she went through four pads, pairs of underwear, and gowns yesterday while in the ED. Her menstrual cycle typically lasts a little over a week with heavy bleeding for 2-3 days. Followed by hematology for iron deficiency anemia. Last received IV Venofer x2 dose in 04/15/24. Seen today and resting comfortably in bed. She reports ongoing intermittent chest discomfort without radiation that occurs with walking to bathroom. Pain rated at 8 out of 10 with exertion. Improves with rest, but still notes chest soreness rated at 3 out of 10. Denies pain worsening with positional changes or deep breathing. She reports associated lightheadedness, dizziness, heart racing, leg weakness, and shortness of breath. Denies syncope. Denies orthopnea, PND, worsening edema, recent weight gain, loss of appetite, or nausea. Denies recent illness or infection. Denies blood in stools or dark stools, blood in urine, bleeding gums, or frequent nosebleeds. Lives with boyfriend and 5-year old daughter. Marijuana use. Denies smoking or alcohol use. Family History: Father - Heart disease (alive) Allergies Allergy/AdvReac Type Severity Reaction Status Date / Time lamotrigine Allergy Unknown itchy Verified 05/18/23 13:26 oxycodone AdvReac Intermediate itching Verified 05/18/23 13:26 fluoxetine AdvReac Unknown Shakiness Verified 05/18/23 13:26 paroxetine AdvReac Unknown Suicidal Verified 05/18/23 13:26 thoughts Home Medications Medication Instructions Recorded Confirmed Type acetaminophen 500 mg tablet 1,000 mg PO Q6H PRN Pain 09/17/18 10/21/24 History (Tylenol Extra Strength) buspirone 15 mg tablet 15 mg PO BID 05/18/23 10/21/24 History cariprazine 3 mg capsule (Vraylar) 3 mg PO HS 05/18/23 10/21/24 History hydroxyzine HCl 50 mg tablet 50 mg PO HS PRN Sleep 05/18/23 10/21/24 History ondansetron 4 mg disintegrating 4 mg PO Q8H PRN nausea and 05/18/23 10/21/24 Rx tablet vomiting #30 tabs apixaban 2.5 mg tablet (Eliquis) 2.5 mg PO BID 10/21/24 10/21/24 History famotidine 20 mg tablet 20 mg PO HS PRN Dyspepsia 10/21/24 10/21/24 History ferrous sulfate 325 mg (65 mg 325 mg PO BID 10/21/24 10/21/24 History iron) tablet levothyroxine 112 mcg tablet 112 mcg PO DAILY 10/21/24 10/21/24 History Patient History Medical History Enlarged thyroid Dysphagia 2/2 enlarged thyroid Surgical History History of tonsillectomy and adenoidectomy Family History Other Diabetes FHx: seizures Social History Smoking Status: Former smoker Tobacco Type: Cigarettes Cigarettes Per Day: 1; Smoking End Date: 8 years ago; Second Hand Exposure: No; Do You Dip or Chew Tobacco: No; Hx Alcohol Use: No Hx Substance Use: Yes Last Used Substance Other:: 11/2018 MARIJUANNA AND NOT USED SINCE Preferred Language: Sami Communication Ability: Effective Visual Impairment: No Limitations Hearing Ability: Normal Supervisor Composing Room Required: No Beliefs That Will Affect Care: None marital status: Single Current Living Situation: Significant Other Current Living Situation Comment: lives with boyfriend current occupational status: employed Feels Safe at Home: Yes Safety Concerns: Feels Safe At This Time Assistive Devices: None Review of Systems Review of Systems: See HPI for pertinent positives. All others negative other than those noted in the HPI. CONSTITUTIONAL: +weakness, fatigue. No change in weight, No fevers, No sweats or chills. HEENT: No visual changes, No epistaxis, No bleeding gums, No dysphagia, PULMONARY: +shortness of breath, recent change in breathing. No cough, sputum, or hemoptysis, No wheezing. CARDIOVASCULAR: +chest pain, dyspnea on exertion. No edema, No palpitations, No syncope, No claudication, No calf pain. GASTROINTESTINAL: +abdominal pain. No change in appetite, No change in bowel habits, No significant heartburn, No nausea, No vomiting, No diarrhea, No constipation, No blood in stools or black tarry stools, No dysphagia. HEMATOLOGIC: No abnormal bleeding and No bruising. NEUROLOGICAL: +dizziness, lightheadedness. No falls, Normal balance, No headaches, and No weakness. PSYCH: No sleep disturbances, No mood changes. Physical Exam Physical Exam: Vital signs within normal limits as above. General: Well developed and nourished. No acute distress. A+Ox3. HEENT: Normocephalic. Atraumatic. EOMI. Conjunctiva and sclera clear. NECK: Trachea midline. No thyromegaly. No carotid bruits. No JVD. Carotid upstrokes are brisk. Heart: RRR. S1 and S2 noted. No murmur. No rubs or gallops. PMI non displaced. Lungs: No acute respiratory distress. Clear to auscultation. No wheezes.No rhonchi. No rales. Abdomen: Tenderness to palpation. Normal bowel sounds. Soft. No abdominal bruits. Extremities: Normal capillary refill. No edema. No clubbing or cyanosis. Pulses: radial=2/4, dorsal pedis=2/4. Skin: Warm and dry. NEURO: No focal deficits. PSYCH: Appropriate affect and insight. Results & Data Vital Signs (Past 12 Hours) Vital Signs Temp Pulse Pulse Resp BP BP Pulse Ox 10/22/24 07:38 36.7 C 78 22 128/70 100 10/22/24 06:17 36.8 C 81 16 121/73 100 10/22/24 05:17 37.0 C 91 H 16 116/75 100 10/22/24 04:47 37.2 C 93 H 16 117/75 100 10/22/24 04:32 36.9 C 84 16 115/77 100 10/22/24 04:11 37.3 C 86 16 121/74 100 10/22/24 03:20 36.7 C 108 H 16 125/79 100 10/21/24 23:57 36.7 C 99 H 16 121/79 100 10/21/24 22:43 79 10/21/24 22:14 75 10/21/24 20:15 37.2 C 107 H 16 138/83 100 O2 Del Method O2 Flow Rate 10/22/24 07:38 2 10/22/24 06:17 2 10/22/24 05:17 2 10/22/24 04:47 2 10/22/24 04:32 2 10/22/24 04:11 2 10/22/24 03:20 Nasal Cannula 2 10/21/24 23:57 Room Air 10/21/24 22:43 10/21/24 22:14 10/21/24 20:15 Room Air Laboratory Results Cardiac Enzymes 10/21/24 10/21/24 10/21/24 Range/Units 11:49 13:36 20:28 AST 17 (13-39) U/L Troponin I High Sens 76.3 H* 88.9 H* D 151.4 H* D (0-14) pg/ml 10/22/24 Range/Units 01:48 AST (13-39) U/L Troponin I High Sens 104.4 H* D (0-14) pg/ml Coagulation 10/21/24 Range/Units 11:49 PT 12.5 H (9.0-12.0) Seconds APTT 26 (21-31) Seconds CBC 10/21/24 10/21/24 10/22/24 Range/Units 11:49 23:47 01:48 WBC 15.92 H 11.55 H (4.8-10.8) K/ul RBC 3.41 L 2.54 L (4.20-5.40) M/uL Hgb 10.8 L 8.2 L 8.1 L (12.0-16.0) g/dl Hct 31.6 L 23.6 L 24.2 L (37.0-47.0) % Plt Count 275 225 (130-400) K/uL Neut # (Auto) 13.29 H (1.40-6.50) K/uL Lymph # (Auto) 1.85 (1.20-3.40) K/uL [place] # (Auto) 0.58 (0.11-0.59) K/uL Eos # (Auto) 0.03 (0.00-0.50) K/uL Baso # (Auto) 0.06 (0.00-0.20) K/uL Comprehensive Metabolic Panel 10/21/24 10/22/24 Range/Units 11:49 01:48 Sodium 139 139 (136-145) mmol/L Potassium 3.8 3.7 (3.5-5.1) mmol/L Chloride 105 108 H (98-107) mmol/L Carbon Dioxide 21 19 L (21-32) mmol/L BUN 21 19 (6-23) mg/dl Creatinine 2.19 H 2.07 H (0.6-1.2) mg/dl Glucose 123 H 113 H (70-99(Fasting)) mg/dl Calcium 9.3 8.6 (8.6-10.3) mg/dl AST 17 (13-39) U/L ALT 8 (7-52) U/L Alkaline Phosphatase 55 (34-104) U/L Total Protein 7.4 (6.0-8.3) gm/dl Albumin 4.3 (3.4-5.0) gm/dl Intake and Output 10/21/24 10/22/24 10/22/24 22:59 06:59 14:59 Intake Total 1200 / 1250 50 / 1250 310 / 310 Balance 1200 / 1250 50 / 1250 310 / 310 Intake: IV 1000 / 1050 50 / 1050 Sodium Chloride 0.9% 1,000 ml @ 1000 / 1000 999 mls/hr IV .Q1H1M ONE Rx#: [id number] cefTRIAXone SODIUM 2,000 mg In 50 / 50 50 ml @ 100 mls/hr IV Q24H [facility] Rx#:[id number] Oral 200 / 200 Intake (Blood Product) Amt 0 / 0 310 / 310 Packed Cells, Leukoreduced 0 / 0 310 / 310 Unit [id number] Other: Other Intake Source sips # Unmeasured Voids 1 1 Weight 44.1 kg 44.1 kg Weight Measurement Method Standing Scale Standing Scale Diagnostic Findings Reviewed EKG from 10/21/24 NSR 82 bpm QTc 411 Chest X-Ray 10/21/24 11:41 XR chest 1V not portable HISTORY: 29 years-old Female Chest pain, nonspecific COMPARISON: 03/30/2024 TECHNIQUE: PA view of the chest FINDINGS: Cardiac silhouette is normal. Lungs appear clear. No pneumothorax or pleural effusion. Bones appear grossly intact. IMPRESSION: No acute process. ACT 112: Negative or not required by law. The above report was generated using voice recognition software. It may contain grammatical, syntax or spelling errors. Electronically signed by: González Umana M.D. 10/21/2024 12:39 PM Abdomen/Pelvis CT 10/21/24 13:01 CT OF THE ABDOMEN AND PELVIS WITHOUT CONTRAST CLINICAL HISTORY: Abdominal pain. COMPARISON STUDY: CT of the abdomen and pelvis June 22, 2021. Right upper quadrant ultrasound May 18, 2023. TECHNIQUE: Axial images of the abdomen and pelvis were obtained without IV contrast. Images were reviewed in the axial, sagittal, and coronal planes. Automated exposure control was utilized for the study. A dose lowering technique was utilized adhering to the principles of ALARA. FINDINGS: Visualized portions of the lung bases are unremarkable. No pneumatosis, free air or portal venous gas is present. Moderate bilateral renal atrophy is present. There is no hydronephrosis. Unenhanced images of the liver, spleen, adrenal glands and pancreas are unremarkable. There is no biliary or pancreatic ductal dilatation. Apparent colonic wall thickening is likely due to underdistention. Of note, the uterine cavity is distended and contains layering hyperdense material consistent with blood products. There is also a 3.6 x 2.9 cm mixed attenuation right adnexal abnormality on image 230. This has layering hyperdense material. There is no lymphadenopathy. No fluid collections are present. IMPRESSION: 1. No evidence for a bowel obstruction. No definite bowel wall thickening on unenhanced exam. 2. Moderate bilateral renal atrophy. No hydronephrosis. No ureteral calculi. 3. Distended uterine cavity which contains layering hyperdense material consistent with blood products. This suggests hematometra of uncertain etiology. In addition, a 3.6 x 2.9 cm mixed attenuation right adnexal abnormality appears to contain layering hyperdense material. This could represent a hemorrhagic right ovarian cyst or blood products within a dilated right fallopian tube. Follow pelvic ultrasound and correlation with CT chest is recommended. Gynecologic consultation might also be considered. ACT 112: Negative or not required by law. Electronically signed by: Yuriy Haynes M.D. 10/21/2024 2:04 PM Pelvis Ultrasound 10/21/24 14:31 PELVIC ULTRASOUND CLINICAL HISTORY: distended uterine cavity COMPARISON STUDY: CT of the abdomen and pelvis performed earlier today. Pelvic ultrasound August 01, 2016. TECHNIQUE: Transabdominal sonography of the pelvis was performed. FINDINGS: The uterus measures 10.9 x 5.4 x 5.6 cm. The uterine cavity is significantly distended and contains a large amount of complex mixed echogenicity mobile material consistent with clot. No color flow is identified within this material. The right ovary measures 3.4 x 3 x 2.5 cm. The possible abnormality within the right ovary on CT was not appreciated by sonography. Left ovary measures 2.4 x 1.5 x 2.1 cm. There is color flow within each ovary. IMPRESSION: 1. Significantly distended uterine cavity which contains a large amount of complex material consistent with clot. The findings suggest hematometra of uncertain etiology. 2. No ovarian abnormality identified on transabdominal exam. The possible right ovarian/right adnexal abnormality by CT is not appreciated on this tra nsabdominal ultrasound. ACT 112: Negative or not required by law. Electronically signed by: Yuriy Haynes M.D. 10/21/2024 3:11 PM
[2024-10-22] MEDS: FAMOTIDINE 20 MG TAB PO PRN (11:15)
[2024-10-22] MEDS: IRON SUCROSE 300 MG in SODIUM CHLORIDE 0.9% 250 ML IV ONE (13:01)
[2024-10-22 14:20] LABS: Chlam trach RNA(Genit,Ureth,Ur Not Detected (NotDetected); GC(Neis gon)RNA(Genit,Ureth,Ur Not Detected (NotDetected)
--- NOTE | 2024-10-22 14:36 | Hospitalist Progress Note ---
Date of Service October 22, 2024 Assessment & Plan (1) Chest pain: (2) Elevated troponin: (3) Renal vein thrombosis: (4) Nephrotic syndrome: (5) CKD (chronic kidney disease), stage III: (6) HTN (hypertension): (7) Hypothyroidism: (8) Anxiety: Plan This is a 29-year-old female with PMH of renal vein thrombosis on Eliquis, CKD 3, PÉREZ (baseline hgb 9-10), history of nephrotic syndrome, mood disorder, hypertension, hypothyroidism and other medical problems listed below who presents with chest pain. Heavy menstrual bleeding Iron deficiency anemia History of heavy menstrual period for several months. 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 Adhikari regarding options for heavy menstrual period which is likely causing her iron deficiency leading to weakness, fatigue, tachycardia and chest pain. Started on Aygestin 5 mg 3 times daily; plan to continue for 3 weeks and follow-up with her [employer] MACHINE OPERATOR as outpatient for Minera IUD placement. Will give Venofer while she is inpatient Chest pain Elevated troponin Patient reports palpitation on movement and intermittent chest pain NSR at 90 bpm, non-specific ST and T wave abn, qtc 447 ms Echo shows normal EF; no valvular abnormalities or Wall motion abnormalities Telemetry does not show any arrhythmia The chest pain and palpitation are likely related with anemia; follow-up with cardiology after resolution of anemia for further workup. H/o renal vein thrombosis On Eliquis for now; will resume it day after tomorrow CKD III History of nephrotic syndrome Cr 2.19 today (baseline high 1s- low2s) Follows with Dr. Rendon Monitor with daily BMP Hypothyroidism Continue levothyroxine Mood disorder Continue Buspar, Vraylar HS, hydroxyzine HS PRN DVT Ppx: Holding eliquis for now Code status: FULL PCP: Haleigh Dispo: Admitted to [facility] tele Time spent evaluating patient, direct bedside care, chart review, placing orders, interpretation of diagnostic studies, discussion with consultants, patient, and family members, as well as other required patient management activities is 50 minutes Please note the above document was generated using voice recognition software. It may contain grammatical, syntax or spelling errors. Any formal questions or concerns about the content, text or information contained within the body of this dictation should be directly addressed to the provider for clarification Admission and Anticipated Discharge Date Admission Date: October 21, 2024 Subjective Patient seen and examined at bedside. She reports that the bleeding has significantly improved. She has sinus tachycardia on the monitor when she is up and moving. No arrhythmia overnight Review of Systems Review of Systems: All systems reviewed & are unremarkable except as noted in Subjective Physical Exam Physical Exam: Constitutional: Alert oriented x 3; not in distress. Respiratory: normal respiratory effort, lungs clear to auscultation, no wheeze, rales, rhonchi. Normal insp/exp effort, no accessory muscle use Cardiovascular: RRR, no murmur, no edema Vessels: no JVD or carotid bruit Chest: normal inspection of chest Abdomen: Soft, nontender. Musculoskeletal: no cyanosis or clubbing, extremities motor strength 5/5 Skin: no rashes, warm and dry normal turgor Neurologic: PERRL, EOMI, accommodation nl, no face palsy, no dysarthria CN's II- XI intact bilaterally and moves all extremities Psychiatric: A+Ox3, euthymic affect Results & Data Results & Data Vital Signs (Past 12 Hours) Vital Signs Temp Pulse Pulse Resp BP BP Pulse Ox 10/22/24 13:31 36.8 C 72 18 105/64 100 10/22/24 13:15 36.8 C 75 18 105/62 100 10/22/24 12:59 36.4 C L 69 18 114/76 100 10/22/24 11:42 10/22/24 11:32 36.5 C 74 18 133/80 100 10/22/24 08:00 99 H 10/22/24 07:38 36.7 C 78 22 128/70 100 10/22/24 06:17 36.8 C 81 16 121/73 100 10/22/24 05:17 37.0 C 91 H 16 116/75 100 10/22/24 04:47 37.2 C 93 H 16 117/75 100 10/22/24 04:32 36.9 C 84 16 115/77 100 10/22/24 04:11 37.3 C 86 16 121/74 100 10/22/24 03:20 36.7 C 108 H 16 125/79 100 O2 Del Method O2 Flow Rate 10/22/24 13:31 Room Air 10/22/24 13:15 Room Air 10/22/24 12:59 Room Air 10/22/24 11:42 Nasal Cannula 2 10/22/24 11:32 Room Air 10/22/24 08:00 10/22/24 07:38 2 10/22/24 06:17 2 10/22/24 05:17 2 10/22/24 04:47 2 10/22/24 04:32 2 10/22/24 04:11 2 10/22/24 03:20 Nasal Cannula 2 (1) Chest pain Chest pain type: unspecified Qualified Code(s): R07.9 - Chest pain, unspecified
[2024-10-22] MEDS: NORETHINDRONE 5 MG TAB PO SCH (15:15)
[2024-10-22 16:25] LABS: Trichomonas vag by NAA Not Detected (NotDetected)
[2024-10-22] MEDS: ACETAMINOPHEN 325 MG TAB PO PRN (17:21)
--- NOTE | 2024-10-22 21:21 | Electrocardiogram Report ---
Test Reason : Blood Pressure : */* mmHG Vent. Rate : 82 BPM Atrial Rate : 82 BPM P-R Int : 136 ms QRS Dur : 74 ms QT Int : 416 ms P-R-T Axes : 83 80 76 degrees QTcB Int : 486 ms Normal sinus rhythm Prolonged QT When compared with ECG of 21-Oct-2024 11:46, Nonspecific T wave abnormality no longer evident in Lateral leads Confirmed by Dallas Williamson ([id number]) on 10/22/2024 9:21:27 PM Referred By: REFERRED SELF Confirmed By: Dallas Williamson
--- NOTE | 2024-10-23 08:17 | Cardiology Progress Note ---
Date of Service October 23, 2024 Assessment & Plan (1) Symptomatic anemia: (2) Chest pain: (3) Elevated troponin: (4) Renal vein thrombosis: (5) Nephrotic syndrome: (6) CKD (chronic kidney disease), stage III: (7) HTN (hypertension): (8) Menorrhagia due to blood coagulation disorder: (9) History of bilateral salpingectomy: Plan 29-year-old female who presented to [facility] on 10/21/24 for evaluation of chest pain, shortness of breath, and heart racing. She has noticed shortness of breath, heart racing, fatigue, and sharp chest tightness while taking her daughter to school the past two days. She also reported associated fatigue, leg weakness, lightheadedness, and dizziness. She went to [facility] picker her psychiatric medication at [facility] yesterday. Found to have elevated heart rates in 160s and told to go to the emergency department. History of heavy menstrual cycle status post diagnostic laparoscopy and laparoscopic bilateral salpingectomy (01/01/24). Her menstrual cycle started on Friday. She notes heavy bleeding for over the past week. She states that she went through four pads, pairs of underwear, and gowns yesterday while in the ED. Her menstrual cycle typically lasts a little over a week with heavy bleeding for 2-3 days. Followed by hematology for iron deficiency anemia. Last received IV Venofer x2 dose in 04/15/24. Followed by nephrology for history of renal vein thrombosis (2018), CKD stage III and history of nephrotic syndrome. She remains on long-term anticoagulation for renal vein thrombosis. Previously on warfarin, but was unhappy with frequent blood draws. Transitioned to Eliquis and has been on it since June 2023. Chest pain Elevated troponins -Ongoing intermittent exertional chest tightness and mildly elevated troponins (76.3-88.9-151.4-104.4) likely secondary to demand ischemia in setting of anemia and heavy menstrual bleeding -Sinus rhythm with rates in 70s to 90s and episode of sinus tachycardia with rate 143 bpm when walking to bathroom last night upon telemetry review -Heart rate and blood pressure stable today -EKG with no acute ischemic changes -ECHO today with LVEF 60-65%, no regional wall motion abnormalities, or significant valvular disease -Sinus tachycardia will likely improve with correction of anemia and heavy menstrual bleeding - will hold off on starting beta-blockers at this time Heavy menstrual bleeding History of renal vein thrombosis Abnormal pelvic ultrasound -Followed by OBGYN for history of heavy menstrual bleeding -Status post diagnostic laparoscopy and laparoscopic bilateral salpingectomy (01/01/24) -Pelvic ultrasound showed distended uterine cavity with large amount of complex clot -Hemoglobin 8.1 on AM labs -Continue to trend H&H -Tranfuse for Hbg < 8.0 -Agree with holding off on anticoagulant therapy given ongoing heavy bleeding Iron deficiency anemia -Last received IV Venofer x2 dose in 04/15/24 -Iron 116 and Ferritin 30 on AM labs -Currently on ferrous sulfate 325 mg twice daily -Will defer to hematology for treatment CKD stage III (baseline Cr 1-2) History of nephrotic syndrome -Followed by nephrology -Creatinine 2.07 on AM labs -Continue daily BMP to monitor kidney function 10/23/2024: -Chest pain has resolved with no acute events overnight -HgB is stable, 8.6 today. -No ectopy or arrhythmia on telemetry. Tachycardia has resolved. -Renal function remains stable for this patient 2.14. Followed by nephrology, continue to trend labs. -Continue to Trend H/H and transfuse for HgB< 8.0, followed by Hematology. -Eliquis on hold until heavy bleeding has subsided. -Discussed patient's mild elevation in troponin which is likely demand ischemia from her profound anemia. Plan at this time is to continue to monitor labs and correct anemia. Would recommend that patient follow up with cardiology outpatient and undergo a stress test when she is stable. Would not pursue a cardiac CT in this patient given her known CKD and history of nephrotic syndrome Case has been discussed with Dr. Ricardo. Further recommendations regarding plan of care as per his assessment. I spent a total of 30 minutes on the date of service in preparation, delivery, documentation of the care provided to the patient excluding any time spent in the performance of separately billed services. PB Álvarez [facility] Admission and Anticipated Discharge Date Admission Date: October 21, 2024 Supervising Physician Co-Signing Physician Notes I have personally performed a history and physical examination on the patient. I have reviewed the advance practitioner's documentation, and I agree with, and take responsibility for the plan of care. 29-year-old female presented to the emergency department with palpitations, tachycardia, chest discomfort, and shortness of breath. Received 1 unit of packed red blood cells yesterday. Feeling better today although ongoing nausea unchanged. Telemetry reveals sinus rhythm in the 70s and 80s. No recurrent tachycardia. No recurrent chest discomfort. Echocardiogram demonstrates normal LV and RV function without regional wall motion abnormality or valvular pathology. Mild ongoing vaginal bleeding noted today. No longer passing clots. Hemoglobin remains stable. Monitor H&H. Maintain serum hemoglobin greater than 8.0. Continue telemetry monitoring. Supplement electrolytes as indicated. Serum magnesium level ordered. Further evaluation as outpatient when she has recovered from symptomatic anemia. I spent a total of 30 minutes on the date of service in preparation, delivery, and documentation of the care provided to this patient, excluding any time spent in the performance of separately billed services. Drake Ricardo DO, [facility] Subjective 10/23/2024: Patient seen and examined in follow up today. Feeling well overall. Offers no cardiac complaints Labs, vitals, diagnostics, telemetry and documentation reviewed. Telemetry reviewed showing SR rates 70-80's with no acute events overnight HgB remains stable 8.6 (was 8.1 yesterday) Cr stable 2.14 Review of Systems Review of Systems: All systems reviewed & are unremarkable except as noted in HPI & below Physical Exam Constitutional: + thin Neck: normal visual inspection and trachea midline Respiratory: normal respiratory effort, lungs clear to auscultation Cardiovascular: RRR, no murmur, no edema Heart Sounds: normal S1 and normal S2; no murmur Vessels: dorsalis pedis pulses present; no JVD Extremities: no edema Skin: no rashes, warm and dry Psychiatric: A+Ox3, euthymic affect Results & Data Vital Signs (Past 12 Hours) Vital Signs Temp Pulse Pulse Resp BP Pulse Ox O2 Del Method 10/23/24 07:58 Room Air 10/23/24 07:40 36.8 C 76 18 123/72 100 Room Air 10/23/24 03:30 36.7 C 78 16 96/58 L 99 Room Air 10/22/24 22:29 36.7 C 75 16 99/63 L 98 Room Air 10/22/24 22:22 Room Air 10/22/24 21:46 77 Laboratory Results CBC 10/23/24 Range/Units 08:06 WBC 10.63 (4.8-10.8) K/ul RBC 2.71 L (4.20-5.40) M/uL Hgb 8.6 L (12.0-16.0) g/dl Hct 24.5 L (37.0-47.0) % Plt Count 180 (130-400) K/uL Neut # (Auto) 7.88 H (1.40-6.50) K/uL Lymph # (Auto) 1.63 (1.20-3.40) K/uL [place] # (Auto) 0.62 H (0.11-0.59) K/uL Eos # (Auto) 0.31 (0.00-0.50) K/uL Baso # (Auto) 0.06 (0.00-0.20) K/uL Comprehensive Metabolic Panel 10/23/24 Range/Units 07:54 Sodium 139 (136-145) mmol/L Potassium 3.5 (3.5-5.1) mmol/L Chloride 108 H (98-107) mmol/L Carbon Dioxide 23 (21-32) mmol/L BUN 14 (6-23) mg/dl Creatinine 2.14 H (0.6-1.2) mg/dl Glucose 89 (70-99(Fasting)) mg/dl Calcium 8.0 L (8.6-10.3) mg/dl Intake and Output 10/22/24 10/23/24 10/23/24 22:59 06:59 14:59 Intake Total 265 / 985 50 / 985 Balance 265 / 985 50 / 985 Intake: IV 265 / 315 50 / 315 Iron Sucrose 300 mg In Sodium 265 / 265 Chloride 0.9% 250 ml @ 176.667 mls/hr IV TODAY ONE Rx#: [id number] cefTRIAXone SODIUM 2,000 mg In 50 / 50 50 ml @ 100 mls/hr IV Q24H [facility] Rx#:[id number] Other: # Unmeasured Voids 1 1 Weight 44.1 kg
[2024-10-23 08:42] LABS: BUN Creatinine Ratio 6.5 (10-20); Creatinine Clr Calc Pharmacy 26.5 ml/min; Potassium 3.5 mmol/L (3.5-5.1)
[2024-10-23 08:45] LABS: Basophils # (auto) 0.06 K/uL (0.00-0.20); Basophils % (auto) 0.6 %; Eosinophils # (auto) 0.31 K/uL (0.00-0.50); Eosinophils % (auto) 2.9 %; Hematocrit (blood only) 24.5 % (37.0-47.0); Hemoglobin 8.6 g/dl (12.0-16.0); Immature Granulocytes # (auto) 0.13 K/uL (0.01-0.20); Immature Granulocytes % (auto) 1.2 %; Lymphocytes # (auto) 1.63 K/uL (1.20-3.40); Lymphocytes % (auto) 15.3 %; Mean Corpuscular Hemoglobin 31.7 pg (25.0-34.0); Mean Corpuscular Hgb Conc 35.1 g/dL (32.0-36.0); Mean Corpuscular Volume 90.4 fL (80.0-100.0); Monocytes # (auto) 0.62 K/uL (0.11-0.59); Monocytes % (auto) 5.8 %; Neutrophils # (auto) 7.88 K/uL (1.40-6.50); Neutrophils % (auto) 74.2 %; Platelet Count 180 K/uL (130-400); RDW Coefficient of Variation 13.9 % (11.5-14.5); RDW Standard Deviation 44.6 fL (36.4-46.3); Red Blood Count 2.71 M/uL (4.20-5.40); White Blood Count 10.63 K/ul (4.8-10.8)
[2024-10-23] MEDS: IRON SUCROSE 300 MG in SODIUM CHLORIDE 0.9% 250 ML IV SCH (09:23)
--- NOTE | 2024-10-23 09:53 | Discharge Summary ---
Date of Service October 23, 2024 Admission HPI Per Admitting Provider This is a 29-year-old female with PMH of renal vein thrombosis on Eliquis, CKD 3, PÉREZ (baseline hgb 9-10), history of nephrotic syndrome, mood disorder, hypertension, hypothyroidism and other medical problems listed below who presents with chest pain. Presented to outpatient psychiatric clinic today for med refill but was noted to look ill and redirected to ED for further evaluation. Endorses general SOB for the past few days. Then yesterday after dropping her daughter off at school yesterday, she felt weak and fatigued and "legs felt like jello". Also endorses chest tightness starting yesterday, described as sharp, central, non-radiating pain that continued into today. Chest pain exacerbated with movement. Was alleviated slightly after taking anxiety meds but only helped for a few hours. Vomiting this AM and has abdominal pain as well, described as cramping, waxes and wanes. Started period last Friday and it typically lasts 7 days. Uses pads only and bleeding has slowed down but still having menses, passing clots. States she always has severe abdominal pain with period but is generally improving by day [address] Quevedo of heme-onc for history of PÉREZ, renal vein thrombosis. Continued on low-dose Eliquis for indefinite anticoagulation. Completed IV Venofer x 2 doses over the summer. Taking oral iron BID. Follows with DRIVER SERVICE TECHNICIAN and previously opted against pursuing any intervention for heavy menstrual bleeding. Admission Exam Per Admitting Provider General: Not in distress Eyes: PERRL, anicteric sclerae, EOM intact bilaterally ENMT: External ear and nose normal, oropharynx normal Respiratory: Normal respiratory effort, no respiratory distress, lungs clear to auscultation, no crackles and no wheezes Cardiovascular: RRR S1 S2 Gastrointestinal (Abdomen): Abdomen is not distended, soft, +mild suprapubic tenderness, no guarding, no palpable hepatosplenomegaly, normal bowel sounds Musculoskeletal: No pedal edema Neurologic: Alert and oriented x 3, No focal weakness, sensation grossly intact Principal Diagnosis Heavy menstrual bleeding Iron deficiency anemia Chest pain Elevated troponin Discharge Exam Constitutional: Alert oriented x 3; not in distress. Respiratory: normal respiratory effort, lungs clear to auscultation, no wheeze, rales, rhonchi. Normal insp/exp effort, no accessory muscle use Cardiovascular: RRR, no murmur, no edema Vessels: no JVD or carotid bruit Chest: normal inspection of chest Abdomen: Soft, nontender. Musculoskeletal: no cyanosis or clubbing, extremities motor strength 5/5 Skin: no rashes, warm and dry normal turgor Neurologic: PERRL, EOMI, accommodation nl, no face palsy, no dysarthria CN's II- XI intact bilaterally and moves all extremities Psychiatric: A+Ox3, euthymic affect Discharge Data Allergies Allergy/AdvReac Type Severity Reaction Status Date / Time lamotrigine Allergy Unknown itchy Verified 05/18/23 13:26 oxycodone AdvReac Intermediate itching Verified 05/18/23 13:26 fluoxetine AdvReac Unknown Shakiness Verified 05/18/23 13:26 paroxetine AdvReac Unknown Suicidal Verified 05/18/23 13:26 thoughts Consultations 10/21/24 15:29 ED Decision to Admit Stat 10/21/24 16:38 Consult Gynecology Routine 10/21/24 16:39 Consult Cardiology Routine Ordered Studies 10/21/24 13:01 CT abd pelvis wo con Stat 10/21/24 14:31 US pelvic complete Stat Hospital Course (1) Chest pain: (2) Elevated troponin: (3) Renal vein thrombosis: (4) Nephrotic syndrome: (5) CKD (chronic kidney disease), stage III: (6) HTN (hypertension): (7) Hypothyroidism: (8) Anxiety: Plan This is a 29-year-old female with PMH of renal vein thrombosis on Eliquis, CKD 3, PÉREZ (baseline hgb 9-10), history of nephrotic syndrome, mood disorder, h ypertension, hypothyroidism and other medical problems listed below who presents with chest pain. Heavy menstrual bleeding Iron deficiency anemia History of heavy menstrual period for several months. [id number]; currently on iron supplement CT abd/P and Pelvic USS show significantly enlarged uterus with complex material consistent with clots Evaluated by DRIVER SERVICE TECHNICIAN; discussed with Dr. Adhikari regarding options for heavy menstrual period which is likely causing her iron deficiency leading to weakness, fatigue, tachycardia and chest pain. Started on Aygestin 5 mg 3 times daily; plan to continue for 3 weeks and follow- up with her DRIVER SERVICE TECHNICIAN as outpatient for possible Minera IUD placement. Was given 600 mg of Venofer while she was admitted here. Chest pain Elevated troponin Patient reports palpitation on movement and intermittent chest pain NSR at 90 bpm, non-specific ST and T wave abn, qtc 447 ms Echo shows normal EF; no valvular abnormalities or Wall motion abnormalities Telemetry does not show any arrhythmia The chest pain and palpitation are likely related with anemia; follow-up with cardiology after resolution of anemia for further workup. H/o renal vein thrombosis Eliquis to be resumed at discharge Please note the above document was generated using voice recognition software. It may contain grammatical, syntax or spelling errors. Any formal questions or concerns about the content, text or information contained within the body of this dictation should be directly addressed to the provider for clarification Total Time Total Time Spent Total Time Spent (In Minutes): 45 Total Time Includes: Examination of the Patient, Discharge Planning, Medication Reconciliation, Communication With Other Providers and Other Discharge Plan Discharge Items Patient Disposition: Home - Self-Care Reason For Visit: CP, ABD PAIN Discharge Diagnosis: Heavy menstrual bleeding Iron deficiency anemia Chest pain Elevated troponin Activity: Resume your previous activity Non-emergency contact: Primary Care Provider Call non-emergency contact if: you have any medication questions and your symptoms worsen Follow-up/Referrals: Nina Ricardo, [Primary Care Provider] - Diet: Regular Addtl Attending Provider Instructions: You were admitted to the hospital due to chest pain. You are found to have slightly elevated troponin level. Your evaluated by cardiology during the hospitalization and underwent echocardiogram. The echocardiogram showed normal heart function. The chest pain and palpitation are likely due to anemia caused by heavy menstrual bleeding. You were evaluated by DRIVER SERVICE TECHNICIAN for heavy menstrual bleeding; they recommend that you take norethindrone acetate 5 mg 3 times a day for 3 weeks. Please follow-up with your DRIVER SERVICE TECHNICIAN for consideration of Minera IUD. Start taking your Eliquis from tomorrow. You are transfused with iron of 600 mg. Please continue to take oral iron supplement as you are doing previously. Pending Studies at Discharge: No Stand-Alone Forms: My [facility], Smoking Cessation Medications and DC Order Prescriptions: New norethindrone acetate 5 mg Tablet 5 mg PO TID 20 Days Qty: 60 0RF Continued acetaminophen [Tylenol Extra Strength] 500 mg Tablet 1,000 mg PO Q6H PRN (Reason: Pain) hydroxyzine HCl 50 mg tablet 50 mg PO HS PRN (Reason: Sleep) buspirone 15 mg tablet 15 mg PO BID Vraylar 3 mg capsule 3 mg PO HS ondansetron 4 mg tablet,disintegrating 4 mg PO Q8H PRN (Reason: nausea and vomiting) Qty: 30 0RF ferrous sulfate 325 mg (65 mg iron) tablet 325 mg PO BID Eliquis 2.5 mg tablet 2.5 mg PO BID famotidine 20 mg Tablet 20 mg PO HS PRN (Reason: Dyspepsia) levothyroxine 112 mcg tablet 112 mcg PO DAILY Admission Data Admit Date/Time: 10/21/24 16:37 Attending Provider: Edy Arellano Admit Provider: Carmelita Stone I. Primary Care Provider: Nina Ricardo Other Providers: Drake Ricardo; Carmelita Stone I.; Dale Adhikari
[2024-10-23 10:12] LABS: Magnesium 1.6 mg/dl (1.7-2.4)
--- NOTE | 2024-10-23 11:27 | Hospitalist Progress Note ---
Date of Service October 23, 2024 Assessment & Plan (1) Chest pain: (2) Elevated troponin: (3) Renal vein thrombosis: (4) Nephrotic syndrome: (5) CKD (chronic kidney disease), stage III: (6) HTN (hypertension): (7) Hypothyroidism: (8) Anxiety: Plan This is a 29-year-old female with PMH of renal vein thrombosis on Eliquis, CKD 3, PÉREZ (baseline hgb 9-10), history of nephrotic syndrome, mood disorder, hypertension, hypothyroidism and other medical problems listed below who presents with chest pain. Heavy menstrual bleeding Iron deficiency anemia History of heavy menstrual period for several months. [id number]; currently on iron supplement CT abd/P and Pelvic USS show significantly enlarged uterus with complex material consistent with clots Evaluated by BOOTH USHER; discussed with Dr. Adhikari regarding options for heavy menstrual period which is likely causing her iron deficiency leading to weakness, fatigue, tachycardia and chest pain. Started on Aygestin 5 mg 3 times daily; plan to continue for 3 weeks and follow- up with her BOOTH USHER as outpatient for possible Minera IUD placement. Continue IV venofer for now Chest pain Elevated troponin Patient reports palpitation on movement and intermittent chest pain NSR at 90 bpm, non-specific ST and T wave abn, qtc 447 ms Echo shows normal EF; no valvular abnormalities or Wall motion abnormalities Telemetry does not show any arrhythmia The chest pain and palpitation are likely related with anemia; follow-up with cardiology after resolution of anemia for further workup. H/o renal vein thrombosis Eliquis to be resumed at discharge CKD III History of nephrotic syndrome Cr at baseline Follows with Dr. Rendon Monitor with daily BMP Hypothyroidism Continue levothyroxine Mood disorder Continue Buspar, Vraylar HS, hydroxyzine HS PRN DVT Ppx: Holding eliquis for now Code status: FULL PCP: Haleigh Dispo: Monitor for recurrence of bleeding. Monitor on telemetry. Possible DC in a.m. Please note the above document was generated using voice recognition software. It may contain grammatical, syntax or spelling errors. Any formal questions or concerns about the content, text or information contained within the body of this dictation should be directly addressed to the provider for clarification Admission and Anticipated Discharge Date Admission Date: October 21, 2024 Subjective Patient seen and examined at bedside. She reports that her chest pain has significantly improved; continues to report fatigue Abdominal pain has subsided as well No significant events overnight Review of Systems Review of Systems: All systems reviewed & are unremarkable except as noted in Subjective Physical Exam Physical Exam: Constitutional: Alert oriented x 3; not in distress. Respiratory: normal respiratory effort, lungs clear to auscultation, no wheeze, rales, rhonchi. Normal insp/exp effort, no accessory muscle use Cardiovascular: RRR, no murmur, no edema Vessels: no JVD or carotid bruit Chest: normal inspection of chest Abdomen: Soft, nontender. Musculoskeletal: no cyanosis or clubbing, extremities motor strength 5/5 Skin: no rashes, warm and dry normal turgor Neurologic: PERRL, EOMI, accommodation nl, no face palsy, no dysarthria CN's II- XI intact bilaterally and moves all extremities Psychiatric: A+Ox3, euthymic affect Results & Data Results & Data Vital Signs (Past 12 Hours) Vital Signs Temp Pulse Pulse Resp BP Pulse Ox O2 Del Method 10/23/24 10:40 86 10/23/24 07:58 Room Air 10/23/24 07:40 36.8 C 76 18 123/72 100 Room Air 10/23/24 03:30 36.7 C 78 16 96/58 L 99 Room Air (1) Chest pain Chest pain type: unspecified Qualified Code(s): R07.9 - Chest pain, unspec ified
--- NOTE | 2024-10-24 07:59 | Cardiology Progress Note ---
Date of Service October 24, 2024 Assessment & Plan (1) Symptomatic anemia: (2) Chest pain: (3) Elevated troponin: (4) Renal vein thrombosis: (5) Nephrotic syndrome: (6) CKD (chronic kidney disease), stage III: (7) HTN (hypertension): (8) Menorrhagia due to blood coagulation disorder: (9) History of bilateral salpingectomy: Plan 29-year-old female who presented to [facility] on 10/21/24 for evaluation of chest pain, shortness of breath, and heart racing. She has noticed shortness of breath, heart racing, fatigue, and sharp chest tightness while taking her daughter to school the past two days. She also reported associated fatigue, leg weakness, lightheadedness, and dizziness. 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 Found to have elevated heart rates in 160s and told to go to the emergency department. History of heavy menstrual cycle status post diagnostic laparoscopy and laparoscopic bilateral salpingectomy (01/01/24). Her menstrual cycle started on Friday. She notes heavy bleeding for over the past week. She states that she went through four pads, pairs of underwear, and gowns yesterday while in the ED. Her menstrual cycle typically lasts a little over a week with heavy bleeding for 2-3 days. Followed by hematology for iron deficiency anemia. Last received IV Venofer x2 dose in 04/15/24. Followed by nephrology for history of renal vein thrombosis (2018), CKD stage III and history of nephrotic syndrome. She remains on long-term anticoagulation for renal vein thrombosis. Previously on warfarin, but was unhappy with frequent blood draws. Transitioned to Eliquis and has been on it since June 2023. Chest pain Elevated troponins -Ongoing intermittent exertional chest tightness and mildly elevated troponins (76.3-88.9-151.4-104.4) likely secondary to demand ischemia in setting of anemia and heavy menstrual bleeding -Sinus rhythm with rates in 70s to 90s and episode of sinus tachycardia with rate 143 bpm when walking to bathroom last night upon telemetry review -Heart rate and blood pressure stable today -EKG with no acute ischemic changes -ECHO today with LVEF 60-65%, no regional wall motion abnormalities, or significant valvular disease -Sinus tachycardia will likely improve with correction of anemia and heavy menstrual bleeding - will hold off on starting beta-blockers at this time Heavy menstrual bleeding History of renal vein thrombosis Abnormal pelvic ultrasound -Followed by OBGYN for history of heavy menstrual bleeding -Status post diagnostic laparoscopy and laparoscopic bilateral salpingectomy (01/01/24) -Pelvic ultrasound showed distended uterine cavity with large amount of complex clot -Hemoglobin 8.1 on AM labs -Continue to trend H&H -Tranfuse for Hbg < 8.0 -Agree with holding off on anticoagulant therapy given ongoing heavy bleeding Iron deficiency anemia -Last received IV Venofer x2 dose in 04/15/24 -Iron 116 and Ferritin 30 on AM labs -Currently on ferrous sulfate 325 mg twice daily -Will defer to hematology for treatment CKD stage III (baseline Cr 1-2) History of nephrotic syndrome -Followed by nephrology -Creatinine 2.07 on AM labs -Continue daily BMP to monitor kidney function 10/23/2024: -Chest pain has resolved with no acute events overnight -HgB is stable, 8.6 today. -No ectopy or arrhythmia on telemetry. Tachycardia has resolved. -Renal function remains stable for this patient 2.14. Followed by nephrology, continue to trend labs. -Continue to Trend H/H and transfuse for HgB< 8.0, followed by Hematology. -Eliquis on hold until heavy bleeding has subsided. -Discussed patient's mild elevation in troponin which is likely demand ischemia from her profound anemia. Plan at this time is to continue to monitor labs and correct anemia. Would recommend that patient follow up with cardiology outpatient and undergo a stress test when she is stable. Would not pursue a cardiac CT in this patient given her known CKD and history of nephrotic syndrome Case has been discussed with Dr. Ricardo. Further recommendations regarding plan of care as per his assessment. 10/24/2024: -Patient doing well from a cardiac perspective today, no recurrence of chest pain and no events overnight. -Review of telemetry is unremarkable. -No labs were drawn this morning and so STAT CBC and BMP were obtained. HgB has trended down again, now 7.6--management per primary team and hematology. Concern that her bleeding has nearly ceased, her HgB is dropping again and patient continues with her anticoagulation on hold -Continue to Trend H/H and transfuse for HgB< 8.0, followed by Hematology. -Eliquis on hold until heavy bleeding has subsided. -Discussed patient's mild elevation in troponin which is likely demand ischemia from her profound anemia. Plan at this time is to continue to monitor labs and correct anemia. Would recommend that patient follow up with cardiology outpatient and undergo a stress test when she is stable. Would not pursue a cardiac CT in this patient given her known CKD and history of nephrotic syndrome I spent a total of 30 minutes on the date of service in preparation, delivery, documentation of the care provided to the patient excluding any time spent in the performance of separately billed services. PB Álvarez [facility] Cardiology [facility] Admission and Anticipated Discharge Date Admission Date: October 21, 2024 Supervising Physician Co-Signing Physician Notes I have personally performed a history and physical examination on the patient. I have reviewed the advance practitioner's documentation, and I agree with, and take responsibility for the plan of care. 29-year-old female presented to the emergency department with palpitations, tachycardia, chest discomfort, and shortness of breath. Received 1 unit of packed red blood cells 10/22/24. Repeat hemoglobin today down to 7.6gm/dL. Hypokalemia noted. Feeling better from a cardiovascular perspective. No further chest discomfort or shortness of breath. Telemetry feels sinus rhythm without recurrent tachycardia. Vaginal bleeding has stopped, however, Eliquis remains on hold. Recommendations: * Supplement potassium, 40meq KCl ordered. * Additional 1 unit packed red blood cells ordered by IM * Repeat serum magnesium level (hypomagnesemia documented 10/23/2024) * outpatient cardiology evaluation when she has recovered from symptomatic anemia. I spent a total of 30 minutes on the date of service in preparation, delivery, and documentation of the care provided to this patient, excluding any time spent in the performance of separately billed services. Drake Ricardo DO, [facility] Subjective 10/24/2024: Patient seen and examined in follow up today. Feeling well today. Offers no cardiac complaints. No chest pain, pressure, palpitations, shortness of breath,pre-syncope, syncope or edema Labs, vitals, diagnostics, telemetry and documentation reviewed. Telemetry reviewed showing SR rates 80's. No acute events overnight. Stat labs ordered this am showing HgB 7.6/22.0, this is a decrease from yesterday in which HgB is 8.6 BMP is pending Patient reports that she is barely bleeding today, some spotting. Review of Systems Review of Systems: All systems reviewed & are unremarkable except as noted in HPI & below Physical Exam Constitutional: + thin Neck: normal visual inspection and trachea midline Respiratory: normal respiratory effort, lungs clear to auscultation Cardiovascular: RRR, no murmur, no edema Heart Sounds: normal S1 and normal S2; no murmur Vessels: dorsalis pedis pulses present; no JVD Extremities: no edema Skin: no rashes, warm and dry Psychiatric: A+Ox3, euthymic affect Results & Data Vital Signs (Past 12 Hours) Vital Signs Temp Pulse Pulse Resp BP Pulse Ox O2 Del Method 10/24/24 07:40 36.8 C 85 18 117/70 99 Room Air 10/24/24 03:37 36.8 C 82 16 101/63 99 Room Air 10/23/24 23:30 36.9 C 73 18 124/65 94 Room Air 10/23/24 23:17 88 10/23/24 22:36 Room Air Laboratory Results CBC 10/24/24 Range/Units 07:46 WBC 11.29 H (4.8-10.8) K/ul RBC 2.38 L (4.20-5.40) M/uL Hgb 7.6 L (12.0-16.0) g/dl Hct 22.0 L (37.0-47.0) % Plt Count 223 (130-400) K/uL Neut # (Auto) 7.29 H (1.40-6.50) K/uL Lymph # (Auto) 2.68 (1.20-3.40) K/uL Ramsey # (Auto) 0.80 H (0.11-0.59) K/uL Eos # (Auto) 0.33 (0.00-0.50) K/uL Baso # (Auto) 0.08 (0.00-0.20) K/uL Intake and Output 10/23/24 10/24/24 10/24/24 22:59 06:59 14:59 Intake Total 240 / 695 190 / 695 Balance 240 / 695 190 / 695 Intake: IV 50 / 315 cefTRIAXone SODIUM 2,000 mg In 50 / 50 50 ml @ 100 mls/hr IV Q24H COUNTS INCLUDE 234 BEDS AT THE [facility] Rx#:[id number] Oral 240 / 380 140 / 380 Other: # Unmeasured Voids 3 Weight 45 kg Weight Measurement Method Built in [facility]
[2024-10-24 08:35] LABS: Basophils # (auto) 0.08 K/uL (0.00-0.20); Basophils % (auto) 0.7 %; Eosinophils # (auto) 0.33 K/uL (0.00-0.50); Eosinophils % (auto) 2.9 %; Hemoglobin 7.6 g/dl (12.0-16.0); Immature Granulocytes # (auto) 0.11 K/uL (0.01-0.20); Lymphocytes # (auto) 2.68 K/uL (1.20-3.40); Lymphocytes % (auto) 23.7 %; Mean Corpuscular Hemoglobin 31.9 pg (25.0-34.0); Mean Corpuscular Hgb Conc 34.5 g/dL (32.0-36.0); Mean Corpuscular Volume 92.4 fL (80.0-100.0); Mean Platelet Volume 10.1 fL (9.4-12.4); Monocytes % (auto) 7.1 %; Neutrophils # (auto) 7.29 K/uL (1.40-6.50); Neutrophils % (auto) 64.6 %; Nucleated RBC # (auto) 0.02 K/uL (0.00-0.12); Nucleated RBC % (auto) 0.2 %; Platelet Count 223 K/uL (130-400); RDW Coefficient of Variation 13.8 % (11.5-14.5); RDW Standard Deviation 44.7 fL (36.4-46.3); Red Blood Count 2.38 M/uL (4.20-5.40); White Blood Count 11.29 K/ul (4.8-10.8)
[2024-10-24 08:54] LABS: Basophilic Stippling 1+; Polychromasia 2+
[2024-10-24] MEDS ORDERED: SODIUM CHLORIDE 0.9% 100 ML IV PRN (09:21)
[2024-10-24] MEDS ORDERED: SODIUM CHLORIDE 0.9% 50 ML IV PRN (09:21)
[2024-10-24 09:41] LABS: Calcium 8.1 mg/dl (8.6-10.3); Potassium 3.1 mmol/L (3.5-5.1)
[2024-10-24 09:47] LABS: BUN Creatinine Ratio 5.8 (10-20); Creatinine Clr Calc Pharmacy 28.1 ml/min
[2024-10-24 10:35] VITALS: O2SAT 100
--- NOTE | 2024-10-24 11:15 | Discharge Summary ---
Date of Service October 24, 2024 Admission HPI Per Admitting Provider This is a 29-year-old female with PMH of renal vein thrombosis on Eliquis, CKD 3, PÉREZ (baseline hgb 9-10), history of nephrotic syndrome, mood disorder, hypertension, hypothyroidism and other medical problems listed below who presents with chest pain. Presented to outpatient psychiatric clinic today for med refill but was noted to look ill and redirected to ED for further evaluation. Endorses general SOB for the past few days. Then yesterday after dropping her daughter off at school yesterday, she felt weak and fatigued and "legs felt like jello". Also endorses chest tightness starting yesterday, described as sharp, central, non-radiating pain that continued into today. Chest pain exacerbated with movement. Was alleviated slightly after taking anxiety meds but only helped for a few hours. Vomiting this AM and has abdominal pain as well, described as cramping, waxes and wanes. Started period last Friday and it typically lasts 7 days. Uses pads only and bleeding has slowed down but still having menses, passing clots. States she always has severe abdominal pain with period but is generally improving by day [address] Quevedo of heme-onc for history of PÉREZ, renal vein thrombosis. Continued on low-dose Eliquis for indefinite anticoagulation. Completed IV Venofer x 2 doses over the summer. Taking oral iron BID. Follows with FISHERIES TECHNICIAN and previously opted against pursuing any intervention for heavy menstrual bleeding. Admission Exam Per Admitting Provider General: Not in distress Eyes: PERRL, anicteric sclerae, EOM intact bilaterally ENMT: External ear and nose normal, oropharynx normal Respiratory: Normal respiratory effort, no respiratory distress, lungs clear to auscultation, no crackles and no wheezes Cardiovascular: RRR S1 S2 Gastrointestinal (Abdomen): Abdomen is not distended, soft, +mild suprapubic tenderness, no guarding, no palpable hepatosplenomegaly, normal bowel sounds Musculoskeletal: No pedal edema Neurologic: Alert and oriented x 3, No focal weakness, sensation grossly intact Principal Diagnosis Heavy menstrual bleeding Iron deficiency anemia Chest pain Elevated troponin Discharge Exam Constitutional: Alert oriented x 3; not in distress. Respiratory: normal respiratory effort, lungs clear to auscultation, no wheeze, rales, rhonchi. Normal insp/exp effort, no accessory muscle use Cardiovascular: RRR, no murmur, no edema Vessels: no JVD or carotid bruit Chest: normal inspection of chest Abdomen: Soft, nontender. Musculoskeletal: no cyanosis or clubbing, extremities motor strength 5/5 Skin: no rashes, warm and dry normal turgor Neurologic: PERRL, EOMI, accommodation nl, no face palsy, no dysarthria CN's II- XI intact bilaterally and moves all extremities Psychiatric: A+Ox3, euthymic affect Discharge Data Allergies Allergy/AdvReac Type Severity Reaction Status Date / Time lamotrigine Allergy Unknown itchy Verified 05/18/23 13:26 oxycodone AdvReac Intermediate itching Verified 05/18/23 13:26 fluoxetine AdvReac Unknown Shakiness Verified 05/18/23 13:26 paroxetine AdvReac Unknown Suicidal Verified 05/18/23 13:26 thoughts Consultations 10/21/24 15:29 ED Decision to Admit Stat 10/21/24 16:38 Consult Gynecology Routine 10/21/24 16:39 Consult Cardiology Routine Ordered Studies 10/21/24 13:01 CT abd pelvis wo con Stat 10/21/24 14:31 US pelvic complete Stat Hospital Course (1) Chest pain: (2) Elevated troponin: (3) Renal vein thrombosis: (4) Nephrotic syndrome: (5) CKD (chronic kidney disease), stage III: (6) HTN (hypertension): (7) Hypothyroidism: (8) Anxiety: Plan This is a 29-year-old female with PMH of renal vein thrombosis on Eliquis, CKD 3, PÉREZ (baseline hgb 9-10), history of nephrotic syndrome, mood disorder, h ypertension, hypothyroidism and other medical problems listed below who presents with chest pain. Heavy menstrual bleeding Iron deficiency anemia History of heavy menstrual period for several months. [id number]; CT abd/P and Pelvic USS show significantly enlarged uterus with complex material consistent with clots Evaluated by FISHERIES TECHNICIAN; discussed with Dr. Adhikari regarding options for heavy menstrual period which is likely causing her iron deficiency leading to weakness, fatigue, tachycardia and chest pain. Started on Aygestin 5 mg 3 times daily; plan to continue for 3 weeks and follow- up with her FISHERIES TECHNICIAN as outpatient for possible Minera IUD placement. Was given 2 units of packed RBC and 600 mg of Venofer during the hospitalizat ion. Patient's menstrual bleeding had stopped on the day of the discharge. Chest pain Elevated troponin Patient reports palpitation on movement and intermittent chest pain NSR at 90 bpm, non-specific ST and T wave abn, qtc 447 ms Echo shows normal EF; no valvular abnormalities or Wall motion abnormalities Telemetry does not show any arrhythmia The chest pain and palpitation are likely related with anemia; follow-up with cardiology after resolution of anemia for further workup. H/o renal vein thrombosis Eliquis to be resumed at discharge CKD III History of nephrotic syndrome Cr at baseline Follow up with nephrology Please note the above document was generated using voice recognition software. It may contain grammatical, syntax or spelling errors. Any formal questions or concerns about the content, text or information contained within the body of this dictation should be directly addressed to the provider for clarification Total Time Total Time Spent Total Time Spent (In Minutes): 45 Total Time Includes: Examination of the Patient, Discharge Planning, Medication Reconciliation, Communication With Other Providers and Other Discharge Plan Discharge Items Patient Disposition: Home - Self-Care Reason For Visit: CP, ABD PAIN Discharge Diagnosis: Heavy menstrual bleeding Iron deficiency anemia Chest pain Elevated troponin Activity: Resume your previous activity Non-emergency contact: Primary Care Provider Call non-emergency contact if: you have any medication questions and your symptoms worsen Follow-up/Referrals: Nina Ricardo DO [Primary Care Provider] - Diet: Regular Addtl Attending Provider Instructions: You were admitted to the hospital due to chest pain. You are found to have slightly elevated troponin level. Your evaluated by cardiology during the hospitalization and underwent echocardiogram. The echocardiogram showed normal heart function. The chest pain and palpitation are likely due to anemia caused by heavy menstrual bleeding. You were evaluated by FISHERIES TECHNICIAN for heavy menstrual bleeding; they recommend that you take norethindrone acetate 5 mg 3 times a day for 3 weeks. Please follow-up with your FISHERIES TECHNICIAN for consideration of Minera IUD. Start taking your Eliquis from tomorrow. You are transfused with iron of 600 mg. Please continue to take oral iron supplement as you are doing previously. Pending Studies at Discharge: No Stand-Alone Forms: My DNage, Smoking Cessation Medications and DC Order Prescriptions: New norethindrone acetate 5 mg Tablet 5 mg PO TID 20 Days Qty: 60 0RF Continued acetaminophen [Tylenol Extra Strength] 500 mg Tablet 1,000 mg PO Q6H PRN (Reason: Pain) hydroxyzine HCl 50 mg tablet 50 mg PO HS PRN (Reason: Sleep) buspirone 15 mg tablet 15 mg PO BID Vraylar 3 mg capsule 3 mg PO HS ondansetron 4 mg tablet,disintegrating 4 mg PO Q8H PRN (Reason: nausea and vomiting) Qty: 30 0RF ferrous sulfate 325 mg (65 mg iron) tablet 325 mg PO BID Eliquis 2.5 mg tablet 2.5 mg PO BID famotidine 20 mg Tablet 20 mg PO HS PRN (Reason: Dyspepsia) levothyroxine 112 mcg tablet 112 mcg PO DAILY Discharge Orders: Discharge Order (Routine); Ordered 10/24/24 Ordered By: Edy Arellano Admission Data Admit Date/Time: 10/21/24 16:37 Attending Provider: Edy Arellano Admit Provider: Carmelita Stone I. Primary Care Provider: Nina Ricardo Other Providers: Drake Ricardo; Carmelita Stone I.; Dale Adhikari Other Interventions: Discharge Summary Assessment (RN) Last Done: 10/24/24 14:33
[2024-10-24] MEDS: POLYETHYLENE (MIRALAX) 17 GM PACK PO PRN (11:49)
[2024-10-24] MEDS: POTASSIUM CHLORIDE CRTAB 20 MEQ TABCR PO STA (11:49)
[2024-10-24 12:08] VITALS: RESP 20; TEMP 98.4
[2024-10-24 13:21] LABS: Basophils # (auto) 0.05 K/uL (0.00-0.20); Basophils % (auto) 0.5 %; Eosinophils % (auto) 1.8 %; Hemoglobin 8.5 g/dl (12.0-16.0); Immature Granulocytes # (auto) 0.07 K/uL (0.01-0.20); Immature Granulocytes % (auto) 0.6 %; Lymphocytes # (auto) 2.24 K/uL (1.20-3.40); Lymphocytes % (auto) 20.7 %; Mean Corpuscular Hemoglobin 30.4 pg (25.0-34.0); Mean Corpuscular Volume 89.3 fL (80.0-100.0); Mean Platelet Volume 9.8 fL (9.4-12.4); Monocytes # (auto) 0.68 K/uL (0.11-0.59); Monocytes % (auto) 6.3 %; Neutrophils # (auto) 7.59 K/uL (1.40-6.50); Neutrophils % (auto) 70.1 %; Nucleated RBC # (auto) 0.03 K/uL (0.00-0.12); Nucleated RBC % (auto) 0.3 %; Platelet Count 193 K/uL (130-400); RDW Coefficient of Variation 14.6 % (11.5-14.5); RDW Standard Deviation 46.2 fL (36.4-46.3); White Blood Count 10.83 K/ul (4.8-10.8)
[2024-10-24 14:34] VITALS: BP 130/80; PULSE 77
== END 2024-10-24 15:12 | disposition home or self-care (01) | DRG 311 ==
LOC: ED 11:35 → SUATTDRO 16:37 → 2N 16:37